=== PATIENT | female | born 1960 | race Caucasian/White ===

== ENCOUNTER 2021-05-20 10:41 | Emergency (ER) | payer MEDICARE, SELFPAY ==
[2021-05-20] VITALS (7 sets, daily range): BP systolic 107–118; BP diastolic 55–73; PULSE 103–112; RESP 26–32; TEMP 37; O2SAT 92–98; BMI 24.9
--- NOTE | 2021-05-20 10:50 | DI.RAD.S_ITS ---
PROCEDURE: XR CHEST 2V INDICATIONS: shortness of breath TECHNIQUE: 2 views of the chest were acquired. COMPARISON: None. FINDINGS: Surgical changes and devices: Cervical spine fixation hardware is seen. Lungs and pleura: Patchy interstitial infiltrates are seen, which are worst peripherally. No pleural effusions or pneumothorax. Mediastinum: Mediastinal contours are normal. Heart size is normal. Bones and chest wall: No suspicious bony abnormalities. Age-appropriate bony degenerative changes are seen. Soft tissues appear unremarkable. IMPRESSION: COVID pneumonia until proven otherwise. Postoperative and degenerative changes are seen. Dictated by: Deepak Casiano M.D. on 05/20/2021 at 11:00 Approved by: Deepak Casiano M.D. on 05/20/2021 at 11:01
--- NOTE | 2021-05-20 11:06 | ED_ITS ---
HPI - General Adult General Chief complaint: Shortness of Breath/Dyspnea Stated complaint: COPD, low oxygen levels Time Seen by Provider: 05/20/21 10:56 Source: patient Mode of arrival: Ambulatory Limitations: no limitations History of Present Illness HPI narrative: Patient is a 61-year-old female. Has a history of COPD and CHF. She is here with her sister. He is relatively new to the area. Initial appointment with a primary doctor last Friday through telemedicine however they missed that appointment and their next scheduled appointment is in for another week. Patient is on home oxygen. 2-3 as needed. She is here in the emergency department because she reports that over the past several weeks/days she has had an increase in sputum production. No fevers. No change in color the sputum. She does get short of breath. She has had coughing fits. Occasionally has chest pain but nothing currently. No swelling in her lower extremities. Related Data Previous Rx's Medication Instructions Recorded azithromycin 250 mg tablet See Rx Instructions .ROUTE 05/20/21 .COMPLEX #6 tab furosemide 20 mg tablet (Lasix) 20 mg PO DAILY #14 tab 05/20/21 prednisone 20 mg tablet 20 mg PO DAILY #14 tab 05/20/21 Allergies Allergy/AdvReac Type Severity Reaction Status Date / Time marijuana Allergy Severe Vomiting Verified 05/20/21 11:53 methadone Allergy Severe Vomiting Verified 05/20/21 11:53 Review of Systems Constitutional Constitutional: Denies fever(s) and Denies headache(s) ENT Ears, Nose, Mouth, and Throat: Denies headache(s) Cardiovascular Cardiovascular: Reports as per HPI and Reports system reviewed and no additional complaints, except as documented Respiratory Respiratory: Reports as per HPI and Reports system reviewed and no additional complaints, except as documented Gastrointestinal Gastrointestinal: Reports system reviewed and no additional complaints, except as documented Genitourinary Genitourinary: Reports system reviewed and no additional complaints, except as documented Musculoskeletal Musculoskeletal: Reports system reviewed and no additional complaints, except as documented and Reports as per HPI Integumentary/Breasts Skin/Breast: Reports system reviewed and no additional complaints, except as documented Neurologic Neurologic: Reports system reviewed and no additional complaints, except as documented and Denies headache(s) Hematologic/Lymphatic On Anticoagulants: No Allergic/Immunologic Allergic/Immunologic: Reports system reviewed and no additional complaints, except as documented Patient History Medical History Chronic obstructive pulmonary disease Congestive heart failure Social History Smoking Status: Current every day smoker Exam Initial Vital Signs Initial Vital Signs: Vital Signs Temperature 98.6 F 05/20/21 11:04 Pulse Rate 112 H 05/20/21 11:04 Respiratory Rate 30 H 05/20/21 11:04 Blood Pressure 118/73 05/20/21 11:04 Pulse Oximetry 96 05/20/21 11:04 Const General: cooperative and healthy appearing Limitations: mental status not altered [facility] Head: normal to inspection and normocephalic Neck Neck: normal visual inspection Resp Effort & Inspection: normal respiratory effort Auscultation: diminished lung sounds Cardio Rate: regular rate Rhythm: regular rhythm GI Inspection: non-distended Palpation: soft and No tender Back/Spine/Pelvis Back: normal to inspection Skin Lesions: no lesions Rashes: no rashes Neuro General: patient alert, patient awake, patient oriented x3 and moves all extremities Extrem General: capillary refill normal Psych Appearance: grossly normal and well kempt Course Orders Ordered: ED Orders 05/20/21 10:50 XR chest 2V Stat COVID19 -Nasal swab/Pre-Proc Stat EKG-12 Lead Stat Measure peak expiratory flow ONCE RT Consult Eval and Treat Now 05/20/21 11:35 Complete Blood Count AUTO DIFF Stat Comprehensive Metabolic Panel Stat Lactate (Lactic Acid) Stat Lipase Stat NT-proBNP (BNP-Adult 18+) Stat Troponin I Stat Discontinued Medications Methylprednisolone (Methylprednisolone 125 Mg/2 Ml Vial) 125 mg IV NOW ONE Stop: 05/20/21 11:34 Last Admin: 05/20/21 12:08 Dose: 125 mg Documented by: KENDRA Vital Signs Vital signs: Vital Signs - 8 hr 05/20/21 11:04 Temperature 98.6 F Pulse Rate 112 H Respiratory Rate 30 H Blood Pressure 118/73 Pulse Oximetry 96 Medical Decision Making Lab Data Lab results reviewed: Yes I reviewed the patient's lab results. Result diagrams: 05/20/21 11:35 05/20/21 11:35 Labs: Lab Results 05/20/21 05/20/21 05/20/21 Range/Units 10:50 11:35 11:35 WBC 26.3 H (4.5-11.0) X10^3/uL RBC 5.58 H (4.0-5.2) X10^6/uL Hgb 12.5 (12.0-16.0) g/dL Hct 40.4 (36-46) % MCV 72.5 L (80-100) fL MCH 22.4 L (26-34) PG MCHC 30.9 (30-36) % RDW 14.8 (11.6-14.8) % Plt Count 379 (150-400) X10^3/uL Neut % (Auto) Not Reportable Lymph % (Auto) Not Reportable [place] % (Auto) Not Reportable Eos % (Auto) Not Reportable Baso % (Auto) Not Reportable Lymph # (Auto) Not Reportable [place] # (Auto) Not Reportable Baso # (Auto) Not Reportable Total Counted 100 Seg Neutrophils % 90.0 H (38-70) % Lymphocytes % (Manual) 5.0 L (25-45) % Monocytes % (Manual) 4.0 (2-11) % Eosinophils % (Manual) 1.0 L (2-4) % Neutrophils # (Manual) 77463 H (4120-2121) /uL RBC Morphology Normal morphology Sodium 138 (137-145) mmol/L Potassium 4.1 (3.4-5.1) mmol/L Chloride 96 L (98-107) mmol/L Carbon Dioxide 39 H (22-32) mmol/L BUN 5 L (7-17) mg/dL Creatinine 0.54 (0.52-1.04) mg/dL Estimated GFR > 60.0 (>60) mL/min BUN/Creatinine Ratio 9.3 (6-22) Glucose 106 (80-110) mg/dL Lactate (0.7-2.1) mmol/L Calcium 9.2 (8.4-10.2) mg/dL Total Bilirubin 0.3 (0.2-1.3) mg/dL AST 16 (14-36) IU/L ALT 8 (<35) IU/L Alkaline Phosphatase 159 H (38-126) U/L Troponin I (0.01-0.034) ng/mL NT-Pro-B Natriuret Pep (<125) pg/mL Total Protein 6.6 (6.3-8.2) g/dL Albumin 3.5 (3.5-5.0) g/dL Globulin 3.1 (1.7-4.1) g/dL Albumin/Globulin Ratio 1.1 (1.0-2.8) Lipase (23-300) U/L SARS-CoV-2 (PCR) Negative (Negative) 05/20/21 05/20/21 Range/Units 11:35 11:35 WBC (4.5-11.0) X10^3/uL RBC (4.0-5.2) X10^6/uL Hgb (12.0-16.0) g/dL Hct (36-46) % MCV (80-100) fL MCH (26-34) PG MCHC (30-36) % RDW (11.6-14.8) % Plt Count (150-400) X10^3/uL Neut % (Auto) Lymph % (Auto) [place] % (Auto) Eos % (Auto) Baso % (Auto) Lymph # (Auto) [place] # (Auto) Baso # (Auto) Total Counted Seg Neutrophils % (38-70) % Lymphocytes % (Manual) (25-45) % Monocytes % (Manual) (2-11) % Eosinophils % (Manual) (2-4) % Neutrophils # (Manual) (0893-9666) /uL RBC Morphology Sodium (137-145) mmol/L Potassium (3.4-5.1) mmol/L Chloride (98-107) mmol/L Carbon Dioxide (22-32) mmol/L BUN (7-17) mg/dL Creatinine (0.52-1.04) mg/dL Estimated GFR (>60) mL/min BUN/Creatinine Ratio (6-22) Glucose (80-110) mg/dL Lactate 0.8 (0.7-2.1) mmol/L Calcium (8.4-10.2) mg/dL Total Bilirubin (0.2-1.3) mg/dL AST (14-36) IU/L ALT (<35) IU/L Alkaline Phosphatase (38-126) U/L Troponin I 0.022 (0.01-0.034) ng/mL NT-Pro-B Natriuret Pep 3500 H (<125) pg/mL Total Protein (6.3-8.2) g/dL Albumin (3.5-5.0) g/dL Globulin (1.7-4.1) g/dL Albumin/Globulin Ratio (1.0-2.8) Lipase 25 (23-300) U/L SARS-CoV-2 (PCR) (Negative) Imaging Data Chest x-ray: Radiologist's Impression: [address] [address] XRay Report Signed Patient: Juliet Rodriguez MR#: [id number] : 1960 Acct:[id number] Age/Sex: 61 / F Date of Service: 05/20/21 Loc: ED Accession Number: [id number] ?? Procedure: XR chest 2V Ordering Provider: Malcolm Richey D.O. PROCEDURE:? XR CHEST 2V ? INDICATIONS:? shortness of breath ? TECHNIQUE:? 2 views of the chest were acquired.? ? COMPARISON:? None. ? FINDINGS:? ? Surgical changes and devices:? Cervical spine fixation hardware is seen. ? Lungs and pleura:? Patchy interstitial infiltrates are seen, which are worst peripherally.? No pleural effusions or pneumothorax.? ? Mediastinum:? Mediastinal contours are normal.? Heart size is normal.? ? Bones and chest wall:? No suspicious bony abnormalities.? Age-appropriate bony degenerative changes are seen.? Soft tissues appear unremarkable.? IMPRESSION:? COVID pneumonia until proven otherwise. ? Postoperative and degenerative changes are seen.? ? ? Dictated by: Deepak Casiano M.D. on 05/20/2021 at 11:00 ? ? Approved by: Deepak Casiano M.D. on 05/20/2021 at 11:01? ECG Data Attestation: I personally reviewed and interpreted this ECG as follows: Prior ECG tracings: not available for review Interpretation: Sinus tachycardia Ventricular rate 113 Normal axis Normal QRS Normal QTC No ST T wave changes MDM Narrative Medical decision making narrative: Patient does have a history of COPD and CHF. Her presentation today is more consistent with a COPD exacerbation however she does have a slightly elevated BNP. We have no prior ones to compare to. Oxygen saturations greater than 95% on 2 L. She does have oxygen for home. Plan will be is to start her on antibiotics given the change in sputum production. Will also increase her steroids for the next couple days and also increase her Lasix. She is scheduled to follow-up with the primary doctor. Both her and her sister her given return precautions. They expressed understanding agreement. Discharge Plan Departure Patient Disposition: Home Clinical Impression: COPD exacerbation, CHF (congestive heart failure) Instructions: DI for Heart Failure, DI for Chronic Obstructive Pulmonary Disease Activity Restrictions/Additional Instructions: Will start you on antibiotics hand for the next couple days we will increase your Lasix and also your prednisone. Please start taking them as directed. Keep all of your scheduled medical appointments. Return to the emergency department for any new or worsening symptoms Prescriptions: New azithromycin 250 mg tablet See Rx Instructions .ROUTE .COMPLEX Qty: 6 0RF Rx Instructions: For 250 mg dose pack: take 500 mg today (day 1), then 250 mg for 4 days (days 2-5) prednisone 20 mg tablet 20 mg PO DAILY Qty: 14 0RF furosemide [Lasix] 20 mg tablet 20 mg PO DAILY Qty: 14 0RF
[2021-05-20 11:17] LABS: COVID19 -Nasal RAPID Negative (Negative)
[2021-05-20 11:47] LABS: Hematocrit 40.4 % (36-46); Hemoglobin 12.5 g/dL (12.0-16.0); Mean Corpuscular HGB Conc 30.9 % (30-36); Mean Corpuscular Hemoglobin 22.4 PG (26-34); Mean Corpuscular Volume 72.5 fL (80-100); Platelet Count 379 X10^3/uL (150-400); Red Blood Cell Count 5.58 X10^6/uL (4.0-5.2); Red Cell Distribution Width 14.8 % (11.6-14.8); White Blood Cell Count 26.3 X10^3/uL (4.5-11.0)
[2021-05-20 11:48] LABS: Add Manual Diff / Slide Review YES
[2021-05-20 11:58] LABS: Lactate (Lactic Acid) 0.8 mmol/L (0.7-2.1)
[2021-05-20 11:59] LABS: Alanine Aminotransferase 8 IU/L (<35); Albumin 3.5 g/dL (3.5-5.0); Albumin Globulin Ratio 1.1 (1.0-2.8); Alkaline Phosphatase 159 U/L (38-126); Aspartate Aminotransferase 16 IU/L (14-36); BUN Creatinine Ratio 9.3 (6-22); Bilirubin Total 0.3 mg/dL (0.2-1.3); Blood Urea Nitrogen 5 mg/dL (7-17); Calcium 9.2 mg/dL (8.4-10.2); Carbon Dioxide 39 mmol/L (22-32); Chloride 96 mmol/L (98-107); Estimated Glomerular Filt Rate > 60.0 mL/min (>60); Globulin 3.1 g/dL (1.7-4.1); Glucose 106 mg/dL (80-110); HEMOLYSIS < 15 (0-50); Lipase 25 U/L (23-300); Potassium 4.1 mmol/L (3.4-5.1); Sodium 138 mmol/L (137-145); Total Protein 6.6 g/dL (6.3-8.2)
[2021-05-20 12:03] LABS: Neutrophils Absolute Manual 23670 /uL (3000-5900); RBC Morphology Normal Morphology; Total Cells Counted 100
[2021-05-20] MEDS: methylPREDNISolone 125 MG/2 ML VIAL IV (12:08)
[2021-05-20 12:11] LABS: NT-proBNP (BNP-Adult 18+) 3500 pg/mL (<125); Troponin I 0.022 ng/mL (0.01-0.034)
== END 2021-05-20 13:11 | disposition home or self-care (01) ==
PROVIDERS: Emergency Provider Emergency Medicine
DX: J44.1 Chronic obstructive pulmonary disease with (acute) exacerbation (principal); I50.9 Heart failure, unspecified; F17.200 Nicotine dependence, unspecified, uncomplicated; R00.0 Tachycardia, unspecified
CPT/HCPCS: 36415; 71046; 80053; 83605; 83690; 83880; 84484; 85007; 85025; 87635; 93005; 99285; C9803; J2930

== ENCOUNTER 2021-05-22 21:29 | Inpatient (IN) | payer MEDICARE, SELFPAY ==
[2021-05-22] VITALS (10 sets, daily range): BP systolic 111–142; BP diastolic 56–69; PULSE 101–111; RESP 26–41; TEMP 36.6–37; O2SAT 93–99
--- NOTE | 2021-05-22 22:23 | DI.RAD.S_ITS ---
PROCEDURE: XR CHEST 1V INDICATIONS: short of breath TECHNIQUE: One view of the chest was acquired. COMPARISON: [facility], CR, XR CHEST 2V, 05/20/2021, 11:37. FINDINGS: Surgical changes and devices: Stable postsurgical changes from ACDF. Lungs and pleura: Persistent patchy ill-defined airspace opacities noted throughout the bilateral hemithoraces most predominantly in the periphery. Associated linear scarring of the bilateral mid lung zones. Mild blunting of the bilateral costophrenic angles likely representing scarring versus small pleural effusions. Mediastinum: Mediastinal contours appear stable. Heart size is normal. Bones and chest wall: No suspicious bony lesions. Overlying soft tissues appear unremarkable. IMPRESSION: Persistent patchy ill-defined airspace opacities noted in the bilateral hemithoraces and predominantly in a peripheral distribution. There is associated background interstitial lung disease and scarring. Findings appear stable to slightly improved compared to prior study and likely represents multifocal airspace disease/pneumonia. Suspected small bilateral pleural effusions. Dictated by: Noble Carcamo M.D. on 05/22/2021 at 22:49 Approved by: Noble Carcamo M.D. on 05/22/2021 at 22:52
[2021-05-22] MEDS: FUROSEMIDE 40 MG/4 ML VIAL IV (22:57)
[2021-05-22] MEDS: methylPREDNISolone 125 MG/2 ML VIAL IV (22:57)
[2021-05-22 23:02] LABS: Alanine Aminotransferase 10 IU/L (<35); Albumin 3.8 g/dL (3.5-5.0); Albumin Globulin Ratio 1.2 (1.0-2.8); Alkaline Phosphatase 127 U/L (38-126); Aspartate Aminotransferase 21 IU/L (14-36); BUN Creatinine Ratio 24.2 (6-22); Bilirubin Total 0.4 mg/dL (0.2-1.3); Blood Urea Nitrogen 15 mg/dL (7-17); Calcium 9.1 mg/dL (8.4-10.2); Chloride 96 mmol/L (98-107); Creatine Kinase < 20 U/L (30-135); Estimated Glomerular Filt Rate > 60.0 mL/min (>60); Globulin 3.3 g/dL (1.7-4.1); Glucose 103 mg/dL (80-110); HEMOLYSIS 24 (0-50); Hematocrit 43.9 % (36-46); Hemoglobin 13.2 g/dL (12.0-16.0); Mean Corpuscular HGB Conc 30.1 % (30-36); Mean Corpuscular Hemoglobin 22.2 PG (26-34); Mean Corpuscular Volume 73.6 fL (80-100); Platelet Count 457 X10^3/uL (150-400); Potassium 3.8 mmol/L (3.4-5.1); Red Blood Cell Count 5.97 X10^6/uL (4.0-5.2); Sodium 141 mmol/L (137-145); Total Protein 7.1 g/dL (6.3-8.2); White Blood Cell Count 15.6 X10^3/uL (4.5-11.0)
[2021-05-22 23:03] LABS: Add Manual Diff / Slide Review YES
[2021-05-22 23:05] LABS: INR 1.1 (0.9-1.3); Prothrombin Time 12.1 SECONDS (10.1-12.7)
[2021-05-22 23:06] LABS: COVID19 -Nasal RAPID Negative (Negative)
[2021-05-22 23:07] LABS: PTT Partial Thromboplastin Tim 35 SECONDS (26.4-36.2)
[2021-05-22 23:08] LABS: Carbon Dioxide 39 mmol/L (22-32); Lactate (Lactic Acid) 0.9 mmol/L (0.7-2.1)
--- NOTE | 2021-05-22 23:13 | DI.CT.S_ITS ---
PROCEDURE: CT HEAD/BRAIN WO CON INDICATIONS: altered mental status TECHNIQUE: Noncontrast 4.5 mm thick angled axial sections acquired from the foramen magnum to the vertex, with coronal and sagittal reformats. For radiation dose reduction, the following was used: automated exposure control, adjustment of mA and/or kV according to patient size. COMPARISON: None. FINDINGS: Image quality: Excellent. CSF spaces: Basal cisterns are patent. No extra-axial fluid collections. The ventricles are symmetric in size and shape. Brain: No intracranial bleeds or masses. There is cerebral volume loss for age, with resultant ventricular and sulcal prominence. There are periventricular and deep white matter chronic small vessel ischemic changes. There is intracranial internal carotid artery atherosclerosis. Skull and face: Calvarium and visualized facial bones appear intact, without suspicious lesions. Sinuses: Visualized sinuses and mastoids are clear. IMPRESSION: CT head without acute intracranial abnormalities. Dictated by: Noble Carcamo M.D. on 05/22/2021 at 23:48 Approved by: Noble Carcamo M.D. on 05/22/2021 at 23:50
--- NOTE | 2021-05-22 23:13 | ED.AMS ---
HPI - Altered Mental Status General Chief Complaint: Upper Respiratory Symptoms Stated Complaint: difficulty breathing Time Seen by Provider: 05/22/21 22:22 Source: patient and family Mode of arrival: Wheelchair Limitations: no limitations History of Present Illness HPI narrative: Patient is a 61-year-old female history of COPD CHF atrial fibrillation maybe on Eliquis but I do not believe she is taking it, presents today with decreasing mental status. She apparently just moved here from [place] to live with her sister to help take care of her. She is chronically on oxygen. She was seen and evaluated here diagnosed both COPD exacerbation and congestive heart failure presenting today with decreasing mental status. Sister states that she has had decreasing mental status and complains of pain this evening and wanted to go the emergency department. She is able to answer some questions but is actually quite somnolent. Related Data Previous Rx's Medication Instructions Recorded azithromycin 250 mg tablet See Rx Instructions .ROUTE 05/20/21 .COMPLEX #6 tab furosemide 20 mg tablet (Lasix) 20 mg PO DAILY #14 tab 05/20/21 prednisone 20 mg tablet 20 mg PO DAILY #14 tab 05/20/21 Allergies Allergy/AdvReac Type Severity Reaction Status Date / Time marijuana Allergy Severe Vomiting Verified 05/20/21 11:53 methadone Allergy Severe Vomiting Verified 05/20/21 11:53 Review of Systems Constitutional Constitutional: Denies fever(s) Cardiovascular Cardiovascular: Denies chest pain and Denies irregular heart rhythm Gastrointestinal Gastrointestinal: Denies abdominal pain and Denies nausea Integumentary/Breasts Skin/Breast: Denies rash Patient History Medical History Chronic obstructive pulmonary disease Congestive heart failure Social History Smoking Status: Current every day smoker Smoking Status: Current every day smoker tobacco type: cigarettes alcohol intake frequency: 0-2 drinks per day Substance Use Type: does not use Exam Initial Vital Signs Initial Vital Signs: Vital Signs Temperature 97.8 F 05/22/21 21:35 Pulse Rate 111 H 05/22/21 21:35 Respiratory Rate 36 H 05/22/21 21:35 Blood Pressure 112/64 05/22/21 21:35 Pulse Oximetry 93 05/22/21 21:35 Course Orders Ordered: ED Orders 05/22/21 22:50 Blood Culture Stat 05/22/21 23:02 ABG [Arterial Blood Gas] Stat 05/22/21 23:13 CT head/brain wo con Stat 05/22/21 23:26 EKG-12 Lead Stat 05/23/21 00:07 Urinalysis and Microscopic Stat Urine Drug Screen, Rapid Stat 05/23/21 00:23 Trop I [Troponin I] Stat 05/23/21 01:27 BiPAP Ventilatory Support RT PROTOCOL 05/23/21 03:32 Arterial Blood Gas Stat Acetaminophen (Acetaminophen 325 Mg Tablet) 650 mg PO Q6HR PRN PRN Reason: Fever Albuterol (Albuterol 2.5 Mg/3 Ml Neb (Adult)) 2.5 mg INH [id number] PRN PRN Reason: Shortness Of Breath Or Wheezing Albuterol/Ipratropium (Albuterol/Ipratropium 3 Ml Ampul) 3 ml INH [id number] DANYELL Aspirin (Aspirin Ec 81 Mg Tablet) 81 mg PO DAILY [facility] Azithromycin (Azithromycin 250 Mg Tablet) 500 mg PO DAILY [facility] Enoxaparin Sodium (Enoxaparin 40 Mg/0.4 Ml Syringe) 40 mg SUBCUT DAILY [facility] Furosemide (Furosemide 20 Mg Tablet) 40 mg PO DAILY [facility] Metoclopramide HCl (Metoclopramide 10 Mg/2 Ml Inj) 10 mg IV Q6HR PRN PRN Reason: Nausea And Vomiting Naloxone HCl (Naloxone 0.4 Mg/Ml Vial) 0.2 mg IV Q2MIN PRN PRN Reason: Opiate Reversal Pantoprazole Sodium (Pantoprazole Dr 40 Mg Tablet) 40 mg PO 0700 [facility] Discontinued Medications Albuterol/Ipratropium (Albuterol/Ipratropium 3 Ml Ampul) 3 ml INH NOW ONE Stop: 05/22/21 22:24 Furosemide (Furosemide 40 Mg/4 Ml Vial) 40 mg IV NOW ONE Stop: 05/22/21 22:24 Last Admin: 05/22/21 22:57 Dose: 40 mg Documented by: HONEY Lorazepam (Lorazepam 2 Mg/Ml Inj) 0.5 mg IV NOW ONE Stop: 05/23/21 06:23 Last Admin: 05/23/21 06:29 Dose: 0.5 mg Documented by: ABEBA Methylprednisolone (Methylprednisolone 125 Mg/2 Ml Vial) 125 mg IV NOW ONE Stop: 05/22/21 22:24 Last Admin: 05/22/21 22:57 Dose: 125 mg Documented by: HONEY Vital Signs Vital signs: Vital Signs - 8 hr 05/22/21 23:45 05/22/21 23:51 05/23/21 00:00 Temperature 98.6 F 98.6 F 98.6 F Pulse Rate 104 H 102 H 100 H Respiratory Rate 35 H 29 H 16 Blood Pressure 118/59 L 111/56 L 112/53 L Pulse Oximetry 99 98 99 05/23/21 00:15 05/23/21 00:30 05/23/21 00:45 Temperature 98.8 F 98.8 F 98.8 F Pulse Rate 101 H 104 H 103 H Respiratory Rate 17 Blood Pressure 130/62 130/60 120/58 L Pulse Oximetry 98 98 99 05/23/21 01:00 05/23/21 01:15 05/23/21 01:30 Temperature 99.0 F 99.1 F 99.3 F Pulse Rate 99 H 101 H 97 H Respiratory Rate 25 H Blood Pressure 113/57 L 106/58 L 113/58 L Pulse Oximetry 99 98 99 05/23/21 01:45 05/23/21 02:00 05/23/21 02:15 Temperature 99.3 F 99.1 F 99.0 F Pulse Rate 98 H 100 H 98 H Respiratory Rate 25 H 24 25 H Blood Pressure 105/55 L 132/63 124/58 L Pulse Oximetry 97 96 97 05/23/21 02:30 05/23/21 02:45 05/23/21 03:00 Temperature 98.8 F 98.8 F 98.8 F Pulse Rate 97 H 97 H 104 H Respiratory Rate 27 H 23 25 H Blood Pressure 110/54 L 117/57 L 137/61 Pulse Oximetry 97 98 98 05/23/21 03:15 05/23/21 03:30 05/23/21 03:40 Temperature 98.8 F 99.0 F Pulse Rate 102 H 100 H Respiratory Rate 27 H 28 H Blood Pressure 137/63 119/57 L 119/57 L Pulse Oximetry 99 99 05/23/21 03:45 05/23/21 04:00 05/23/21 05:25 Temperature 99.0 F 99.1 F Pulse Rate 101 H 95 H Respiratory Rate 22 23 Blood Pressure 119/59 L 102/51 L 106/58 L Pulse Oximetry 98 99 MDM - Altered Mental Status Lab Data Result diagrams: 05/22/21 22:32 05/22/21 22:32 Labs: Lab Results 05/22/21 05/22/21 05/22/21 Range/Units 22:32 22:32 22:32 WBC 15.6 H (4.5-11.0) X10^3/uL RBC 5.97 H (4.0-5.2) X10^6/uL Hgb 13.2 (12.0-16.0) g/dL Hct 43.9 (36-46) % MCV 73.6 L (80-100) fL MCH 22.2 L (26-34) PG MCHC 30.1 (30-36) % RDW 15.0 H (11.6-14.8) % Plt Count 457 H (150-400) X10^3/uL Neut % (Auto) Not Reportable Lymph % (Auto) Not Reportable [place] % (Auto) Not Reportable Eos % (Auto) Not Reportable Baso % (Auto) Not Reportable Lymph # (Auto) Not Reportable [place] # (Auto) Not Reportable Baso # (Auto) Not Reportable Total Counted 100 Seg Neutrophils % 72.0 H (38-70) % Band Neutrophils % 2.0 L (3-7) % Lymphocytes % (Manual) 12.0 L (25-45) % Monocytes % (Manual) 13.0 H (2-11) % Basophils % (Manual) 1.0 (0-1) % Neutrophils # (Manual) 56710 H (8822-1138) /uL RBC Morphology See below Anisocytosis 1+ H PT 12.1 (10.1-12.7) SECONDS INR 1.1 (0.9-1.3) APTT 35 (26.4-36.2) SECONDS ABG pH (7.35-7.45) ABG pCO2 (35-45) mmHg ABG pO2 (80-100) mmHg ABG HCO3 (22-26) mmol/L ABG Total CO2 (21-31) mmol/L ABG O2 Saturation (95-100) % ABG Base Excess (-2-2) mmol/L FiO2 Sodium 141 (137-145) mmol/L Potassium 3.8 (3.4-5.1) mmol/L Chloride 96 L (98-107) mmol/L Carbon Dioxide 39 H (22-32) mmol/L BUN 15 (7-17) mg/dL Creatinine 0.62 (0.52-1.04) mg/dL Estimated GFR > 60.0 (>60) mL/min BUN/Creatinine Ratio 24.2 H (6-22) Glucose 103 (80-110) mg/dL Lactate (0.7-2.1) mmol/L Calcium 9.1 (8.4-10.2) mg/dL Magnesium 2.0 (1.6-2.3) mg/dL Total Bilirubin 0.4 (0.2-1.3) mg/dL AST 21 (14-36) IU/L ALT 10 (<35) IU/L Alkaline Phosphatase 127 H (38-126) U/L Total Creatine Kinase < 20 L (30-135) U/L CK-MB (CK-2) TNP CK-MB (CK-2) Rel Index TNP Troponin I 0.025 (0.01-0.034) ng/mL NT-Pro-B Natriuret Pep 5340 H (<125) pg/mL Total Protein 7.1 (6.3-8.2) g/dL Albumin 3.8 (3.5-5.0) g/dL Globulin 3.3 (1.7-4.1) g/dL Albumin/Globulin Ratio 1.2 (1.0-2.8) Procalcitonin 0.09 (<0.5) ng/mL Urine Color Urine Appearance Urine pH (4.5-8.0) Ur Specific [place] (1.000-1.035) Urine Protein (Negative) Urine Glucose (UA) (Negative) g/dL Urine Ketones (NEGATIVE) Urine Occult Blood (Negative) Urine Nitrate (Negative) Urine Bilirubin (NEGATIVE) Urine Urobilinogen (0.2) E.U./dL Ur Leukocyte Esterase (NEGATIVE) Urine RBC (0-5/HPF) Urine WBC (0-5/HPF) Ur Renal Epithelial Cell (0-1/HPF) Urine Bacteria (None) Ur Culture Indicated? U Opiates 300ng/mL cut (Negative) Ur Oxycodone Screen (Negative) Urine Methadone Screen (Negative) Ur Barbiturates Screen (Negative) U Tricyclic Antidepress (Negative) Ur Phencyclidine Scrn (Negative) Ur Amphetamines Screen (Negative) U Methamphetamines Scrn (Negative) Ur MDMA Scrn (Ecstasy) (Negative) U Benzodiazepines Scrn (Negative) Urine Cocaine Screen (Negative) U Marijuana (THC) Screen (Negative) SARS-CoV-2 (PCR) (Negative) 05/22/21 05/22/21 05/22/21 Range/Units 22:32 22:37 22:37 WBC (4.5-11.0) X10^3/uL RBC (4.0-5.2) X10^6/uL Hgb (12.0-16.0) g/dL Hct (36-46) % MCV (80-100) fL MCH (26-34) PG MCHC (30-36) % RDW (11.6-14.8) % Plt Count (150-400) X10^3/uL Neut % (Auto) Lymph % (Auto) [place] % (Auto) Eos % (Auto) Baso % (Auto) Lymph # (Auto) [place] # (Auto) Baso # (Auto) Total Counted Seg Neutrophils % (38-70) % Band Neutrophils % (3-7) % Lymphocytes % (Manual) (25-45) % Monocytes % (Manual) (2-11) % Basophils % (Manual) (0-1) % Neutrophils # (Manual) (1307-6031) /uL RBC Morphology Anisocytosis PT (10.1-12.7) SECONDS INR (0.9-1.3) APTT (26.4-36.2) SECONDS ABG pH (7.35-7.45) ABG pCO2 (35-45) mmHg ABG pO2 (80-100) mmHg ABG HCO3 (22-26) mmol/L ABG Total CO2 (21-31) mmol/L ABG O2 Saturation (95-100) % ABG Base Excess (-2-2) mmol/L FiO2 Sodium (137-145) mmol/L Potassium (3.4-5.1) mmol/L Chloride (98-107) mmol/L Carbon Dioxide (22-32) mmol/L BUN (7-17) mg/dL Creatinine (0.52-1.04) mg/dL Estimated GFR (>60) mL/min BUN/Creatinine Ratio (6-22) Glucose (80-110) mg/dL Lactate 0.9 (0.7-2.1) mmol/L Calcium (8.4-10.2) mg/dL Magnesium (1.6-2.3) mg/dL Total Bilirubin (0.2-1.3) mg/dL AST (14-36) IU/L ALT (<35) IU/L Alkaline Phosphatase (38-126) U/L Total Creatine Kinase (30-135) U/L CK-MB (CK-2) CK-MB (CK-2) Rel Index Troponin I (0.01-0.034) ng/mL NT-Pro-B Natriuret Pep (<125) pg/mL Total Protein (6.3-8.2) g/dL Albumin (3.5-5.0) g/dL Globulin (1.7-4.1) g/dL Albumin/Globulin Ratio (1.0-2.8) Procalcitonin (<0.5) ng/mL Urine Color Urine Appearance Urine pH (4.5-8.0) Ur Specific [place] (1.000-1.035) Urine Protein (Negative) Urine Glucose (UA) (Negative) g/dL Urine Ketones (NEGATIVE) Urine Occult Blood (Negative) Urine Nitrate (Negative) Urine Bilirubin (NEGATIVE) Urine Urobilinogen (0.2) E.U./dL Ur Leukocyte Esterase (NEGATIVE) Urine RBC (0-5/HPF) Urine WBC (0-5/HPF) Ur Renal Epithelial Cell (0-1/HPF) Urine Bacteria (None) Ur Culture Indicated? U Opiates 300ng/mL cut (Negative) Ur Oxycodone Screen (Negative) Urine Methadone Screen (Negative) Ur Barbiturates Screen (Negative) U Tricyclic Antidepress (Negative) Ur Phencyclidine Scrn (Negative) Ur Amphetamines Screen (Negative) U Methamphetamines Scrn (Negative) Ur MDMA Scrn (Ecstasy) (Negative) U Benzodiazepines Scrn (Negative) Urine Cocaine Screen (Negative) U Marijuana (THC) Screen (Negative) SARS-CoV-2 (PCR) Negative Negative (Negative) 05/22/21 05/23/21 05/23/21 Range/Units 23:02 00:07 00:07 WBC (4.5-11.0) X10^3/uL RBC (4.0-5.2) X10^6/uL Hgb (12.0-16.0) g/dL Hct (36-46) % MCV (80-100) fL MCH (26-34) PG MCHC (30-36) % RDW (11.6-14.8) % Plt Count (150-400) X10^3/uL Neut % (Auto) Lymph % (Auto) [place] % (Auto) Eos % (Auto) Baso % (Auto) Lymph # (Auto) [place] # (Auto) Baso # (Auto) Total Counted Seg Neutrophils % (38-70) % Band Neutrophils % (3-7) % Lymphocytes % (Manual) (25-45) % Monocytes % (Manual) (2-11) % Basophils % (Manual) (0-1) % Neutrophils # (Manual) (3001-6900) /uL RBC Morphology Anisocytosis PT (10.1-12.7) SECONDS INR (0.9-1.3) APTT (26.4-36.2) SECONDS ABG pH 7.26 L* (7.35-7.45) ABG pCO2 97.2 H* (35-45) mmHg ABG pO2 106 H (80-100) mmHg ABG HCO3 44 H (22-26) mmol/L ABG Total CO2 47 H (21-31) mmol/L ABG O2 Saturation 97 (95-100) % ABG Base Excess 17.0 H (-2-2) mmol/L FiO2 28 Sodium (137-145) mmol/L Potassium (3.4-5.1) mmol/L Chloride (98-107) mmol/L Carbon Dioxide (22-32) mmol/L BUN (7-17) mg/dL Creatinine (0.52-1.04) mg/dL Estimated GFR (>60) mL/min BUN/Creatinine Ratio (6-22) Glucose (80-110) mg/dL Lactate (0.7-2.1) mmol/L Calcium (8.4-10.2) mg/dL Magnesium (1.6-2.3) mg/dL Total Bilirubin (0.2-1.3) mg/dL AST (14-36) IU/L ALT (<35) IU/L Alkaline Phosphatase (38-126) U/L Total Creatine Kinase (30-135) U/L CK-MB (CK-2) CK-MB (CK-2) Rel Index Troponin I (0.01-0.034) ng/mL NT-Pro-B Natriuret Pep (<125) pg/mL Total Protein (6.3-8.2) g/dL Albumin (3.5-5.0) g/dL Globulin (1.7-4.1) g/dL Albumin/Globulin Ratio (1.0-2.8) Procalcitonin (<0.5) ng/mL Urine Color Yellow Urine Appearance Clear Urine pH 7.0 (4.5-8.0) Ur Specific [place] 1.010 (1.000-1.035) Urine Protein Negative (Negative) Urine Glucose (UA) Negative (Negative) g/dL Urine Ketones Negative (NEGATIVE) Urine Occult Blood Negative (Negative) Urine Nitrate Negative (Negative) Urine Bilirubin Negative (NEGATIVE) Urine Urobilinogen 0.2 (0.2) E.U./dL Ur Leukocyte Esterase Negative (NEGATIVE) Urine RBC None seen (0-5/HPF) Urine WBC None seen (0-5/HPF) Ur Renal Epithelial Cell 0-1/hpf (0-1/HPF) Urine Bacteria None seen (None) Ur Culture Indicated? Cult not indicated U Opiates 300ng/mL cut Negative (Negative) Ur Oxycodone Screen Negative (Negative) Urine Methadone Screen Negative (Negative) Ur Barbiturates Screen Negative (Negative) U Tricyclic Antidepress Negative (Negative) Ur Phencyclidine Scrn Negative (Negative) Ur Amphetamines Screen Negative (Negative) U Methamphetamines Scrn Negative (Negative) Ur MDMA Scrn (Ecstasy) Negative (Negative) U Benzodiazepines Scrn Positive H (Negative) Urine Cocaine Screen Negative (Negative) U Marijuana (THC) Screen Negative (Negative) SARS-CoV-2 (PCR) (Negative) 05/23/21 05/23/21 Range/Units 00:23 03:32 WBC (4.5-11.0) X10^3/uL RBC (4.0-5.2) X10^6/uL Hgb (12.0-16.0) g/dL Hct (36-46) % MCV (80-100) fL MCH (26-34) PG MCHC (30-36) % RDW (11.6-14.8) % Plt Count (150-400) X10^3/uL Neut % (Auto) Lymph % (Auto) [place] % (Auto) Eos % (Auto) Baso % (Auto) Lymph # (Auto) [place] # (Auto) Baso # (Auto) Total Counted Seg Neutrophils % (38-70) % Band Neutrophils % (3-7) % Lymphocytes % (Manual) (25-45) % Monocytes % (Manual) (2-11) % Basophils % (Manual) (0-1) % Neutrophils # (Manual) (7034-0895) /uL RBC Morphology Anisocytosis PT (10.1-12.7) SECONDS INR (0.9-1.3) APTT (26.4-36.2) SECONDS ABG pH 7.30 L (7.35-7.45) ABG pCO2 95.8 H* (35-45) mmHg ABG pO2 94 (80-100) mmHg ABG HCO3 47 H (22-26) mmol/L ABG Total CO2 50 H (21-31) mmol/L ABG O2 Saturation 96 (95-100) % ABG Base Excess 20.0 H (-2-2) mmol/L FiO2 35 Sodium (137-145) mmol/L Potassium (3.4-5.1) mmol/L Chloride (98-107) mmol/L Carbon Dioxide (22-32) mmol/L BUN (7-17) mg/dL Creatinine (0.52-1.04) mg/dL Estimated GFR (>60) mL/min BUN/Creatinine Ratio (6-22) Glucose (80-110) mg/dL Lactate (0.7-2.1) mmol/L Calcium (8.4-10.2) mg/dL Magnesium (1.6-2.3) mg/dL Total Bilirubin (0.2-1.3) mg/dL AST (14-36) IU/L ALT (<35) IU/L Alkaline Phosphatase (38-126) U/L Total Creatine Kinase (30-135) U/L CK-MB (CK-2) CK-MB (CK-2) Rel Index Troponin I 0.030 (0.01-0.034) ng/mL NT-Pro-B Natriuret Pep (<125) pg/mL Total Protein (6.3-8.2) g/dL Albumin (3.5-5.0) g/dL Globulin (1.7-4.1) g/dL Albumin/Globulin Ratio (1.0-2.8) Procalcitonin (<0.5) ng/mL Urine Color Urine Appearance Urine pH (4.5-8.0) Ur Specific [place] (1.000-1.035) Urine Protein (Negative) Urine Glucose (UA) (Negative) g/dL Urine Ketones (NEGATIVE) Urine Occult Blood (Negative) Urine Nitrate (Negative) Urine Bilirubin (NEGATIVE) Urine Urobilinogen (0.2) E.U./dL Ur Leukocyte Esterase (NEGATIVE) Urine RBC (0-5/HPF) Urine WBC (0-5/HPF) Ur Renal Epithelial Cell (0-1/HPF) Urine Bacteria (None) Ur Culture Indicated? U Opiates 300ng/mL cut (Negative) Ur Oxycodone Screen (Negative) Urine Methadone Screen (Negative) Ur Barbiturates Screen (Negative) U Tricyclic Antidepress (Negative) Ur Phencyclidine Scrn (Negative) Ur Amphetamines Screen (Negative) U Methamphetamines Scrn (Negative) Ur MDMA Scrn (Ecstasy) (Negative) U Benzodiazepines Scrn (Negative) Urine Cocaine Screen (Negative) U Marijuana (THC) Screen (Negative) SARS-CoV-2 (PCR) (Negative) Imaging Data Chest x-ray: Radiologist's Impression: PROCEDURE:? XR CHEST 1V ? INDICATIONS:? short of breath ? TECHNIQUE:? One view of the chest was acquired.? ? COMPARISON:? [facility], , XR CHEST 2V, 05/20/2021, 11:37. ? FINDINGS:? ? Surgical changes and devices:? Stable postsurgical changes from ACDF. ? Lungs and pleura:? Persistent patchy ill-defined airspace opacities noted throughout the bilateral hemithoraces most predominantly in the periphery.? Associated linear scarring of the bilateral mid lung zones.? Mild blunting of the bilateral costophrenic angles likely representing scarring versus small pleural effusions. ? Mediastinum:? Mediastinal contours appear stable.? Heart size is normal.? ? Bones and chest wall:? No suspicious bony lesions.? Overlying soft tissues appear unremarkable.? ? IMPRESSION:? Persistent patchy ill-defined airspace opacities noted in the bilateral hemithoraces and predominantly in a peripheral distribution.? There is associated background interstitial lung disease and scarring.? Findings appear stable to slightly improved compared to prior study and likely represents multifocal airspace disease/pneumonia.? Suspected small bilateral pleural effusions. ? ? CT scan - head: Radiologist's Impression: PROCEDURE:? CT HEAD/BRAIN WO CON ? INDICATIONS:? altered mental status ? TECHNIQUE:? Noncontrast 4.5 mm thick angled axial sections acquired from the foramen magnum to the vertex, with coronal and sagittal reformats.? For radiation dose reduction, the following was used:? automated exposure control, adjustment of mA and/or kV according to patient size.? ? COMPARISON:? None. ? FINDINGS:? Image quality:? Excellent.? ? CSF spaces:? Basal cisterns are patent.? No extra-axial fluid collections.? The ventricles are symmetric in size and shape.? ? Brain:? No intracranial bleeds or masses.? There is cerebral volume loss for age, with resultant ventricular and sulcal prominence.? There are periventricular and deep white matter chronic small vessel ischemic changes.? There is intracranial internal carotid artery atherosclerosis.? ? Skull and face:? Calvarium and visualized facial bones appear intact, without suspicious lesions.? ? Sinuses:? Visualized sinuses and mastoids are clear.? ? IMPRESSION:? ? CT head without acute intracranial abnormalities. ? ? ECG Data Interpretation: EKG 1. Sinus rhythm rate 1 9 WV interval 130 QRS 82 significant T-wave inversions noted V1 through V 3 some more pronounced than they were [address] elevations EKG number persistent ST inversions V1, V2 [address] changes[address] [facility] Narrative Medical decision making narrative: Patient has decreasing mental status found to be hypercapnic respiratory failure with a CO2 of 90. At he is moving no focal deficits head CT is negative. Blood work otherwise shows some mild leukocytosis which is actually improved from previous, previously was 26 today it is 15. She has a negative procalcitonin negative lactate unclear that this is infectious related. BNP is more elevated today previously 3500 today 5300. She does respond to Lasix Avz catheter is placed. She is also given Solu-Medrol and a breathing treatment. For her hypercapnia she was immediately placed on BiPAP which she did seem to tolerate Sister is at bedside states that she is now her primary caregiver. She does not believe that she is taking Eliquis. She states that she brings her food most of her meals she does require a lot of assistance. But it does sound like she is able to do most of her daily living activities on her own. This seems to be a significant decrease in her baseline. Significant bed shortage in stating Patient does have concerning T-wave inversions which are certainly more pronounced previously. She has 2- troponins all the they are rising slightly. Discussion with Cardiology who did not review EKGs but was not concerned and did not think patient needed to be transferred. 2330 Dr. Bojoruqez cardiology, did not review EKGs but was not significantly concerned did not think patient needed to be transferred Bed opens up in the ICU I did discuss case with to be long [employer] who accepts patient. Patient continues to be on BiPAP she really does not keep it on her face, took multiple tries to find a mass that bit her and that she tolerated. She does get agitated and tried to pull off things. She is given a small dose of Ativan to help with this. Critical Care Time Critical Care Time Critical Care Time: Yes Total Critical Care Time: 30 Attestation: The high probability of a clinically significant, sudden or life threatening deterioration of the [cardiovascular] system(s) required my full and direct attention, intervention and personal management. The aggregate critical care time was 30 minutes. This time is in addition to time spent performing reported procedures but includes the following: [x] Data Review and interpretation [x] Patient assessment and monitoring of vital signs [x] Documentation [x] Medication orders and management Discharge Plan Departure Patient Disposition: Admitted As Inpatient Clinical Impression: Acute hypercapnic respiratory failure, CHF (congestive heart failure), COPD (chronic obstructive pulmonary disease) Admit Date/Time: 05/23/21 06:11 Admit Provider: Katharine Stubbs
[2021-05-22 23:14] LABS: NT-proBNP (BNP-Adult 18+) 5340 pg/mL (<125); Troponin I 0.025 ng/mL (0.01-0.034)
[2021-05-22 23:19] LABS: Procalcitonin 0.09 ng/mL (<0.5)
[2021-05-22 23:55] LABS: COVID19 - ADMIT (NP swab/PCR) Negative (Negative)
[2021-05-23] VITALS (82 sets, daily range): BP systolic 95–137; BP diastolic 50–74; PULSE 22–109; RESP 4–39; TEMP 30.9–37.4; O2SAT 93–100; BMI 23.0
--- NOTE | 2021-05-23 | DI.ECHO.S_ITS ---
[facility]---------+ [facility] +---------+ : : [address] : [place] : : : : [id number] : : : : Phone: [phone]---------+ Echocardiogram Report + + :Name: PRASANTH SUH Study Date: 05/23/2021 Height: 64 in : :[facility] ReadingLocation: Weight: 130 lb : : Gender: Female BSA: 1.6 m2 : :: 1960 Age: 61 yrs BP: 103/57 mmHg: :Reason For Study: CONGESTIVE HEART FAILURE : :Ordering Physician: YASMANI CHIU Performed By: Kesha Cochran : :Referring: YASMANI CHIU : + + Interpretation Summary The patient was in sinus tachycardia with heart rates between 97-103 bpm during the exam. The left ventricular cavity is small. Proximal septal thickening is noted. The left ventricle is hyperdynamic. The ejection fraction is estimated to be 75-80%. An intracavitary gradient is suspected. The right ventricle is mildly dilated. Right ventricular systolic function is mildly reduced. No significant valvular pathology seen. The IVC is of normal diameter and collapses greater than 50% with a sniff. This suggests a low right atrial pressure of 3 mm Hg. In view of RV dysfunction, mild sinus tachycardia, consider work-up to rule out pulmonary embolism. Procedure: A two-dimensional transthoracic echocardiogram with color flow and Doppler was performed. The study quality was technically difficult. There is no prior echocardiogram noted for this patient. The patient was in sinus tachycardia with heart rates between 97-103 bpm during the exam. Left Ventricle: An intracavitary gradient is suspected. The left ventricular cavity is small. Proximal septal thickening is noted. There is no thrombus. The ejection fraction is estimated to be 75-80%. The left ventricle is hyperdynamic. There are no focal wall motion abnormalities. Diastolic parameters suggest a relaxation abnormality of the left ventricle, consistent with probable normal filling pressures. Right Ventricle: The right ventricle is mildly dilated. Right ventricular systolic function is mildly reduced. Atria: Both atria are normal in size. There is no Doppler evidence for an interatrial shunt. Mitral Valve: The mitral valve is normal in structure and function. There is no mitral regurgitation noted. Aortic Valve: The aortic valve opens well. The aortic valve is trileaflet. There is no aortic valve stenosis. No aortic regurgitation is present. Tricuspid Valve: The tricuspid valve is normal. There is mild tricuspid regurgitation. Pulmonary artery pressures cannot be estimated because of the lack of a measurable TR jet velocity. Pulmonic Valve: The pulmonic valve is not well visualized. There is no pulmonic valvular regurgitation. Great Vessels: The aortic root is normal size. The ascending aorta could not be visualized. The IVC is of normal diameter and collapses greater than 50% with a sniff. This suggests a low right atrial pressure of 3 mm Hg. Pericardium/ Pleura There is no pericardial effusion. There is no pleural effusion. MMode/2D Measurements & Calculations LVIDd: 3.3 cm LVOT diam: 2.0 cm LVIDs: 2.0 cm Ao root diam: 3.3 cm FS: 39.5 % IVSd: 1.4 cm LVPWd: 0.91 cm LV roque. diameter/BSA (cm/m^2): 2.0 LV sys. diameter/BSA (cm/m^2): 1.2 LA A2 area: 13.2 cm2 RA long axis: 4.1 cm LA A4 area: 13.1 cm2 RA area: 12.4 cm2 LA length (vol): 4.4 cm RA vol: 32.2 ml LA vol: 33.4 ml RA : 19.8 ml/m2 LA vol index: 20.5 ml/m2 IVC diam: 1.3 cm RVD1 (basal): 3.9 cm TAPSE: 1.5 cm Doppler Measurements & Calculations Ao V2 max: 168.8 cm/sec LVOT Max Andrew: 156.0 cm/sec Ao V2 mean: 116.6 cm/sec LV V1 max P.7 mmHg Ao max P.4 mmHg LV V1 VTI: 23.1 cm Ao mean P.1 mmHg TONA(I,D): 2.6 cm2 Ao V2 VTI: 26.3 cm TONA(V,D): 2.8 cm2 sev ratio: 0.88 TONA indexed to BSA (cm^2/m^2): 1.6 MV E max andrew: 61.2 cm/sec PA V2 max: 105.7 cm/sec MV A max andrew: 103.0 cm/sec PA V2 mean: 70.6 cm/sec MV E/A: 0.59 PA mean P.3 mmHg Med Peak E' Andrew: 6.2 cm/sec PA pr(Accel): 55.0 mmHg E/E' med: 9.8 Lat Peak E' Andrew: 8.4 cm/sec E/E' lat: 7.3 E/e' average: 8.5 MV dec time: 0.26 sec SV(LVOT): 69.6 ml Reading Physician:11:36 AM
[2021-05-23 00:37] LABS: Ur Creatinine 20 (Normal); Ur Specific Gravity 1.025 (Normal)
[2021-05-23 00:38] LABS: UR Morphine/Opiate cutoff 300 Negative (Negative); Urine Amphetamines Negative (Negative); Urine Barbiturates Negative (Negative); Urine Benzodiazepines Positive (Negative); Urine Cocaine Negative (Negative); Urine MDMA Negative (Negative); Urine Methadone Negative (Negative); Urine Methamphetamines Negative (Negative); Urine Oxycodone Negative (Negative); Urine Phencyclidine Negative (Negative); Urine Tetrahydrocannabinol Negative (Negative); Urine Tricyclic Antidepressant Negative (Negative); Urine pH 5 (Normal)
[2021-05-23 00:50] LABS: Appearance Urine UA CLEAR; Bilirubin Urine UA NEGATIVE (NEGATIVE); Color Urine UA YELLOW; Glucose Urine UA NEGATIVE (Negative); Ketones Urine UA NEGATIVE (NEGATIVE); Leukocyte Esterase Urine UA NEGATIVE (NEGATIVE); Nitrite Urine UA NEGATIVE (Negative); Occult Blood Urine UA NEGATIVE (Negative); Protein Urine UA NEGATIVE (Negative); Urobilinogen Urine UA 0.2 E.U./dL (0.2)
[2021-05-23 01:05] LABS: Bacteria Urine None Seen; Culture Indicated Urine Cult Not Indicated; RBC Urine None Seen (0-5/HPF); Renal Epithelial Cells Urine 0-1/HPF (0-1/HPF); WBC Urine None Seen (0-5/HPF)
[2021-05-23 01:33] LABS: HCO3 ABG 44 mmol/L (22-26); PCO2 ABG 97.2 mmHg (35-45); PO2 ABG 106 mmHg (80-100); pH ABG 7.26 (7.35-7.45)
[2021-05-23 01:34] LABS: Fractionated Inspired Oxygen 28; Oxygen Saturation ABG 97 % (95-100); TCO2 ABG 47 mmol/L (21-31)
[2021-05-23 01:37] LABS: Anisocytosis 1+; Neutrophils Absolute Manual 11544 /uL (3000-5900); Total Cells Counted 100
[2021-05-23 03:46] LABS: Fractionated Inspired Oxygen 35; HCO3 ABG 47 mmol/L (22-26); Oxygen Saturation ABG 96 % (95-100); PCO2 ABG 95.8 mmHg (35-45); PO2 ABG 94 mmHg (80-100); TCO2 ABG 50 mmol/L (21-31)
--- NOTE | 2021-05-23 06:26 | PC.NURSE ---
Pt has become restless, removing bi-pap and tugging lines. Dr Chapa ordered Ativan.
[2021-05-23] MEDS: LORazepam 2 MG/ML INJ 0.5 MG IV (06:29)
--- NOTE | 2021-05-23 07:38 | PM.HP.1 ---
History of Present Illness History of Present Illness Date Patient Seen: 05/23/21 Chief complaint: difficulty breathing Narrative: THIS IS A 61-YEAR-OLD FEMALE WHO IS UNABLE TO PROVIDE A RELIABLEHISTORY AT THIS TIME. SHE IS ON EXTERNAL RESPIRATORY SUPPORT ON BIPAP DUE TO ACUTE ON CHRONIC RESPIRATORY FAILURE. MOST OF THE HISTORY WAS TAKEN FROM NURSING REPORT WELL ER NOTES. PRESENTS TO THE HOSPITAL WITH CHANGES IN MENTATION WELL REPORTED SHORTNESS OF BREATH /DIFFICULTY BREATHING. FROM THE ER RECORDS, INITIAL WORKUP SHOWED SIGNIFICANT ACIDOSIS ON ABG. HYPERCAPNIA ALSO APPRECIATED. SIGNIFICANT LEUKOCYTOSIS NOTED ON THE CBC. KIDNEY AND LIVER FUNCTION ARE FAIRLY STABLE. THE CHEST X-RAY DOES SHOW WHAT APPEARED TO BE BILATERAL PNEUMONIA. A CT SCAN OF THE HEAD WAS NEGATIVE FOR ANY ACUTE FINDINGS. SHE IS BORDERLINE HYPOTENSIVE. SHE WILL BE ADMITTED TO THE ICU. Patient History Medical History Chronic obstructive pulmonary disease Congestive heart failure Family & Social History Safety & Behavioral: Feels Safe in Current Yes Environment Tobacco & Substance use: Smoking Status Current every day smoker alcohol intake frequency 0-2 drinks per day Substance Use Type does not use Meds Home Medications and Allergies Home Medications Medication Instructions Recorded Confirmed Type azithromycin 250 mg tablet See Rx Instructions .ROUTE 05/20/21 Rx .COMPLEX #6 tab furosemide 20 mg tablet (Lasix) 20 mg PO DAILY #14 tab 05/20/21 Rx prednisone 20 mg tablet 20 mg PO DAILY #14 tab 05/20/21 Rx Allergies Allergy/AdvReac Type Severity Reaction Status Date / Time marijuana Allergy Severe Vomiting Verified 05/20/21 11:53 methadone Allergy Severe Vomiting Verified 05/20/21 11:53 Review of Systems Review of Systems ROS: Yes unobtainable due to mental condition and unobtainable due to mental status Exam Vital Signs (past 8 hours): - 05/22/21 23:45 05/22/21 23:51 05/23/21 00:00 Temperature 98.6 F 98.6 F 98.6 F Pulse Rate 104 H 102 H 100 H Respiratory Rate 35 H 29 H 16 Blood Pressure 118/59 L 111/56 L 112/53 L Pulse Oximetry 99 98 99 05/23/21 00:15 05/23/21 00:30 05/23/21 00:45 Temperature 98.8 F 98.8 F 98.8 F Pulse Rate 101 H 104 H 103 H Respiratory Rate 17 Blood Pressure 130/62 130/60 120/58 L Pulse Oximetry 98 98 99 05/23/21 01:00 05/23/21 01:15 05/23/21 01:30 Temperature 99.0 F 99.1 F 99.3 F Pulse Rate 99 H 101 H 97 H Respiratory Rate 25 H Blood Pressure 113/57 L 106/58 L 113/58 L Pulse Oximetry 99 98 99 05/23/21 01:45 05/23/21 02:00 05/23/21 02:15 Temperature 99.3 F 99.1 F 99.0 F Pulse Rate 98 H 100 H 98 H Respiratory Rate 25 H 24 25 H Blood Pressure 105/55 L 132/63 124/58 L Pulse Oximetry 97 96 97 05/23/21 02:30 05/23/21 02:45 05/23/21 03:00 Temperature 98.8 F 98.8 F 98.8 F Pulse Rate 97 H 97 H 104 H Respiratory Rate 27 H 23 25 H Blood Pressure 110/54 L 117/57 L 137/61 Pulse Oximetry 97 98 98 05/23/21 03:15 05/23/21 03:30 05/23/21 03:40 Temperature 98.8 F 99.0 F Pulse Rate 102 H 100 H Respiratory Rate 27 H 28 H Blood Pressure 137/63 119/57 L 119/57 L Pulse Oximetry 99 99 05/23/21 03:45 05/23/21 04:00 05/23/21 05:25 Temperature 99.0 F 99.1 F Pulse Rate 101 H 95 H Respiratory Rate 22 23 Blood Pressure 119/59 L 102/51 L 106/58 L Pulse Oximetry 98 99 Fraction of Inspired Oxygen 35 Oxygen Delivery Method BiPAP Oxygen Flow Rate 2 Narrative Exam Narrative: PATIENT IS ON BIPAP. DOES MOVE AROUND BUT DOES NOT ANSWER QUESTION OR FOLLOW COMMANDS. ENCEPHALOPATHY HEAD ATRAUMATIC NORMOCEPHALIC NECK : NO ADENOPATHY NO CAROTID BRUITS MOUTH: DRY MUCOUS MEMBRANES EYE: EOMI, PERRLA, NORMAL CONJUNCTIVA; NO JAUNDICE CHEST: REGULAR RATE. NO RUBS. PMI IS NON DISPLACED. NO MURMURS; NORMAL S1-S2 PULMONARY: DECREASED BS OVER THE BASES. WHEEZING APPRECIATED BILATERALLY. ON BIPAP. OXYGEN SATURATION IS ADEQUATE. NO CYANOSIS OR OTHER SIGN OF HYPOXEMIA APPRECIATED ABDOMEN: SOFT. NONDISTENDED. HYPOACTIVE BOWEL SOUNDS ARE PRESENT IN ALL 4 QUADRANTS. NO MASS. EXTREMITIES: NO EDEMA.. NO CYANOSIS CLUBBING NOTED. NEURO: CRANIAL NERVES 2-12 GROSSLY INTACT. ENCEPHALOPATHY APPRECIATED. AGITATED. UNCOOPERATIVE/ DOES NOT FOLLOW COMMANDS. RESPONDS TO STIMULI MSK: PASSIVE ANDNORMAL RANGE OF MOTION FOR AGE. NO JOINT EFFUSION. NO SIGN OF TRAUMA SKIN: FULL SKIN TURGOR; NO ECCHYMOSIS. NO OPENLESION. GOOD TURGOR.; NO RASHES : NORMAL EXTERNAL GENITALIA. FOR CATHETER IN PLACE WITH YELLOWISH URINE PSYCH : AGITATED. ALERT AWAKE NOT ORIENTED TO TIME PLACE AND PERSON Objective Labs Result Diagrams: 05/22/21 22:32 05/22/21 22:32 Labs: Laboratory Results - last 24 hr 05/22/21 05/22/21 05/22/21 22:32 22:32 22:32 WBC 15.6 H RBC 5.97 H Hgb 13.2 Hct 43.9 MCV 73.6 L MCH 22.2 L MCHC 30.1 RDW 15.0 H Plt Count 457 H Neut % (Auto) Not Reportable Lymph % (Auto) Not Reportable [place] % (Auto) Not Reportable Eos % (Auto) Not Reportable Baso % (Auto) Not Reportable Lymph # (Auto) Not Reportable [place] # (Auto) Not Reportable Baso # (Auto) Not Reportable Total Counted 100 Seg Neutrophils % 72.0 H Band Neutrophils % 2.0 L Lymphocytes % (Manual) 12.0 L Monocytes % (Manual) 13.0 H Basophils % (Manual) 1.0 Neutrophils # (Manual) 26651 H RBC Morphology See below Anisocytosis 1+ H PT 12.1 INR 1.1 APTT 35 ABG pH ABG pCO2 ABG pO2 ABG HCO3 ABG Total CO2 ABG O2 Saturation ABG Base Excess FiO2 Sodium 141 Potassium 3.8 Chloride 96 L Carbon Dioxide 39 H BUN 15 Creatinine 0.62 Estimated GFR > 60.0 BUN/Creatinine Ratio 24.2 H Glucose 103 Lactate Calcium 9.1 Magnesium 2.0 Total Bilirubin 0.4 AST 21 ALT 10 Alkaline Phosphatase 127 H Total Creatine Kinase < 20 L CK-MB (CK-2) TNP CK-MB (CK-2) Rel Index TNP Troponin I 0.025 NT-Pro-B Natriuret Pep 5340 H Total Protein 7.1 Albumin 3.8 Globulin 3.3 Albumin/Globulin Ratio 1.2 Procalcitonin 0.09 Urine Color Urine Appearance Urine pH Ur Specific [place] Urine Protein Urine Glucose (UA) Urine Ketones Urine Occult Blood Urine Nitrate Urine Bilirubin Urine Urobilinogen Ur Leukocyte Esterase Urine RBC Urine WBC Ur Renal Epithelial Cell Urine Bacteria Ur Culture Indicated? U Opiates 300ng/mL cut Ur Oxycodone Screen Urine Methadone Screen Ur Barbiturates Screen U Tricyclic Antidepress Ur Phencyclidine Scrn Ur Amphetamines Screen U Methamphetamines Scrn Ur MDMA Scrn (Ecstasy) U Benzodiazepines Scrn Urine Cocaine Screen U Marijuana (THC) Screen SARS-CoV-2 (PCR) 05/22/21 05/22/21 05/22/21 22:32 22:37 22:37 WBC RBC Hgb Hct MCV MCH MCHC RDW Plt Count Neut % (Auto) Lymph % (Auto) [place] % (Auto) Eos % (Auto) Baso % (Auto) Lymph # (Auto) [place] # (Auto) Baso # (Auto) Total Counted Seg Neutrophils % Band Neutrophils % Lymphocytes % (Manual) Monocytes % (Manual) Basophils % (Manual) Neutrophils # (Manual) RBC Morphology Anisocytosis PT INR APTT ABG pH ABG pCO2 ABG pO2 ABG HCO3 ABG Total CO2 ABG O2 Saturation ABG Base Excess FiO2 Sodium Potassium Chloride Carbon Dioxide BUN Creatinine Estimated GFR BUN/Creatinine Ratio Glucose Lactate 0.9 Calcium Magnesium Total Bilirubin AST ALT Alkaline Phosphatase Total Creatine Kinase CK-MB (CK-2) CK-MB (CK-2) Rel Index Troponin I NT-Pro-B Natriuret Pep Total Protein Albumin Globulin Albumin/Globulin Ratio Procalcitonin Urine Color Urine Appearance Urine pH Ur Specific [place] Urine Protein Urine Glucose (UA) Urine Ketones Urine Occult Blood Urine Nitrate Urine Bilirubin Urine Urobilinogen Ur Leukocyte Esterase Urine RBC Urine WBC Ur Renal Epithelial Cell Urine Bacteria Ur Culture Indicated? U Opiates 300ng/mL cut Ur Oxycodone Screen Urine Methadone Screen Ur Barbiturates Screen U Tricyclic Antidepress Ur Phencyclidine Scrn Ur Amphetamines Screen U Methamphetamines Scrn Ur MDMA Scrn (Ecstasy) U Benzodiazepines Scrn Urine Cocaine Screen U Marijuana (THC) Screen SARS-CoV-2 (PCR) Negative Negative 05/22/21 05/23/21 05/23/21 23:02 00:07 00:07 WBC RBC Hgb Hct MCV MCH MCHC RDW Plt Count Neut % (Auto) Lymph % (Auto) [place] % (Auto) Eos % (Auto) Baso % (Auto) Lymph # (Auto) [place] # (Auto) Baso # (Auto) Total Counted Seg Neutrophils % Band Neutrophils % Lymphocytes % (Manual) Monocytes % (Manual) Basophils % (Manual) Neutrophils # (Manual) RBC Morphology Anisocytosis PT INR APTT ABG pH 7.26 L* ABG pCO2 97.2 H* ABG pO2 106 H ABG HCO3 44 H ABG Total CO2 47 H ABG O2 Saturation 97 ABG Base Excess 17.0 H FiO2 28 Sodium Potassium Chloride Carbon Dioxide BUN Creatinine Estimated GFR BUN/Creatinine Ratio Glucose Lactate Calcium Magnesium Total Bilirubin AST ALT Alkaline Phosphatase Total Creatine Kinase CK-MB (CK-2) CK-MB (CK-2) Rel Index Troponin I NT-Pro-B Natriuret Pep Total Protein Albumin Globulin Albumin/Globulin Ratio Procalcitonin Urine Color Yellow Urine Appearance Clear Urine pH 7.0 Ur Specific [place] 1.010 Urine Protein Negative Urine Glucose (UA) Negative Urine Ketones Negative Urine Occult Blood Negative Urine Nitrate Negative Urine Bilirubin Negative Urine Urobilinogen 0.2 Ur Leukocyte Esterase Negative Urine RBC None seen Urine WBC None seen Ur Renal Epithelial Cell 0-1/hpf Urine Bacteria None seen Ur Culture Indicated? Cult not indicated U Opiates 300ng/mL cut Negative Ur Oxycodone Screen Negative Urine Methadone Screen Negative Ur Barbiturates Screen Negative U Tricyclic Antidepress Negative Ur Phencyclidine Scrn Negative Ur Amphetamines Screen Negative U Methamphetamines Scrn Negative Ur MDMA Scrn (Ecstasy) Negative U Benzodiazepines Scrn Positive H Urine Cocaine Screen Negative U Marijuana (THC) Screen Negative SARS-CoV-2 (PCR) 05/23/21 05/23/21 00:23 03:32 WBC RBC Hgb Hct MCV MCH MCHC RDW Plt Count Neut % (Auto) Lymph % (Auto) [place] % (Auto) Eos % (Auto) Baso % (Auto) Lymph # (Auto) [place] # (Auto) Baso # (Auto) Total Counted Seg Neutrophils % Band Neutrophils % Lymphocytes % (Manual) Monocytes % (Manual) Basophils % (Manual) Neutrophils # (Manual) RBC Morphology Anisocytosis PT INR APTT ABG pH 7.30 L ABG pCO2 95.8 H* ABG pO2 94 ABG HCO3 47 H ABG Total CO2 50 H ABG O2 Saturation 96 ABG Base Excess 20.0 H FiO2 35 Sodium Potassium Chloride Carbon Dioxide BUN Creatinine Estimated GFR BUN/Creatinine Ratio Glucose Lactate Calcium Magnesium Total Bilirubin AST ALT Alkaline Phosphatase Total Creatine Kinase CK-MB (CK-2) CK-MB (CK-2) Rel Index Troponin I 0.030 NT-Pro-B Natriuret Pep Total Protein Albumin Globulin Albumin/Globulin Ratio Procalcitonin Urine Color Urine Appearance Urine pH Ur Specific [place] Urine Protein Urine Glucose (UA) Urine Ketones Urine Occult Blood Urine Nitrate Urine Bilirubin Urine Urobilinogen Ur Leukocyte Esterase Urine RBC Urine WBC Ur Renal Epithelial Cell Urine Bacteria Ur Culture Indicated? U Opiates 300ng/mL cut Ur Oxycodone Screen Urine Methadone Screen Ur Barbiturates Screen U Tricyclic Antidepress Ur Phencyclidine Scrn Ur Amphetamines Screen U Methamphetamines Scrn Ur MDMA Scrn (Ecstasy) U Benzodiazepines Scrn Urine Cocaine Screen U Marijuana (THC) Screen SARS-CoV-2 (PCR) Assessment & Plan Assessment & Plan narrative: PROBLEM LIST ACUTE HYPERCAPNIC ON CHRONIC RESPIRATORY FAILURE BILATERAL PNEUMONIA. LIKELY GOING TO REQUIRE COPD WITH ACUTE EXACERBATION POSSIBLE SEPSIS PRESENT ON ARRIVAL LEUKOCYTOSIS POSSIBLE INTRAVASCULAR FLUID DEPLETION. ON IV FLUID MICROCYTOSIS WITH NORMAL HEMOGLOBIN. CHECK IRON METABOLIC /TOXIC ENCEPHALOPATHY. MULTIFACTORIAL THROMBOCYTOSIS. LIKELY REACTIVE PLAN KEEP PATIENT ON BIPAP FOR NOW ADMIT INTO THE ICU CONSULT CRITICAL CARE /DANDY TENDER REPEAT ABG SHE REALLY TO FOLLOW REPEAT CHEST X-RAY IN THE MORNING OXYGEN SUPPLEMENT TO MAINTAIN PROPER OXYGENATION ABOVE 88% AT ALL TIMES AGGRESSIVE PULMONARY TOILETING CONTINUOUS PULSE OX CHECK SPUTUM CULTURE RESTARTED ON ANTIBIOTICS WITH CEFEPIME FLAGYL WELL DOXYCYCLINE INTRAVENOUSLY FOR NOW KEEP PATIENT NPO TO DECREASE THE RISK OF ASPIRATION STARTED ON STEROIDS WELL DUONEB TREATMENTS MONITOR BLOOD SUGAR LEVEL CLOSELY WHILE ON STEROID THERAPY RULE OUT CARDIAC COMPONENT. TROPONINS BEEN NEGATIVE. ECHOCARDIOGRAM ORDERED ASPIRATION PRECAUTION TO BE MAINTAINED AT ALL TIMES ADDITIONAL MANAGEMENT PER CLINICAL COURSE PROGNOSIS IS GUARDED DURATION OF STAY 3-7 DAYS Time Spent With Patient Critical Care time: I spent a total of [] minutes of critical care time on this patient's care today; this time is exclusive of procedural time.
[2021-05-23 08:05] LABS: HEMOLYSIS 43 (0-50); Iron 26 ug/dL (37-170)
[2021-05-23 08:15] LABS: Troponin I 0.023 ng/mL (0.01-0.034)
[2021-05-23 08:15] LABS: Percent Iron Saturation 6 % (15-50); Total Iron Binding Capacity 428 ug/dL (265-497); Transferrin 323 mg/dL (206-381)
[2021-05-23] MEDS: methylPREDNISolone 125 MG/2 ML VIAL 80 MG IV ×2 (08:17→16:54)
[2021-05-23] MEDS: SODIUM CHLORIDE 0.9% 1,000 ML 70 ML IV (08:20)
[2021-05-23 08:22] LABS: Hemoglobin A1C% w Est Avg Glu 6.6 % (4.0-6.0)
[2021-05-23] MEDS: metroNIDAZOLE 500 MG/100 ML PIGGYBACK 100 MG IV ×2 (08:25→16:54)
[2021-05-23 08:28] LABS: Cholesterol 164 mg/dL (140-199); HDL Cholesterol 31 mg/dL (40-60); LDL Cholesterol Calculated 109 mg/dL (<100); Triglycerides 119 mg/dL (35-150)
[2021-05-23 08:39] LABS: Thyroid Stimulating Hormone 0.338 uIU/mL (0.47-4.68)
[2021-05-23] MEDS: ASPIRIN EC 81 MG TABLET PO (10:24)
[2021-05-23] MEDS: FAMOTIDINE 20 MG/2 ML VIAL 40 MG IV (10:24)
[2021-05-23] MEDS: ENOXAPARIN 40 MG/0.4 ML SYRINGE SUBCUT (10:24)
[2021-05-23] MEDS: CEFEPIME 1 GM in SODIUM CHLORIDE 0.9% 100 ML 200 ML IV ×2 (10:25→22:25)
[2021-05-23] MEDS: DOXYCYCLINE 100 MG in SODIUM CHLORIDE 0.9% 100 ML IV ×2 (10:26→22:58)
[2021-05-23 10:28] LABS: pH ABG 7.32 (7.35-7.45)
[2021-05-23 10:30] LABS: HCO3 ABG 46 mmol/L (22-26); Oxygen Saturation ABG 97 % (95-100); PCO2 ABG 89.6 mmHg (35-45); PO2 ABG 108 mmHg (80-100); TCO2 ABG 48 mmol/L (21-31)
[2021-05-23 10:31] LABS: Fractionated Inspired Oxygen 35
--- NOTE | 2021-05-23 11:35 | P.TELICUCN_ITS ---
History of Present Illness Consult details Chief complaint: difficulty breathing :: This patient was seen via real time interactive two-way audiovisual telecommunication. ?HPI: 61-year-old female history of COPD on home supplemental O2, and Diastolic CHF was seen in ER 05/20/21 for SOB and Cough. Pt discharged home with Azithromycin, Prenidsone, and Lasix. Patient returns to ER 05/22/21 with lethargy and found to be in acute on chronic hypercapnic respiratory failure and placed on BIPAP. COVID test neg 05/20/21 and 05/22/21. Initial ABG was 7.26/97/106. Repeat ABG on BIPAP 15/ 35% slightly improved to 7.31/89/108. WBC is 15 and Temp is 99.3. Pt. given started on steroids and empiric abtibiotics (Cefepime, Flagyl, and Doxycline), [facility] Medical History Chronic obstructive pulmonary disease Congestive heart failure Social History household members: family Smoking Status: Current every day smoker alcohol intake: current Current Medications Current Medications Medications: Home Medications azithromycin 250 mg tablet See Rx Instructions .ROUTE .COMPLEX #6 tab 05/20/21 [Rx] prednisone 20 mg tablet 20 mg PO DAILY #14 tab 05/20/21 [Rx] acetazolamide 250 mg tablet 250 mg PO BID 05/23/21 [History Confirmed 05/23/21] furosemide 20 mg tablet (Lasix) 20 mg PO BID 05/23/21 [History Confirmed 05/23/21] gabapentin 400 mg capsule 400 mg PO BID 05/23/21 [History Confirmed 05/23/21] ipratropium 20 mcg-albuterol 100 mcg/actuation mist for inhalation (Combivent Respimat) See Rx Instructions .ROUTE .COMPLEX 05/23/21 [History Confirmed 05/23/21] lorazepam 2 mg/mL injection solution 2 mg SUBLINGUAL TID PRN 05/23/21 [History Confirmed 05/23/21] morphine concentrate 100 mg/5 mL (20 mg/mL) oral solution 20 mg PO Q6H PRN 05/23/21 [History Confirmed 05/23/21] omeprazole 20 mg capsule,delayed release 20 mg PO DAILY 05/23/21 [History Confirmed 05/23/21] spironolactone 25 mg tablet 25 mg PO DAILY 05/23/21 [History Confirmed 05/23/21] tiotropium bromide 18 mcg capsule with inhalation device (Spiriva with HandiHaler) 1 cap INHALATION DAILY 05/23/21 [History Confirmed 05/23/21] Visit Medications (administered) Generic Name Dose Route Start Last Admin Trade Name Freq PRN Reason Stop Dose Admin Aspirin 81 mg 05/23/21 09:00 05/23/21 10:24 Aspirin Ec 81 Mg Tablet PO 81 mg DAILY DANYELL Administration Enoxaparin Sodium 40 mg 05/23/21 09:00 05/23/21 10:24 Enoxaparin 40 Mg/0.4 Ml Syringe SUBCUT 40 mg DAILY DANYELL Administration Cefepime HCl 1 gm/ Sodium 100 mls @ 200 mls/hr 05/23/21 09:00 05/23/21 10:25 Chloride IV 200 mls/hr Q12H DANYELL Administration Doxycycline Hyclate 100 mg/ 100 mls @ 100 mls/hr 05/23/21 10:00 05/23/21 10:26 Sodium Chloride IV 100 mls/hr Q12H DANYELL Administration Metronidazole 500 mg in 100 mls @ 100 mls/hr 05/23/21 08:00 05/23/21 09:30 Flagyl IV Infused Q8H DANYELL Infusion Sodium Chloride 1,000 mls @ 70 mls/hr 05/23/21 08:00 05/23/21 10:07 Normal Saline 0.9% IV 0 mls/hr CONT DANYELL Infusion Methylprednisolone 80 mg 05/23/21 08:00 05/23/21 08:17 Methylprednisolone 125 Mg/2 Ml Vial IV 80 mg Q8H DANYELL Administration Exam Vital Signs (past 8 hours): - 05/23/21 03:40 05/23/21 03:45 05/23/21 04:00 Temperature 99.0 F 99.1 F Pulse Rate 101 H 95 H Respiratory Rate 22 23 Blood Pressure 119/57 L 119/59 L 102/51 L Pulse Oximetry 98 99 05/23/21 04:15 05/23/21 04:30 05/23/21 04:45 Temperature 99.3 F 99.3 F 99.3 F Pulse Rate 91 H 95 H 97 H Respiratory Rate 23 24 24 Blood Pressure 111/51 L 107/54 L 99/53 L Pulse Oximetry 99 98 98 05/23/21 05:00 05/23/21 05:15 05/23/21 05:25 Temperature 99.3 F 99.0 F Pulse Rate 97 H 96 H Respiratory Rate 25 H 21 Blood Pressure 105/53 L 106/58 L 106/58 L Pulse Oximetry 98 98 05/23/21 05:30 05/23/21 05:45 05/23/21 06:00 Temperature 98.8 F 98.8 F 98.6 F Pulse Rate 95 H 92 H 100 H Respiratory Rate 25 H 22 23 Blood Pressure 113/62 106/53 L 134/63 Pulse Oximetry 98 98 98 05/23/21 06:15 05/23/21 06:30 05/23/21 06:45 Temperature 98.8 F 98.8 F 98.8 F Pulse Rate 104 H 101 H 101 H Respiratory Rate 25 H 17 Blood Pressure 131/63 128/65 126/62 Pulse Oximetry 99 97 97 05/23/21 07:00 05/23/21 07:15 05/23/21 07:30 Temperature 99.0 F 98.8 F 98.8 F Pulse Rate 100 H 100 H 98 H Respiratory Rate 20 25 H 26 H Blood Pressure 102/54 L 102/54 L 103/57 L Pulse Oximetry 97 97 97 05/23/21 07:45 05/23/21 08:00 05/23/21 08:15 Temperature 98.8 F 98.8 F 98.8 F Pulse Rate 99 H 98 H 94 H Respiratory Rate 21 17 22 Blood Pressure 112/55 L 118/58 L 104/56 L Pulse Oximetry 97 98 97 05/23/21 08:30 05/23/21 08:45 05/23/21 09:00 Temperature 98.8 F 98.8 F 98.8 F Pulse Rate 91 H 97 H 97 H Respiratory Rate 25 H 26 H 23 Blood Pressure 113/57 L 119/57 L 115/59 L Pulse Oximetry 99 99 98 05/23/21 09:30 05/23/21 10:00 05/23/21 10:15 Temperature 98.6 F 97.2 F L Pulse Rate 101 H 95 H Respiratory Rate 16 27 H Blood Pressure 132/74 132/74 Pulse Oximetry 99 100 05/23/21 11:00 Temperature Pulse Rate 91 H Respiratory Rate 22 Blood Pressure 113/66 Pulse Oximetry 98 Fraction of Inspired Oxygen 0.35 Oxygen Delivery Method BiPAP Oxygen Flow Rate 2 Objective Labs Result Diagrams: 05/22/21 22:32 05/22/21 22:32 Labs: Laboratory Results - last 24 hr 05/22/21 05/22/21 05/22/21 22:32 22:32 22:32 WBC 15.6 H RBC 5.97 H Hgb 13.2 Hct 43.9 MCV 73.6 L MCH 22.2 L MCHC 30.1 RDW 15.0 H Plt Count 457 H Neut % (Auto) Not Reportable Lymph % (Auto) Not Reportable Crowley % (Auto) Not Reportable Eos % (Auto) Not Reportable Baso % (Auto) Not Reportable Lymph # (Auto) Not Reportable Crowley # (Auto) Not Reportable Baso # (Auto) Not Reportable Total Counted 100 Seg Neutrophils % 72.0 H Band Neutrophils % 2.0 L Lymphocytes % (Manual) 12.0 L Monocytes % (Manual) 13.0 H Basophils % (Manual) 1.0 Neutrophils # (Manual) 37969 H RBC Morphology See below Anisocytosis 1+ H PT 12.1 INR 1.1 APTT 35 ABG pH ABG pCO2 ABG pO2 ABG HCO3 ABG Total CO2 ABG O2 Saturation ABG Base Excess FiO2 Sodium 141 Potassium 3.8 Chloride 96 L Carbon Dioxide 39 H BUN 15 Creatinine 0.62 Estimated GFR > 60.0 BUN/Creatinine Ratio 24.2 H Glucose 103 Hemoglobin A1c Lactate Calcium 9.1 Magnesium 2.0 Iron TIBC % Saturation Transferrin Total Bilirubin 0.4 AST 21 ALT 10 Alkaline Phosphatase 127 H Total Creatine Kinase < 20 L CK-MB (CK-2) TNP CK-MB (CK-2) Rel Index TNP Troponin I 0.025 NT-Pro-B Natriuret Pep 5340 H Total Protein 7.1 Albumin 3.8 Globulin 3.3 Albumin/Globulin Ratio 1.2 Triglycerides Cholesterol LDL Cholesterol, Calc HDL Cholesterol Procalcitonin 0.09 TSH Urine Color Urine Appearance Urine pH Ur Specific Penelope Urine Protein Urine Glucose (UA) Urine Ketones Urine Occult Blood Urine Nitrate Urine Bilirubin Urine Urobilinogen Ur Leukocyte Esterase Urine RBC Urine WBC Ur Renal Epithelial Cell Urine Bacteria Ur Culture Indicated? U Opiates 300ng/mL cut Ur Oxycodone Screen Urine Methadone Screen Ur Barbiturates Screen U Tricyclic Antidepress Ur Phencyclidine Scrn Ur Amphetamines Screen U Methamphetamines Scrn Ur MDMA Scrn (Ecstasy) U Benzodiazepines Scrn Urine Cocaine Screen U Marijuana (THC) Screen SARS-CoV-2 (PCR) 05/22/21 05/22/21 05/22/21 22:32 22:37 22:37 WBC RBC Hgb Hct MCV MCH MCHC RDW Plt Count Neut % (Auto) Lymph % (Auto) Crowley % (Auto) Eos % (Auto) Baso % (Auto) Lymph # (Auto) Crowley # (Auto) Baso # (Auto) Total Counted Seg Neutrophils % Band Neutrophils % Lymphocytes % (Manual) Monocytes % (Manual) Basophils % (Manual) Neutrophils # (Manual) RBC Morphology Anisocytosis PT INR APTT ABG pH ABG pCO2 ABG pO2 ABG HCO3 ABG Total CO2 ABG O2 Saturation ABG Base Excess FiO2 Sodium Potassium Chloride Carbon Dioxide BUN Creatinine Estimated GFR BUN/Creatinine Ratio Glucose Hemoglobin A1c Lactate 0.9 Calcium Magnesium Iron TIBC % Saturation Transferrin Total Bilirubin AST ALT Alkaline Phosphatase Total Creatine Kinase CK-MB (CK-2) CK-MB (CK-2) Rel Index Troponin I NT-Pro-B Natriuret Pep Total Protein Albumin Globulin Albumin/Globulin Ratio Triglycerides Cholesterol LDL Cholesterol, Calc HDL Cholesterol Procalcitonin TSH Urine Color Urine Appearance Urine pH Ur Specific Penelope Urine Protein Urine Glucose (UA) Urine Ketones Urine Occult Blood Urine Nitrate Urine Bilirubin Urine Urobilinogen Ur Leukocyte Esterase Urine RBC Urine WBC Ur Renal Epithelial Cell Urine Bacteria Ur Culture Indicated? U Opiates 300ng/mL cut Ur Oxycodone Screen Urine Methadone Screen Ur Barbiturates Screen U Tricyclic Antidepress Ur Phencyclidine Scrn Ur Amphetamines Screen U Methamphetamines Scrn Ur MDMA Scrn (Ecstasy) U Benzodiazepines Scrn Urine Cocaine Screen U Marijuana (THC) Screen SARS-CoV-2 (PCR) Negative Negative 05/22/21 05/22/21 05/22/21 23:02 23:32 23:32 WBC RBC Hgb Hct MCV MCH MCHC RDW Plt Count Neut % (Auto) Lymph % (Auto) Crowley % (Auto) Eos % (Auto) Baso % (Auto) Lymph # (Auto) Crowley # (Auto) Baso # (Auto) Total Counted Seg Neutrophils % Band Neutrophils % Lymphocytes % (Manual) Monocytes % (Manual) Basophils % (Manual) Neutrophils # (Manual) RBC Morphology Anisocytosis PT INR APTT ABG pH 7.26 L* ABG pCO2 97.2 H* ABG pO2 106 H ABG HCO3 44 H ABG Total CO2 47 H ABG O2 Saturation 97 ABG Base Excess 17.0 H FiO2 28 Sodium Potassium Chloride Carbon Dioxide BUN Creatinine Estimated GFR BUN/Creatinine Ratio Glucose Hemoglobin A1c 6.6 H Lactate Calcium Magnesium Iron 26 L TIBC 428 % Saturation 6 L Transferrin 323 Total Bilirubin AST ALT Alkaline Phosphatase Total Creatine Kinase CK-MB (CK-2) CK-MB (CK-2) Rel Index Troponin I NT-Pro-B Natriuret Pep Total Protein Albumin Globulin Albumin/Globulin Ratio Triglycerides Cholesterol LDL Cholesterol, Calc HDL Cholesterol Procalcitonin TSH Urine Color Urine Appearance Urine pH Ur Specific Penelope Urine Protein Urine Glucose (UA) Urine Ketones Urine Occult Blood Urine Nitrate Urine Bilirubin Urine Urobilinogen Ur Leukocyte Esterase Urine RBC Urine WBC Ur Renal Epithelial Cell Urine Bacteria Ur Culture Indicated? U Opiates 300ng/mL cut Ur Oxycodone Screen Urine Methadone Screen Ur Barbiturates Screen U Tricyclic Antidepress Ur Phencyclidine Scrn Ur Amphetamines Screen U Methamphetamines Scrn Ur MDMA Scrn (Ecstasy) U Benzodiazepines Scrn Urine Cocaine Screen U Marijuana (THC) Screen SARS-CoV-2 (PCR) 05/23/21 05/23/21 05/23/21 00:07 00:07 00:23 WBC RBC Hgb Hct MCV MCH MCHC RDW Plt Count Neut % (Auto) Lymph % (Auto) Crowley % (Auto) Eos % (Auto) Baso % (Auto) Lymph # (Auto) Crowley # (Auto) Baso # (Auto) Total Counted Seg Neutrophils % Band Neutrophils % Lymphocytes % (Manual) Monocytes % (Manual) Basophils % (Manual) Neutrophils # (Manual) RBC Morphology Anisocytosis PT INR APTT ABG pH ABG pCO2 ABG pO2 ABG HCO3 ABG Total CO2 ABG O2 Saturation ABG Base Excess FiO2 Sodium Potassium Chloride Carbon Dioxide BUN Creatinine Estimated GFR BUN/Creatinine Ratio Glucose Hemoglobin A1c Lactate Calcium Magnesium Iron TIBC % Saturation Transferrin Total Bilirubin AST ALT Alkaline Phosphatase Total Creatine Kinase CK-MB (CK-2) CK-MB (CK-2) Rel Index Troponin I 0.030 NT-Pro-B Natriuret Pep Total Protein Albumin Globulin Albumin/Globulin Ratio Triglycerides Cholesterol LDL Cholesterol, Calc HDL Cholesterol Procalcitonin TSH Urine Color Yellow Urine Appearance Clear Urine pH 7.0 Ur Specific Penelope 1.010 Urine Protein Negative Urine Glucose (UA) Negative Urine Ketones Negative Urine Occult Blood Negative Urine Nitrate Negative Urine Bilirubin Negative Urine Urobilinogen 0.2 Ur Leukocyte Esterase Negative Urine RBC None seen Urine WBC None seen Ur Renal Epithelial Cell 0-1/hpf Urine Bacteria None seen Ur Culture Indicated? Cult not indicated U Opiates 300ng/mL cut Negative Ur Oxycodone Screen Negative Urine Methadone Screen Negative Ur Barbiturates Screen Negative U Tricyclic Antidepress Negative Ur Phencyclidine Scrn Negative Ur Amphetamines Screen Negative U Methamphetamines Scrn Negative Ur MDMA Scrn (Ecstasy) Negative U Benzodiazepines Scrn Positive H Urine Cocaine Screen Negative U Marijuana (THC) Screen Negative SARS-CoV-2 (PCR) 05/23/21 05/23/21 05/23/21 03:32 07:35 07:35 WBC RBC Hgb Hct MCV MCH MCHC RDW Plt Count Neut % (Auto) Lymph % (Auto) Crowley % (Auto) Eos % (Auto) Baso % (Auto) Lymph # (Auto) Crowley # (Auto) Baso # (Auto) Total Counted Seg Neutrophils % Band Neutrophils % Lymphocytes % (Manual) Monocytes % (Manual) Basophils % (Manual) Neutrophils # (Manual) RBC Morphology Anisocytosis PT INR APTT ABG pH 7.30 L ABG pCO2 95.8 H* ABG pO2 94 ABG HCO3 47 H ABG Total CO2 50 H ABG O2 Saturation 96 ABG Base Excess 20.0 H FiO2 35 Sodium Potassium Chloride Carbon Dioxide BUN Creatinine Estimated GFR BUN/Creatinine Ratio Glucose Hemoglobin A1c Lactate Calcium Magnesium Iron TIBC % Saturation Transferrin Total Bilirubin AST ALT Alkaline Phosphatase Total Creatine Kinase CK-MB (CK-2) CK-MB (CK-2) Rel Index Troponin I 0.023 NT-Pro-B Natriuret Pep Total Protein Albumin Globulin Albumin/Globulin Ratio Triglycerides Cholesterol LDL Cholesterol, Calc HDL Cholesterol Procalcitonin TSH 0.338 L Urine Color Urine Appearance Urine pH Ur Specific Penelope Urine Protein Urine Glucose (UA) Urine Ketones Urine Occult Blood Urine Nitrate Urine Bilirubin Urine Urobilinogen Ur Leukocyte Esterase Urine RBC Urine WBC Ur Renal Epithelial Cell Urine Bacteria Ur Culture Indicated? U Opiates 300ng/mL cut Ur Oxycodone Screen Urine Methadone Screen Ur Barbiturates Screen U Tricyclic Antidepress Ur Phencyclidine Scrn Ur Amphetamines Screen U Methamphetamines Scrn Ur MDMA Scrn (Ecstasy) U Benzodiazepines Scrn Urine Cocaine Screen U Marijuana (THC) Screen SARS-CoV-2 (PCR) 05/23/21 05/23/21 07:35 09:25 WBC RBC Hgb Hct MCV MCH MCHC RDW Plt Count Neut % (Auto) Lymph % (Auto) Crowley % (Auto) Eos % (Auto) Baso % (Auto) Lymph # (Auto) Crowley # (Auto) Baso # (Auto) Total Counted Seg Neutrophils % Band Neutrophils % Lymphocytes % (Manual) Monocytes % (Manual) Basophils % (Manual) Neutrophils # (Manual) RBC Morphology Anisocytosis PT INR APTT ABG pH 7.32 L ABG pCO2 89.6 H* ABG pO2 108 H ABG HCO3 46 H ABG Total CO2 48 H ABG O2 Saturation 97 ABG Base Excess 20.0 H FiO2 35 Sodium Potassium Chloride Carbon Dioxide BUN Creatinine Estimated GFR BUN/Creatinine Ratio Glucose Hemoglobin A1c Lactate Calcium Magnesium Iron TIBC % Saturation Transferrin Total Bilirubin AST ALT Alkaline Phosphatase Total Creatine Kinase CK-MB (CK-2) CK-MB (CK-2) Rel Index Troponin I NT-Pro-B Natriuret Pep Total Protein Albumin Globulin Albumin/Globulin Ratio Triglycerides 119 Cholesterol 164 LDL Cholesterol, Calc 109 H HDL Cholesterol 31 L Procalcitonin TSH Urine Color Urine Appearance Urine pH Ur Specific Penelope Urine Protein Urine Glucose (UA) Urine Ketones Urine Occult Blood Urine Nitrate Urine Bilirubin Urine Urobilinogen Ur Leukocyte Esterase Urine RBC Urine WBC Ur Renal Epithelial Cell Urine Bacteria Ur Culture Indicated? 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: AMs secondary to C02 retention -hold sedating medications such as gabapentin CV: BP currently WNL -ECHO 05/23/21 shows LVH with hyperdynamic LV function (EF Is 75-8)0%, + diastolic dysfunction, no sig valvular problems, IVC Is normal caliber with >50% collapse with sniff PUlm: -BIPAP -monitor ABG and adjust BIPAP as needed -if patient worsens despite BIPAP consider intubation -steroids (solumedrom 80 mg IV TID) -bronchodilators GI: NPO given high risk for intubation ID: COVID test neg -darnell culture -continue Docycycline, Flagyl, and Cefepime for now to cover for HCAP, CAP, and aspiraiton PNA FEN/Renal -ECHO suggests patient is not fluid overloaded so would hold off any aggressive diuresis for now -monitor and correct any electrolyte abnormalities Heme -daily CBC Endo- -MOnitor BG and treat as needed to maintain euglycemia Prophylasix: Lovenox, protonix Code Status: FULL CODE CCT spent 55 min Time Spent With Patient Critical Care time: I spent a total of [] minutes of critical care time on this patient's care today; this time is exclusive of procedural time.
[2021-05-23] MEDS: ALBUTEROL/IPRATROPIUM 3 ML AMPUL INH ×4 (13:07→22:46)
--- NOTE | 2021-05-23 13:21 | PC.NURSE ---
Addendum entered by Danielle Cordero R.N. 05/23/21 16:07: pt becoming increasingly verbal and agitated- calmed down after speaking with this rn and reviewing plan of care- encouraged RT to perform abg which was ordered at 1500 and tele-time study analyst is waiting for Original Note: received pt to room 227 @ 10am- she is mostly non-verbal but will nod or shake her head in communication- able to sip h20 with asa, no choking or coughing noted. No noted edema, serrato patent with core temp connected, able to wean down o2 on bipap to 30% fio2 - most medical info/hx given by sister, Shayy, with whom pt just recently moved in with due to no family and very little support for her in [place], as her health has been waning and is a , living in a trailer- noted to have hx of chf/copd
[2021-05-23 16:55] LABS: HCO3 ABG 42 mmol/L (22-26); PCO2 ABG 58.3 mmHg (35-45); PO2 ABG 84 mmHg (80-100); pH ABG 7.47 (7.35-7.45)
[2021-05-23 16:56] LABS: Oxygen Saturation ABG 97 % (95-100); TCO2 ABG 44 mmol/L (21-31)
[2021-05-23 16:57] LABS: Fractionated Inspired Oxygen 30
[2021-05-23] MEDS: LORazepam 2 MG/ML INJ 1 MG IV (16:59)
[2021-05-23] MEDS: BUDESONIDE 0.5 MG/2 ML NEB INH (19:48)
[2021-05-23] MEDS: FAMOTIDINE 20 MG/2 ML VIAL IV (22:25)
[2021-05-24] VITALS (17 sets, daily range): BP systolic 100–124; BP diastolic 33–66; PULSE 76–93; RESP 10–33; TEMP 30.9–37; O2SAT 92–100
[2021-05-24] MEDS: methylPREDNISolone 125 MG/2 ML VIAL 80 MG IV ×3 (01:45→16:32)
[2021-05-24] MEDS: metroNIDAZOLE 500 MG/100 ML PIGGYBACK 100 MG IV (01:45)
[2021-05-24] MEDS: LORazepam 2 MG/ML INJ 1 MG IV (02:10)
--- NOTE | 2021-05-24 03:24 | PM.ICURNDS ---
- :: This patient was seen via real time interactive two-way audiovisual telecommunication. Note: Admitted with COPD exacerbation. She has improved with steroids, nebs, and BIPAP. She was off BiPAP for some time but will use as needed during the night. Discussed with RN.
[2021-05-24 04:56] LABS: Add Manual Diff / Slide Review NO; Basophils Absolute Auto 0 /uL (0-100); Basophils Percent Auto 0.2 % (0-2); Eosinophils Absolute Auto 0 /uL (0-450); Hematocrit 40.6 % (36-46); Hemoglobin 12.7 g/dL (12.0-16.0); Lymphocytes Absolute Auto 400 /uL (1100-4500); Lymphocytes Percent Auto 8.1 % (25-40); Mean Corpuscular HGB Conc 31.3 % (30-36); Mean Corpuscular Hemoglobin 22.5 PG (26-34); Monocytes Absolute Auto 200 /uL (0-900); Monocytes Percent Auto 4.1 % (3-14); Neutrophils Absolute Auto 4400 /uL (1500-7000); Neutrophils Percent Auto 87.6 % (50-75); Platelet Count 351 X10^3/uL (150-400); Red Blood Cell Count 5.64 X10^6/uL (4.0-5.2); Red Cell Distribution Width 14.8 % (11.6-14.8)
--- NOTE | 2021-05-24 05:00 | DI.RAD.S_ITS ---
PROCEDURE: XR CHEST 1V INDICATIONS: ACUTE RESPIRATORY FAILURE TECHNIQUE: One view of the chest was acquired. COMPARISON: [facility], CR, XR CHEST 2V, 05/20/2021, 11:37. [facility], CR, XR CHEST 1V, 05/22/2021, 22:26. FINDINGS: Surgical changes and devices: Cervical spine fixation hardware is partially seen. Lungs and pleura: The lungs are slightly better aerated on the current study than on prior. Continued bilateral interstitial infiltrates are seen, which are not significantly changed compared to the prior examination, when allowing for differences in lung volumes. Mediastinum: The aorta is prominent and tortuous. Heart size is normal. Bones and chest wall: No suspicious bony lesions. Age-appropriate bony degenerative changes are seen. Mild levoconvex scoliotic curvature is noted. Overlying soft tissues appear unremarkable. IMPRESSION: A greater degree of aeration can be seen since the prior examination. Continued bilateral interstitial infiltrates are seen, which are highly suspicious for COVID pneumonia. Dictated by: Deepak Casiano M.D. on 05/24/2021 at 7:05 Approved by: Deepak Casiano M.D. on 05/24/2021 at 7:07
[2021-05-24 05:19] LABS: Alanine Aminotransferase 12 IU/L (<35); Albumin 3.5 g/dL (3.5-5.0); Albumin Globulin Ratio 1.2 (1.0-2.8); Alkaline Phosphatase 105 U/L (38-126); Aspartate Aminotransferase 17 IU/L (14-36); BUN Creatinine Ratio 39.1 (6-22); Bilirubin Total 0.6 mg/dL (0.2-1.3); Bilirubin Unconjugated 0.3 mg/dL (0.0-1.1); Blood Urea Nitrogen 25 mg/dL (7-17); Calcium 9.5 mg/dL (8.4-10.2); Chloride 96 mmol/L (98-107); Estimated Glomerular Filt Rate > 60.0 mL/min (>60); Globulin 2.9 g/dL (1.7-4.1); Glucose 178 mg/dL (80-110); HEMOLYSIS < 15 (0-50); Magnesium 1.9 mg/dL (1.6-2.3); Potassium 3.7 mmol/L (3.4-5.1); Sodium 142 mmol/L (137-145); Total Protein 6.4 g/dL (6.3-8.2)
[2021-05-24 05:25] LABS: Carbon Dioxide 39 mmol/L (22-32)
[2021-05-24] MEDS: BUDESONIDE 0.5 MG/2 ML NEB INH ×2 (05:47→19:22)
[2021-05-24] MEDS: ALBUTEROL/IPRATROPIUM 3 ML AMPUL INH ×5 (05:47→23:34)
--- NOTE | 2021-05-24 09:25 | P.PN_ITS ---
Subjective Subjective Date Patient Seen: 05/24/21 Interval history: PATIENT ADMITTED WITH SIGNS OF RESPIRATORY FAILURE. SEVERE HYPERCAPNIA NOTED ON ADMISSION. OFF BIPAP ON 05/24 TODAY FEELING MUCH BETTER SHE REPORTED GENERALIZED WEAKNESS MILD COUGH ALSO REPORTED DENIES CHEST PAIN. NO CHEST PALPITATIONS NO PRIOR HISTORY OF CAD SHE DID REPORT TOBACCO USE NO CHANGE IN MENTATION OR CHANGE IN VISION NO OTHER COMPLAINTS Exam Vital Signs (past 8 hours): - 05/24/21 01:56 05/24/21 03:35 05/24/21 04:58 Temperature 97.5 F L Pulse Rate 82 Respiratory Rate 29 H Blood Pressure 100/57 L 101/62 123/66 Pulse Oximetry 97 05/24/21 05:47 05/24/21 08:00 Temperature 98.1 F Pulse Rate 88 Respiratory Rate 30 H Blood Pressure 103/56 L 124/66 Pulse Oximetry 98 Fraction of Inspired Oxygen 25 Oxygen Delivery Method Nasal Cannula Oxygen Flow Rate 0 Narrative Exam Narrative: NO ACUTE DISTRESS. PATIENT IS ALERT ORIENTED X3. APPEARS OLDER THAN STATED AGE HEAD ATRAUMATIC NORMOCEPHALIC MOUTH. FAIR DENTITION FOR AGE. DRY MUCOUS MEMBRANES NECK : SUPPLE WITHOUT ADENOPATHY NO CAROTID BRUITS EYE: EOMI, PERRLA, NORMAL CONJUNCTIVA; NO JAUNDICE CHEST: REGULAR RATE. NO RUBS. PMI IS NON DISPLACED. NO MURMURS; NORMAL S1- S2 PULMONARY: WHEEZING APPRECIATED BILATERALLY. NO RHONCHI. NO RALES. DECREASED BS OVER THE BASES. MILD BIBASILAR CRACKLES NOTED; NO INCREASED DULLNESS TO PERCUSSION ABDOMEN: OBESE BUT SOFT. NONTENDER. NONDISTENDED. BOWEL SOUNDS ARE PRESENT IN ALL 4 QUADRANTS. NO ORGANOMEGALY EXTREMITIES: 1+ NONPITTING EDEMA TO BILATERAL EXTREMITIES IS. NO CYANOSIS CLUBBING NOTED. DISTAL PULSES PRESENT NEURO: CRANIAL NERVES 2-12 GROSSLY INTACT. NO FOCAL NEUROLOGICAL DEFICIT NOTED. MSK: NORMAL RANGE OF MOTION FOR AGE. NO JOINT EFFUSION. SKIN: NO ECCHYMOSIS. NO LESION. GOOD TURGOR.; NO RASHES : NORMAL EXTERNAL GENITALIA. PSYCH : APPROPRIATE MOOD AND AFFECT. ALERT AWAKE ORIENTED X3 Objective Labs Result Diagrams: 05/24/21 04:25 05/24/21 04:25 Labs: Laboratory Results - last 24 hr 05/23/21 05/23/21 05/23/21 09:25 12:09 16:45 WBC RBC Hgb Hct MCV MCH MCHC RDW Plt Count Neut % (Auto) Lymph % (Auto) [place] % (Auto) Eos % (Auto) Baso % (Auto) Neut # (Auto) Lymph # (Auto) [place] # (Auto) Eos # (Auto) Baso # (Auto) ABG pH 7.32 L 7.47 H ABG pCO2 89.6 H* 58.3 H ABG pO2 108 H 84 ABG HCO3 46 H 42 H ABG Total CO2 48 H 44 H ABG O2 Saturation 97 97 ABG Base Excess 20.0 H 18.0 H FiO2 35 30 Sodium Potassium Chloride Carbon Dioxide BUN Creatinine Estimated GFR BUN/Creatinine Ratio Glucose Calcium Magnesium Total Bilirubin Conjugated Bilirubin Unconjugated Bilirubin AST ALT Alkaline Phosphatase Total Protein Albumin Globulin Albumin/Globulin Ratio Nasal Screen MRSA (PCR) Negative for mrsa 05/24/21 05/24/21 04:25 04:25 WBC 5.0 D RBC 5.64 H Hgb 12.7 Hct 40.6 MCV 72.0 L MCH 22.5 L MCHC 31.3 RDW 14.8 Plt Count 351 Neut % (Auto) 87.6 H Lymph % (Auto) 8.1 L [place] % (Auto) 4.1 Eos % (Auto) 0.0 L Baso % (Auto) 0.2 Neut # (Auto) 4400 Lymph # (Auto) 400 L [place] # (Auto) 200 Eos # (Auto) 0 Baso # (Auto) 0 ABG pH ABG pCO2 ABG pO2 ABG HCO3 ABG Total CO2 ABG O2 Saturation ABG Base Excess FiO2 Sodium 142 Potassium 3.7 Chloride 96 L Carbon Dioxide 39 H BUN 25 H Creatinine 0.64 Estimated GFR > 60.0 BUN/Creatinine Ratio 39.1 H Glucose 178 H Calcium 9.5 Magnesium 1.9 Total Bilirubin 0.6 Conjugated Bilirubin 0.0 Unconjugated Bilirubin 0.3 AST 17 ALT 12 Alkaline Phosphatase 105 Total Protein 6.4 Albumin 3.5 Globulin 2.9 Albumin/Globulin Ratio 1.2 Nasal Screen MRSA (PCR) [facility] Medical History Chronic obstructive pulmonary disease Congestive heart failure Social History household members: family Smoking Status: Current every day smoker alcohol intake: current Assessment & Plan Assessment & Plan narrative: PROBLEM LIST ?ACUTE HYPERCAPNIC ON CHRONIC RESPIRATORY FAILURE. OFF BIPAP ?BILATERAL PNEUMONIA.? LIKELY COMMUNITY-ACQUIRED. ON ANTIBIOTICS ? COPD WITH ACUTE EXACERBATION. ON ANTIBIOTICS AND STEROIDS ?POSSIBLE SEPSIS PRESENT ON ARRIVAL ?LEUKOCYTOSIS. RESOLVED ?POSSIBLE INTRAVASCULAR FLUID DEPLETION.? ON IV FLUID ?MICROCYTOSIS WITH NORMAL HEMOGLOBIN.? CHECK IRON ?METABOLIC /TOXIC ENCEPHALOPATHY.? MULTIFACTORIAL ?THROMBOCYTOSIS.? LIKELY REACTIVE ?PLAN 05/24 PATIENT CONDITION HAS IMPROVED SIGNIFICANTLY OVERNIGHT IT HAS BEEN POSSIBLE TO TAKE HER OFF BIPAP CONTINUE WITH OXYGEN SUPPLEMENT WITH APPROPRIATE DEVICE TO MAINTAIN OXYGEN SATURATION ABOVE 88% STAFF OCCUPATIONAL THERAPIST ASSISTANCE GREATLY APPRECIATED AGGRESSIVE PULMONARY TOILETING INCENTIVE SPIROMETER TO BE USED WHILE AWAKE WITH SWITCH TO ORAL TABLETS SERIAL CHEST X-RAY AND ABG TO FOLLOW INDICATED CONSULT PT AND OT EXTENSIVE COUNSELING GIVEN REGARDING TOBACCO ABUSE WILL NEED TO BE EVALUATED FOR POSSIBLE HOME OXYGEN PRIOR TO DISCHARGE ADDITIONAL MANAGEMENT PER CLINICAL COURSE PROGNOSIS REMAINS GUARDED 05/23 ?KEEP PATIENT ON BIPAP FOR NOW ?ADMIT INTO THE ICU ?CONSULT CRITICAL CARE /STAFF OCCUPATIONAL THERAPIST ?REPEAT ABG SHE REALLY TO FOLLOW ?REPEAT CHEST X-RAY IN THE MORNING ?OXYGEN SUPPLEMENT TO MAINTAIN PROPER OXYGENATION ABOVE 88% AT ALL TIMES ?AGGRESSIVE PULMONARY TOILETING ?CONTINUOUS PULSE OX ?CHECK SPUTUM CULTURE ?RESTARTED ON ANTIBIOTICS WITH CEFEPIME FLAGYL WELL DOXYCYCLINE INTRAVENOUSLY FOR NOW ?KEEP PATIENT NPO TO DECREASE THE RISK OF ASPIRATION ?STARTED ON STEROIDS WELL DUONEB TREATMENTS ?MONITOR BLOOD SUGAR LEVEL CLOSELY WHILE ON STEROID THERAPY ?RULE OUT CARDIAC COMPONENT.? TROPONINS BEEN NEGATIVE. ? ECHOCARDIOGRAM ORDERED ?ASPIRATION PRECAUTION TO BE MAINTAINED AT ALL TIMES ?ADDITIONAL MANAGEMENT PER CLINICAL COURSE ?PROGNOSIS IS GUARDED Time Spent With Patient Critical Care time: I spent a total of [] minutes of critical care time on this patient's care today; this time is exclusive of procedural time. Quality VTE Deep Vein Thrombosis/Pulmonary Embolism Present on Admission: No
--- NOTE | 2021-05-24 10:02 | PM.PN.EICU ---
Subjective Subjective :: This patient was seen via real time interactive two-way audiovisual telecommunication. 61-year-old female history of COPD on home supplemental O2, and Diastolic CHF admitted 05/22/21 for acute on chronic hypercapnic respiratory failure from acute Copd Exacerbation and PNA. COVID test neg 05/20/21 and 05/22/21. Pt. placed on steroids, antibiotics, and BIPAP. 05/23: Patient improved and came off BIPAP for 3 hours in the evening so was placed back on BIPAP 05/24: Patient on BIPAP all night and taken off BIPAP this morning and so far is tolerating it. Current Medications Current Medications Medications: Home Medications azithromycin 250 mg tablet See Rx Instructions .ROUTE .COMPLEX #6 tab 05/20/21 [Rx Confirmed 05/23/21] prednisone 20 mg tablet 20 mg PO DAILY #14 tab 05/20/21 [Rx Confirmed 05/23/21] acetazolamide 250 mg tablet 250 mg PO BID 05/23/21 [History Confirmed 05/23/21] furosemide 20 mg tablet (Lasix) 20 mg PO BID 05/23/21 [History Confirmed 05/23/21] gabapentin 400 mg capsule 400 mg PO BID 05/23/21 [History Confirmed 05/23/21] ipratropium 20 mcg-albuterol 100 mcg/actuation mist for inhalation (Combivent Respimat) See Rx Instructions .ROUTE .COMPLEX 05/23/21 [History Confirmed 05/23/21] lorazepam 2 mg/mL injection solution 2 mg SUBLINGUAL TID PRN 05/23/21 [History Confirmed 05/23/21] morphine concentrate 100 mg/5 mL (20 mg/mL) oral solution 20 mg PO Q6H PRN 05/23/21 [History Confirmed 05/23/21] omeprazole 20 mg capsule,delayed release 20 mg PO DAILY 05/23/21 [History Confirmed 05/23/21] spironolactone 25 mg tablet 25 mg PO DAILY 05/23/21 [History Confirmed 05/23/21] tiotropium bromide 18 mcg capsule with inhalation device (Spiriva with HandiHaler) 1 cap INHALATION DAILY 05/23/21 [History Confirmed 05/23/21] Visit Medications (administered) Generic Name Dose Route Start Last Admin Trade Name Freq PRN Reason Stop Dose Admin Albuterol/Ipratropium 3 ml 05/23/21 11:00 05/24/21 05:47 Albuterol/Ipratropium 3 Ml Ampul INH 3 ml [id number] DANYELL Administration Aspirin 81 mg 05/23/21 09:00 05/23/21 10:24 Aspirin Ec 81 Mg Tablet PO 81 mg DAILY DANYELL Administration Budesonide 0.5 mg 05/23/21 08:00 05/24/21 05:47 Budesonide 0.5 Mg/2 Ml Neb INH 0.5 mg RTBID DANYELL Administration Enoxaparin Sodium 40 mg 05/23/21 09:00 05/23/21 10:24 Enoxaparin 40 Mg/0.4 Ml Syringe SUBCUT 40 mg DAILY DANYELL Administration Cefepime HCl 1 gm/ Sodium 100 mls @ 200 mls/hr 05/23/21 09:00 05/23/21 22:55 Chloride IV Infused Q12H DANYELL Infusion Doxycycline Hyclate 100 mg/ 100 mls @ 100 mls/hr 05/23/21 10:00 05/24/21 00:00 Sodium Chloride IV Infused Q12H DANYELL Infusion Lorazepam 1 mg 05/23/21 07:55 05/24/21 02:10 Lorazepam 2 Mg/Ml Inj IV 1 mg Q6HR PRN Administration Anxiety Methylprednisolone 80 mg 05/23/21 08:00 05/24/21 01:45 Methylprednisolone 125 Mg/2 Ml Vial IV 80 mg Q8H DANYELL Administration Objective Labs Result Diagrams: 05/24/21 04:25 05/24/21 04:25 Labs: Laboratory Results - last 24 hr 05/23/21 05/23/21 05/23/21 09:25 12:09 16:45 WBC RBC Hgb Hct MCV MCH MCHC RDW Plt Count Neut % (Auto) Lymph % (Auto) [place] % (Auto) Eos % (Auto) Baso % (Auto) Neut # (Auto) Lymph # (Auto) [place] # (Auto) Eos # (Auto) Baso # (Auto) ABG pH 7.32 L 7.47 H ABG pCO2 89.6 H* 58.3 H ABG pO2 108 H 84 ABG HCO3 46 H 42 H ABG Total CO2 48 H 44 H ABG O2 Saturation 97 97 ABG Base Excess 20.0 H 18.0 H FiO2 35 30 Sodium Potassium Chloride Carbon Dioxide BUN Creatinine Estimated GFR BUN/Creatinine Ratio Glucose Calcium Magnesium Total Bilirubin Conjugated Bilirubin Unconjugated Bilirubin AST ALT Alkaline Phosphatase Total Protein Albumin Globulin Albumin/Globulin Ratio Nasal Screen MRSA (PCR) Negative for mrsa 05/24/21 05/24/21 04:25 04:25 WBC 5.0 D RBC 5.64 H Hgb 12.7 Hct 40.6 MCV 72.0 L MCH 22.5 L MCHC 31.3 RDW 14.8 Plt Count 351 Neut % (Auto) 87.6 H Lymph % (Auto) 8.1 L [place] % (Auto) 4.1 Eos % (Auto) 0.0 L Baso % (Auto) 0.2 Neut # (Auto) 4400 Lymph # (Auto) 400 L [place] # (Auto) 200 Eos # (Auto) 0 Baso # (Auto) 0 ABG pH ABG pCO2 ABG pO2 ABG HCO3 ABG Total CO2 ABG O2 Saturation ABG Base Excess FiO2 Sodium 142 Potassium 3.7 Chloride 96 L Carbon Dioxide 39 H BUN 25 H Creatinine 0.64 Estimated GFR > 60.0 BUN/Creatinine Ratio 39.1 H Glucose 178 H Calcium 9.5 Magnesium 1.9 Total Bilirubin 0.6 Conjugated Bilirubin 0.0 Unconjugated Bilirubin 0.3 AST 17 ALT 12 Alkaline Phosphatase 105 Total Protein 6.4 Albumin 3.5 Globulin 2.9 Albumin/Globulin Ratio 1.2 Nasal Screen MRSA (PCR) Exam Vital Signs (past 8 hours): - 05/24/21 03:35 05/24/21 04:58 05/24/21 05:47 Temperature 97.5 F L Pulse Rate 82 Respiratory Rate 29 H Blood Pressure 101/62 123/66 103/56 L Pulse Oximetry 97 05/24/21 07:33 05/24/21 07:38 05/24/21 08:00 Temperature 98.1 F Pulse Rate 84 88 Respiratory Rate 32 H 30 H Blood Pressure 124/66 124/66 Pulse Oximetry 95 98 05/24/21 08:55 Temperature Pulse Rate Respiratory Rate Blood Pressure Pulse Oximetry 93 Fraction of Inspired Oxygen 25 Oxygen Delivery Method Room Air Oxygen Flow Rate 0 Quality TeleICU VTE Deep Vein Thrombosis/Pulmonary Embolism Present on Admission: No Assessment & Plan Assessment & Plan narrative: Assessment 61 yo Acute on chronic Hypercapnic respiratory failure COPD exacerbation on home supplemental O2 for COPD CHF (with preserved EF) 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: AMs secondary to C02 retention -patient awake this morning so her gabapentin was restarted CV: BP currently WNL -ECHO 05/23/21 shows LVH with hyperdynamic LV function (EF Is 75-8)0%, + diastolic dysfunction, no sig valvular problems, IVC Is normal caliber with >50% collapse with sniff PUlm: -off BIPAP now -steroids (solumedrom 80 mg IV TID) -bronchodilators GI: start diet ID: COVID test neg -darnell culture -continue Docycycline, Flagyl, and Cefepime for now to cover for HCAP, CAP, and aspiraiton PNA FEN/Renal -ECHO suggests patient is not fluid overloaded so would hold off any aggressive diuresis for now -monitor and correct any electrolyte abnormalities Heme -daily CBC Endo- -MOnitor BG and treat as needed to maintain euglycemia Prophylasix: Lovenox, protonix Code Status: FULL CODE Time Spent With Patient Critical Care time: I spent a total of [] minutes of critical care time on this patient's care today; this time is exclusive of procedural time.
[2021-05-24] MEDS: CEFEPIME 1 GM in SODIUM CHLORIDE 0.9% 100 ML 200 ML IV ×2 (10:45→20:51)
[2021-05-24] MEDS: DOXYCYCLINE 100 MG in SODIUM CHLORIDE 0.9% 100 ML IV ×2 (10:49→22:00)
[2021-05-24] MEDS: ENOXAPARIN 40 MG/0.4 ML SYRINGE SUBCUT (10:49)
[2021-05-24] MEDS: ASPIRIN EC 81 MG TABLET PO (10:49)
[2021-05-24] MEDS: GABAPENTIN 400 MG CAPSULE PO ×2 (10:52→20:53)
[2021-05-24] MEDS: acetaZOLAMIDE 250 MG TABLET PO ×2 (10:52→20:52)
[2021-05-24] MEDS: FUROSEMIDE 20 MG TABLET PO ×2 (11:03→20:52)
--- NOTE | 2021-05-24 15:48 | PT.IIE ---
Current Diagnoses Acute respiratory failure with hypercapnia (05/23/21) Acute and chronic respiratory failure with hypercapnia (05/23/21) Medical History (Last Reviewed 05/20/21 @ 12:21 by Malcolm Richey DO) Chronic obstructive pulmonary disease Congestive heart failure Physical Therapy Inpatient Evaluation/Re-Eval M1 PT/OT-IP Prior Functional Status Start: 05/24/21 14:59 Freq: Status: Active Protocol: Document 05/24/21 15:10 MB (Rec: 05/24/21 15:48 MB [id number]) Medical Review Prior Functional Status Medical History Reviewed Yes Communication Pt has poor dentition so likely soft foods baseline Mobility and Gait She is unclear about mobility. Yes and no, when PT asks pt if she uses a cane or walker at her sister's house. She states she has a rollator, two straight canes and two hockey sticks. Her room is on the second floor and she occ goes up there and occ does not. She sleeps in a recliner downstairs when she doesn't feel like going upstairs. She doesn't know if there is rail on the flight of steps or not. There is a ramp to enter the house. She keeps her portable O2 with her wherever she is. Activities of Daily Living and IADL's Unclear, appears to be mod I Prior Functional Level (Other details) As above Social History Household Members family Living Arrangements House Number of Floors (Floors) Two Floors Number of Stairs To Enter/Railing? Flight of steps to her room that she occ does and occ stays downstairs in recliner. She does not think there is a rail but doesn't know. Ramp to enter home. She is not clear about other home environment questions. 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 M2 PT-IP Current Condition Start: 05/24/21 14:59 Freq: Status: Active Protocol: Document 05/24/21 15:10 MB (Rec: 05/24/21 15:48 MB [id number]) Physical Therapy Current Condition Current Condition Evaluation Date 05/24/21 Treatment Diagnosis Weakness and AMS d/t respiratory illness, not COVID Onset Date Acute on chronic (history CHF, COPD) M3 PT-IP Subjective Start: 05/24/21 14:59 Freq: Status: Active Protocol: Document 05/24/21 15:10 MB (Rec: 05/24/21 15:48 MB [id number]) Subjective Physical Therapy Visit Type Type Initial Evaluation Visit Start Time 15:10 Visit Stop Time 15:26 Total Visit Minutes 16 Number of AUTOMAT WATCHER Visits 0 Physical Therapy Visit Comments Patient Comments Four paws? when PT enters. Pt is asking if therapist has a dog or cat Patient Goals She is unclear about goal Therapy Pain Assessment Pain When Pain Assessed At Rest Pain Present Pain Present Denied Pain M4 PT-IP Mobility and Gait Start: 05/24/21 14:59 Freq: Status: Active Protocol: Document 05/24/21 15:10 MB (Rec: 05/24/21 15:48 MB [id number]) PT-Bed Mobility Assessment Rolling Type of Rolling Roll to Right Level of Assist Independent Supine to Sit Supine to Sit Independent,Head of Bed Elevated,Bedrails Scooting Scooting to Edge of Bed Independent PT-Transfer Assessment Sit to and From Stand Sit to and from Stand Standby Assistance Equipment Transfer Assistive Device None Orthotic/Prosthetic Devices or Brace: No Transfers Transfer Destination Chair Transfer Technique Stand Step Pivot Transfer Ability Level of Assist Standby Assistance Comments Mobility Comments PT hands pt hospital socks to check range and cognition. Pt moves to EOB and then stands up, not donning socks. PT must cue pt to sit back down and don the socks, which she does I and without ROOT or trouble. Bed mobility and transfer and a few steps to the chair are not problematic today. Will advance gait and mobility next date. Gait Assessment Gait Gait Assistance Required: Contact Guard Assist Distance (Feet) 3 Assistive Devices Assistive Device None Orthotic/Prosthetic Devices or Brace: No Gait Deviations General Gait Pattern Decreased Feet Clearance, Flexed Trunk Factors Limiting Gait Function Factors Limiting Gait Function Decreased Activity Tolerance, Poor Safety Awareness Comments Gait Comments No ROOT with short stepping on RA to the chair today. Her O2 sats on RA in the bed in hook lying are 88% and they increase to 93% one up in the chair. HR remains the same around 94 BPM. Pt moves easily and without fear of falling but PT is not ready for her to move and so she is somewhat impulsive. She also states she needs to urinate despite already having PT address that she has a catheter. PT encourages her to leg it it. 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 Gross Range of Motion Upper Extremity ROM Assessment Within Functional Limits Lower Extremity ROM Assessment Within Functional Limits Strength Comments Strength Comments B knee extension, ankle DF and great toe extension 4/5 Sensation Assessment Comments Sensation Comments Pt is confused and so sensory testing deferred Muscle Tone Comments Muscle Tone Comments No muscle tone issues M6 PT-IP Treatment Start: 05/24/21 14:59 Freq: Status: Active Protocol: Document 05/24/21 15:10 MB (Rec: 05/24/21 15:48 MB [id number]) Physical Therapy Treatment Education Education Provided Safety Other Treatments Other Treatment Performed Ed pt to not get up without assist M7 PT-IP Assessment and Plan Start: 05/24/21 14:59 Freq: Status: Active Protocol: Document 05/24/21 15:10 MB (Rec: 05/24/21 15:48 MB [id number]) PT Summary Assessment and Plan Potential Rehabilitation Potential Fair Status of Condition at Evaluation Evolving Summary Impairments Balance,Cognition,Bed Mobility ,Transfers,Gait,Activity Tolerance Assessment Summary Pt is a 61 y/o female presenting with confusion and decreased safety awareness d/t AMS and UPS. She has recently moved from [facility] to her sister's in the area. She is not clear about her mobility level and use of ADs. Overall safety is impaired today and she has trouble following commands. At baseline, she con 't to smoke while reporting she tries to use her 5L O2 as much as possible at home d/t COPD. She does walk away from her O2 when smoking. Her [employer] in the house also smokes outside. There is a flight of steps to her room and she occ does them and occ sleeps in a recliner. She cannot report if there is a rail or not and she does not seem to be consistent with AD. She will benefit from acute PT to improve mobility and gait. Barriers include confusion. Goals Bed Mobility Goal Independent Transfer Goal Independent Gait Goal Independent Gait Distance 100 Other Goals Pt will ascend and descend 8 steps with and without rail ( pt cannot state if stairs at home have rail or not) without LOB with close superv. Days to Meet Goals 5 Frequency of Treatment Frequency Of Treatment Once a Day Treatment Plan Physical Therapy Treatment Plan Bed Mobility Training,Transfer Training,Gait Training, Therapeutic Exercise,Balance Retraining,Discharge Planning, Hot or Cold Pack,Neuromuscular Re-ed,Coordination Retraining ,Manual Therapy Other Recommendations and Next Treatment Gait in hallway, steps and Focus balance training Precautions Other Precautions Fall risk, not to get up without nsg assist Recommendations To Nursing Amount of Assist Needed Standby Assistance Discharge Recommendations PT Discharge Recommendations Home with 24/ Assist Available,Home Health Transportation Needs at Discharge Private Vehicle
[2021-05-24] MEDS: metroNIDAZOLE 500 MG TABLET PO ×2 (16:32→20:54)
[2021-05-24] MEDS: SUCRALFATE 1 GM TABLET PO ×2 (16:32→20:53)
--- NOTE | 2021-05-24 19:33 | PC.NURSE ---
PT IMPROVED ENOUGH TO COME OFF BIPAP AND INITIALLY PLACED ON 1-2 L/O2 THEN ABLE TO WEAN TO ROOM AIR - WORKED WITH PT AND GOT UP TO CHAIR -ANTHONY PATENT LUNGS DIMINISHED - TOLERATED CLEAR LIQUIDS WELL
[2021-05-24] MEDS: FAMOTIDINE 20 MG TABLET 40 MG PO (20:50)
[2021-05-24] MEDS: ACETAMINOPHEN 325 MG TABLET 650 MG PO (23:19)
[2021-05-25] MEDS: methylPREDNISolone 125 MG/2 ML VIAL 80 MG IV ×2 (00:12→07:27)
[2021-05-25 05:02] LABS: Add Manual Diff / Slide Review NO; Basophils Absolute Auto 0 /uL (0-100); Basophils Percent Auto 0.2 % (0-2); Eosinophils Absolute Auto 0 /uL (0-450); Hematocrit 40.4 % (36-46); Hemoglobin 12.5 g/dL (12.0-16.0); Lymphocytes Absolute Auto 200 /uL (1100-4500); Lymphocytes Percent Auto 3.5 % (25-40); Mean Corpuscular Hemoglobin 22.2 PG (26-34); Mean Corpuscular Volume 71.8 fL (80-100); Monocytes Absolute Auto 100 /uL (0-900); Neutrophils Absolute Auto 6700 /uL (1500-7000); Neutrophils Percent Auto 94.3 % (50-75); Platelet Count 334 X10^3/uL (150-400); Red Blood Cell Count 5.64 X10^6/uL (4.0-5.2); Red Cell Distribution Width 14.8 % (11.6-14.8); White Blood Cell Count 7.1 X10^3/uL (4.5-11.0)
[2021-05-25 05:09] LABS: Alanine Aminotransferase 12 IU/L (<35); Albumin 3.5 g/dL (3.5-5.0); Albumin Globulin Ratio 1.3 (1.0-2.8); Alkaline Phosphatase 103 U/L (38-126); Aspartate Aminotransferase 16 IU/L (14-36); BUN Creatinine Ratio 26.7 (6-22); Bilirubin Total 0.5 mg/dL (0.2-1.3); Bilirubin Unconjugated 0.3 mg/dL (0.0-1.1); Blood Urea Nitrogen 20 mg/dL (7-17); Carbon Dioxide 39 mmol/L (22-32); Chloride 96 mmol/L (98-107); Estimated Glomerular Filt Rate > 60.0 mL/min (>60); Globulin 2.7 g/dL (1.7-4.1); Glucose 176 mg/dL (80-110); HEMOLYSIS < 15 (0-50); Potassium 3.2 mmol/L (3.4-5.1); Sodium 139 mmol/L (137-145); Total Protein 6.2 g/dL (6.3-8.2)
[2021-05-25 06:00] VITALS: BP 127/67; PULSE 85; RESP 22; TEMP 36.1; O2SAT 99
--- NOTE | 2021-05-25 06:51 | PC.NURSE ---
Pt has been off BiPAP since 05/24 am. Upon shift change pt was resting in chair on RA at 98% and talking with sister. Pt tolerating liquid diet. Pt offered nicotine patch but refuses and is agreeable to not leaving to smoke. Pt remains in arm chair until 0200 and then transitioned to bed. Pt was up all shift calmly watching tv. 0500 pt placed on 2L for SpO2 87% RA.
[2021-05-25] MEDS: SUCRALFATE 1 GM TABLET PO ×2 (07:27→13:55)
[2021-05-25] MEDS: ALBUTEROL/IPRATROPIUM 3 ML AMPUL INH ×2 (07:32→12:04)
[2021-05-25 08:00] VITALS: BP 116/55; PULSE 86; RESP 17; TEMP 36.6; O2SAT 99
[2021-05-25] MEDS: GABAPENTIN 400 MG CAPSULE PO (09:20)
[2021-05-25] MEDS: ASPIRIN EC 81 MG TABLET PO (09:20)
[2021-05-25] MEDS: acetaZOLAMIDE 250 MG TABLET PO (09:20)
[2021-05-25] MEDS: metroNIDAZOLE 500 MG TABLET PO (09:21)
[2021-05-25] MEDS: FUROSEMIDE 20 MG TABLET PO (09:21)
[2021-05-25] MEDS: FAMOTIDINE 20 MG TABLET PO (09:21)
[2021-05-25] MEDS: SPIRONOLACTONE 25 MG TABLET PO (09:22)
[2021-05-25] MEDS: BUDESONIDE 0.5 MG/2 ML NEB INH (09:33)
[2021-05-25 09:52] VITALS: PULSE 97; RESP 22; O2SAT 96
[2021-05-25] MEDS: ENOXAPARIN 40 MG/0.4 ML SYRINGE SUBCUT (10:22)
[2021-05-25] MEDS: POTASSIUM CHLORIDE 20 MEQ TAB 40 MEQ PO (10:22)
[2021-05-25] MEDS: CEFEPIME 1 GM in SODIUM CHLORIDE 0.9% 100 ML 200 ML IV (10:23)
--- NOTE | 2021-05-25 11:15 | PT.IPTN ---
Current Diagnoses Acute respiratory failure with hypercapnia (05/23/21) Acute and chronic respiratory failure with hypercapnia (05/23/21) Physical Therapy Treatment Note M2 PT-IP Current Condition Start: 05/24/21 14:59 Freq: Status: Active Protocol: Document 05/25/21 10:50 SP (Rec: 05/25/21 14:30 SP [id number]) Physical Therapy Current Condition Current Condition Evaluation Date 05/24/21 Treatment Diagnosis Weakness and AMS d/t respiratory illness, not COVID Onset Date Acute on chronic (history CHF, COPD) M3 PT-IP Subjective Start: 05/24/21 14:59 Freq: Status: Active Protocol: Document 05/25/21 10:50 SP (Rec: 05/25/21 14:30 SP [id number]) Subjective Physical Therapy Visit Type Type Treatment Note Visit Start Time 10:50 Visit Stop Time 11:15 Total Visit Minutes 25 Notes Sister in room attended but not wanting to provide assist during tx, states will be able to help pt at home if needed. Vitals taken during tx: BP 119 / 60 HR SaO2 94% on RA. Post mobilty SaO2 on RA decreased 80%. Provided 2L O2 improved 96% at rest. Post gait w/ 4WW on 2L SaO2 94 %. Number of ENGINEERING AGENT Visits 1 Physical Therapy Visit Comments Patient Comments Pt willing to work with therapy. Patient Goals Go home with sister to assist her as needed. Therapy Pain Assessment Pain Present Pain Present Denied Pain M4 PT-IP Mobility and Gait Start: 05/24/21 14:59 Freq: Status: Active Protocol: Document 05/25/21 10:50 SP (Rec: 05/25/21 14:30 SP [id number]) PT-Bed Mobility Assessment Supine to Sit Supine to Sit Independent,Head of Bed Elevated,Bedrails Sit to Supine Sit to Supine Independent,Bedrails Scooting Scooting to Edge of Bed Independent PT-Transfer Assessment Sit to and From Stand Sit to and from Stand Standby Assistance,Contact Guard Assistance,Use of Upper Extremities Equipment Transfer Assistive Device Gait Belt,Straight Cane,4 Wheeled Walker Orthotic/Prosthetic Devices or Brace: No Transfers Transfer Destination Bed,Toilet Transfer Technique Stand Step Pivot Transfer Ability Level of Assist Standby Assistance,Contact Guard Assistance,1 Person Assistance,Use of Upper Extremities Comments Mobility Comments Pt was inclined in bed when arrived, no O2 donned SaO2 94% on RA, NC turned on 2L found under pillow. Pt reports feels fine, doesn't need O2 to go to bathroom also doesn't usually wear socks and wears paper pants. Elevated supine> sit and scoot EOB I, ENGINEERING AGENT assisted pt with donning socks over ALEX hose, ed safety recommended use for decrease risk for falls ALEX hose slippery on floors. Sit>stand after nonskid socks donned by ENGINEERING AGENT w/ SPC CGA- Min A gait to bathroom 10 ft with antalgic increased respiratory rate, cues for back up fully and proper use of GB in bathroom. stand>sit w /grab bar CGA. ENGINEERING AGENT managed IV pole. Pt stable sitting, completed pericare self. sit>stand from toilet using grab bar SBA with provided 4WW for increased safety and self support balance. Ambulated to sink using SBA w/ 4WW, ed for lock brakes and positioning mgt at side safety support, wash hands unsupported SBA, stable. Pt returned to seated at bed sBA w/ 4WW reported little dizzy. Assessed vitals: SaO2 80% on RA. Education on continued use of supplimental O2 for safety with verbalized understanding. ENGINEERING AGENT provided NC supplimental O2 2L, recovered quickly 10 sec mid 90s felt better reports. Progressed further distance gait in room 30 ft across room and back SBA w/ 4WW good pacing and mgt w/ brakes for safety use at home , ENGINEERING AGENT managed IV pole and O2 tubing. Pt returned to bed I. ENGINEERING AGENT recommended HHPT for progressing strengthening, ed on energy conservation/ breath and continued use of supplimental O2 at home. Pt is ok to return home with sister when medically cleared, sleeps in recliner and doesn't need use stairs to go up to bed so didn't assess. Gait Assessment Gait Gait Assistance Required: Standby Assistance,Contact Guard Assist Distance (Feet) 30 Assistive Devices Assistive Device Gait Belt,Straight Cane,4 Wheeled Walker Orthotic/Prosthetic Devices or Brace: No Gait Deviations General Gait Pattern Antalgic,Decreased Feet Clearance,Flexed Trunk Factors Limiting Gait Function Factors Limiting Gait Function Decreased Activity Tolerance, Decreased Strength,Poor Balance,Poor Safety Awareness, Respiratory Distress Comments Gait Comments See mobility comments. Stair Climbing Assessment Comments Stair Climbing Comments not assessed due to sleeping in recliner on main level and not needing to use stairs to go up to bed. PT-Balance Assessment Sitting Balance and Reactions Static Sitting Balance Ability Normal Dynamic Sitting Balance Ability Normal Standing Balance and Reactions Static Standing Balance Ability Good Dynamic Standing Balance Ability Good Device Used FWW, poor SPC CGA- 5%A for balance M5 PT-IP Objective Assessments Start: 05/24/21 14:59 Freq: Status: Active Protocol: Document 05/24/21 15:10 MB (Rec: 05/24/21 15:48 MB [id number]) Orientation Orientation/Cognition Level of Alertness Confusional State Orientation Name,Age,Birthday,Month,Date, Year Safety Awareness Decreased Safety Awareness Memory Description Short Term Impaired,Fpc Impaired Gross Range of Motion Upper Extremity ROM Assessment Within Functional Limits Lower Extremity ROM Assessment Within Functional Limits Strength Comments Strength Comments B knee extension, ankle DF and great toe extension 4/5 Sensation Assessment Comments Sensation Comments Pt is confused and so sensory testing deferred Muscle Tone Comments Muscle Tone Comments No muscle tone issues M6 PT-IP Treatment Start: 05/24/21 14:59 Freq: Status: Active Protocol: Document 05/25/21 10:50 SP (Rec: 05/25/21 14:30 SP [id number]) Physical Therapy Treatment Education Education Provided Safety Other Treatments Other Treatment Performed ed for breath and use of supplimental O2 for safety during mobility. M7 PT-IP Assessment and Plan Start: 05/24/21 14:59 Freq: Status: Active Protocol: Document 05/25/21 10:50 SP (Rec: 05/25/21 14:30 SP [id number]) PT Summary Assessment and Plan Potential Rehabilitation Potential Fair Status of Condition at Evaluation Evolving Summary Impairments Balance,Cognition,Bed Mobility ,Transfers,Gait,Activity Tolerance Progress Towards Goals Progressing Toward Goals,Slow Progress due to Activity Tolerance,Slow Progress - Other Assessment Summary Pt I in bed mob, CGA-5%A transfers/ gait with SPC, destats to 80% on RA. SBA using 4WW and 2L Supplimenatal low- mid 90s during mobility SBA. Pt is ok to return home with sister to assist her when medically cleared. Notified care mgt and nursing desaturates without supplimental O2, respiratory orders prior to DC ordered in rounds. Goals Bed Mobility Goal Independent Transfer Goal Independent Gait Goal Independent Gait Distance 100 Other Goals Pt will ascend and descend 8 steps with and without rail ( pt cannot state if stairs at home have rail or not) without LOB with close superv. Days to Meet Goals 5 Frequency of Treatment Frequency Of Treatment Once a Day Treatment Plan Physical Therapy Treatment Plan Bed Mobility Training,Transfer Training,Gait Training, Therapeutic Exercise,Balance Retraining,Discharge Planning, Hot or Cold Pack,Neuromuscular Re-ed,Coordination Retraining ,Manual Therapy Other Recommendations and Next Treatment further distance gait w/ 4WW, Focus stairs and balance if able Precautions Other Precautions Fall risk. Recommendations To Nursing Amount of Assist Needed Standby Assistance Discharge Recommendations PT Discharge Recommendations Home with Assistance,Home Health Equipment Needed for Home Before supplimental O2 Discharge Transportation Needs at Discharge Private Vehicle
[2021-05-25 12:00] VITALS: BP 121/57; PULSE 93; RESP 17; TEMP 36.6; O2SAT 95
[2021-05-25 12:05] VITALS: PULSE 91; RESP 20; O2SAT 93
--- NOTE | 2021-05-25 12:30 | OT.IP.EVAL ---
Current Diagnoses Acute respiratory failure with hypercapnia (05/23/21) Acute and chronic respiratory failure with hypercapnia (05/23/21) Past Medical History (Last Reviewed 05/20/21 @ 12:21 by Malcolm Richey DO) Chronic obstructive pulmonary disease Congestive heart failure Occupational Therapy Inpatient Evaluation/Re-Eval M1 PT/OT-IP Prior Functional Status Start: 05/24/21 14:59 Freq: Status: Active Protocol: Document 05/25/21 12:20 [facility] (Rec: 05/25/21 13:00 [facility] [id number]) Medical Review Prior Functional Status Medical History Reviewed Yes Communication Pt has poor dentition so likely soft foods baseline Mobility and Gait She is unclear about mobility. Yes and no, when PT asks pt if she uses a cane or walker at her sister's house. She states she has a rollator, two straight canes and two hockey sticks. Her room is on the second floor and she occ goes up there and occ does not. She sleeps in a recliner downstairs when she doesn't feel like going upstairs. She doesn't know if there is rail on the flight of steps or not. There is a ramp to enter the house. She keeps her portable O2 with her wherever she is. Activities of Daily Living and IADL's Unclear, appears to be mod I Prior Functional Level (Other details) As above Social History Household Members family Living Arrangements House Number of Floors (Floors) Two Floors Number of Stairs To Enter/Railing? Flight of steps to her room that she occ does and occ stays downstairs in recliner. She does not think there is a rail but doesn't know. Ramp to enter home. She is not clear about other home environment questions. 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 M2 OT-IP Current Condition Start: 05/25/21 12:46 Freq: Status: Active Protocol: Document 05/25/21 12:20 [facility] (Rec: 05/25/21 13:00 [facility] [id number]) Occupational Therapy Current Condition Current Condition Evaluation Date 05/25/21 Treatment Diagnosis Acute chronic respiratory failure Diagnosis Onset Date 05/23/21 M3 OT- IP Subjective and Pain Start: 05/25/21 12:46 Freq: Status: Active Protocol: Document 05/25/21 12:20 [facility] (Rec: 05/25/21 13:00 [facility] [id number]) OT- Subjective Occupational Therapy Visit Type Type Initial Evaluation Visit Start Time 12:20 Visit Stop Time 12:30 Total Visit Minutes 10 Occupational Therapy Visit Comments Patient Comments Pt agreed to talk and work with OT for OT eval. Pt' sister present in the room. Patient/Caregiver Goals To go home. OT Pain Assessment Pain When Pain Assessed At Rest Pain Present Pain Present Denied Pain M4 OT- IP ADL's Start: 05/25/21 12:46 Freq: Status: Active Protocol: Document 05/25/21 12:20 [facility] (Rec: 05/25/21 13:00 [facility] [id number]) OT NOC-Glds-Mjadvei Comments OT Self-Feeding Comments Not at meal time, no issues noted. OT ADL-Grooming General Evaluation Grooming Ability Independent OT ADL-Oral Care Comments Oral Care Comments NOt performed. OT ADL-Toileting General Evaluation Toileting Ability Independent OT ADL-Bathing Comments OT Bathing Comments Not performed. M5 OT- IP IADL's Start: 05/25/21 12:46 Freq: Status: Active Protocol: Document 05/25/21 12:20 [facility] (Rec: 05/25/21 13:00 [facility] [id number]) OT-Instrumental Activities of Daily Living Home Safety Awareness Home Safety Comments Pt has a supportive family to be able to assist pt for all needs as needed. M6 OT- IP Functional Cognition Start: 05/25/21 12:46 Freq: Status: Active Protocol: Document 05/25/21 12:20 [facility] (Rec: 05/25/21 13:00 [facility] [id number]) Cognitive Factors Limiting Selfcare Function Cognitive Ability Level of Alertness Alert Patient Orientation Name,Place,Situation Attention Span Ability Capable of Focused Attention, Capable of Sustained Attention Cognitive Comments Cognitive Assessment Comments Pt mainly needing safety reminders to keep her o2 tubing on. Pt states prior just had a portable tank but now looking into getting a O2 concentrator. Able to go over energy conservation strategies for pt to help conserve her energy during her needs. OT- Vision and Hearing OT- Hearing Assessment OT- Hearing Assessment WFL OT- Vision Assessment Visual Acuity Glasses For Reading M7 OT- IP Mobility and Balance Start: 05/25/21 12:46 Freq: Status: Active Protocol: Document 05/25/21 12:20 [facility] (Rec: 05/25/21 13:00 [facility] [id number]) OT- Bed Mobility Assessment Supine to Sit Supine to Sit Assist Independent Sit to Supine Sit to Supine Assist Independent OT-Transfer Assessment Sit to and From Stand Sit to and from Stand Independent Transfers Transfer Ability Independent Technique Transfer Destination Bed,Toilet Comments Mobility Comments Pt able to walk into and out of the bathroom on her own. OT- Balance Assessment Sitting Balance and Reactions Static Sitting Balance Ability Normal Dynamic Sitting Balance Ability Good Standing Balance and Reactions Static Standing Balance Ability Good M8 OT- IP Objective Assessments Start: 05/25/21 12:46 Freq: Status: Active Protocol: Document 05/25/21 12:20 [facility] (Rec: 05/25/21 13:00 [facility] [id number]) OT Gross Range of Motion Upper Extremity Range of Motion Assessment Within Functional Limits M9 OT- IP Assessment and Plan Start: 05/25/21 12:46 Freq: Status: Active Protocol: Document 05/25/21 12:20 [facility] (Rec: 05/25/21 13:00 [facility] [id number]) OT Summary Assessment and Plan Potential Rehabilitation Potential Good Analytic Complexity at Evaluation Low Summary OT Impairments Activity Tolerance Progress Towards Goals Progressing Toward Goals Assessment Summary Pt here due to acute chronic respiratory failure and looking to go home with family . Able to give pt information sheet for energy conservation needs. Pt has a supportive family to be able to assist her at home when medically stable. Goals Dressing Goal Independent Bathing Goal Independent Patient/Caregiver Education Goal Demonstrate Energy Conservation and Pacing Days to Meet Goals 1 Frequency of Treatment Frequency Of Treatment Once a Day Treatment Plan OT Treatment Plan ADL Training,Functional Mobility,Patient/Family Education,Discharge Planning Other Treatment Recommendations and Next Shower if still here Treatment Focus Discharge Recommendations OT Discharge Recommendations Home with Assistance Transportation Needs at Discharge Private Vehicle
--- NOTE | 2021-05-25 13:10 | PM.DS.1 ---
History of Present Illness History of Present Illness Chief complaint: difficulty breathing Narrative: THIS IS A 61-YEAR-OLD FEMALE WHO IS UNABLE TO PROVIDE A RELIABLEHISTORY AT THIS TIME. SHE IS ON EXTERNAL RESPIRATORY SUPPORT ON BIPAP DUE TO ACUTE ON CHRONIC RESPIRATORY FAILURE. MOST OF THE HISTORY WAS TAKEN FROM NURSING REPORT WELL ER NOTES. PRESENTS TO THE HOSPITAL WITH CHANGES IN MENTATION WELL REPORTED SHORTNESS OF BREATH /DIFFICULTY BREATHING. FROM THE ER RECORDS, INITIAL WORKUP SHOWED SIGNIFICANT ACIDOSIS ON ABG. HYPERCAPNIA ALSO APPRECIATED. SIGNIFICANT LEUKOCYTOSIS NOTED ON THE CBC. KIDNEY AND LIVER FUNCTION ARE FAIRLY STABLE. THE CHEST X-RAY DOES SHOW WHAT APPEARED TO BE BILATERAL PNEUMONIA. A CT SCAN OF THE HEAD WAS NEGATIVE FOR ANY ACUTE FINDINGS. SHE IS BORDERLINE HYPOTENSIVE. SHE WILL BE ADMITTED TO THE ICU. Discharge Providers Provider Date of admission: 05/23/21 06:11 Discharge Date: 05/25/21 Consults: 05/22/21 22:23 Consult to Respiratory Therapy Evaluate & Treat Comment: Physician Instructions: Evaluate and treat 05/23/21 06:32 Consult to Tele-photograph editor Routine Comment: Consulting Provider: [employer] Reason for consultation: [employer] services Has provider been notified: No 05/24/21 09:43 Consult to Occupational Therapy Evaluate & Treat Comment: Physician Instructions: Evaluate and treat Consult to Physical Therapy Evaluate & Treat Comment: Physician Instructions: Evaluate and Treat Discharge provider: Jamin Lind, DO Summary Hospital Course Discharge Diagnosis: ?ACUTE HYPERCAPNIC ON CHRONIC RESPIRATORY FAILURE.? RESOLVED ?BILATERAL PNEUMONIA.? LIKELY? COMMUNITY-ACQUIRED.? GRAM-POSITIVE COCCI SUSPECTED. ? COPD WITH ACUTE EXACERBATION.? ON ANTIBIOTICS AND STEROIDS ?POSSIBLE SEPSIS PRESENT ON ARRIVAL ?LEUKOCYTOSIS.? RESOLVED ?POSSIBLE INTRAVASCULAR FLUID DEPLETION.? ON IV FLUID ?MICROCYTOSIS WITH NORMAL HEMOGLOBIN.? CHECK IRON ?METABOLIC /TOXIC ENCEPHALOPATHY.? MULTIFACTORIAL ?THROMBOCYTOSIS.? LIKELY REACTIVE Hospital Course: PATIENT ADMITTED TO THE HOSPITAL WITH SIGN OF ACUTE RESPIRATORY FAILURE. SHE WAS SIGNIFICANTLY HYPERCAPNIA ON ADMISSION. TREATED WITH BIPAP WELL ANTIBIOTIC THERAPY AND DUONEBS. SHE RESPONDED VERY WELL TO THE MANAGEMENT. SHE DOES HAVE A HISTORY OF CHRONIC RESPIRATORY FAILURE BUT IS NOT ON HOME OXYGEN DUE TO HER RAPID RECOVERY, SHE WILL BE DISCHARGED TO HOME ON OXYGEN THERAPY AT 1-4 L DURING EXERTION SUSPECT UNDERLYING A SLEEP APNEA WELL. SHE WILL NEED TO BE EVALUATED OUTPATIENT FOR POSSIBLE NEED OF A TRILOGY OR CPAP SHE WAS DISCHARGED ON ANTIBIOTICS, DUONEB, AND A LONG TAPER STEROIDS ADDITIONAL MANAGEMENT DEFERRED TO OUTPATIENT PROVIDERS Status at Discharge Cognitive/behavioral status at discharge: oriented Functional status at discharge: independent ambulation Overall status at discharge: patient is progressing back to baseline Time Spent with Patient Time spent: Greater than 30 minutes Exam Vital Signs (past 8 hours): - 05/25/21 06:00 05/25/21 08:00 05/25/21 09:52 Temperature 96.9 F L 98 F Pulse Rate 85 86 97 H Respiratory Rate 22 17 22 Blood Pressure 127/67 116/55 L Pulse Oximetry 99 99 96 05/25/21 12:00 05/25/21 12:05 Temperature 98 F Pulse Rate 93 H 91 H Respiratory Rate 17 20 Blood Pressure 121/57 L Pulse Oximetry 95 93 Fraction of Inspired Oxygen 25 Oxygen Delivery Method Room Air Oxygen Flow Rate 0 Narrative Exam Narrative: NO ACUTE DISTRESS.? PATIENT IS ALERT ORIENTED X3.? APPEARS OLDER THAN STATED AGE HEAD ATRAUMATIC NORMOCEPHALIC ?MOUTH.? FAIR DENTITION FOR AGE.? DRY MUCOUS MEMBRANES NECK : SUPPLE WITHOUT ADENOPATHY NO CAROTID BRUITS EYE:? EOMI, PERRLA, NORMAL CONJUNCTIVA; NO JAUNDICE CHEST:? REGULAR RATE.? ? NO RUBS.? PMI IS NON DISPLACED.? NO MURMURS; NORMAL S1-S2 PULMONARY:? WHEEZING APPRECIATED BILATERALLY. ? NO RHONCHI.? NO RALES. ?DECREASED BS OVER THE BASES.? MILD BIBASILAR CRACKLES NOTED; NO INCREASED DULLNESS TO PERCUSSION ABDOMEN:? ? OBESE BUT SOFT.? NONTENDER.? NONDISTENDED.? BOWEL SOUNDS ARE PRESENT IN ALL 4 QUADRANTS. ? NO ORGANOMEGALY EXTREMITIES:? 1+ NONPITTING EDEMA TO BILATERAL EXTREMITIES IS.? NO CYANOSIS CLUBBING NOTED. DISTAL PULSES PRESENT NEURO:? CRANIAL NERVES 2-12 GROSSLY INTACT. NO FOCAL NEUROLOGICAL DEFICIT NOTED. MSK:? NORMAL RANGE OF MOTION FOR AGE.? NO JOINT EFFUSION. SKIN: ? NO ECCHYMOSIS.? NO LESION. ? GOOD? TURGOR.; NO RASHES :? NORMAL EXTERNAL GENITALIA. PSYCH :? APPROPRIATE MOOD AND AFFECT.? ALERT AWAKE ORIENTED X3 Objective Labs Result Diagrams: 05/25/21 04:35 05/25/21 04:35 Labs: Laboratory Results - last 24 hr 05/25/21 05/25/21 04:35 04:35 WBC 7.1 RBC 5.64 H Hgb 12.5 Hct 40.4 MCV 71.8 L MCH 22.2 L MCHC 31.0 RDW 14.8 Plt Count 334 Neut % (Auto) 94.3 H Lymph % (Auto) 3.5 L [place] % (Auto) 2.0 L Eos % (Auto) 0.0 L Baso % (Auto) 0.2 Neut # (Auto) 6700 Lymph # (Auto) 200 L [place] # (Auto) 100 Eos # (Auto) 0 Baso # (Auto) 0 Sodium 139 Potassium 3.2 L Chloride 96 L Carbon Dioxide 39 H BUN 20 H Creatinine 0.75 Estimated GFR > 60.0 BUN/Creatinine Ratio 26.7 H Glucose 176 H Calcium 9.0 Magnesium 2.0 Total Bilirubin 0.5 Conjugated Bilirubin 0.0 Unconjugated Bilirubin 0.3 AST 16 ALT 12 Alkaline Phosphatase 103 Total Protein 6.2 L Albumin 3.5 Globulin 2.7 Albumin/Globulin Ratio 1.3 PFSH Medical History Chronic obstructive pulmonary disease Congestive heart failure Social History household members: family Smoking Status: Current every day smoker alcohol intake: current Discharge Plan Discharge Plan Patient Disposition: Home Discharge orders & Medications Prescriptions: New aspirin 81 mg Tablet,Delayed Release (Dr/Ec) 81 mg PO DAILY Qty: 60 0RF doxycycline hyclate 100 mg Tablet 100 mg PO BID@0600,1800 Qty: 20 0RF famotidine 40 mg tablet 40 mg PO BID Qty: 60 2RF sucralfate 1 gram Tablet 1 gm PO ACHS Qty: 120 2RF metronidazole 500 mg Tablet 500 mg PO TID Qty: 30 0RF cefdinir 300 mg capsule 300 mg PO BID Qty: 20 0RF prednisone 10 mg tablet 10 mg PO DIRECTED Qty: 30 2RF Rx Instructions: 40MG PO DAILY X 3 DAYS 30MG PO DAILY X 3 DAYS 20MG PO DAILY X 4 DAYS 10MG PO DAILY X 4 DAYS albuterol sulfate 90 mcg/actuation aerosol powdr breath activated 2 inh inhalation Q4-6H PRN (Reason: shortness of breath or wheezing) Qty: 1 2RF Spiriva with HandiHaler 18 mcg capsule, w/inhalation device 1 cap inhalation DAILY Qty: 90 0RF Rx Instructions: puncture 1 cap using device; one dose = 2 inhalations multivit with min-folic acid 0.4 mg tablet 1 tab PO DAILY Qty: 30 0RF ipratropium-albuterol 0.5 mg-3 mg(2.5 mg base)/3 mL solution for nebulization 3 ml inhalation Q4-6H PRN (Reason: shortness of breath or wheezing) Qty: 90 0RF Continued gabapentin 400 mg Capsule 400 mg PO BID 0RF acetazolamide 250 mg Tablet 250 mg PO BID 0RF spironolactone 25 mg Tablet 25 mg PO DAILY 0RF furosemide [Lasix] 20 mg tablet 20 mg PO BID 0RF Spiriva with HandiHaler 18 mcg Capsule, W/Inhalation Device 1 cap INHALATION DAILY 0RF Rx Instructions: puncture 1 cap using device; one dose = 2 inhalations Discontinued azithromycin 250 mg tablet See Rx Instructions .ROUTE .COMPLEX Qty: 6 0RF Rx Instructions: For 250 mg dose pack: take 500 mg today (day 1), then 250 mg for 4 days (days 2-5) prednisone 20 mg tablet 20 mg PO DAILY Qty: 14 0RF morphine concentrate 100 mg/5 mL (20 mg/mL) Solution 20 mg PO Q6H PRN (Reason: Pain, Moderate) 0RF lorazepam 2 mg/mL Solution 2 mg SUBLINGUAL TID PRN (Reason: Shortness Of Breath) 0RF omeprazole 20 mg Capsule,Delayed Release(Dr/Ec) 20 mg PO DAILY 0RF Combivent Respimat 20-100 mcg/actuation Mist See Rx Instructions .ROUTE .COMPLEX 0RF Rx Instructions: unknown Diet/Activity/Treatments Diet: Carb-consistent/Diabetic, Low-fat and Low-cholesterol Diet comment: GI /MECHANICAL SOFT Skin/Wound/Dressing Care Report to your healthcare provider any signs of infection, such as:: chills, fever, night sweats and increased pain Quality VTE Deep Vein Thrombosis/Pulmonary Embolism Present on Admission: No
--- NOTE | 2021-05-25 14:33 | PC.NURSE ---
Patient has been off bipap for 24 hours. Using NC with 2L at present with good Spo2 sats, RT has been in to eval Pt regularly and home 02 and home health has been set up. Sister is at bedside with update and POC to dc home with her assistance. DC paperwork reviewed, IVC removed.
--- NOTE | 2021-05-26 09:19 | CM.DPNOTE ---
Late Entry DC Note Patient discharged yesterday; cleared by therapies for return home w/her sister and HH. [place] and currently living w.her sister Shayy who is also primary cg. 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 Patient appeared groggy and was not able to track this conversation very well. According to Dr Lind , [facility] [place] and had been receiving care exclusively through the [facility] (?) Patient does not have a PCP established in [facility]. Patient on disability benefits and sister explained she was still trying to find patient's MCR card. Current insurance is listed as [employer] P# [phone] F# [phone], a [place] managed MCR plan Placed call to [facility] ([facility] program- no need for PCP) asked if they could use patient's current MCR plan Provided patient/sister a [facility] brochure upon patient's departure yesterday; explained that this [employer] had not heard back re: acceptance of patient's insurance so encouraged family to place call to [facility] to get this determination and sister Shayy agreeable to this Later learned that [facility] unfortunately could not bill patient's insurance. There are no other HH agencies available to patient at this time. Plan: DC yesterday, home w/family via private auto. HH service not available to patient at this time. SHANNA Flores
== END 2021-05-25 14:37 | disposition home or self-care (01) | DRG 189 ==
LOC: ED 05-23 06:08 → AC 05-23 06:12 → ICU 05-23 09:02
PROVIDERS: Hospitalist; Internal Medicine; Admitting Provider Nurse Practitioner Family; Emergency Provider Emergency Medicine; Referring Provider Emergency Medicine; Visit Provider Nurse Practitioner Family
DX: J96.22 Acute and chronic respiratory failure with hypercapnia (principal); G93.41 Metabolic encephalopathy; J15.9 Unspecified bacterial pneumonia; J44.1 Chronic obstructive pulmonary disease with (acute) exacerbation; I50.32 Chronic diastolic (congestive) heart failure; D75.838 Other thrombocytosis; I48.91 Unspecified atrial fibrillation; F17.200 Nicotine dependence, unspecified, uncomplicated; D72.829 Elevated white blood cell count, unspecified; Z99.81 Dependence on supplemental oxygen; Z20.822 Contact with and (suspected) exposure to COVID-19; R00.0 Tachycardia, unspecified
CPT/HCPCS: 36415; 36600; 70450; 71045; 71046; 80048; 80053; 80061; 80076; 80305; 81001; 82550; 82553; 82805; 82962; 83036; 83540; 83550; 83605; 83690; 83735; 83880; 84145; 84443; 84484; 85007; 85025; 85610; 85730; 87040; 87635; 87797; 93005; 93306; 94618; 94640; 94660; 94762; 96361; 96374; 96375; 97116; 97161; 97165; 97530; 99285; 99291; 99406; C9803; A9270; J0692; J1650; J1940; J2060; J2930

== ENCOUNTER 2021-06-01 16:55 | Emergency (ER) | payer MEDICARE, SELFPAY ==
[2021-05-23 10:15] VITALS: BMI 23.0
[2021-05-24 07:33] VITALS: PULSE 86; RESP 28; O2SAT 95
[2021-06-01] VITALS (17 sets, daily range): BP systolic 93–133; BP diastolic 53–63; PULSE 80–98; RESP 14–27; TEMP 36.3; O2SAT 90–99; BMI 23.6
--- NOTE | 2021-06-01 17:59 | DI.RAD.S_ITS ---
PROCEDURE: XR CHEST 1V INDICATIONS: chest pain TECHNIQUE: One view of the chest was acquired. COMPARISON: [facility], CR, XR CHEST 2V, 05/20/2021, 11:37. [facility], CR, XR CHEST 1V, 05/22/2021, 22:26. [facility], CT, CT HEAD/BRAIN WO CON, 05/22/2021, 23:30. [facility], CR, XR CHEST 1V, 05/24/2021, 5:18. FINDINGS: Surgical changes and devices: Cervical spine fixation hardware is seen. The left inferior most screw appears proud. Lungs and pleura: Low lung volumes are seen. Bilateral interstitial type infiltrates are seen, which are primarily seen peripherally. These are similar to the prior examination. No large pneumothorax or large pleural effusions are seen. Mediastinum: The cardiac contours are within normal limits. The aorta demonstrates calcification and tortuosity. Bones and chest wall: No suspicious bony lesions. Overlying soft tissues appear unremarkable. IMPRESSION: Stable bilateral interstitial type infiltrates are seen. Dictated by: Deepak Casiano M.D. on 06/01/2021 at 17:15 Approved by: Deepak Casiano M.D. on 06/01/2021 at 17:18
--- NOTE | 2021-06-01 18:51 | DI.CT.S_ITS ---
PROCEDURE: CT ORBIT BI W CON INDICATIONS: eye pain, swelling, blurring, bulging, sent by ophtho TECHNIQUE: After the administration of intravenous contrast, 2.5 mm axial images acquired through the orbits, with coronal and sagittal reformats. For radiation dose reduction, the following was used: automated exposure control, adjustment of mA and/or kV according to patient size. COMPARISON: None. FINDINGS: Image quality: Excellent. Orbits: Globes are symmetrical. The optic nerves are normal in size and enhancement. There is a small enhancing intraconal mass immediately posterior to the left lobe, subjacent to the posterior border of the left globe, and immediately lateral to the left optic nerve. It measures approximately 0.6 x 1.0 cm. It most likely either represents a pseudotumor or orbital lymphoma. Other possibilities include meningioma or schwannoma. The extra-ocular muscles are normal and symmetrical in appearance. Lacrimal glands are normal. Optic chiasm is normal. Periorbital soft tissues are normal. Intracranial: The pituitary gland is normal, without sellar or suprasellar masses. Visualized cerebral hemispheres, brainstem, and spinal cord appear normal. Bones and sinuses: Visualized calvarium and facial bones appear intact. Visualized sinuses and mastoids are clear. IMPRESSION: 1. Small enhancing intraconal mass immediately posterior to the left globe, subjacent to the globe, and just lateral to the left optic nerve, subjacent to the nerve. Most likely on the differential is orbital pseudotumor versus orbital lymphoma. Other potential etiologies include meningioma or schwannoma. Comment: Recommend orbital MRI with without contrast on a nonemergent basis. Additionally, suggest physical examination for evidence of any enlarged lymph nodes which would support a diagnosis of lymphoma. Dictated by: Tee Lopez M.D. on 06/01/2021 at 20:06 Approved by: Tee Lopez M.D. on 06/01/2021 at 20:09
[2021-06-01 18:52] LABS: Add Manual Diff / Slide Review NO; Basophils Absolute Auto 100 /uL (0-100); Basophils Percent Auto 0.2 % (0-2); Eosinophils Absolute Auto 0 /uL (0-450); Eosinophils Percent Auto 0.1 % (2-4); Hematocrit 43.2 % (36-46); Hemoglobin 13.7 g/dL (12.0-16.0); Lymphocytes Absolute Auto 300 /uL (1100-4500); Lymphocytes Percent Auto 1.6 % (25-40); Mean Corpuscular HGB Conc 31.7 % (30-36); Mean Corpuscular Hemoglobin 22.8 PG (26-34); Monocytes Absolute Auto 300 /uL (0-900); Monocytes Percent Auto 1.1 % (3-14); Neutrophils Absolute Auto 21700 /uL (1500-7000); Platelet Count 297 X10^3/uL (150-400); Red Blood Cell Count 6.01 X10^6/uL (4.0-5.2); Red Cell Distribution Width 15.1 % (11.6-14.8); White Blood Cell Count 22.4 X10^3/uL (4.5-11.0)
--- NOTE | 2021-06-01 18:53 | ED.EYEPROB ---
HPI - Eye Problem General Chief complaint: Eye Problems Stated complaint: HEADACHE NAUSEA VISION CHANGE LT EYE SWELLING RED Time Seen by Provider: 06/01/21 18:30 Source: patient and family Mode of arrival: Family Vehicle Limitations: no limitations History of Present Illness HPI Narrative: 61-year-old female smoker with history of COPD and CHF presents from the ophthalmology office for evaluation of trouble with her left eye. Over the past 2-3 days she has had increasing pain in her left eye associated with blurring of her vision and double vision. She states that it feels as if her eye is bulging. She has a headache, largely on the left side of her head. She denies any trauma or other type of injury. She has had no fever or chills. She denies other neurologic symptoms such as numbness, tingling or weakness. She has no trouble with balance or speech. She presented to the walk-in clinic today was promptly directed to the ophthalmology office. At the ophtho office she had her eyes dilated in the thorough exam, ophthalmology does not believe this is an ocular problem. She was recently admitted for hypoxemic respiratory failure and exacerbation of COPD and CHF, having been discharged from the ICU about 1 week ago. Related Data Home Medications Medication Instructions Recorded Confirmed acetazolamide 250 mg tablet 250 mg PO BID 05/23/21 05/23/21 furosemide 20 mg tablet (Lasix) 20 mg PO BID 05/23/21 05/23/21 gabapentin 400 mg capsule 400 mg PO BID 05/23/21 05/23/21 spironolactone 25 mg tablet 25 mg PO DAILY 05/23/21 05/23/21 tiotropium bromide 18 mcg capsule 1 cap INHALATION DAILY 05/23/21 05/23/21 with inhalation device (Spiriva with HandiHaler) Previous Rx's Medication Instructions Recorded albuterol sulfate 90 mcg/actuation 2 inh INHALATION Q4-6H PRN #1 ea 05/25/21 breath activated powder inhaler aspirin 81 mg tablet,delayed 81 mg PO DAILY #60 tab 05/25/21 release cefdinir 300 mg capsule 300 mg PO BID #20 cap 05/25/21 doxycycline hyclate 100 mg tablet 100 mg PO BID@0600,1800 #20 tab 05/25/21 famotidine 40 mg tablet 40 mg PO BID #60 tab 05/25/21 ipratropium 0.5 mg-albuterol 3 mg 3 ml INHALATION Q4-6H PRN #90 ml 05/25/21 (2.5 mg base)/3 mL nebulization soln metronidazole 500 mg tablet 500 mg PO TID #30 tab 05/25/21 multivitamin with minerals-folic 1 tab PO DAILY #30 tab 05/25/21 acid 0.4 mg tablet prednisone 10 mg tablet 10 mg PO DIRECTED #30 tab 05/25/21 sucralfate 1 gram tablet 1 gm PO ACHS #120 tab 05/25/21 tiotropium bromide 18 mcg capsule 1 cap INHALATION DAILY #90 inh 05/25/21 with inhalation device (Spiriva with HandiHaler) Allergies Allergy/AdvReac Type Severity Reaction Status Date / Time marijuana Allergy Severe Vomiting Verified 06/01/21 17:25 methadone Allergy Severe Vomiting Verified 06/01/21 17:25 Review of Systems Review of Systems Narrative: GENERAL: Denies chills, fatigue, malaise, fever, sweats. HEENT: See HPI RESPIRATORY: Denies dyspnea, cough, wheezing, hemoptysis, sputum. CARDIOVASCULAR: Denies chest pain, palpitations, orthopnea, edema, GASTROINTESTINAL: Denies nausea, vomiting, abdominal pain, diarrhea, constipation, melena. : Denies dysuria, frequency, incontinence, hematuria, urinary retention. MUSCULOSKELETAL: denies weakness, joint pain, or bony pain SKIN: Denies rash, skin lesions, or other NEUROLOGIC: Denies weakness, headache, numbness, change in speech, confusion, seizures, incoordination. PSYCHIATRIC: No concerning psychosocial issues. 12 point review of systems is negative except for those stated above Patient History Medical History Chronic obstructive pulmonary disease Congestive heart failure Social History household members: family Smoking Status: Current every day smoker alcohol intake: current Smoking Status: Current every day smoker tobacco type: cigarettes alcohol intake frequency: 0-2 drinks per day Substance Use Type: does not use Exam Narrative Exam Narrative: GENERAL: [61] year old patient appears stated age. Well-developed patient, in mild distress. HEAD: Atraumatic. Normocephalic. EYES: Left eye proptosis noted. Pupils dilated by optho. Chemosis in L eye. She reports binocular diplopia with images side by side and worse at distance. Extraocular motions intact. No scleral icterus. No injection or drainage. OS pressure 20mmgHg. Acuity noted in nursing chart ENT: Nose without bleeding, purulent drainage. Throat without erythema, tonsillar hypertrophy or exudate. Airway patent. NECK: Trachea midline. Non tender CARDIOVASCULAR: Regular rate and rhythm without murmurs, gallops, or rubs. RESPIRATORY: Decreased breath sounds B/L with prolonged expiratory phase. GASTROINTESTINAL: Abdomen soft, non-tender, nondistended. EXTREMITIES: No edema or joint tenderness. BACK: Nontender without deformity or crepitance. No flank tenderness. NEURO: AOx3. SKIN: No rash or erythema of visible areas Initial Vital Signs Initial Vital Signs: Vital Signs Temperature 97.3 F L 06/01/21 17:25 Pulse Rate 90 06/01/21 17:25 Respiratory Rate 22 06/01/21 17:25 Blood Pressure 108/54 L 06/01/21 17:25 Pulse Oximetry 97 06/01/21 17:25 Course Orders Ordered: ED Orders 06/01/21 17:59 XR chest 1V Stat EKG-12 Lead Stat 06/01/21 18:47 Complete Blood Count AUTO DIFF Stat Comprehensive Metabolic Panel Stat Lipase Stat Magnesium Stat Partial Thromboplastin Time Stat Prothrombin Time INR Stat Troponin & CK Cardiac Panel Stat 06/01/21 18:51 CT orbit BI w con Stat 06/01/21 19:40 Urinalysis and Microscopic Stat Urine Culture Stat 06/01/21 20:50 COVID19 -Nasal swab/Pre-Proc Stat Vancomycin HCl (Vancomycin) 1,250 mg in 250 mls @ 250 mls/hr IV NOW ONE Stop: 06/02/21 00:11 Discontinued Medications Piperacillin Sod/Tazobactam (Sod 4.5 gm/ Sodium Chloride) 100 mls @ 200 mls/hr IV NOW ONE Stop: 06/01/21 23:13 Last Admin: 06/01/21 23:24 Dose: 200 mls/hr Documented by: ABEBA Proparacaine HCl (Proparacaine 0.5% Ophth Noris) 1 drops EYE-LEFT NOW ONE Stop: 06/01/21 20:27 Last Admin: 06/01/21 20:31 Dose: 1 drop Documented by: PAUL Consultations Consultation #1: Receipt of CT findings images were pushed, Fe she transmitted and transfer initiated with [facility] Dr. Hernandez has called and after discussion of the case she recommends ABX (Vanco/Zosyn) and will discuss with optho plastics Consultation #2: After discussion with Dr. Doshi of plastics they are quick to agree that transfer is indicated. Patient is aware of and in agreement of the plan Vital Signs Vital signs: Vital Signs - 8 hr 06/01/21 17:25 06/01/21 18:25 06/01/21 18:26 Temperature 97.3 F L Pulse Rate 90 95 H 98 H Respiratory Rate 22 Blood Pressure 108/54 L 113/56 L Pulse Oximetry 97 98 98 06/01/21 18:30 06/01/21 19:00 06/01/21 19:41 Temperature Pulse Rate 89 Respiratory Rate Blood Pressure 110/54 L Pulse Oximetry 99 98 90 L 06/01/21 20:00 06/01/21 20:01 06/01/21 20:30 Temperature Pulse Rate 96 H 88 93 H Respiratory Rate 14 27 H Blood Pressure 104/59 L 95/63 Pulse Oximetry 96 95 95 06/01/21 21:00 06/01/21 21:30 06/01/21 21:48 Temperature Pulse Rate 84 83 84 Respiratory Rate 22 22 22 Blood Pressure 107/54 L 93/55 L 105/58 L Pulse Oximetry 95 94 95 06/01/21 22:00 06/01/21 22:14 06/01/21 22:30 Temperature Pulse Rate 82 80 80 Respiratory Rate 26 H 20 22 Blood Pressure 100/59 L 133/62 Pulse Oximetry 95 96 96 06/01/21 23:00 06/01/21 23:30 Temperature Pulse Rate 80 82 Respiratory Rate 22 24 Blood Pressure 95/53 L 102/59 L Pulse Oximetry 97 96 MDM - Eye Problem Lab Data Result diagrams: 06/01/21 18:47 06/01/21 18:47 Labs: Lab Results 06/01/21 06/01/21 06/01/21 Range/Units 18:47 18:47 18:47 WBC 22.4 H (4.5-11.0) X10^3/uL RBC 6.01 H (4.0-5.2) X10^6/uL Hgb 13.7 (12.0-16.0) g/dL Hct 43.2 (36-46) % MCV 72.0 L (80-100) fL MCH 22.8 L (26-34) PG MCHC 31.7 (30-36) % RDW 15.1 H (11.6-14.8) % Plt Count 297 (150-400) X10^3/uL Neut % (Auto) 97.0 H (50-75) % Lymph % (Auto) 1.6 L (25-40) % [place] % (Auto) 1.1 L (3-14) % Eos % (Auto) 0.1 L (2-4) % Baso % (Auto) 0.2 (0-2) % Neut # (Auto) 58965 H (2489-3700) /uL Lymph # (Auto) 300 L (7282-8004) /uL [place] # (Auto) 300 (0-900) /uL Eos # (Auto) 0 (0-450) /uL Baso # (Auto) 100 (0-100) /uL PT 12.9 H (10.1-12.7) SECONDS INR 1.1 (0.9-1.3) APTT 37 H (26.4-36.2) SECONDS Sodium 137 (137-145) mmol/L Potassium 3.7 (3.4-5.1) mmol/L Chloride 89 L (98-107) mmol/L Carbon Dioxide 42 H* (22-32) mmol/L BUN 11 (7-17) mg/dL Creatinine 0.65 (0.52-1.04) mg/dL Estimated GFR > 60.0 (>60) mL/min BUN/Creatinine Ratio 16.9 (6-22) Glucose 275 H (80-110) mg/dL Calcium 9.2 (8.4-10.2) mg/dL Magnesium 1.9 (1.6-2.3) mg/dL Total Bilirubin 0.6 (0.2-1.3) mg/dL AST 17 (14-36) IU/L ALT 11 (<35) IU/L Alkaline Phosphatase 101 (38-126) U/L Total Creatine Kinase < 20 L (30-135) U/L CK-MB (CK-2) TNP CK-MB (CK-2) Rel Index TNP Troponin I < 0.012 (0.01-0.034) ng/mL Total Protein 6.5 (6.3-8.2) g/dL Albumin 3.8 (3.5-5.0) g/dL Globulin 2.7 (1.7-4.1) g/dL Albumin/Globulin Ratio 1.4 (1.0-2.8) Lipase 45 (23-300) U/L Urine Color Urine Appearance Urine pH (4.5-8.0) Ur Specific [place] (1.000-1.035) Urine Protein (Negative) Urine Glucose (UA) (Negative) g/dL Urine Ketones (NEGATIVE) Urine Occult Blood (Negative) Urine Nitrate (Negative) Urine Bilirubin (NEGATIVE) Urine Urobilinogen (0.2) E.U./dL Ur Leukocyte Esterase (NEGATIVE) Urine RBC (0-5/HPF) Urine WBC (0-5/HPF) Amorphous Sediment Urine Bacteria (None) Ur Culture Indicated? SARS-CoV-2 (PCR) (Negative) 06/01/21 06/01/21 Range/Units 19:40 20:50 WBC (4.5-11.0) X10^3/uL RBC (4.0-5.2) X10^6/uL Hgb (12.0-16.0) g/dL Hct (36-46) % MCV (80-100) fL MCH (26-34) PG MCHC (30-36) % RDW (11.6-14.8) % Plt Count (150-400) X10^3/uL Neut % (Auto) (50-75) % Lymph % (Auto) (25-40) % [place] % (Auto) (3-14) % Eos % (Auto) (2-4) % Baso % (Auto) (0-2) % Neut # (Auto) (7580-6282) /uL Lymph # (Auto) (5672-0986) /uL [place] # (Auto) (0-900) /uL Eos # (Auto) (0-450) /uL Baso # (Auto) (0-100) /uL PT (10.1-12.7) SECONDS INR (0.9-1.3) APTT (26.4-36.2) SECONDS Sodium (137-145) mmol/L Potassium (3.4-5.1) mmol/L Chloride (98-107) mmol/L Carbon Dioxide (22-32) mmol/L BUN (7-17) mg/dL Creatinine (0.52-1.04) mg/dL Estimated GFR (>60) mL/min BUN/Creatinine Ratio (6-22) Glucose (80-110) mg/dL Calcium (8.4-10.2) mg/dL Magnesium (1.6-2.3) mg/dL Total Bilirubin (0.2-1.3) mg/dL AST (14-36) IU/L ALT (<35) IU/L Alkaline Phosphatase (38-126) U/L Total Creatine Kinase (30-135) U/L CK-MB (CK-2) CK-MB (CK-2) Rel Index Troponin I (0.01-0.034) ng/mL Total Protein (6.3-8.2) g/dL Albumin (3.5-5.0) g/dL Globulin (1.7-4.1) g/dL Albumin/Globulin Ratio (1.0-2.8) Lipase (23-300) U/L Urine Color Yellow Urine Appearance Cloudy Urine pH 8.0 (4.5-8.0) Ur Specific [place] 1.010 (1.000-1.035) Urine Protein Trace H (Negative) Urine Glucose (UA) Negative (Negative) g/dL Urine Ketones Negative (NEGATIVE) Urine Occult Blood Negative (Negative) Urine Nitrate Negative (Negative) Urine Bilirubin Negative (NEGATIVE) Urine Urobilinogen 0.2 (0.2) E.U./dL Ur Leukocyte Esterase Trace H (NEGATIVE) Urine RBC None seen (0-5/HPF) Urine WBC 5-10/hpf H (0-5/HPF) Amorphous Sediment 2+ Urine Bacteria None seen (None) Ur Culture Indicated? Specimen cultured SARS-CoV-2 (PCR) Negative (Negative) Imaging Data Orbital CT w/contrast: Radiologist's Impression: [address] [address] [address] Scan Report Signed Patient: Juliet Rodriguez MR#: [id number] : 1960 Acct:[id number] Age/Sex: 61 / F Date of Service: 06/01/21 Loc: ED Accession Number: [id number] ?? Procedure: CT orbit BI w con Ordering Provider: Jatinder Mcgrath D.O. PROCEDURE:? CT ORBIT BI W CON ? INDICATIONS:? eye pain, swelling, blurring, bulging, sent by ophtho ? TECHNIQUE:? After the administration of intravenous contrast, 2.5 mm axial images acquired through the orbits, with coronal and sagittal reformats.? For radiation dose reduction, the following was used:? automated exposure control, adjustment of mA and/or kV according to patient size.? ? COMPARISON:? None. ? FINDINGS:? Image quality:? Excellent.? ? Orbits:? Globes are symmetrical.? The optic nerves are normal in size and enhancement.? There is a small enhancing intraconal mass immediately posterior to the left lobe, subjacent to the posterior border of the left globe, and immediately lateral to the left optic nerve.? It measures approximately 0.6 x 1.0 cm.? It most likely either represents a pseudotumor or orbital lymphoma.? Other possibilities include meningioma or schwannoma.? The extra-ocular muscles are normal and symmetrical in appearance.? Lacrimal glands are normal.? Optic chiasm is normal.? Periorbital soft tissues are normal.? ? Intracranial:? The pituitary gland is normal, without sellar or suprasellar masses.? Visualized cerebral hemispheres, brainstem, and spinal cord appear normal.? ? Bones and sinuses:? Visualized calvarium and facial bones appear intact.? Visualized sinuses and mastoids are clear.? ? IMPRESSION:? ? 1. Small enhancing intraconal mass immediately posterior to the left globe, subjacent to the globe, and just lateral to the left optic nerve, subjacent to the nerve.? Most likely on the differential is orbital pseudotumor versus orbital lymphoma.? Other potential etiologies include meningioma or schwannoma. ? Comment:? Recommend orbital MRI with without contrast on a nonemergent basis.? Additionally, suggest physical examination for evidence of any enlarged lymph nodes which would support a diagnosis of lymphoma.? ? ? Dictated by: Tee Lopez M.D. on 06/01/2021 at 20:06 ? ? Approved by: Tee Lopez M.D. on 06/01/2021 at 20:09 ? MDM Narrative Medical decision making narrative: Patient presents with 2-3 days of rapid onset left eye symptoms including pain, swelling, blurred vision and double vision. This is largely in the absence of other symptoms such as fever chills nor nausea or vomiting. She has no other neurologic symptoms. Imaging would suggest a space-occupying lesion adjacent to the left eye consistent with ocular lymphoma versus pseudotumor versus other. After consultation with [facility] ophthalmology they are quick to agree that patient is in need of transfer tonight for a rapid and complete evaluation. Patient is aware of and in complete agreement with the plan. We are all appreciative of the assistance and care provided by [facility] with this patient Critical Care Time Critical Care Time Critical Care Time: Yes Total Critical Care Time: 35 Attestation: The high probability of a clinically significant, sudden or life threatening deterioration of the [LEARNING DEVELOPER] system(s) required my full and direct attention, intervention and personal management. The aggregate critical care time was [35] minutes. This time is in addition to time spent performing reported procedures but includes the following: [x] Data Review and interpretation [x] Patient assessment and monitoring of vital signs [x] Documentation [x] Medication orders and management Discharge Plan Departure Patient Disposition: [facility] Clinical Impression: Ocular lymphoma Prescriptions: No Action gabapentin 400 mg Capsule 400 mg PO BID 0RF acetazolamide 250 mg Tablet 250 mg PO BID 0RF spironolactone 25 mg Tablet 25 mg PO DAILY 0RF furosemide [Lasix] 20 mg tablet 20 mg PO BID 0RF Spiriva with HandiHaler 18 mcg Capsule, W/Inhalation Device 1 cap INHALATION DAILY 0RF Rx Instructions: puncture 1 cap using device; one dose = 2 inhalations aspirin 81 mg Tablet,Delayed Release (Dr/Ec) 81 mg PO DAILY Qty: 60 0RF doxycycline hyclate 100 mg Tablet 100 mg PO BID@0600,1800 Qty: 20 0RF famotidine 40 mg tablet 40 mg PO BID Qty: 60 2RF sucralfate 1 gram Tablet 1 gm PO ACHS Qty: 120 2RF metronidazole 500 mg Tablet 500 mg PO TID Qty: 30 0RF cefdinir 300 mg capsule 300 mg PO BID Qty: 20 0RF prednisone 10 mg tablet 10 mg PO DIRECTED Qty: 30 2RF Rx Instructions: 40MG PO DAILY X 3 DAYS 30MG PO DAILY X 3 DAYS 20MG PO DAILY X 4 DAYS 10MG PO DAILY X 4 DAYS albuterol sulfate 90 mcg/actuation aerosol powdr breath activated 2 inh inhalation Q4-6H PRN (Reason: shortness of breath or wheezing) Qty: 1 2RF Spiriva with HandiHaler 18 mcg capsule, w/inhalation device 1 cap inhalation DAILY Qty: 90 0RF Rx Instructions: puncture 1 cap using device; one dose = 2 inhalations multivit with min-folic acid 0.4 mg tablet 1 tab PO DAILY Qty: 30 0RF ipratropium-albuterol 0.5 mg-3 mg(2.5 mg base)/3 mL solution for nebulization 3 ml inhalation Q4-6H PRN (Reason: shortness of breath or wheezing) Qty: 90 0RF Referrals: Miscellaneous,Doctor, MD [Primary Care Provider] -
[2021-06-01 18:59] LABS: INR 1.1 (0.9-1.3); Prothrombin Time 12.9 SECONDS (10.1-12.7)
[2021-06-01 19:02] LABS: PTT Partial Thromboplastin Tim 37 SECONDS (26.4-36.2)
[2021-06-01 19:09] LABS: Alanine Aminotransferase 11 IU/L (<35); Albumin 3.8 g/dL (3.5-5.0); Albumin Globulin Ratio 1.4 (1.0-2.8); Alkaline Phosphatase 101 U/L (38-126); Aspartate Aminotransferase 17 IU/L (14-36); BUN Creatinine Ratio 16.9 (6-22); Bilirubin Total 0.6 mg/dL (0.2-1.3); Blood Urea Nitrogen 11 mg/dL (7-17); Calcium 9.2 mg/dL (8.4-10.2); Chloride 89 mmol/L (98-107); Creatine Kinase < 20 U/L (30-135); Estimated Glomerular Filt Rate > 60.0 mL/min (>60); Globulin 2.7 g/dL (1.7-4.1); Glucose 275 mg/dL (80-110); Lipase 45 U/L (23-300); Magnesium 1.9 mg/dL (1.6-2.3); Potassium 3.7 mmol/L (3.4-5.1); Sodium 137 mmol/L (137-145); Total Protein 6.5 g/dL (6.3-8.2)
[2021-06-01 19:20] LABS: Troponin I < 0.012 ng/mL (0.01-0.034)
[2021-06-01 19:22] LABS: HEMOLYSIS < 15 (0-50)
[2021-06-01 19:33] LABS: Carbon Dioxide 42 mmol/L (22-32)
[2021-06-01 19:59] LABS: Appearance Urine UA CLOUDY; Bilirubin Urine UA NEGATIVE (NEGATIVE); Color Urine UA YELLOW; Glucose Urine UA NEGATIVE (Negative); Ketones Urine UA NEGATIVE (NEGATIVE); Leukocyte Esterase Urine UA TRACE (NEGATIVE); Nitrite Urine UA NEGATIVE (Negative); Occult Blood Urine UA NEGATIVE (Negative); Protein Urine UA TRACE (Negative); Urobilinogen Urine UA 0.2 E.U./dL (0.2)
[2021-06-01 20:18] LABS: Amorphous Sediment Urine 2+; RBC Urine None Seen (0-5/HPF); WBC Urine 5-10/HPF (0-5/HPF)
[2021-06-01 20:19] LABS: Bacteria Urine None Seen; Culture Indicated Urine Specimen Cultured
[2021-06-01] MEDS: PROPARACAINE 0.5% OPHTH SOL 1 DROPS EYE-LEFT (20:31)
[2021-06-01 21:10] LABS: COVID19 -Nasal RAPID Negative (Negative)
[2021-06-01] MEDS: PIPERACILLIN/TAZO 4.5 GM in SODIUM CHLORIDE 0.9% 100 ML 200 ML IV (23:24)
[2021-06-01] MEDS: VANCOMYCIN 1,250 MG/250 ML PIGGYBACK 250 MG IV (23:55)
[2021-06-02] VITALS: BP 102/59; PULSE 77; RESP 25; O2SAT 97
== END 2021-06-02 00:38 | disposition short-term general hospital (02) ==
PROVIDERS: Emergency Medicine; Emergency Provider Emergency Medicine
DX: C85.99 Non-Hodgkin lymphoma, unspecified, extranodal and solid organ sites (principal); R03.1 Nonspecific low blood-pressure reading; Z20.822 Contact with and (suspected) exposure to COVID-19
CPT/HCPCS: 36415; 70481; 71045; 80053; 81001; 82550; 83690; 83735; 84484; 85025; 85610; 85730; 87086; 87635; 93005; 93010; 96365; 99285; 99291; C9803; J2543

== ENCOUNTER 2021-06-27 13:07 | Inpatient (IN) | payer MEDICARE, SELFPAY ==
[2021-05-23 10:15] VITALS: BMI 23.0
[2021-05-24 07:33] VITALS: PULSE 86; RESP 28; O2SAT 95
[2021-06-27] VITALS (20 sets, daily range): BP systolic 108–139; BP diastolic 53–70; PULSE 92–107; RESP 14–49; TEMP 36.4–37.2; O2SAT 88–98; BMI 22.3
--- NOTE | 2021-06-27 13:22 | DI.RAD.S_ITS ---
PROCEDURE: XR CHEST 1V INDICATIONS: shortness of breath TECHNIQUE: One view of the chest was acquired. COMPARISON: [facility], CR, XR CHEST 1V, 05/24/2021, 5:18. [facility], CR, XR CHEST 1V, 06/01/2021, 17:54. FINDINGS: Surgical changes and devices: Redemonstration of cervical fusion hardware. Lungs and pleura: Persistent interstitial prominence with apparent mild volume loss bilaterally. Reticular densities bilaterally as before. Patchy predominantly peripheral airspace opacities noted in the bilateral hemithoraces. These appear more conspicuous compared to the prior study. Blunting of the costophrenic angles suggestive of small bilateral pleural effusions. No pneumothorax. Mild perihilar airway thickening not significantly changed. Mediastinum: Mediastinal contours appear stable with tortuous thoracic aorta. Heart size is normal. Bones and chest wall: No suspicious bony lesions. Overlying soft tissues appear unremarkable. IMPRESSION: Persistent interstitial prominence and reticular opacities of the bilateral hemithoraces. There are multiple scattered predominantly peripheral airspace opacities with mild bilateral lung volume loss. Suspected small bilateral pleural effusions. Findings may represent persistent, progressing multifocal airspace disease although concurrent pulmonary edema not excluded if clinically appropriate. Other considerations include developing cryptogenic organizing pneumonia or suspected background interstitial lung disease. Dictated by: Noble Carcamo M.D. on 06/27/2021 at 14:01 Approved by: Noble Cacramo M.D. on 06/27/2021 at 14:16
[2021-06-27 14:20] LABS: COVID19 -Nasal RAPID Negative (Negative)
[2021-06-27 14:37] LABS: Add Manual Diff / Slide Review NO; Basophils Absolute Auto 100 /uL (0-100); Basophils Percent Auto 0.6 % (0-2); Eosinophils Absolute Auto 300 /uL (0-450); Eosinophils Percent Auto 2.2 % (2-4); Hematocrit 35.8 % (36-46); Hemoglobin 11.2 g/dL (12.0-16.0); Lymphocytes Absolute Auto 800 /uL (1100-4500); Lymphocytes Percent Auto 5.3 % (25-40); Mean Corpuscular HGB Conc 31.3 % (30-36); Mean Corpuscular Hemoglobin 22.7 PG (26-34); Mean Corpuscular Volume 72.5 fL (80-100); Monocytes Absolute Auto 1000 /uL (0-900); Monocytes Percent Auto 6.7 % (3-14); Neutrophils Absolute Auto 12600 /uL (1500-7000); Neutrophils Percent Auto 85.2 % (50-75); Platelet Count 339 X10^3/uL (150-400); Red Blood Cell Count 4.93 X10^6/uL (4.0-5.2); Red Cell Distribution Width 17.1 % (11.6-14.8); White Blood Cell Count 14.7 X10^3/uL (4.5-11.0)
[2021-06-27 14:43] LABS: INR 1.2 (0.9-1.3); Prothrombin Time 13.1 SECONDS (10.1-12.7)
[2021-06-27 14:46] LABS: Lactate (Lactic Acid) 0.7 mmol/L (0.7-2.1)
[2021-06-27 14:48] LABS: Alanine Aminotransferase 10 IU/L (<35); Albumin 3.7 g/dL (3.5-5.0); Albumin Globulin Ratio 1.2 (1.0-2.8); Alkaline Phosphatase 130 U/L (38-126); Aspartate Aminotransferase 25 IU/L (14-36); BUN Creatinine Ratio 33.3 (6-22); Bilirubin Total 0.4 mg/dL (0.2-1.3); Blood Urea Nitrogen 16 mg/dL (7-17); Calcium 9.2 mg/dL (8.4-10.2); Chloride 93 mmol/L (98-107); Estimated Glomerular Filt Rate > 60.0 mL/min (>60); Globulin 3.2 g/dL (1.7-4.1); Glucose 123 mg/dL (80-110); HEMOLYSIS < 15 (0-50); Sodium 138 mmol/L (137-145); Total Protein 6.9 g/dL (6.3-8.2)
[2021-06-27 14:56] LABS: NT-proBNP (BNP-Adult 18+) 550 pg/mL (<125)
[2021-06-27 14:58] LABS: Carbon Dioxide 43 mmol/L (22-32)
--- NOTE | 2021-06-27 15:02 | ED.GENADULT ---
HPI - General Adult General Chief complaint: Shortness of Breath/Dyspnea Stated complaint: Trouble breathing Time Seen by Provider: 06/27/21 15:02 Source: patient Mode of arrival: Wheelchair History of Present Illness HPI narrative: 61-year-old woman with oxygen-dependent and steroid-dependent COPD, congestive heart failure, paroxysmal atrial fibrillation and recently diagnosed left eye lymphoma presents with increasing dyspnea. She is vaccinated against COVID. COVID test is negative today. She notes that over the past 3-4 days her breathing has been getting worse. She does have an inhaler but does not use it frequently. She has had increasingly productive cough with thick yellowish sputum. She is tachypneic and unable to speak in complete sentences on initial exam. She denies palpitations or overt chest pain. Has not been gaining or losing weight, no vomiting, abdominal pain or diarrhea. She is not noticing orthopnea and no lower extremity edema. Related Data Home Medications Medication Instructions Recorded Confirmed spironolactone 25 mg tablet 12.5 mg PO DAILY 05/23/21 05/23/21 tiotropium bromide 18 mcg capsule 1 cap INHALATION DAILY 05/23/21 06/27/21 with inhalation device (Spiriva with HandiHaler) Thera-M Or 1 tab PO DAILY 06/27/21 06/27/21 albuterol sulfate 90 mcg/actuation 2 inh INHALATION Q4-6H PRN 06/27/21 06/27/21 breath activated powder inhaler (ProAir RespiClick) gabapentin 100 mg capsule 100 mg PO BID 06/27/21 06/27/21 lorazepam 2 mg/mL injection 2.5 mg SUBLINGUAL DAILY PRN 06/27/21 06/27/21 solution (Ativan) metformin 500 mg tablet 500 mg PO BID 06/27/21 06/27/21 prednisone 20 mg tablet 20 mg PO DAILY 06/27/21 06/27/21 torsemide 5 mg tablet 5 mg PO DAILY 06/27/21 06/27/21 Previous Rx's Medication Instructions Recorded aspirin 81 mg tablet,delayed 81 mg PO DAILY #60 tab 05/25/21 release famotidine 40 mg tablet 40 mg PO BID #60 tab 05/25/21 ipratropium 0.5 mg-albuterol 3 mg 3 ml INHALATION Q4-6H PRN #90 ml 05/25/21 (2.5 mg base)/3 mL nebulization soln sucralfate 1 gram tablet 1 gm PO ACHS #120 tab 05/25/21 tiotropium bromide 18 mcg capsule 1 cap INHALATION DAILY #90 inh 05/25/21 with inhalation device (Spiriva with HandiHaler) Allergies Allergy/AdvReac Type Severity Reaction Status Date / Time marijuana Allergy Severe Vomiting Verified 06/27/21 13:17 methadone Allergy Severe Vomiting Verified 06/27/21 13:17 Review of Systems Review of Systems Narrative: Remainder of complete review of systems is otherwise unremarkable except for that included in the HPI. Patient History Medical History Chronic obstructive pulmonary disease Congestive heart failure Ocular lymphoma Social History household members: family Smoking Status: Current some day smoker alcohol intake: current Smoking Status: Current some day smoker tobacco type: cigarettes alcohol intake frequency: holidays/special occasions only Substance Use Type: does not use Exam Narrative Exam Narrative: General: Chronically ill-appearing, tachypneic, able to speak in 3-4 word sentences only with try potting while she is sitting on the bed, oxygen in place. HEENT: Dry mucous membranes, normal sclera with reactive pupils, Neck: No JVD, supple Respiratory: Lungs with significant wheeze in all lung raphael some rhonchi in the right mid axillary line and crackles at the bases bilaterally Cardiac: Regular rate and rhythm no murmurs no bruits Abdomen: Soft, nontender, good bowel tones, no flank pain Skin: Quite thin, Warm and dry, no rashes Neurologic: Globally weak but Grossly neurologically intact with no obvious asymmetries or abnormalities Extremities: No trauma, well perfused Psych: Cooperative, appropriate insight and affect Initial Vital Signs Initial Vital Signs: Vital Signs Temperature 97.5 F L 06/27/21 13:17 Pulse Rate 103 H 06/27/21 13:17 Respiratory Rate 28 H 06/27/21 13:17 Blood Pressure 127/61 06/27/21 13:17 Pulse Oximetry 92 06/27/21 13:17 Course Orders Ordered: ED Orders 06/27/21 13:22 XR chest 1V Stat EKG-12 Lead Stat Measure peak expiratory flow ONCE RT Consult Eval and Treat Now 06/27/21 13:24 COVID19 -Nasal swab/Pre-Proc Stat 06/27/21 14:26 Complete Blood Count AUTO DIFF Stat Comprehensive Metabolic Panel Stat Lactate (Lactic Acid) Stat NT-proBNP (BNP-Adult 18+) Stat Prothrombin Time INR Stat 06/27/21 15:15 Sputum Culture Stat 06/27/21 15:30 Respiratory Panel (Film Array) Stat 06/27/21 15:39 ABG [Arterial Blood Gas] Stat 06/27/21 15:54 Blood Culture Stat 06/29/21 03:30 Vancomycin Trough Urgent 06/29/21 06:00 Vancomycin Peak Urgent Acetaminophen (Acetaminophen 325 Mg Tablet) 650 mg PO Q6HR PRN PRN Reason: Fever/Mild Pain (1-3) Albuterol (Albuterol 2.5 Mg/3 Ml Neb (Adult)) 2.5 mg INH [id number] PRN PRN Reason: Shortness Of Breath Albuterol/Ipratropium (Albuterol/Ipratropium 3 Ml Ampul) 3 ml INH [id number] DANYELL Budesonide (Budesonide 0.5 Mg/2 Ml Neb) 0.5 mg INH RTBID DANYELL Dextrose (Dextrose 50 % In Water 25 Gm/50 Ml Syringe) 25 gm IV PRN PRN PRN Reason: Hypoglycemia Enoxaparin Sodium (Enoxaparin 40 Mg/0.4 Ml Syringe) 40 mg SUBCUT DAILY DANYELL Vancomycin HCl (Vancomycin) 1,250 mg in 250 mls @ 250 mls/hr IV Q12H DANYELL Cefepime HCl 1 gm/ Sodium (Chloride) 100 mls @ 200 mls/hr IV Q12H DANYELL Azithromycin 500 mg/ Dextrose 250 mls @ 250 mls/hr IV Q24H DANYELL Insulin Human Lispro (Insulin Lispro 100 Unit/Ml 3ml Vial) 0 unit SUBCUT ACHS DANYELL; Protocol Naloxone HCl (Naloxone 0.4 Mg/Ml Vial) 0.2 mg IV Q2MIN PRN PRN Reason: Opiate Reversal Ondansetron HCl (Ondansetron 4 Mg/2 Ml Inj) 4 mg IV Q8HR PRN PRN Reason: Nausea And Vomiting Prednisone (Prednisone 20 Mg Tablet) 40 mg PO DAILY DANYELL Vancomycin HCl (Vancomycin Trough) 1 request MISC 0330 ONE Stop: 06/29/21 03:31 Vancomycin HCl (Vancomycin Peak) 1 request MISC 0600 ONE Stop: 06/29/21 06:01 Discontinued Medications Albuterol/Ipratropium (Albuterol/Ipratropium 3 Ml Ampul) 3 ml INH NOW ONE Stop: 06/27/21 15:18 Last Admin: 06/27/21 15:40 Dose: 3 ml Documented by: JUAN RAMON Hydrocortisone (Hydrocortisone 100 Mg/2 Ml Vial) 100 mg IV NOW ONE Stop: 06/27/21 15:18 Last Admin: 06/27/21 15:59 Dose: 100 mg Documented by: PAUL Piperacillin Sod/Tazobactam (Sod 4.5 gm/ Sodium Chloride) 100 mls @ 200 mls/hr IV NOW ONE Stop: 06/27/21 15:21 Last Infusion: 06/27/21 16:43 Dose: 0 mls/hr Documented by: Admin: 06/27/21 15:59 Dose: 200 mls/hr Documented by: PAUL Levofloxacin (Levaquin) 750 mg in 150 mls @ 100 mls/hr IV NOW ONE Stop: 06/27/21 16:49 Vancomycin HCl/Dextrose (Vancomycin) 1,500 mg in 300 mls @ 200 mls/hr IV NOW ONE Stop: 06/27/21 17:29 Last Infusion: 06/27/21 17:49 Dose: 0 mls/hr Documented by: Admin: 06/27/21 16:42 Dose: 200 mls/hr Documented by: PAUL Methylprednisolone (Methylprednisolone 125 Mg/2 Ml Vial) 125 mg IV NOW ONE Stop: 06/27/21 15:18 Last Admin: 06/27/21 16:00 Dose: 125 mg Documented by: PAUL Methylprednisolone (Methylprednisolone 125 Mg/2 Ml Vial) 60 mg IV Q8H DANYELL Vancomycin HCl (Vancomycin Per Pharmacy) 1 request MISC NOW ONE Stop: 06/27/21 15:21 Last Admin: 06/27/21 16:43 Dose: 1 request Documented by: PAUL Vital Signs Vital signs: Vital Signs - 8 hr 06/27/21 13:17 06/27/21 13:34 06/27/21 13:35 Temperature 97.5 F L Pulse Rate 103 H 101 H Respiratory Rate 28 H 26 H Blood Pressure 127/61 119/65 Pulse Oximetry 92 90 L 06/27/21 14:00 06/27/21 14:07 06/27/21 14:30 Temperature Pulse Rate 103 H 100 H 97 H Respiratory Rate 28 H 39 H 31 H Blood Pressure 132/63 Pulse Oximetry 90 L 90 L 92 06/27/21 15:00 06/27/21 15:15 06/27/21 15:41 Temperature Pulse Rate 103 H 104 H 100 H Respiratory Rate 32 H 26 H Blood Pressure 129/58 L Pulse Oximetry 91 88 L 90 L 06/27/21 16:00 06/27/21 16:30 06/27/21 16:42 Temperature Pulse Rate 95 H 97 H 99 H Respiratory Rate 32 H 28 H 24 Blood Pressure 135/59 L Pulse Oximetry 96 95 91 Medical Decision Making Lab Data Result diagrams: 06/27/21 14:26 06/27/21 14:26 Labs: Lab Results 06/27/21 06/27/21 06/27/21 Range/Units 13:24 14:26 14:26 WBC 14.7 H (4.5-11.0) X10^3/uL RBC 4.93 (4.0-5.2) X10^6/uL Hgb 11.2 L (12.0-16.0) g/dL Hct 35.8 L (36-46) % MCV 72.5 L (80-100) fL MCH 22.7 L (26-34) PG MCHC 31.3 (30-36) % RDW 17.1 H (11.6-14.8) % Plt Count 339 (150-400) X10^3/uL Neut % (Auto) 85.2 H (50-75) % Lymph % (Auto) 5.3 L (25-40) % Morrill % (Auto) 6.7 (3-14) % Eos % (Auto) 2.2 (2-4) % Baso % (Auto) 0.6 (0-2) % Neut # (Auto) 61278 H (5412-2311) /uL Lymph # (Auto) 800 L (8661-2736) /uL Morrill # (Auto) 1000 H (0-900) /uL Eos # (Auto) 300 (0-450) /uL Baso # (Auto) 100 (0-100) /uL PT 13.1 H (10.1-12.7) SECONDS INR 1.2 (0.9-1.3) ABG pH (7.35-7.45) ABG pCO2 (35-45) mmHg ABG pO2 (80-100) mmHg ABG HCO3 (22-26) mmol/L ABG Total CO2 (21-31) mmol/L ABG O2 Saturation (95-100) % ABG Base Excess (-2-2) mmol/L Sodium (137-145) mmol/L Potassium (3.4-5.1) mmol/L Chloride (98-107) mmol/L Carbon Dioxide (22-32) mmol/L BUN (7-17) mg/dL Creatinine (0.52-1.04) mg/dL Estimated GFR (>60) mL/min BUN/Creatinine Ratio (6-22) Glucose (80-110) mg/dL Lactate (0.7-2.1) mmol/L Calcium (8.4-10.2) mg/dL Total Bilirubin (0.2-1.3) mg/dL AST (14-36) IU/L ALT (<35) IU/L Alkaline Phosphatase (38-126) U/L NT-Pro-B Natriuret Pep (<125) pg/mL Total Protein (6.3-8.2) g/dL Albumin (3.5-5.0) g/dL Globulin (1.7-4.1) g/dL Albumin/Globulin Ratio (1.0-2.8) Chlamy pneumoniae PCR (Not Detect) Adenovirus (PCR) (Not Detect) B. pertussis DNA (PCR) (Not Detecte) B.parapertussis DNA PCR (Not Detecte) Coronavirus OC43 (PCR) (Not Detect) Coronavirus HKU1 (PCR) (Not Detect) Coronavirus 229E (PCR) (Not Detect) SARS-CoV-2 (PCR) Negative (Negative) Coronavirus NL63 (PCR) (Not Detect) Human Metapneumovir PCR (Not Detect) Influenza Type A (PCR) (Not Detect) Influenza Type B (PCR) (Not Detect) M. pneumoniae (PCR) (Not Detect) Parainfluenza 1 (PCR) (Not Detect) Parainfluenza 2 (PCR) (Not Detect) Parainfluenza 3 (PCR) (Not Detect) Parainfluenza 4 (PCR) (Not Detect) RSV (PCR) (Not Detect) Entero/Rhino (PCR) (Not Detect) 06/27/21 06/27/21 06/27/21 Range/Units 14:26 14:26 15:30 WBC (4.5-11.0) X10^3/uL RBC (4.0-5.2) X10^6/uL Hgb (12.0-16.0) g/dL Hct (36-46) % MCV (80-100) fL MCH (26-34) PG MCHC (30-36) % RDW (11.6-14.8) % Plt Count (150-400) X10^3/uL Neut % (Auto) (50-75) % Lymph % (Auto) (25-40) % Morrill % (Auto) (3-14) % Eos % (Auto) (2-4) % Baso % (Auto) (0-2) % Neut # (Auto) (3745-1896) /uL Lymph # (Auto) (4388-7102) /uL Morrill # (Auto) (0-900) /uL Eos # (Auto) (0-450) /uL Baso # (Auto) (0-100) /uL PT (10.1-12.7) SECONDS INR (0.9-1.3) ABG pH (7.35-7.45) ABG pCO2 (35-45) mmHg ABG pO2 (80-100) mmHg ABG HCO3 (22-26) mmol/L ABG Total CO2 (21-31) mmol/L ABG O2 Saturation (95-100) % ABG Base Excess (-2-2) mmol/L Sodium 138 (137-145) mmol/L Potassium 4.0 (3.4-5.1) mmol/L Chloride 93 L (98-107) mmol/L Carbon Dioxide 43 H* (22-32) mmol/L BUN 16 (7-17) mg/dL Creatinine 0.48 L (0.52-1.04) mg/dL Estimated GFR > 60.0 (>60) mL/min BUN/Creatinine Ratio 33.3 H (6-22) Glucose 123 H (80-110) mg/dL Lactate 0.7 (0.7-2.1) mmol/L Calcium 9.2 (8.4-10.2) mg/dL Total Bilirubin 0.4 (0.2-1.3) mg/dL AST 25 (14-36) IU/L ALT 10 (<35) IU/L Alkaline Phosphatase 130 H (38-126) U/L NT-Pro-B Natriuret Pep 550 H (<125) pg/mL Total Protein 6.9 (6.3-8.2) g/dL Albumin 3.7 (3.5-5.0) g/dL Globulin 3.2 (1.7-4.1) g/dL Albumin/Globulin Ratio 1.2 (1.0-2.8) Chlamy pneumoniae PCR Not detected (Not Detect) Adenovirus (PCR) Not detected (Not Detect) B. pertussis DNA (PCR) Not detected (Not Detecte) B.parapertussis DNA PCR Not detected (Not Detecte) Coronavirus OC43 (PCR) Not detected (Not Detect) Coronavirus HKU1 (PCR) Not detected (Not Detect) Coronavirus 229E (PCR) Not detected (Not Detect) SARS-CoV-2 (PCR) Not detected (Negative) Coronavirus NL63 (PCR) Not detected (Not Detect) Human Metapneumovir PCR Not detected (Not Detect) Influenza Type A (PCR) Not detected (Not Detect) Influenza Type B (PCR) Not detected (Not Detect) M. pneumoniae (PCR) Not detected (Not Detect) Parainfluenza 1 (PCR) Not detected (Not Detect) Parainfluenza 2 (PCR) Not detected (Not Detect) Parainfluenza 3 (PCR) Not detected (Not Detect) Parainfluenza 4 (PCR) Detected H (Not Detect) RSV (PCR) Not detected (Not Detect) Entero/Rhino (PCR) Not detected (Not Detect) 06/27/21 Range/Units 15:39 WBC (4.5-11.0) X10^3/uL RBC (4.0-5.2) X10^6/uL Hgb (12.0-16.0) g/dL Hct (36-46) % MCV (80-100) fL MCH (26-34) PG MCHC (30-36) % RDW (11.6-14.8) % Plt Count (150-400) X10^3/uL Neut % (Auto) (50-75) % Lymph % (Auto) (25-40) % Morrill % (Auto) (3-14) % Eos % (Auto) (2-4) % Baso % (Auto) (0-2) % Neut # (Auto) (0389-8559) /uL Lymph # (Auto) (7750-7891) /uL Morrill # (Auto) (0-900) /uL Eos # (Auto) (0-450) /uL Baso # (Auto) (0-100) /uL PT (10.1-12.7) SECONDS INR (0.9-1.3) ABG pH 7.39 (7.35-7.45) ABG pCO2 72.0 H* (35-45) mmHg ABG pO2 48 L* (80-100) mmHg ABG HCO3 43 H (22-26) mmol/L ABG Total CO2 45 H (21-31) mmol/L ABG O2 Saturation 81 L* (95-100) % ABG Base Excess 18.0 H (-2-2) mmol/L Sodium (137-145) mmol/L Potassium (3.4-5.1) mmol/L Chloride (98-107) mmol/L Carbon Dioxide (22-32) mmol/L BUN (7-17) mg/dL Creatinine (0.52-1.04) mg/dL Estimated GFR (>60) mL/min BUN/Creatinine Ratio (6-22) Glucose (80-110) mg/dL Lactate (0.7-2.1) mmol/L Calcium (8.4-10.2) mg/dL Total Bilirubin (0.2-1.3) mg/dL AST (14-36) IU/L ALT (<35) IU/L Alkaline Phosphatase (38-126) U/L NT-Pro-B Natriuret Pep (<125) pg/mL Total Protein (6.3-8.2) g/dL Albumin (3.5-5.0) g/dL Globulin (1.7-4.1) g/dL Albumin/Globulin Ratio (1.0-2.8) Chlamy pneumoniae PCR (Not Detect) Adenovirus (PCR) (Not Detect) B. pertussis DNA (PCR) (Not Detecte) B.parapertussis DNA PCR (Not Detecte) Coronavirus OC43 (PCR) (Not Detect) Coronavirus HKU1 (PCR) (Not Detect) Coronavirus 229E (PCR) (Not Detect) SARS-CoV-2 (PCR) (Negative) Coronavirus NL63 (PCR) (Not Detect) Human Metapneumovir PCR (Not Detect) Influenza Type A (PCR) (Not Detect) Influenza Type B (PCR) (Not Detect) M. pneumoniae (PCR) (Not Detect) Parainfluenza 1 (PCR) (Not Detect) Parainfluenza 2 (PCR) (Not Detect) Parainfluenza 3 (PCR) (Not Detect) Parainfluenza 4 (PCR) (Not Detect) RSV (PCR) (Not Detect) Entero/Rhino (PCR) (Not Detect) Imaging Data Chest x-ray: Radiologist's Impression: FINDINGS:? ? Surgical changes and devices:? Redemonstration of cervical fusion hardware. ? Lungs and pleura:? Persistent interstitial prominence with apparent mild volume loss bilaterally.? Reticular densities bilaterally as before.? Patchy predominantly peripheral airspace opacities noted in the bilateral hemithoraces.? These appear more conspicuous compared to the prior study.? Blunting of the costophrenic angles suggestive of small bilateral pleural effusions.? No pneumothorax.? Mild perihilar airway thickening not significantly changed. ? Mediastinum:? Mediastinal contours appear stable with tortuous thoracic aorta.? Heart size is normal.? ? Bones and chest wall:? No suspicious bony lesions.? Overlying soft tissues appear unremarkable.? ? IMPRESSION:? Persistent interstitial prominence and reticular opacities of the bilateral hemithoraces.? There are multiple scattered predominantly peripheral airspace opacities with mild bilateral lung volume loss.? Suspected small bilateral pleural effusions.? Findings may represent persistent, progressing multifocal airspace disease although concurrent pulmonary edema not excluded if clinically appropriate.? Other considerations include developing cryptogenic organizing pneumonia or suspected background interstitial lung disease.? ? ? Dictated by: Noble Carcamo M.D. on 06/27/2021 at 14:01 ? ? ECG Data Interpretation: Sinus rhythm at a rate of 97 Normal axis, normal intervals No acute ischemic changes MDM Narrative Medical decision making narrative: 61-year-old woman presents with increasing dyspnea. Significant wheeze with productive cough. Elevated white blood cell count with clinical exam and chest x-ray suggesting bacterial pneumonia. She has had recent hospital stays so will cover for hospital-acquired pneumonia form of Zosyn, vancomycin and Levophed. She is given a stress dose of hydrocortisone as she typically is on 20 mg of prednisone. She is given 125 mg of Solu-Medrol 30 acute wheezing. DuoNeb is also given once COVID test returns negative. Moderate improvement in overall air movement. Initial ABG is 7.38 with a CO2 of 72 and an O2 of 48. Chemistries show a chronically elevated serum CO2 consistent with chronic CO2 retention, lactate at 0.7 and normal creatinine at 0.48. ProBNP is only minimally elevated at 550. Chest x-ray may have mild volume overload. She is not hypotensive and as I a.m. concerned with mild congestive heart failure will not give additional fluids at this time. She has responded nicely to the steroids and a nebulizer. She still has moderate respiratory distress and will need admission for acute exacerbation of her COPD in addition to her presumed bacterial pneumonia. Sputum culture and complete respiratory panel are currently pending Discharge Plan Departure Patient Disposition: Admitted As Inpatient Clinical Impression: Acute hypercapnic respiratory failure, CHF (congestive heart failure), COPD (chronic obstructive pulmonary disease), Asthma with exacerbation Pneumonia Qualifiers: Pneumonia type: due to unspecified organism Laterality: bilateral Lung location: unspecified part of lung Qualified Code(s): J18.9 - Pneumonia, unspecified organism Admit Date/Time: 06/27/21 16:55 Admit Provider: Tariq Arredondo
[2021-06-27] MEDS: ALBUTEROL/IPRATROPIUM 3 ML AMPUL INH ×3 (15:40→22:20)
--- NOTE | 2021-06-27 15:50 | RT ---
pt usha zhu tx well, sao2 90% on 2 lpm nc. Pt increased to 4 lpm to achieve a Sao2 of 94%
[2021-06-27] MEDS: HYDROCORTISONE 100 MG/2 ML VIAL IV (15:59)
[2021-06-27] MEDS: PIPERACILLIN/TAZO 4.5 GM in SODIUM CHLORIDE 0.9% 100 ML 200 ML IV (15:59)
[2021-06-27 16:00] LABS: pH ABG 7.39 (7.35-7.45)
[2021-06-27] MEDS: methylPREDNISolone 125 MG/2 ML VIAL IV (16:00)
[2021-06-27 16:02] LABS: HCO3 ABG 43 mmol/L (22-26); Oxygen Saturation ABG 81 % (95-100); PO2 ABG 48 mmHg (80-100); TCO2 ABG 45 mmol/L (21-31)
[2021-06-27] MEDS: VANCOMYCIN 1,500 MG/300 ML PIGGYBACK 200 MG IV (16:42)
[2021-06-27] MEDS: VANCOMYCIN PER PHARMACY 1 REQUEST MISC (16:43)
--- NOTE | 2021-06-27 17:02 | DI.CT.S_ITS ---
PROCEDURE: CT CHEST WO CON INDICATIONS: persistent lung infiltrates TECHNIQUE: Noncontrast 5 mm thick sections acquired from the pulmonary apices to the posterior costophrenic angles. 1 mm lung window, 5 mm thick coronal and sagittal and 7 mm axial MIP reformats were then acquired. For radiation dose reduction, the following was used: automated exposure control, adjustment of mA and/or kV according to patient size. COMPARISON: [facility], CR, XR CHEST 2V, 05/20/2021, 11:37. [facility], CR, XR CHEST 1V, 06/01/2021, 17:54. [facility], CR, XR CHEST 1V, 05/24/2021, 5:18. FINDINGS: Evaluation limited by lack of IV contrast. These images demonstrate diffuse areas of consolidation and ground-glass opacity as well as numerous discrete solid nodules in both lungs. Overall the findings are nonspecific. There is no pleural effusion or pneumothorax. No suspicious lytic or blastic chest wall lesion. Normal heart size. Enlarged pulmonary trunk and main pulmonary arteries. Aortic atherosclerosis without thoracic aortic aneurysm. There are few borderline enlarged mediastinal lymph nodes, for example a right paratracheal lymph node measuring 1.1 cm. The lack of IV contrast precludes evaluation for hilar adenopathy. No acute finding in the partially included unenhanced upper abdomen. IMPRESSION: Chronic airspace and interstitial opacities with numerous discrete nodules. Correlation with any prior outside CT imaging of the chest is recommended. Neoplasm is a concern, although diffuse processes such as cryptogenic organizing pneumonia or pulmonary massive fibrosis or potentially a pulmonary vasculitis are differential considerations as well. Dictated by: Reno Mccord M.D. on 06/27/2021 at 17:47 Approved by: Reno Mccord M.D. on 06/27/2021 at 17:51
[2021-06-27 17:17] LABS: Adenovirus Not Detected (Not Detect); B. parapertussis Not Detected (Not Detecte); Bordetella pertussis Not Detected (Not Detecte); Chlamydophila pneumoniae Not Detected (Not Detect); Coronavirus 229E Not Detected (Not Detect); Coronavirus HKU1 Not Detected (Not Detect); Coronavirus NL 63 Not Detected (Not Detect); Coronavirus OC43 Not Detected (Not Detect); Human Metapneumovirus Not Detected (Not Detect); Human Rhinovirus/Enterovirus Not Detected (Not Detect); Influenza A Not Detected (Not Detect); Influenza B Not Detected (Not Detect); Mycoplasma pneumoniae Not Detected (Not Detect); Parainfluenza Virus 1 Not Detected (Not Detect); Parainfluenza Virus 2 Not Detected (Not Detect); Parainfluenza Virus 3 Not Detected (Not Detect); Parainfluenza Virus 4 Detected (Not Detect); Respiratory Syncytial Virus Not Detected (Not Detect); SARS- CoV-2 Not Detected (Not Detecte)
--- NOTE | 2021-06-27 18:18 | PM.HP.1 ---
History of Present Illness History of Present Illness Date Patient Seen: 06/27/21 Time Patient Seen: 17:00 Chief complaint: Trouble breathing Narrative: 61W with PMH COPD, CHF on home O2, pAfib, reportedly recent diagnosis of ocular lymphoma presents with shortness of breath. She notes worsening shortness of breath over the last 3 days. She has noted a productive cough, subjective fevers. She is vaccinated against COVID. She has not been taking her respiratory medications she said due to not being able to find some equipment, she says not taking for the last month. She has been having recurrent pulmonary problems for the last 2 years. 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 She is coughing up thick yellow sputum. She has not noted any chest pain, lower leg swelling. No abdominal pain, nausea, vomiting. In the ED workup was done, vitals notable for temp of 97.5, hr 103, rr 28, sats 92%. Labs notable for WBC 14.7, hgb 11.2, inr 1.2. COVID negative. ABG ph 7.39, pco2 72, pao2 48. creatinine 0.48. lactate 0.7. BNP 550. Cxray showed persistent interstitial prominence and reticular opacities bilaterally. Scatter airspace opacities. She was ordered for vanc, zosyn, levofloxacin. She was ordered for steroids, and duonebs. She was admitted for further treatment. Family history: Mother with diabetes Patient History Medical History Chronic obstructive pulmonary disease Congestive heart failure Ocular lymphoma Family & Social History Social History: household members family Safety & Behavioral: Feels Safe in Current Yes Environment Been Physically Hurt or No Threatened By a Person Tobacco & Substance use: Tobacco type cigarettes Smoking Status Current some day smoker alcohol intake current alcohol intake frequency holiday/special occasion Substance Use Type does not use Meds Home Medications and Allergies Home Medications Medication Instructions Recorded Confirmed Type spironolactone 25 mg tablet 12.5 mg PO DAILY 05/23/21 05/23/21 History tiotropium bromide 18 mcg capsule 1 cap INHALATION DAILY 05/23/21 06/27/21 History with inhalation device (Spiriva with HandiHaler) aspirin 81 mg tablet,delayed 81 mg PO DAILY #60 tab 05/25/21 06/27/21 Rx release famotidine 40 mg tablet 40 mg PO BID #60 tab 05/25/21 06/27/21 Rx ipratropium 0.5 mg-albuterol 3 mg 3 ml INHALATION Q4-6H PRN #90 ml 05/25/21 06/27/21 Rx (2.5 mg base)/3 mL nebulization soln sucralfate 1 gram tablet 1 gm PO ACHS #120 tab 05/25/21 06/27/21 Rx tiotropium bromide 18 mcg capsule 1 cap INHALATION DAILY #90 inh 05/25/21 06/27/21 Rx with inhalation device (Spiriva with HandiHaler) Thera-M Or 1 tab PO DAILY 06/27/21 06/27/21 History albuterol sulfate 90 mcg/actuation 2 inh INHALATION Q4-6H PRN 06/27/21 06/27/21 History breath activated powder inhaler (ProAir RespiClick) gabapentin 100 mg capsule 100 mg PO BID 06/27/21 06/27/21 History lorazepam 2 mg/mL injection 2.5 mg SUBLINGUAL DAILY PRN 06/27/21 06/27/21 History solution (Ativan) metformin 500 mg tablet 500 mg PO BID 06/27/21 06/27/21 History prednisone 20 mg tablet 20 mg PO DAILY 06/27/21 06/27/21 History torsemide 5 mg tablet 5 mg PO DAILY 06/27/21 06/27/21 History Allergies Allergy/AdvReac Type Severity Reaction Status Date / Time marijuana Allergy Severe Vomiting Verified 06/27/21 13:17 methadone Allergy Severe Vomiting Verified 06/27/21 13:17 Review of Systems Review of Systems Narrative: 14 systems reviewed and negative aside from what is noted in HPI Exam Vital Signs (past 8 hours): - 06/27/21 13:17 06/27/21 13:34 06/27/21 13:35 Temperature 97.5 F L Pulse Rate 103 H 101 H Respiratory Rate 28 H 26 H Blood Pressure 127/61 119/65 Pulse Oximetry 92 90 L 06/27/21 14:00 06/27/21 14:07 06/27/21 14:30 Temperature Pulse Rate 103 H 100 H 97 H Respiratory Rate 28 H 39 H 31 H Blood Pressure 132/63 Pulse Oximetry 90 L 90 L 92 06/27/21 15:00 06/27/21 15:15 06/27/21 15:41 Temperature Pulse Rate 103 H 104 H 100 H Respiratory Rate 32 H 26 H Blood Pressure 129/58 L Pulse Oximetry 91 88 L 90 L 06/27/21 16:00 06/27/21 16:30 06/27/21 16:42 Temperature Pulse Rate 95 H 97 H 99 H Respiratory Rate 32 H 28 H 24 Blood Pressure 135/59 L Pulse Oximetry 96 95 91 Oxygen Delivery Method Nasal Cannula Oxygen Flow Rate 1.5 Narrative Exam Narrative: GEN: mild respiratory distress HEENT: moist mucous membranes, PERRL NECK: no JVD, trachea midline CV: irregular, no murmurs PULM: coarse breath sounds, rhonchi, wheezes bilaterally, pursed lip breathing, not speaking in full sentences ABD: soft, nontender, nondistended, no organomegaly, normal bowel sounds EXT: warm and well perfused with no edema NEURO: awake, alert, oriented, no focal deficits Objective Labs Result Diagrams: 06/27/21 14:26 06/27/21 14:26 Labs: Laboratory Results - last 24 hr 06/27/21 06/27/21 06/27/21 13:24 14:26 14:26 WBC 14.7 H RBC 4.93 Hgb 11.2 L Hct 35.8 L MCV 72.5 L MCH 22.7 L MCHC 31.3 RDW 17.1 H Plt Count 339 Neut % (Auto) 85.2 H Lymph % (Auto) 5.3 L [place] % (Auto) 6.7 Eos % (Auto) 2.2 Baso % (Auto) 0.6 Neut # (Auto) 60905 H Lymph # (Auto) 800 L [place] # (Auto) 1000 H Eos # (Auto) 300 Baso # (Auto) 100 PT 13.1 H INR 1.2 ABG pH ABG pCO2 ABG pO2 ABG HCO3 ABG Total CO2 ABG O2 Saturation ABG Base Excess Sodium Potassium Chloride Carbon Dioxide BUN Creatinine Estimated GFR BUN/Creatinine Ratio Glucose Lactate Calcium Total Bilirubin AST ALT Alkaline Phosphatase NT-Pro-B Natriuret Pep Total Protein Albumin Globulin Albumin/Globulin Ratio Chlamy pneumoniae PCR Adenovirus (PCR) B. pertussis DNA (PCR) B.parapertussis DNA PCR Coronavirus OC43 (PCR) Coronavirus HKU1 (PCR) Coronavirus 229E (PCR) SARS-CoV-2 (PCR) Negative Coronavirus NL63 (PCR) Human Metapneumovir PCR Influenza Type A (PCR) Influenza Type B (PCR) M. pneumoniae (PCR) Parainfluenza 1 (PCR) Parainfluenza 2 (PCR) Parainfluenza 3 (PCR) Parainfluenza 4 (PCR) RSV (PCR) Entero/Rhino (PCR) 06/27/21 06/27/21 06/27/21 14:26 14:26 15:30 WBC RBC Hgb Hct MCV MCH MCHC RDW Plt Count Neut % (Auto) Lymph % (Auto) [place] % (Auto) Eos % (Auto) Baso % (Auto) Neut # (Auto) Lymph # (Auto) [place] # (Auto) Eos # (Auto) Baso # (Auto) PT INR ABG pH ABG pCO2 ABG pO2 ABG HCO3 ABG Total CO2 ABG O2 Saturation ABG Base Excess Sodium 138 Potassium 4.0 Chloride 93 L Carbon Dioxide 43 H* BUN 16 Creatinine 0.48 L Estimated GFR > 60.0 BUN/Creatinine Ratio 33.3 H Glucose 123 H Lactate 0.7 Calcium 9.2 Total Bilirubin 0.4 AST 25 ALT 10 Alkaline Phosphatase 130 H NT-Pro-B Natriuret Pep 550 H Total Protein 6.9 Albumin 3.7 Globulin 3.2 Albumin/Globulin Ratio 1.2 Chlamy pneumoniae PCR Not detected Adenovirus (PCR) Not detected B. pertussis DNA (PCR) Not detected B.parapertussis DNA PCR Not detected Coronavirus OC43 (PCR) Not detected Coronavirus HKU1 (PCR) Not detected Coronavirus 229E (PCR) Not detected SARS-CoV-2 (PCR) Not detected Coronavirus NL63 (PCR) Not detected Human Metapneumovir PCR Not detected Influenza Type A (PCR) Not detected Influenza Type B (PCR) Not detected M. pneumoniae (PCR) Not detected Parainfluenza 1 (PCR) Not detected Parainfluenza 2 (PCR) Not detected Parainfluenza 3 (PCR) Not detected Parainfluenza 4 (PCR) Detected H RSV (PCR) Not detected Entero/Rhino (PCR) Not detected 06/27/21 15:39 WBC RBC Hgb Hct MCV MCH MCHC RDW Plt Count Neut % (Auto) Lymph % (Auto) [place] % (Auto) Eos % (Auto) Baso % (Auto) Neut # (Auto) Lymph # (Auto) [place] # (Auto) Eos # (Auto) Baso # (Auto) PT INR ABG pH 7.39 ABG pCO2 72.0 H* ABG pO2 48 L* ABG HCO3 43 H ABG Total CO2 45 H ABG O2 Saturation 81 L* ABG Base Excess 18.0 H Sodium Potassium Chloride Carbon Dioxide BUN Creatinine Estimated GFR BUN/Creatinine Ratio Glucose Lactate Calcium Total Bilirubin AST ALT Alkaline Phosphatase NT-Pro-B Natriuret Pep Total Protein Albumin Globulin Albumin/Globulin Ratio Chlamy pneumoniae PCR Adenovirus (PCR) B. pertussis DNA (PCR) B.parapertussis DNA PCR Coronavirus OC43 (PCR) Coronavirus HKU1 (PCR) Coronavirus 229E (PCR) SARS-CoV-2 (PCR) Coronavirus NL63 (PCR) Human Metapneumovir PCR Influenza Type A (PCR) Influenza Type B (PCR) M. pneumoniae (PCR) Parainfluenza 1 (PCR) Parainfluenza 2 (PCR) Parainfluenza 3 (PCR) Parainfluenza 4 (PCR) RSV (PCR) Entero/Rhino (PCR) Assessment & Plan Assessment & Plan narrative: Ms. Rodriguez is a 61W with PMH COPD, CHF on home O2 who comes in with cough, productive sputum, fevers found to have probable pneumonia. 1. Acute on chronic hypoxemic and hypercarbic respiratory failure secondary to pneumonia and COPD exacerbation -recently hospitalized -continue IV antibiotics broadly with vanc, cefepime, azithro -sputum culture ordered -respiratory panel ordered -given chronic changes on imaging, order for chest CT ---with recent diagnosis of possible lymphoma, may have neoplasm in lungs -continue duonebs, prednisone, budesonide -consider diuresis pending results -follow up blood cultures -will need outpatient pulmonolgy referral -will need to make sure [place] equipment for nebs [place] 2. Recent diagnosis of ocular lymphoma -will attempt to get records from 3. CHF, chronic, with preserved EF -hold torsemide for now -bnp 550 4. Type 2 Diabetes -hold metformin -insulin sliding scale CODE: Full Proxy: Shayy Vega, sister I have utilized all available resources to reconcile patient's home medications. Time Spent With Patient Critical Care time: I spent a total of [] minutes of critical care time on this patient's care today; this time is exclusive of procedural time. Quality MIPS - Admit I confirm the patient?s Advance Care Plan is present, Code status is documented, Surrogate decision maker is in patient?s record [If Yes, STOP here]: Yes
[2021-06-27] MEDS: BUDESONIDE 0.5 MG/2 ML NEB INH (19:00)
[2021-06-27] MEDS: CEFEPIME 1 GM in SODIUM CHLORIDE 0.9% 100 ML 200 ML IV (20:05)
[2021-06-27] MEDS: INSULIN LISPRO 100 UNIT/ML 3ML VIAL SUBCUT (20:08)
[2021-06-27 20:59] LABS: Fractionated Inspired Oxygen 26
[2021-06-27] MEDS: AZITHROMYCIN 500 MG in DEXTROSE 5% IN WATER 250 ML IV (21:05)
--- NOTE | 2021-06-27 21:22 | RT ---
At 1912, placed pt 8 LPM HFNC for WOB. Pt's WOB slightly decreased and seems more comfortable. RN aware.
[2021-06-28] VITALS (43 sets, daily range): BP systolic 107–143; BP diastolic 53–88; PULSE 81–105; RESP 16–54; TEMP 36.2–36.8; O2SAT 76–99
[2021-06-28] MEDS: VANCOMYCIN 1,250 MG/250 ML PIGGYBACK 250 MG IV ×2 (03:09→22:02)
[2021-06-28] MEDS: ACETAMINOPHEN 325 MG TABLET 650 MG PO (03:15)
[2021-06-28] MEDS: CEFEPIME 1 GM in SODIUM CHLORIDE 0.9% 100 ML 200 ML IV ×2 (05:25→22:02)
[2021-06-28 06:35] LABS: PO2 ABG 189 mmHg (80-100)
[2021-06-28 06:36] LABS: Fractionated Inspired Oxygen 52; HCO3 ABG 45 mmol/L (22-26); Oxygen Saturation ABG 99 % (95-100); TCO2 ABG 48 mmol/L (21-31)
[2021-06-28 06:39] LABS: pH ABG 7.17 (7.35-7.45)
--- NOTE | 2021-06-28 06:50 | DI.ECHO.S_ITS ---
[facility] +---------+ [facility] +---------+ : : [address] : [address] : : : : [id number] : : : : Phone: [phone]---------+ Echocardiogram Report + + :Name: PRASANTH SUH Study Date: 06/28/2021 Height: 64 in : :[facility] ReadingLocation: Weight: 130 lb : : Gender: Female BSA: 1.6 m2 : :: 1960 Age: 61 yrs BP: 119/57 mmHg: :Reason For Study: RESPRITORY FAILURE : :Ordering Physician: OLIVE BASILIO : : Performed By: Kesha Cochran : :Referring: OLIVE BASILIO MD : + + Interpretation Summary 1) Small left ventricular cavity size with hyperdynamic systolic function (EF 75-80%). 2) The right ventricle is at the upper limits of normal in size. Right ventricular systolic function is at the lower limits of normal. 3) No significant valvular abnormalities noted among the visualized valves. 4) Compared to the Echo done 05/23/2021, no significant change. Procedure: A two-dimensional transthoracic echocardiogram with color flow Doppler was performed. The study quality was technically adequate. Comparison is made with the echocardiogram of 05/23/2021. The patient was in sinus rhythm with heart rates between 86-99 bpm during the exam. Left Ventricle: The left ventricular cavity is small. Proximal septal thickening is noted. An intracavitary gradient is suspected. The ejection fraction is estimated to be 75-80%. There are no focal wall motion abnormalities. Right Ventricle: The right ventricle is at the upper limits of normal in size. Right ventricular systolic function is at the lower limits of normal. Atria: The left atrial size is normal. Right atrial size is normal. Mitral Valve: There is trace mitral regurgitation. Aortic Valve: There is no aortic valve stenosis. Pericardium/ Pleura There is no pericardial effusion. There is no pleural effusion. MMode/2D Measurements & Calculations LVIDd: 3.5 cm LA A2 area: 14.4 cm2 LVIDs: 1.9 cm LA A4 area: 16.3 cm2 FS: 45.4 % LA length (vol): 5.3 cm IVSd: 0.92 cm LA vol: 37.3 ml LVPWd: 0.82 cm LA vol index: 22.9 ml/m2 LV roque. diameter/BSA (cm/m^2): 2.2 LV sys. diameter/BSA (cm/m^2): 1.2 RA long axis: 4.5 cm RVD1 (basal): 4.0 cm RA area: 14.8 cm2 TAPSE: 1.7 cm RA vol: 41.6 ml RA : 25.5 ml/m2 IVC diam: 1.6 cm Doppler Measurements & Calculations Ao V2 max: 177.2 cm/sec LVOT Max Andrew: 171.0 cm/sec Ao V2 mean: 130.5 cm/sec LV V1 max P.7 mmHg Ao max P.6 mmHg LV V1 VTI: 29.8 cm Ao mean P.4 mmHg sev ratio: 0.84 Ao V2 VTI: 35.3 cm Reading Physician:01:59 PM
--- NOTE | 2021-06-28 06:55 | P.TELICUCN_ITS ---
History of Present Illness Consult details Chief complaint: Trouble breathing :: This patient was seen via real time interactive two-way audiovisual telecommunication. Narrative: Ms. Rodriguez is a 61 year old female with history of CHF, COPD, A fib, and recent diagnosis of ocular lymphoma not on treatment admitted for acute hypoxemia respiratory failure. On admission, she was tested positive for parainfluenza. CT chest showed diffuse alveolar filling process with scattered reticulonodular changes. She was placed on 8 liters NC and started on vancomycin/cefepime/levofloxacin/prednisone. Earlier this morning she was found to be less responsive and ABG showed acute on chronic hypercarbia respiratory failure. She was transferred to ICU and placed on BiPAP / FiO2 35%. At the time of my assessment, patient is awake and following commands. Nods no to chest pain, N/V, fever/chills, or cough. [facility] Medical History Chronic obstructive pulmonary disease Congestive heart failure Ocular lymphoma Social History household members: family Smoking Status: Current some day smoker alcohol intake: current Current Medications Current Medications Medications: Home Medications spironolactone 25 mg tablet 12.5 mg PO DAILY 05/23/21 [History Confirmed 05/23/21] tiotropium bromide 18 mcg capsule with inhalation device (Spiriva with Simon diHaler) 1 cap INHALATION DAILY 05/23/21 [History Confirmed 06/27/21] aspirin 81 mg tablet,delayed release 81 mg PO DAILY #60 tab 05/25/21 [Rx Confirmed 06/27/21] famotidine 40 mg tablet 40 mg PO BID #60 tab 05/25/21 [Rx Confirmed 06/27/21] ipratropium 0.5 mg-albuterol 3 mg (2.5 mg base)/3 mL nebulization soln 3 ml INHALATION Q4-6H PRN #90 ml 05/25/21 [Rx Confirmed 06/27/21] sucralfate 1 gram tablet 1 gm PO ACHS #120 tab 05/25/21 [Rx Confirmed 06/27/21] tiotropium bromide 18 mcg capsule with inhalation device (Spiriva with HandiHaler) 1 cap INHALATION DAILY #90 inh 05/25/21 [Rx Confirmed 06/27/21] Thera-M Or 1 tab PO DAILY 06/27/21 [History Confirmed 06/27/21] albuterol sulfate 90 mcg/actuation breath activated powder inhaler (ProAir RespiClick) 2 inh INHALATION Q4-6H PRN 06/27/21 [History Confirmed 06/27/21] gabapentin 100 mg capsule 100 mg PO BID 06/27/21 [History Confirmed 06/27/21] lorazepam 2 mg/mL injection solution (Ativan) 2.5 mg SUBLINGUAL DAILY PRN 06/27/21 [History Confirmed 06/27/21] metformin 500 mg tablet 500 mg PO BID 06/27/21 [History Confirmed 06/27/21] prednisone 20 mg tablet 20 mg PO DAILY 06/27/21 [History Confirmed 06/27/21] torsemide 5 mg tablet 5 mg PO DAILY 06/27/21 [History Confirmed 06/27/21] Visit Medications (administered) Generic Name Dose Route Start Last Admin Trade Name Freq PRN Reason Stop Dose Admin Acetaminophen 650 mg 06/27/21 17:10 06/28/21 03:15 Acetaminophen 325 Mg Tablet PO 650 mg Q6HR PRN Administration Fever/Mild Pain (1-3) Albuterol/Ipratropium 3 ml 06/27/21 19:00 06/28/21 06:49 Albuterol/Ipratropium 3 Ml Ampul INH Not Given [id number] DANYELL Budesonide 0.5 mg 06/27/21 20:00 06/28/21 06:49 Budesonide 0.5 Mg/2 Ml Neb INH Not Given RTBID DANYELL Vancomycin HCl 1,250 mg in 250 mls @ 250 mls/hr 06/28/21 04:00 06/28/21 06:32 Vancomycin IV Infused Q12H DANYELL Infusion Cefepime HCl 1 gm/ Sodium 100 mls @ 200 mls/hr 06/27/21 17:15 06/28/21 06:33 Chloride IV Infused Q12H DANYELL Infusion Azithromycin 500 mg/ Dextrose 250 mls @ 250 mls/hr 06/27/21 17:15 06/27/21 22:35 IV Infused Q24H DANYELL Infusion Insulin Human Lispro 0 unit 06/27/21 21:00 06/27/21 20:08 Insulin Lispro 100 Unit/Ml 3ml Vial SUBCUT 2 unit ACHS DANYELL Administration Protocol Exam Vital Signs (past 8 hours): - 06/28/21 00:58 06/28/21 06:00 06/28/21 06:23 Temperature 97.3 F L 97.3 F L Pulse Rate 99 H Respiratory Rate 16 16 Blood Pressure 120/69 126/60 127/87 Pulse Oximetry 97 98 Fraction of Inspired Oxygen 35 Oxygen Delivery Method High Flow Nasal Cannula Oxygen Flow Rate 8 Narrative Exam Narrative: On BiPAP; awake and following commands. Chest Other: Coarse BS per RN Objective Labs Result Diagrams: 06/27/21 14:26 06/27/21 14:26 Labs: Laboratory Results - last 24 hr 06/27/21 06/27/21 06/27/21 13:24 14:26 14:26 WBC 14.7 H RBC 4.93 Hgb 11.2 L Hct 35.8 L MCV 72.5 L MCH 22.7 L MCHC 31.3 RDW 17.1 H Plt Count 339 Neut % (Auto) 85.2 H Lymph % (Auto) 5.3 L [place] % (Auto) 6.7 Eos % (Auto) 2.2 Baso % (Auto) 0.6 Neut # (Auto) 30397 H Lymph # (Auto) 800 L [place] # (Auto) 1000 H Eos # (Auto) 300 Baso # (Auto) 100 PT 13.1 H INR 1.2 ABG pH ABG pCO2 ABG pO2 ABG HCO3 ABG Total CO2 ABG O2 Saturation ABG Base Excess FiO2 Sodium Potassium Chloride Carbon Dioxide BUN Creatinine Estimated GFR BUN/Creatinine Ratio Glucose Lactate Calcium Total Bilirubin AST ALT Alkaline Phosphatase NT-Pro-B Natriuret Pep Total Protein Albumin Globulin Albumin/Globulin Ratio Chlamy pneumoniae PCR Adenovirus (PCR) B. pertussis DNA (PCR) B.parapertussis DNA PCR Coronavirus OC43 (PCR) Coronavirus HKU1 (PCR) Coronavirus 229E (PCR) SARS-CoV-2 (PCR) Negative Coronavirus NL63 (PCR) Human Metapneumovir PCR Influenza Type A (PCR) Influenza Type B (PCR) M. pneumoniae (PCR) Parainfluenza 1 (PCR) Parainfluenza 2 (PCR) Parainfluenza 3 (PCR) Parainfluenza 4 (PCR) RSV (PCR) Entero/Rhino (PCR) 06/27/21 06/27/21 06/27/21 14:26 14:26 15:30 WBC RBC Hgb Hct MCV MCH MCHC RDW Plt Count Neut % (Auto) Lymph % (Auto) [place] % (Auto) Eos % (Auto) Baso % (Auto) Neut # (Auto) Lymph # (Auto) [place] # (Auto) Eos # (Auto) Baso # (Auto) PT INR ABG pH ABG pCO2 ABG pO2 ABG HCO3 ABG Total CO2 ABG O2 Saturation ABG Base Excess FiO2 Sodium 138 Potassium 4.0 Chloride 93 L Carbon Dioxide 43 H* BUN 16 Creatinine 0.48 L Estimated GFR > 60.0 BUN/Creatinine Ratio 33.3 H Glucose 123 H Lactate 0.7 Calcium 9.2 Total Bilirubin 0.4 AST 25 ALT 10 Alkaline Phosphatase 130 H NT-Pro-B Natriuret Pep 550 H Total Protein 6.9 Albumin 3.7 Globulin 3.2 Albumin/Globulin Ratio 1.2 Chlamy pneumoniae PCR Not detected Adenovirus (PCR) Not detected B. pertussis DNA (PCR) Not detected B.parapertussis DNA PCR Not detected Coronavirus OC43 (PCR) Not detected Coronavirus HKU1 (PCR) Not detected Coronavirus 229E (PCR) Not detected SARS-CoV-2 (PCR) Not detected Coronavirus NL63 (PCR) Not detected Human Metapneumovir PCR Not detected Influenza Type A (PCR) Not detected Influenza Type B (PCR) Not detected M. pneumoniae (PCR) Not detected Parainfluenza 1 (PCR) Not detected Parainfluenza 2 (PCR) Not detected Parainfluenza 3 (PCR) Not detected Parainfluenza 4 (PCR) Detected H RSV (PCR) Not detected Entero/Rhino (PCR) Not detected 06/27/21 06/28/21 15:39 05:50 WBC RBC Hgb Hct MCV MCH MCHC RDW Plt Count Neut % (Auto) Lymph % (Auto) [place] % (Auto) Eos % (Auto) Baso % (Auto) Neut # (Auto) Lymph # (Auto) [place] # (Auto) Eos # (Auto) Baso # (Auto) PT INR ABG pH 7.39 7.17 L* ABG pCO2 72.0 H* 123.0 H* ABG pO2 48 L* 189 H ABG HCO3 43 H 45 H ABG Total CO2 45 H 48 H ABG O2 Saturation 81 L* 99 ABG Base Excess 18.0 H 16.0 H FiO2 26 52 Sodium Potassium Chloride Carbon Dioxide BUN Creatinine Estimated GFR BUN/Creatinine Ratio Glucose Lactate Calcium Total Bilirubin AST ALT Alkaline Phosphatase NT-Pro-B Natriuret Pep Total Protein Albumin Globulin Albumin/Globulin Ratio Chlamy pneumoniae PCR Adenovirus (PCR) B. pertussis DNA (PCR) B.parapertussis DNA PCR Coronavirus OC43 (PCR) Coronavirus HKU1 (PCR) Coronavirus 229E (PCR) SARS-CoV-2 (PCR) Coronavirus NL63 (PCR) Human Metapneumovir PCR Influenza Type A (PCR) Influenza Type B (PCR) M. pneumoniae (PCR) Parainfluenza 1 (PCR) Parainfluenza 2 (PCR) Parainfluenza 3 (PCR) Parainfluenza 4 (PCR) RSV (PCR) Entero/Rhino (PCR) Assessment & Plan Assessment & Plan narrative: NEURO: # At risk for decondition -- Seek PT/OT when clinical condition improved RESP: # Acute on chronic hypoxemia/hypercarbia respiratory failure -- Secondary to severe V/Q mismatch due to pneumonia with superimposed pulmonary edema. Other contributing factors include COPD exacerbation. -- On BiPAP 15/5 and FiO2 35% -- Check repeat ABG in 1 hour -- Cont abx as below -- Start gentle diuresis to seek net negative fluid balance -- HOB elevation -- Aspiration precaution -- Goal SpO2 > 88% to avoid hyperoxia blunting respiratory drive # COPD exacerbation -- Secondary to parainfluenza PNA -- Switch prednisone to solumedrol as patient is currently on BiPAP -- Cont duoneb every 4 hours CVS: # Acute on chronic decompensated CHF -- Start diuresis to seek net negative fluid balance -- Check TTE -- STrict I/O -- Fluid restriction <1.5 liters : # Elevated serum Co2 -- 2/2 to renal compensation due to chronic hypercarbia -- Cont diuresis as above -- Ordered diamox 250 mg PO once ID: # Pneumonia -- 2/2 to parainfluenza with concern for superimposed bacterial PNA -- On vanc/cefepime/azithromcyin -- Check resp cx -- Check urinary legionella/strep -- Follow up cx data ENDO: -- Goal BS < 180 Case d/w RN and RT at bedside. Time Spent With Patient Critical Care time: I spent a total of [] minutes of critical care time on this patient's care today; this time is exclusive of procedural time.
--- NOTE | 2021-06-28 06:55 | DI.RAD.S_ITS ---
PROCEDURE: XR CHEST 1V INDICATIONS: severe hypercapnia TECHNIQUE: One view of the chest was acquired. COMPARISON: [facility], CT, CT CHEST WO CON, 06/27/2021, 17:25. [facility], CR, XR CHEST 1V, 06/01/2021, 17:54. [facility], CR, XR CHEST 1V, 06/27/2021, 13:42. FINDINGS: Surgical changes and devices: Cervical spine fixation hardware is stable. Lungs and pleura: Bilateral reticular in focal lung opacities not significantly changed compared to prior exams. There are a few, focal nodular opacities which have developed in the interval since the prior plain film radiographs but are not significantly changed compared to CT scan obtained June 27, 2021. Mediastinum: Mediastinal contours appear normal. Heart size is normal. Bones and chest wall: No suspicious bony lesions. Overlying soft tissues appear unremarkable. IMPRESSION: Few new small bilateral lung opacities superimposed upon stable bilateral lung reticular opacities concerning for acute pneumonia superimposed upon chronic lung disease. Dictated by: Leonila Rhoades MD, PhD on 06/28/2021 at 7:48 Approved by: Leonila Rhoades MD, PhD on 06/28/2021 at 7:51
--- NOTE | 2021-06-28 06:58 | PM.EVENT ---
Event Note Date Patient Seen: 06/28/21 Time Patient Seen: 06:45 Event Note: Transferred patient from room 222 to 226 due for a need to place on BiPap. 61-year-old female admitted for parainfluenza with history of ocular lymphoma and congestive heart failure. They louis an ABG this morning and her pCO2 was reported to be 123 and I order that the patient be placed on BiPAP to help with CO2 retention. Due to this change she needed to be transferred to ICU per hospital policy. She has bilateral rhonchi in her lungs and has been receiving quite a bit of fluids from 3 antibiotics that she has been receiving IV including vancomycin cefepime and azithromycin. Dr. Jolly of [facility] was consulted and recommended 1 dose azathioprine 250 mg x 1, 40 mg of IV Lasix, placement of a Vaz and a chest x-ray all of which been have been ordered and are pending.
--- NOTE | 2021-06-28 07:32 | PC.NURSE ---
Event Note-Patient brought to ICU room 226 at 0630, placed on Bi-pap for hypercarbia, solmulent but follows simple directions. Settings of 35% FIO2, 15/5, rate 20, Spo2 >92%, lung sounds rhonchi/wheeze throughout. Tele Intesivist and Enoc FLORES saw patient, orders received for IV Lasix, Diomox PO, CXR, and Vaz placement, report given to Swati BARK GRINDER.
[2021-06-28] MEDS: FUROSEMIDE 40 MG/4 ML VIAL IV ×2 (07:45→22:03)
[2021-06-28] MEDS: methylPREDNISolone 125 MG/2 ML VIAL 60 MG IV ×2 (07:45→22:01)
[2021-06-28] MEDS: acetaZOLAMIDE 250 MG TABLET PO (07:45)
--- NOTE | 2021-06-28 08:17 | RT ---
Bipap checked, pt usha ok. No distress noted and Bipap plugged into red outlet.
[2021-06-28] MEDS: ALBUTEROL/IPRATROPIUM 3 ML AMPUL INH ×3 (08:19→20:53)
[2021-06-28] MEDS: BUDESONIDE 0.5 MG/2 ML NEB INH ×3 (08:19→20:53)
[2021-06-28 08:32] LABS: Add Manual Diff / Slide Review NO; Basophils Absolute Auto 0 /uL (0-100); Eosinophils Absolute Auto 0 /uL (0-450); Eosinophils Percent Auto 0.1 % (2-4); Hematocrit 35.4 % (36-46); Hemoglobin 10.9 g/dL (12.0-16.0); Lymphocytes Absolute Auto 700 /uL (1100-4500); Lymphocytes Percent Auto 4.7 % (25-40); Mean Corpuscular HGB Conc 30.7 % (30-36); Mean Corpuscular Hemoglobin 22.7 PG (26-34); Mean Corpuscular Volume 73.9 fL (80-100); Monocytes Absolute Auto 500 /uL (0-900); Monocytes Percent Auto 3.4 % (3-14); Neutrophils Absolute Auto 13200 /uL (1500-7000); Neutrophils Percent Auto 91.8 % (50-75); Platelet Count 337 X10^3/uL (150-400); Red Cell Distribution Width 17.6 % (11.6-14.8); White Blood Cell Count 14.4 X10^3/uL (4.5-11.0)
[2021-06-28] MEDS: INSULIN LISPRO 100 UNIT/ML 3ML VIAL SUBCUT ×3 (08:39→17:06)
[2021-06-28 08:41] LABS: BUN Creatinine Ratio 35.9 (6-22); Blood Urea Nitrogen 14 mg/dL (7-17); Calcium 9.1 mg/dL (8.4-10.2); Chloride 97 mmol/L (98-107); Estimated Glomerular Filt Rate > 60.0 mL/min (>60); Glucose 148 mg/dL (80-110); HEMOLYSIS 18 (0-50); Potassium 4.6 mmol/L (3.4-5.1); Sodium 140 mmol/L (137-145)
[2021-06-28] MEDS: ENOXAPARIN 40 MG/0.4 ML SYRINGE SUBCUT (08:41)
[2021-06-28 08:47] LABS: Carbon Dioxide 37 mmol/L (22-32)
--- NOTE | 2021-06-28 09:36 | P.ICUMDRN_ITS ---
- :: This patient was seen via real time interactive two-way audiovisual telecommunication. Note: Multidisciplinary round completed. Transferred to ICU for NIVVP support this morning. Please refer to tele-ICU consultation note. Repeat ABG completed -> 7.27/~80s. Awake and following commands. Will continue abx, diuresis, and NIVVP support. Awaiting for outside records from [facility] and [facility] in [place]. D/w RN and hospitalist.
[2021-06-28 10:04] LABS: Fractionated Inspired Oxygen 30; HCO3 ABG 44 mmol/L (22-26); Oxygen Saturation ABG 89 % (95-100); PCO2 ABG 89.4 mmHg (35-45); PO2 ABG 67 mmHg (80-100); TCO2 ABG 47 mmol/L (21-31)
--- NOTE | 2021-06-28 13:11 | CM.DANOTE ---
DCP: Case received, EMR reviewed. Have not been able to meet with patient, she has been on BIPAP, due to respiratory issues and is on droplet precautions. Based upon information currently available in chart, was able to complete DCP assessment. Patient is a 61 year old female who admitted yesterday afternoon to the care of the hospitalist team. PCP: Unknown. Payer: confirmed: [employer]. Patient came to the hospital via private vehicle secondary to having cough, increased shortness of breath. Patient has history of COPD, CHF, she is on home oxygen. She also has history of a-fib, and recent diagnosis of ocular lymphoma. According to notes, patient had [place]. There was mention in team rounds, that patient may have been on hospice services at one time'. She is COVID negative, and has been vaccinated. Patient holds current diagnosis of acute on chronic hypoxemic hypercarbic resp failure secondary to pneumonia and COPD exacerbation. Have not been able to meet with patient, but it is noted that she resides with family. It is unclear at this time as to when she moved here and who she lives with. There is a sister of point of contact named Shayy Vega. Patient was on BIPAP, and serrato was inserted today as well. P: DCP to follow closely for any needs. Will attempt to get more information from nurse. According to team rounds. patient is pretty sick, and won't be ready for discharge for a couple of days. Josiane Gamez RN/Tacking Stitch Remover Discharge Planning/Care Management Advanced directive, confirm from FAMILY Start: 06/27/21 18:28 Freq: Q24H Status: Active Protocol: Document 06/27/21 18:28 (Rec: 06/27/21 21:59 [id number]) Advance Directive, confirm on record Time 21:59 Person contacted Juliet Rodriguez Copy received No CM Discharge Assessment Start: 06/28/21 13:08 Freq: Status: Active Protocol: Document 06/28/21 13:08 (Rec: 06/28/21 13:11 [id number]) Discharge Planning Assessment Assigned Plant Control Operator Josiane Gamez RN/Tacking Stitch Remover Advance Directives? No Advance Directives on File No History Provided By Family Member,Medical Record Prior Living Arrangements House Household Members family Type of transporation used prior to Drives own vehicle admit Independent with ADL's Yes Is patient alert and oriented? Yes Caregiver for Another No Comment Have not yet been able to meet with patient. Discharge Plan Home Transportation Arrangement Family Referrals Initiated None needed Whiteboard Updated in Patient Room with No name and ext. # of Plant Control Operator Comment Patient is currently on droplet precautions. Review Status In Process Next Review Type Continued Stay Review
--- NOTE | 2021-06-28 16:10 | P.PN_ITS ---
Subjective Subjective Date Patient Seen: 06/28/21 Time Patient Seen: 08:00 Interval history: Overnight she was obtunded and respiratory distress. ABG showed hypercapneic respiratory failure. She was transferred to the ICU. She was started on BIPAP and ordered for diuretics. This morning she is improving. She is lethargic, but responding to questions and able to follow commands. Exam Vital Signs (past 8 hours): - 06/28/21 08:21 06/28/21 08:30 06/28/21 08:40 Temperature Pulse Rate 88 81 92 H Respiratory Rate 28 H 26 H 26 H Blood Pressure Pulse Oximetry 92 93 06/28/21 09:00 06/28/21 09:30 06/28/21 10:00 Temperature Pulse Rate 83 88 88 Respiratory Rate 30 H 32 H 35 H Blood Pressure 119/57 L Pulse Oximetry 96 96 94 06/28/21 10:30 06/28/21 11:00 06/28/21 11:30 Temperature Pulse Rate 90 94 H 93 H Respiratory Rate 39 H 35 H 28 H Blood Pressure Pulse Oximetry 94 94 94 06/28/21 11:50 06/28/21 12:00 06/28/21 12:30 Temperature Pulse Rate 93 H 90 105 H Respiratory Rate 31 H 32 H 54 H Blood Pressure 113/53 L 114/56 L Pulse Oximetry 94 94 76 L 06/28/21 13:00 06/28/21 13:29 06/28/21 13:30 Temperature 97.3 F L Pulse Rate 96 H 94 H 96 H Respiratory Rate 36 H 28 H 44 H Blood Pressure 114/59 L Pulse Oximetry 98 94 95 06/28/21 14:00 06/28/21 14:30 06/28/21 15:00 Temperature Pulse Rate 97 H 101 H 96 H Respiratory Rate 36 H 46 H 34 H Blood Pressure 115/56 L 112/55 L Pulse Oximetry 94 96 94 06/28/21 15:30 Temperature Pulse Rate 101 H Respiratory Rate 48 H Blood Pressure Pulse Oximetry 96 Fraction of Inspired Oxygen 30 Oxygen Delivery Method Nasal Cannula Oxygen Flow Rate 2 Narrative Exam Narrative: GEN: mild respiratory distress HEENT: moist mucous membranes, PERRL NECK: no JVD, trachea midline CV: irregular, no murmurs PULM: coarse breath sounds, rhonchi, wheezes bilaterally, pursed lip breathing, not speaking in full sentences ABD: soft, nontender, nondistended, no organomegaly, normal bowel sounds EXT: warm and well perfused with no edema NEURO: awake, alert, oriented, no focal deficits Objective Labs Result Diagrams: 06/28/21 08:18 06/28/21 08:18 Labs: Laboratory Results - last 24 hr 06/27/21 06/27/21 06/28/21 15:30 15:39 05:50 WBC RBC Hgb Hct MCV MCH MCHC RDW Plt Count Neut % (Auto) Lymph % (Auto) Waller % (Auto) Eos % (Auto) Baso % (Auto) Neut # (Auto) Lymph # (Auto) Waller # (Auto) Eos # (Auto) Baso # (Auto) ABG pH 7.39 7.17 L* ABG pCO2 72.0 H* 123.0 H* ABG pO2 48 L* 189 H ABG HCO3 43 H 45 H ABG Total CO2 45 H 48 H ABG O2 Saturation 81 L* 99 ABG Base Excess 18.0 H 16.0 H FiO2 26 52 Sodium Potassium Chloride Carbon Dioxide BUN Creatinine Estimated GFR BUN/Creatinine Ratio Glucose Calcium Chlamy pneumoniae PCR Not detected Adenovirus (PCR) Not detected B. pertussis DNA (PCR) Not detected B.parapertussis DNA PCR Not detected Coronavirus OC43 (PCR) Not detected Coronavirus HKU1 (PCR) Not detected Coronavirus 229E (PCR) Not detected SARS-CoV-2 (PCR) Not detected Coronavirus NL63 (PCR) Not detected Human Metapneumovir PCR Not detected Influenza Type A (PCR) Not detected Influenza Type B (PCR) Not detected M. pneumoniae (PCR) Not detected Parainfluenza 1 (PCR) Not detected Parainfluenza 2 (PCR) Not detected Parainfluenza 3 (PCR) Not detected Parainfluenza 4 (PCR) Detected H RSV (PCR) Not detected Entero/Rhino (PCR) Not detected 06/28/21 06/28/21 06/28/21 08:18 08:18 08:18 WBC 14.4 H RBC 4.80 Hgb 10.9 L Hct 35.4 L MCV 73.9 L MCH 22.7 L MCHC 30.7 RDW 17.6 H Plt Count 337 Neut % (Auto) 91.8 H Lymph % (Auto) 4.7 L Waller % (Auto) 3.4 Eos % (Auto) 0.1 L Baso % (Auto) 0.0 Neut # (Auto) 83729 H Lymph # (Auto) 700 L Waller # (Auto) 500 Eos # (Auto) 0 Baso # (Auto) 0 ABG pH ABG pCO2 ABG pO2 ABG HCO3 ABG Total CO2 ABG O2 Saturation ABG Base Excess FiO2 Sodium 140 Cancelled Potassium 4.6 Cancelled Chloride 97 L Cancelled Carbon Dioxide 37 H Cancelled BUN 14 Cancelled Creatinine 0.39 L Cancelled Estimated GFR > 60.0 Cancelled BUN/Creatinine Ratio 35.9 H Cancelled Glucose 148 H Cancelled Calcium 9.1 Cancelled Chlamy pneumoniae PCR Adenovirus (PCR) B. pertussis DNA (PCR) B.parapertussis DNA PCR Coronavirus OC43 (PCR) Coronavirus HKU1 (PCR) Coronavirus 229E (PCR) SARS-CoV-2 (PCR) Coronavirus NL63 (PCR) Human Metapneumovir PCR Influenza Type A (PCR) Influenza Type B (PCR) M. pneumoniae (PCR) Parainfluenza 1 (PCR) Parainfluenza 2 (PCR) Parainfluenza 3 (PCR) Parainfluenza 4 (PCR) RSV (PCR) Entero/Rhino (PCR) 06/28/21 08:32 WBC RBC Hgb Hct MCV MCH MCHC RDW Plt Count Neut % (Auto) Lymph % (Auto) Waller % (Auto) Eos % (Auto) Baso % (Auto) Neut # (Auto) Lymph # (Auto) Waller # (Auto) Eos # (Auto) Baso # (Auto) ABG pH 7.30 L ABG pCO2 89.4 H* ABG pO2 67 L ABG HCO3 44 H ABG Total CO2 47 H ABG O2 Saturation 89 L ABG Base Excess 17.0 H FiO2 30 Sodium Potassium Chloride Carbon Dioxide BUN Creatinine Estimated GFR BUN/Creatinine Ratio Glucose Calcium Chlamy pneumoniae PCR Adenovirus (PCR) B. pertussis DNA (PCR) B.parapertussis DNA PCR Coronavirus OC43 (PCR) Coronavirus HKU1 (PCR) Coronavirus 229E (PCR) SARS-CoV-2 (PCR) Coronavirus NL63 (PCR) Human Metapneumovir PCR Influenza Type A (PCR) Influenza Type B (PCR) M. pneumoniae (PCR) Parainfluenza 1 (PCR) Parainfluenza 2 (PCR) Parainfluenza 3 (PCR) Parainfluenza 4 (PCR) RSV (PCR) Entero/Rhino (PCR) PFSH Medical History Chronic obstructive pulmonary disease Congestive heart failure Ocular lymphoma Social History household members: family Smoking Status: Current some day smoker alcohol intake: current Assessment & Plan Assessment & Plan narrative: Ms. Rodriguez is a 61W with PMH COPD, CHF on home O2 who comes in with cough, productive sputum, fevers found to have probable pneumonia. 1. Acute on chronic hypoxemic and hypercarbic respiratory failure secondary to pneumonia and COPD exacerbation -recently hospitalized -continue IV antibiotics broadly with vanc, cefepime, azithro -sputum culture ordered -respiratory panel ordered and positive for parainfluenza -CT shows multiple abnormalities with chronic interstitial changes and nodular abnormalities -continue duonebs, prednisone, budesonide -consider diuresis -follow up blood cultures -will need outpatient pulmonolgy referral -will need to make sure has equipment for [facility]bs [facility] -attempt to get [place] and records 2. Recent diagnosis of ocular mass -per records etiology of mass is unclear, needs further outpatient follow up 3. CHF, chronic, with preserved EF -continue with IV diuresis to try to maintain euvolemia -bnp 550 4. Type 2 Diabetes -hold metformin -insulin sliding scale Time Spent With Patient Critical Care time: I spent a total of [] minutes of critical care time on this patient's care today; this time is exclusive of procedural time. Quality VTE Deep Vein Thrombosis/Pulmonary Embolism Present on Admission: No
[2021-06-28 16:58] LABS: Blood Urea Nitrogen 17 mg/dL (7-17); Calcium 9.7 mg/dL (8.4-10.2); Chloride 93 mmol/L (98-107); Estimated Glomerular Filt Rate > 60.0 mL/min (>60); Glucose 177 mg/dL (80-110); HEMOLYSIS < 15 (0-50); Potassium 3.8 mmol/L (3.4-5.1); Sodium 140 mmol/L (137-145)
[2021-06-28 17:32] LABS: Carbon Dioxide 40 mmol/L (22-32)
[2021-06-28] MEDS: AZITHROMYCIN 500 MG in DEXTROSE 5% IN WATER 250 ML IV (23:18)
--- NOTE | 2021-06-28 23:33 | PM.ICURNDS ---
- Date Patient Seen: 06/28/21 Time Patient Seen: 23:19 :: This patient was seen via real time interactive two-way audiovisual telecommunication. Note: Chart reviewed; discussed with RN. Patient is down to 2L and will be on CPAP tonight. During rounds, 24H fluid balance was -955 mL. On camera, she is no distress and using her iPad/tablet. Ordered 20 mEq KCL given diuresis and last known K+ value of 3.8. Mg+2 level ordered for AM.
[2021-06-28] MEDS: POTASSIUM CHLORIDE 20 MEQ TAB PO (23:53)
[2021-06-29] VITALS (52 sets, daily range): BP systolic 106–146; BP diastolic 59–77; PULSE 80–105; RESP 19–47; TEMP 36.2–36.7; O2SAT 89–98
[2021-06-29] MEDS: ALBUTEROL/IPRATROPIUM 3 ML AMPUL INH ×4 (00:50→20:07)
[2021-06-29] MEDS: BENZONATATE 100 MG CAPSULE PO ×3 (02:37→19:52)
--- NOTE | 2021-06-29 05:07 | RT ---
during my shift patient never went to sleep and was up playing games on her tablet. She was never placed on BIPAP as that was the plan for night. She was never obtunded-lethargic like the night before and was never in any respiratory distress. ABGs showed hypercapneic respiratory failure during day shift. Patient states she has a very productive cough and bring up a lot of phlegm.
[2021-06-29 05:21] LABS: Hematocrit 34.2 % (36-46); Hemoglobin 10.6 g/dL (12.0-16.0); Mean Corpuscular HGB Conc 31.1 % (30-36); Mean Corpuscular Hemoglobin 22.6 PG (26-34); Mean Corpuscular Volume 72.9 fL (80-100); Platelet Count 360 X10^3/uL (150-400); Red Blood Cell Count 4.69 X10^6/uL (4.0-5.2); Red Cell Distribution Width 17.1 % (11.6-14.8); White Blood Cell Count 11.3 X10^3/uL (4.5-11.0)
[2021-06-29 05:31] LABS: Magnesium 1.9 mg/dL (1.6-2.3)
[2021-06-29 05:32] LABS: BUN Creatinine Ratio 24.4 (6-22); Blood Urea Nitrogen 21 mg/dL (7-17); Calcium 9.3 mg/dL (8.4-10.2); Chloride 90 mmol/L (98-107); Estimated Glomerular Filt Rate > 60.0 mL/min (>60); Glucose 176 mg/dL (80-110); HEMOLYSIS < 15 (0-50); Sodium 138 mmol/L (137-145)
[2021-06-29 05:48] LABS: Carbon Dioxide 44 mmol/L (22-32)
[2021-06-29] MEDS: methylPREDNISolone 125 MG/2 ML VIAL 60 MG IV ×3 (06:11→21:46)
--- NOTE | 2021-06-29 06:55 | PC.NURSE ---
Shift Note-Patient has been awake all night watching TV and playing games on her tablet, refused to wear Bi-pap, on 2L NC, SpO2 88-99%, does desat to 80% when she removes cannula to blow her nose, recovers quickly, no resp distress, only complaint was persistent cough, Maggie Rodrigse ordered-effective. Double-lumen midline placed by [employer], all medication resumed, communicated with pharmacy this am.
[2021-06-29] MEDS: INSULIN LISPRO 100 UNIT/ML 3ML VIAL SUBCUT ×4 (08:05→21:59)
[2021-06-29] MEDS: ACETAMINOPHEN 325 MG TABLET 650 MG PO ×4 (08:13→20:08)
[2021-06-29] MEDS: ENOXAPARIN 40 MG/0.4 ML SYRINGE SUBCUT (08:14)
[2021-06-29] MEDS: ALBUTEROL 2.5 MG/3 ML NEB (ADULT) INH (09:25)
[2021-06-29] MEDS: CEFEPIME 1 GM in SODIUM CHLORIDE 0.9% 100 ML 200 ML IV ×2 (09:45→21:48)
[2021-06-29] MEDS: FUROSEMIDE 40 MG/4 ML VIAL IV ×2 (09:46→21:49)
[2021-06-29] MEDS: VANCOMYCIN 1,250 MG/250 ML PIGGYBACK 250 MG IV ×2 (09:46→21:47)
[2021-06-29] MEDS: SODIUM CHLORIDE 0.9% FLUSH 10 ML IV ×2 (10:21→20:10)
--- NOTE | 2021-06-29 10:39 | P.PN_ITS ---
Subjective Subjective Date Patient Seen: 06/29/21 Time Patient Seen: 08:00 Interval history: Today she is more alert. She is coughing mildly. She says she is less short of breath. Exam Vital Signs (past 8 hours): - 06/29/21 03:00 06/29/21 03:19 06/29/21 03:30 Temperature 97.2 F L Pulse Rate 91 H 89 90 Respiratory Rate 33 H 32 H 33 H Blood Pressure 119/62 119/62 Pulse Oximetry 96 94 98 06/29/21 04:00 06/29/21 04:30 06/29/21 04:38 Temperature 97.3 F L Pulse Rate 91 H 92 H 86 Respiratory Rate 27 H 37 H 27 H Blood Pressure 124/68 124/68 Pulse Oximetry 97 94 97 06/29/21 05:00 06/29/21 05:30 06/29/21 06:00 Temperature Pulse Rate 88 86 84 Respiratory Rate 31 H 33 H 31 H Blood Pressure 118/63 Pulse Oximetry 98 97 98 06/29/21 06:30 06/29/21 06:45 06/29/21 07:00 Temperature 97.2 F L Pulse Rate 86 82 80 Respiratory Rate 32 H 26 H 31 H Blood Pressure 118/63 Pulse Oximetry 94 97 97 06/29/21 07:30 06/29/21 07:36 06/29/21 08:00 Temperature Pulse Rate 91 H 96 H 84 Respiratory Rate 28 H 34 H 30 H Blood Pressure 146/74 H 132/69 Pulse Oximetry 96 97 98 06/29/21 08:30 06/29/21 09:00 06/29/21 09:30 Temperature Pulse Rate 93 H 93 H 94 H Respiratory Rate 39 H 34 H 37 H Blood Pressure Pulse Oximetry 96 97 96 Fraction of Inspired Oxygen 30 Oxygen Delivery Method Nasal Cannula Oxygen Flow Rate 2 Narrative Exam Narrative: GEN: mild respiratory distress HEENT: moist mucous membranes, PERRL NECK: no JVD, trachea midline CV: irregular, no murmurs PULM: coarse breath sounds, respiratory status much improved ABD: soft, nontender, nondistended, no organomegaly, normal bowel sounds EXT: warm and well perfused with no edema NEURO: awake, alert, oriented, no focal deficits Objective Labs Result Diagrams: 06/29/21 05:00 06/29/21 05:00 Labs: Laboratory Results - last 24 hr 06/28/21 06/28/21 06/28/21 07:50 08:18 16:20 WBC RBC Hgb Hct MCV MCH MCHC RDW Plt Count Sodium Cancelled 140 Potassium Cancelled 3.8 Chloride Cancelled 93 L Carbon Dioxide Cancelled 40 H* BUN Cancelled 17 Creatinine Cancelled 0.74 Estimated GFR Cancelled > 60.0 BUN/Creatinine Ratio Cancelled 23.0 H Glucose Cancelled 177 H Calcium Cancelled 9.7 Magnesium Nasal Screen MRSA (PCR) Negative for mrsa 06/29/21 06/29/21 06/29/21 05:00 05:00 05:00 WBC 11.3 H RBC 4.69 Hgb 10.6 L Hct 34.2 L MCV 72.9 L MCH 22.6 L MCHC 31.1 RDW 17.1 H Plt Count 360 Sodium 138 Potassium 4.0 Chloride 90 L Carbon Dioxide 44 H* BUN 21 H Creatinine 0.86 Estimated GFR > 60.0 BUN/Creatinine Ratio 24.4 H Glucose 176 H Calcium 9.3 Magnesium 1.9 Nasal Screen MRSA (PCR) [facility] Medical History Chronic obstructive pulmonary disease Congestive heart failure Ocular lymphoma Social History household members: family Smoking Status: Current some day smoker alcohol intake: current Assessment & Plan Assessment & Plan narrative: Ms. Rodriguez is a 61W with PMH COPD, CHF on home O2 who comes in with cough, productive sputum, fevers found to have probable pneumonia. 1. Acute on chronic hypoxemic and hypercarbic respiratory failure secondary to pneumonia and COPD exacerbation -recently hospitalized -continue IV antibiotics broadly with vanc, cefepime, azithro -sputum culture ordered -respiratory panel ordered and positive for parainfluenza -CT shows multiple abnormalities with chronic interstitial changes and nodular abnormalities -continue duonebs, prednisone, budesonide -consider diuresis -follow up blood cultures -will need outpatient pulmonolgy referral -will need to make sure has equipment for [place]bs [place] [facility] -attempt to get [place] and records 2. Recent diagnosis of ocular mass -per records etiology of mass is unclear, needs further outpatient follow up 3. CHF, chronic, with preserved EF -continue with IV diuresis to try to maintain euvolemia -bnp 550 4. Type 2 Diabetes -hold metformin -insulin sliding scale Time Spent With Patient Critical Care time: I spent a total of [] minutes of critical care time on this patient's care today; this time is exclusive of procedural time. Quality VTE Deep Vein Thrombosis/Pulmonary Embolism Present on Admission: No
--- NOTE | 2021-06-29 11:00 | CM.DPC ---
Addendum entered by Josiane Gamez R.N. 06/29/21 13:41: Checked in with nursing, they indicated, she is still on her BIPAP, no longer ICU care. She also indicated that she is ambulatory, just one assist. Her sister has been visiting her, and is expected to come in this pm. Original Note: DCP Cont: Discussed patient during team rounds. She is not yet medically stable. Hospitalist had mentioned that patient was at a hospital in [place], [place], and also at [facility], and was in the process of getting some records. Patient is on continued isolation for influenza. Hospitalist indicated that patient is alert. Have not yet been able to speak to patient, and unable to enter room due to isolation. Will attempt to get more information today. P: DCP to continue to follow for any needs. Josiane Gamez RN/Rn Staff
[2021-06-29 13:45] LABS: Legionella pneumo Antigen Negative (Negative)
--- NOTE | 2021-06-29 14:08 | DIET.CONS ---
Dietary Consultation Note Admission Date: 06/27/2021 16:55 Assessment: 61 y/o F c PMH COPD, CHF. States she has been hospitalized multiple times in the last two years for pneumonia. States she was 210# prior two years ago and has lost weight each hospitalization. Indicates a 36% loss over two years. Weight changes from admission last month to 06/27 would indicate 3% weight loss, in one month. Variable weight history in EMR makes it difficult to determine actual weight loss. Endorses good appetite now, but somewhat impaired prior to admit. Seems to have mild signs of wasting in temporal and clavicle region. Endorses difficulty eating vegetables due to poor dentition. States she would like to be 150# or less. Ht: 162.56 cm Wt: 61.8 kg BMI: 22.3 Last BM: 06/27/21 (06/27/21 18:14) MNA: 13 Anam Score: 13 Diet: 06/27/21 Dinner Carbohydrate Consistent Diet Diet Modifications: Carbohydrate level: Medium (3 CHO) General (Regular) Diet Diet Modifications: Nutrition Percent Meal Consumed 75% 06/29/21 13:15 Percent Meal Consumed 75% 06/29/21 09:00 Percent Meal Consumed 50% 06/28/21 09:42 Labs: RBC 4.69 X10^6/uL (4.0-5.2) 06/29/21 05:00 Hgb 10.6 g/dL (12.0-16.0) L 06/29/21 05:00 Hct 34.2 % (36-46) L 06/29/21 05:00 Creatinine 0.86 mg/dL (0.52-1.04) 06/29/21 05:00 Lactate 0.7 mmol/L (0.7-2.1) 06/27/21 14:26 NT-Pro-B Natriuret Pep 550 pg/mL (<125) H 06/27/21 14:26 Nutrition Diagnosis: Moderate acute on chronic PCM r/t pneumonia c hospitalizations and increased kcal needs per COPD hx aeb significant unintentional weight loss over 2 years, mild muscle wasting, and increased nutrient needs Interventions: Ensure max daily. Soft chew vegetables. EER: 1850 kcals (COPD needs) 62-74g PRO Monitoring/Evaluations: ONS tolerance, PO, weight changes. RD f/u 3-4 days. Electronically Signed by: Theresa Menon 06/29/21 14:08 [facility] [address] [address]
[2021-06-29] MEDS: BUDESONIDE 0.5 MG/2 ML NEB INH (20:08)
[2021-06-29] MEDS: AZITHROMYCIN 500 MG in DEXTROSE 5% IN WATER 250 ML IV (23:26)
[2021-06-30] VITALS (12 sets, daily range): BP systolic 123–136; BP diastolic 60–76; PULSE 80–107; RESP 16–28; TEMP 36.1–37.2; O2SAT 92–98
[2021-06-30] MEDS: ACETAMINOPHEN 325 MG TABLET 650 MG PO ×5 (01:56→21:17)
--- NOTE | 2021-06-30 04:32 | PC.NURSE ---
Pt AOx4. Decreased 2L to 1L oxygen since 99% SpO2. Received vanco, azithromycin, and cefepine. Pt frequently pulls nc tubing from oxygen and desats, occasionally needs to be cued to fix her nc. She was given tessalon perles for cough. Denies pain and was able to sleep tonight. Bed in low position, call light within reach.
[2021-06-30 05:42] LABS: Hematocrit 34.7 % (36-46); Hemoglobin 10.8 g/dL (12.0-16.0); Mean Corpuscular HGB Conc 31.1 % (30-36); Mean Corpuscular Hemoglobin 22.5 PG (26-34); Mean Corpuscular Volume 72.3 fL (80-100); Platelet Count 352 X10^3/uL (150-400); Red Cell Distribution Width 16.9 % (11.6-14.8); White Blood Cell Count 10.9 X10^3/uL (4.5-11.0)
[2021-06-30] MEDS: methylPREDNISolone 125 MG/2 ML VIAL 60 MG IV ×3 (05:51→21:17)
[2021-06-30 05:59] LABS: BUN Creatinine Ratio 48.2 (6-22); Blood Urea Nitrogen 27 mg/dL (7-17); Calcium 8.1 mg/dL (8.4-10.2); Chloride 96 mmol/L (98-107); Estimated Glomerular Filt Rate > 60.0 mL/min (>60); Glucose 177 mg/dL (80-110); HEMOLYSIS < 15 (0-50); Potassium 3.3 mmol/L (3.4-5.1); Sodium 140 mmol/L (137-145)
[2021-06-30 06:11] LABS: Carbon Dioxide 46 mmol/L (22-32)
[2021-06-30] MEDS: ENOXAPARIN 40 MG/0.4 ML SYRINGE SUBCUT (09:35)
[2021-06-30] MEDS: INSULIN LISPRO 100 UNIT/ML 3ML VIAL SUBCUT ×4 (09:37→21:19)
[2021-06-30] MEDS: POTASSIUM CHLORIDE 20 MEQ TAB 40 MEQ PO (09:38)
[2021-06-30] MEDS: SODIUM CHLORIDE 0.9% FLUSH 10 ML IV ×2 (09:40→21:21)
[2021-06-30] MEDS: CEFEPIME 1 GM in SODIUM CHLORIDE 0.9% 100 ML 200 ML IV ×2 (10:04→21:17)
[2021-06-30] MEDS: ALBUTEROL/IPRATROPIUM 3 ML AMPUL INH ×3 (10:37→19:53)
[2021-06-30 10:52] LABS: Magnesium 2.1 mg/dL (1.6-2.3)
[2021-06-30] MEDS: acetaZOLAMIDE 250 MG TABLET PO (12:06)
[2021-06-30 13:01] LABS: Vancomycin Trough 10.6 ug/mL (10-20)
[2021-06-30] MEDS: VANCOMYCIN 1,250 MG/250 ML PIGGYBACK 250 MG IV ×2 (13:53→22:42)
[2021-06-30] MEDS: BENZONATATE 100 MG CAPSULE PO (13:54)
--- NOTE | 2021-06-30 14:21 | CM.DPC ---
DCP Cont: Patient was sitting up in her chair in her room. She did not have the phone near her, was unable to call her. During team rounds. hospitalist mentioned that he was requesting records from [facility] and [facility] in [place], [place], since she was hospitalized in both facilities. She has been up, ambulatory. Her sister has been by to visit her, but this information systems planner has not seen her. Discussed patient during team rounds, and is it noted, she is starting to improve. P: DCP to continue to follow for any needs. Josiane Gamez RN/Birdcage Assembler
--- NOTE | 2021-06-30 15:04 | PM.PN.1 ---
Subjective Subjective Date Patient Seen: 06/30/21 Time Patient Seen: 08:00 Interval history: She feels that so far this is a better day. She is still short of breat, but less so. Exam Vital Signs (past 8 hours): - 06/30/21 07:58 06/30/21 08:40 06/30/21 10:52 Temperature 97 F L Pulse Rate 84 107 H 92 H Respiratory Rate 16 20 28 H Blood Pressure 133/68 Pulse Oximetry 95 94 92 06/30/21 11:12 06/30/21 14:38 Temperature 97.5 F L Pulse Rate 92 H Respiratory Rate 16 Blood Pressure 123/67 Pulse Oximetry 94 92 Fraction of Inspired Oxygen 30 Oxygen Delivery Method Nasal Cannula Oxygen Flow Rate 1 Narrative Exam Narrative: GEN: mild respiratory distress HEENT: moist mucous membranes, PERRL NECK: no JVD, trachea midline CV: irregular, no murmurs PULM: coarse breath sounds, improved air movement ABD: soft, nontender, nondistended, no organomegaly, normal bowel sounds EXT: warm and well perfused with no edema NEURO: awake, alert, oriented, no focal deficits Objective Labs Result Diagrams: 06/30/21 05:28 06/30/21 05:28 Labs: Laboratory Results - last 24 hr 06/30/21 06/30/21 06/30/21 05:28 05:28 10:00 WBC 10.9 RBC 4.80 Hgb 10.8 L Hct 34.7 L MCV 72.3 L MCH 22.5 L MCHC 31.1 RDW 16.9 H Plt Count 352 Sodium 140 Potassium 3.3 L Chloride 96 L Carbon Dioxide 46 H* BUN 27 H Creatinine 0.56 Estimated GFR > 60.0 BUN/Creatinine Ratio 48.2 H Glucose 177 H Calcium 8.1 L Magnesium 2.1 Vancomycin Trough 06/30/21 12:00 WBC RBC Hgb Hct MCV MCH MCHC RDW Plt Count Sodium Potassium Chloride Carbon Dioxide BUN Creatinine Estimated GFR BUN/Creatinine Ratio Glucose Calcium Magnesium Vancomycin Trough 10.6 PFSH Medical History Chronic obstructive pulmonary disease Congestive heart failure Ocular lymphoma Social History household members: family Smoking Status: Current some day smoker alcohol intake: current Assessment & Plan Assessment & Plan narrative: Ms. Rodriguez is a 61W with PMH COPD, CHF on home O2 who comes in with cough, productive sputum, fevers found to have probable pneumonia. 1. Acute on chronic hypoxemic and hypercarbic respiratory failure secondary to pneumonia and COPD exacerbation -recently hospitalized -continue IV antibiotics broadly with vanc, cefepime, azithro -sputum culture ordered -respiratory panel ordered and positive for parainfluenza -CT shows multiple abnormalities with chronic interstitial changes and nodular abnormalities -continue duonebs, prednisone, budesonide -continue diuresis today with diamox as co2 is 46 -follow up blood cultures -will need outpatient pulmonolgy referral -will need to make sure [place] equipment for [place] [place] [facility] -attempt to get [place] (from [facility]) and records, she apparently was on hospice previously, had previous lung biopsy (patient says not cancer), she had workup in for possible sarcoid 2. Recent diagnosis of ocular mass -per records etiology of mass is unclear, needs further outpatient follow up 3. CHF, chronic, with preserved EF -continue with IV diuresis to try to maintain euvolemia -bnp 550 4. Type 2 Diabetes -hold metformin -insulin sliding scale Time Spent With Patient Critical Care time: I spent a total of [] minutes of critical care time on this patient's care today; this time is exclusive of procedural time. Quality VTE Deep Vein Thrombosis/Pulmonary Embolism Present on Admission: No
[2021-06-30 16:54] LABS: Vancomycin Peak 36.1 ug/mL (20-40)
[2021-06-30 18:58] LABS: Appearance Urine UA CLOUDY; Bilirubin Urine UA NEGATIVE (NEGATIVE); Color Urine UA YELLOW; Glucose Urine UA NEGATIVE (Negative); Ketones Urine UA NEGATIVE (NEGATIVE); Leukocyte Esterase Urine UA NEGATIVE (NEGATIVE); Nitrite Urine UA NEGATIVE (Negative); Occult Blood Urine UA 3+ (Negative); Protein Urine UA 1+ (Negative); Specific Gravity Urine UA 1.015 (1.000-1.035); Urobilinogen Urine UA 0.2 E.U./dL (0.2)
[2021-06-30 19:00] LABS: pH Urine UA 7.5 (4.5-8.0)
[2021-06-30 19:20] LABS: Bacteria Urine None Seen; Culture Indicated Urine Cult Not Indicated; RBC Urine 10-30/HPF (0-5/HPF); WBC Urine None Seen (0-5/HPF)
[2021-06-30] MEDS: BUDESONIDE 0.5 MG/2 ML NEB INH (19:53)
[2021-06-30] MEDS: AZITHROMYCIN 500 MG in DEXTROSE 5% IN WATER 250 ML IV (23:52)
[2021-07-01] VITALS (9 sets, daily range): BP systolic 122–139; BP diastolic 62–80; PULSE 83–93; RESP 16–22; TEMP 36.4–36.6; O2SAT 91–99
[2021-07-01] MEDS: ACETAMINOPHEN 325 MG TABLET 650 MG PO ×4 (00:29→21:32)
[2021-07-01] MEDS: BENZONATATE 100 MG CAPSULE PO ×2 (00:29→23:15)
[2021-07-01] MEDS: methylPREDNISolone 125 MG/2 ML VIAL 60 MG IV (05:03)
[2021-07-01] MEDS: SODIUM CHLORIDE 0.9% FLUSH 10 ML IV ×4 (05:03→21:33)
[2021-07-01 05:32] LABS: Hematocrit 34.5 % (36-46); Hemoglobin 10.6 g/dL (12.0-16.0); Mean Corpuscular HGB Conc 30.8 % (30-36); Mean Corpuscular Hemoglobin 22.5 PG (26-34); Mean Corpuscular Volume 72.9 fL (80-100); Platelet Count 346 X10^3/uL (150-400); Red Blood Cell Count 4.73 X10^6/uL (4.0-5.2); Red Cell Distribution Width 17.1 % (11.6-14.8); White Blood Cell Count 11.7 X10^3/uL (4.5-11.0)
[2021-07-01 05:42] LABS: BUN Creatinine Ratio 34.3 (6-22); Blood Urea Nitrogen 23 mg/dL (7-17); Chloride 95 mmol/L (98-107); Estimated Glomerular Filt Rate > 60.0 mL/min (>60); Glucose 236 mg/dL (80-110); HEMOLYSIS < 15 (0-50); Magnesium 2.2 mg/dL (1.6-2.3); Potassium 3.8 mmol/L (3.4-5.1); Sodium 139 mmol/L (137-145)
[2021-07-01 05:55] LABS: Carbon Dioxide 42 mmol/L (22-32)
[2021-07-01] MEDS: INSULIN LISPRO 100 UNIT/ML 3ML VIAL SUBCUT (09:06)
[2021-07-01] MEDS: BUDESONIDE 0.5 MG/2 ML NEB INH ×2 (09:14→20:20)
[2021-07-01] MEDS: ALBUTEROL/IPRATROPIUM 3 ML AMPUL INH ×4 (09:14→20:20)
[2021-07-01] MEDS: ENOXAPARIN 40 MG/0.4 ML SYRINGE SUBCUT (09:15)
[2021-07-01] MEDS: CEFEPIME 1 GM in SODIUM CHLORIDE 0.9% 100 ML 200 ML IV ×2 (09:16→21:32)
[2021-07-01] MEDS: VANCOMYCIN 1,250 MG/250 ML PIGGYBACK 250 MG IV (10:21)
--- NOTE | 2021-07-01 12:34 | P.PN_ITS ---
Subjective Subjective Date Patient Seen: 07/01/21 Interval history: FEELING BETTER NO SPECIFIC COMPLAINTS TODAY DENIES ANY HEADACHES. NO INCREASING CHEST PAIN OR CHEST PRESSURE NO INCREASING COUGH Exam Vital Signs (past 8 hours): - 07/01/21 08:00 07/01/21 09:15 07/01/21 12:26 Temperature 97.9 F Pulse Rate 87 93 H 92 H Respiratory Rate 16 20 20 Blood Pressure 127/67 Pulse Oximetry 91 92 93 Fraction of Inspired Oxygen 30 Oxygen Delivery Method Nasal Cannula Oxygen Flow Rate 2 Narrative Exam Narrative: NO ACUTE DISTRESS. PATIENT IS ALERT ORIENTED X3. HEAD ATRAUMATIC NORMOCEPHALIC NECK : SUPPLE WITHOUT ADENOPATHY NO CAROTID BRUITS EYE: EOMI, PERRLA, NORMAL CONJUNCTIVA; NO JAUNDICE CHEST: REGULAR RATE. NO RUBS. PMI IS NON DISPLACED. NO MURMURS; NORMAL S1- S2 PULMONARY: MILD WHEEZING APPRECIATED BILATERALLY. DECREASED BREATH SOUND AT THE BASES. BIBASILAR CRACKLES APPRECIATED. NO RHONCHI. ABDOMEN: SOFT. NONTENDER. NONDISTENDED. BOWEL SOUNDS ARE PRESENT IN ALL 4 QUADRANTS. NO MASS. EXTREMITIES: NO EDEMA.. NO CYANOSIS CLUBBING NOTED. NEURO: CRANIAL NERVES 2-12 GROSSLY INTACT. NO FOCAL NEUROLOGICAL DEFICIT NOTED. MSK: NORMAL RANGE OF MOTION FOR AGE. NO JOINT EFFUSION. POOR MUSCULATURE. SKIN: NORMAL FOR ETHNICITY; NO ECCHYMOSIS. NO LESION. FAIR TURGOR.; NO RASHES PSYCH : APPROPRIATE MOOD AND AFFECT. ALERT AWAKE ORIENTED X3 Objective Labs Result Diagrams: 07/01/21 05:15 07/01/21 05:15 Labs: Laboratory Results - last 24 hr 06/27/21 06/30/21 06/30/21 15:38 12:00 16:30 WBC RBC Hgb Hct MCV MCH MCHC RDW Plt Count ABG pH 7.39 ABG pCO2 72.0 H* ABG pO2 48 L* ABG HCO3 43 H ABG Total CO2 45 H ABG O2 Saturation 81 L* ABG Base Excess 18.0 H FiO2 26 Sodium Potassium Chloride Carbon Dioxide BUN Creatinine Estimated GFR BUN/Creatinine Ratio Glucose Calcium Magnesium Urine Color Urine Appearance Urine pH Ur Specific [place] Urine Protein Urine Glucose (UA) Urine Ketones Urine Occult Blood Urine Nitrate Urine Bilirubin Urine Urobilinogen Ur Leukocyte Esterase Urine RBC Urine WBC Urine Bacteria Ur Culture Indicated? Vancomycin Peak 36.1 Vancomycin Trough 10.6 06/30/21 07/01/21 07/01/21 17:45 05:15 05:15 WBC 11.7 H RBC 4.73 Hgb 10.6 L Hct 34.5 L MCV 72.9 L MCH 22.5 L MCHC 30.8 RDW 17.1 H Plt Count 346 ABG pH ABG pCO2 ABG pO2 ABG HCO3 ABG Total CO2 ABG O2 Saturation ABG Base Excess FiO2 Sodium 139 Potassium 3.8 Chloride 95 L Carbon Dioxide 42 H* BUN 23 H Creatinine 0.67 Estimated GFR > 60.0 BUN/Creatinine Ratio 34.3 H Glucose 236 H Calcium 9.0 Magnesium 2.2 Urine Color Yellow Urine Appearance Cloudy Urine pH 7.5 Ur Specific [place] 1.015 Urine Protein 1+ H Urine Glucose (UA) Negative Urine Ketones Negative Urine Occult Blood 3+ H Urine Nitrate Negative Urine Bilirubin Negative Urine Urobilinogen 0.2 Ur Leukocyte Esterase Negative Urine RBC 10-30/hpf H Urine WBC None seen Urine Bacteria None seen Ur Culture Indicated? Cult not indicated Vancomycin Peak Vancomycin Trough PFSH Medical History Chronic obstructive pulmonary disease Congestive heart failure Ocular lymphoma Social History household members: family Smoking Status: Current some day smoker alcohol intake: current Assessment & Plan Assessment & Plan narrative: PROBLEM LIST ACUTE ON CHRONIC HYPOXIC/ HYPERCAPNIC RESPIRATORY FAILURE POSSIBLE GRAM NEG PNA; ON ABX VIRAL PNEUMONITIS. PARAINFLUENZA ON INITIAL TESTING POSS MODERATE PROTEIN CALORIE MALNUTRITION. ENCOURAGE PROPER FOOD INTAKE LEUKOCYTOSIS; REACTIVE PHYSICAL DEBILITY; PT/OT ANEMIA OF CHRONIC DISEASE; STABLE H/H BENJAMÍN; RESOLVING PLAN START DESCALATE ABX THERAPY AGGRESSIVE PULM TOILETING WITH RT ASSISTANCE OXYGEN SUPPLEMENT TO MAINTAIN PROPER OXYGEN SATURATION ABOVE 88% AT ALL TIMES REPEAT CHEST X-RAY IN THE MORNING REPEAT ABG WELL IF INDICATED CONSIDER ADDITIONAL CHEST IMAGING SUCH CT SCAN IF INDICATED CLINICALLY START TAPERING OFF STEROIDS INTRAVENOUSLY AND SWITCHED TO ORAL PREDNISONE OVER THE NEXT 24-48 HOURS WILL ORDER INSENSITIVE SPIROMETER TO BE USED WHILE AWAKE ADDITIONAL MANAGEMENT AND DISCHARGE PER CLINICAL COURSE Time Spent With Patient Critical Care time: I spent a total of [] minutes of critical care time on this patient's care today; this time is exclusive of procedural time. Quality VTE Deep Vein Thrombosis/Pulmonary Embolism Present on Admission: No
--- NOTE | 2021-07-01 16:23 | PT.IIE ---
Current Diagnoses Acute and chronic respiratory failure with hypercapnia (06/27/21) Medical History (Last Reviewed 06/27/21 @ 18:31 by Tariq Arredondo MD) Chronic obstructive pulmonary disease Congestive heart failure Ocular lymphoma Physical Therapy Inpatient Evaluation/Re-Eval M1 PT/OT-IP Prior Functional Status Start: 07/01/21 16:23 Freq: NEEDED Status: Active Protocol: Document 07/01/21 16:23 DLM (Rec: 07/01/21 16:38 DL [id number]) Medical Review Prior Functional Status Medical History Reviewed Yes Diet/Fluid Consistency Regular Communication WFL Mobility and Gait Uses 4WW or cane, uses electric cart at grocery store , distances of gait limited by her breathing issues, uses oxygen all the times except when in the shower Activities of Daily Living and IADL's Independent with basic ADL's Prior Functional Level (Other details) she sleeps in the recliner on the main level of the house most of the time, goes up to bedroom on second floor sometimes but not regularly, continues to smoke Social History Household Members family Living Arrangements House Number of Floors (Floors) Two Floors Number of Stairs To Enter/Railing? 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 M2 PT-IP Current Condition Start: 07/01/21 16:23 Freq: NEEDED Status: Active Protocol: Document 07/01/21 16:23 DLM (Rec: 07/01/21 16:38 [facility] [id number]) Physical Therapy Current Condition Current Condition Evaluation Date 07/01/21 Treatment Diagnosis Influenza, decreased activity tolerance Onset Date 06/27/21 M3 PT-IP Subjective Start: 07/01/21 16:23 Freq: NEEDED Status: Active Protocol: Document 07/01/21 16:23 DLM (Rec: 07/01/21 16:38 [facility] [id number]) Subjective Physical Therapy Visit Type Type Initial Evaluation Visit Start Time 16:00 Visit Stop Time 16:23 Total Visit Minutes 23 Number of CONTROL ANALYST Visits 0 Physical Therapy Visit Comments Patient Comments she reports her breathing is better Patient Goals get better and go home Therapy Pain Assessment Pain When Pain Assessed At Rest Pain Present Pain Present Denied Pain M4 PT-IP Mobility and Gait Start: 07/01/21 16:23 Freq: NEEDED Status: Active Protocol: Document 07/01/21 16:23 [facility] (Rec: 07/01/21 16:38 [facility] [id number]) PT-Bed Mobility Assessment Scooting Scooting to Edge of Bed Independent PT-Transfer Assessment Sit to and From Stand Sit to and from Stand Standby Assistance,Use of Upper Extremities Equipment Transfer Assistive Device Gait Belt,Front Wheeled Walker Transfers Transfer Destination Chair Transfer Technique Stand Step Pivot Transfer Ability Level of Assist Standby Assistance,Use of Upper Extremities Comments Mobility Comments Pt is up in the recliner and wants to stay up. Gait Assessment Gait Gait Assistance Required: Standby Assistance Distance (Feet) 60 Assistive Devices Assistive Device Gait Belt,Front Wheeled Walker Factors Limiting Gait Function Factors Limiting Gait Function Decreased Activity Tolerance Comments Gait Comments pt is using 3 LPM oxygen, assisted her with the oxygen during gait in her room, pt reports poor tolerance for wearing masks Stair Climbing Assessment Comments Stair Climbing Comments ramp to enter home, sleeps in recliner on main level PT-Balance Assessment Sitting Balance and Reactions Static Sitting Balance Ability Normal Dynamic Sitting Balance Ability Normal Standing Balance and Reactions Static Standing Balance Ability Good Dynamic Standing Balance Ability Good Device Used FWW M5 PT-IP Objective Assessments Start: 07/01/21 16:23 Freq: NEEDED Status: Active Protocol: Document 07/01/21 16:23 [facility] (Rec: 07/01/21 16:38 [facility] [id number]) Orientation Orientation/Cognition Level of Alertness Alert Orientation Name,Age,Birthday,Month,Date, Year,Day of Week,Place Language Function Ability No Deficits Noted Safety Awareness Understands Safety Issues Memory Description Short Term Impaired Comments new dx ocular lymphoma, she can see to use her tablet Gross Range of Motion Upper Extremity ROM Assessment Within Functional Limits Lower Extremity ROM Assessment Within Functional Limits Strength Upper Extremity Strength Assessment Within Functional Limits Lower Extremity Strength Assessment Within Functional Limits Coordination Assessment Gross Coordination Gross Coordination WNL Sensation Assessment Sensation Gross Sensation Right LE Impaired,Left LE Impaired Sensation Description Hyperesthesia,Numbness, Tingling Comments Sensation Comments hx neuropathy in feet Muscle Tone Muscle Tone WNL Yes M6 PT-IP Treatment Start: 07/01/21 16:23 Freq: NEEDED Status: Active Protocol: Document 07/01/21 16:23 DLM (Rec: 07/01/21 16:38 DL [id number]) Physical Therapy Treatment Education Education Provided Safety Other Treatments Other Treatment Performed pt instructed to have staff assist with mobility/gait to prevent falls while hospitalized M7 PT-IP Assessment and Plan Start: 07/01/21 16:23 Freq: NEEDED Status: Active Protocol: Document 07/01/21 16:23 DLM (Rec: 07/01/21 16:38 DL [id number]) PT Summary Assessment and Plan Potential Rehabilitation Potential Good Status of Condition at Evaluation Evolving Summary Impairments Bed Mobility,Gait,Activity Tolerance Assessment Summary Juliet is alert and sitting up in the recliner. She reports her breathing is improving. She does not appear to be aware of her current diagnosis. She tolerated gait in the room well with the FWW. Pt is not safe to take into the halls at this time since she is on precautions for influeza and she does not tolerate wearing a mask well. She agreed to do laps in her room for gait. Will follow to increase her activity tolerance and finish assessing her bed mobility. She appears safe to discharge home with her Sister when she is medically stable. Will continue to assess if she will need home health services after discharge. Goals Bed Mobility Goal Independent Transfer Goal Independent,Front Wheeled Walker Gait Goal Standby Assistance,Front Wheel Walker Gait Distance 80 feet Days to Meet Goals 2 Frequency of Treatment Frequency Of Treatment Once a Day Treatment Plan Physical Therapy Treatment Plan Bed Mobility Training,Transfer Training,Gait Training, Therapeutic Exercise,Discharge Planning,Neuromuscular Re-ed Other Recommendations and Next Treatment assess bed mobility and Focus increase activity tolerance Precautions Other Precautions uses oxygen at home at baseline Recommendations To Nursing Amount of Assist Needed Standby Assistance Discharge Recommendations PT Discharge Recommendations Home with Assistance Other Discharge Recommendations Sister is supportive Transportation Needs at Discharge Private Vehicle
[2021-07-01] MEDS: DOXYCYCLINE HYCLATE 100 MG TABLET PO (21:32)
[2021-07-01] MEDS: methylPREDNISolone 125 MG/2 ML VIAL 40 MG IV (21:33)
[2021-07-02] VITALS (8 sets, daily range): BP systolic 126–145; BP diastolic 59–75; PULSE 81–86; RESP 18–20; TEMP 36.3–36.6; O2SAT 96–99
[2021-07-02] MEDS: ACETAMINOPHEN 325 MG TABLET 650 MG PO ×5 (00:58→20:47)
[2021-07-02 05:19] LABS: Add Manual Diff / Slide Review NO; Basophils Absolute Auto 0 /uL (0-100); Basophils Percent Auto 0.1 % (0-2); Eosinophils Absolute Auto 0 /uL (0-450); Hemoglobin 10.7 g/dL (12.0-16.0); Lymphocytes Absolute Auto 500 /uL (1100-4500); Lymphocytes Percent Auto 4.8 % (25-40); Mean Corpuscular HGB Conc 30.6 % (30-36); Mean Corpuscular Hemoglobin 22.5 PG (26-34); Mean Corpuscular Volume 73.4 fL (80-100); Monocytes Absolute Auto 300 /uL (0-900); Monocytes Percent Auto 2.9 % (3-14); Neutrophils Absolute Auto 9900 /uL (1500-7000); Neutrophils Percent Auto 92.2 % (50-75); Platelet Count 329 X10^3/uL (150-400); Red Blood Cell Count 4.77 X10^6/uL (4.0-5.2); Red Cell Distribution Width 16.9 % (11.6-14.8); White Blood Cell Count 10.8 X10^3/uL (4.5-11.0)
[2021-07-02 05:30] LABS: Alanine Aminotransferase 16 IU/L (<35); Albumin 3.3 g/dL (3.5-5.0); Albumin Globulin Ratio 1.1 (1.0-2.8); Alkaline Phosphatase 68 U/L (38-126); Aspartate Aminotransferase 17 IU/L (14-36); Bilirubin Total 0.3 mg/dL (0.2-1.3); Blood Urea Nitrogen 28 mg/dL (7-17); Calcium 8.9 mg/dL (8.4-10.2); Chloride 97 mmol/L (98-107); Estimated Glomerular Filt Rate > 60.0 mL/min (>60); Globulin 2.9 g/dL (1.7-4.1); Glucose 218 mg/dL (80-110); HEMOLYSIS < 15 (0-50); Phosphorous 3.8 mg/dL (2.8-4.1); Potassium 4.7 mmol/L (3.4-5.1); Sodium 138 mmol/L (137-145); Total Protein 6.2 g/dL (6.3-8.2)
[2021-07-02 05:45] LABS: Carbon Dioxide 46 mmol/L (22-32)
[2021-07-02] MEDS: ALBUTEROL/IPRATROPIUM 3 ML AMPUL INH ×3 (07:16→19:52)
[2021-07-02] MEDS: BUDESONIDE 0.5 MG/2 ML NEB INH ×2 (07:16→19:52)
--- NOTE | 2021-07-02 07:30 | DI.RAD.S_ITS ---
PROCEDURE: XR CHEST 1V INDICATIONS: F/U PNA TECHNIQUE: One view of the chest was acquired. COMPARISON: [facility], CT, CT CHEST WO CON, 06/27/2021, 17:25. [facility], CR, XR CHEST 1V, 06/28/2021, 6:59. FINDINGS: Surgical changes and devices: ACDF. Lungs and pleura: Diffuse patchy airspace opacity bilaterally. There is also all streaky opacity. This does not appear significantly changed. Suture material at the right lower lobe. No pleural effusions or pneumothorax. Mediastinum: Mediastinal contours appear unchanged. Heart size is within normal limits. Bones and chest wall: No suspicious bony lesions. Overlying soft tissues appear unremarkable. IMPRESSION: Diffuse patchy and streaky airspace opacity bilaterally is not significantly changed. Dictated by: Armand Washington M.D. on 07/02/2021 at 8:50 Approved by: Armand Washington M.D. on 07/02/2021 at 8:52
[2021-07-02] MEDS: INSULIN LISPRO 100 UNIT/ML 3ML VIAL SUBCUT ×3 (08:40→17:24)
[2021-07-02] MEDS: ENOXAPARIN 40 MG/0.4 ML SYRINGE SUBCUT (08:45)
[2021-07-02] MEDS: DOXYCYCLINE HYCLATE 100 MG TABLET PO ×2 (08:45→20:48)
[2021-07-02] MEDS: methylPREDNISolone 125 MG/2 ML VIAL 40 MG IV (08:46)
[2021-07-02] MEDS: SODIUM CHLORIDE 0.9% FLUSH 10 ML IV ×2 (08:46→20:48)
[2021-07-02] MEDS: CEFEPIME 1 GM in SODIUM CHLORIDE 0.9% 100 ML 200 ML IV (09:00)
[2021-07-02] MEDS: acetaZOLAMIDE 250 MG TABLET PO ×2 (10:38→20:47)
[2021-07-02] MEDS: TORSEMIDE 10 MG TABLET PO (10:43)
--- NOTE | 2021-07-02 12:23 | PT.IPTN ---
Current Diagnoses Acute and chronic respiratory failure with hypercapnia (06/27/21) Physical Therapy Treatment Note M2 PT-IP Current Condition Start: 07/01/21 16:23 Freq: NEEDED Status: Active Protocol: Document 07/01/21 16:23 DLM (Rec: 07/01/21 16:38 DLM [id number]) Physical Therapy Current Condition Current Condition Evaluation Date 07/01/21 Treatment Diagnosis Influenza, decreased activity tolerance Onset Date 06/27/21 M3 PT-IP Subjective Start: 07/01/21 16:23 Freq: NEEDED Status: Active Protocol: Document 07/02/21 12:00 [place] (Rec: 07/02/21 13:11 [place] [id number]) Subjective Physical Therapy Visit Type Type Treatment Note Visit Start Time 12:00 Visit Stop Time 12:23 Total Visit Minutes 23 Number of DIRECTOR SALES AND TRADE MARKETING Visits 1 Physical Therapy Visit Comments Patient Comments Pt agreeable to working w/ therapy. Patient Goals get better and go home Therapy Pain Assessment Pain When Pain Assessed At Rest Pain Present Pain Present Denied Pain M4 PT-IP Mobility and Gait Start: 07/01/21 16:23 Freq: NEEDED Status: Active Protocol: Document 07/02/21 12:00 [place] (Rec: 07/02/21 13:11 [place] [id number]) PT-Bed Mobility Assessment Supine to Sit Supine to Sit Standby Assistance Scooting Scooting to Edge of Bed Standby Assistance PT-Transfer Assessment Sit to and From Stand Sit to and from Stand Standby Assistance,Use of Upper Extremities Equipment Transfer Assistive Device Gait Belt,Front Wheeled Walker Transfers Transfer Destination Chair Transfer Technique pt ambulated w/ FWW Transfer Ability Level of Assist Standby Assistance,Use of Upper Extremities Comments Mobility Comments Pt in bed upon arrival on 3L O2 and agreeable to transfer to chair. SBA for sup<>sit and scooting EOB, pts O2 at 99% prior to moving and decreased to 94% after sitting up and scooting EOB. Able to recover O2 to 98% in ~1 min. Pt sit<> Stand w/ FWW SBA and performed [address] w/ FWW and O2 decreased to 89- 90% and pt took seated rest break ~3 min for O2 to recover to 96%. Pt then performed 5x sit<>Stands w/ FWW and SBA O2 [id number]%, but pt reported fatigue. She then stood once more and ambulated ~5 ft to chair w/ FWW SBA and O2 >94%. Pt able to complete 1x10 ankle pumps and glute sets but refused further treatment due to fatigue. Left in chair w/ all needs in reach. Gait Assessment Gait Gait Assistance Required: Standby Assistance Distance (Feet) 5 Assistive Devices Assistive Device Gait Belt,Front Wheeled Walker Factors Limiting Gait Function Factors Limiting Gait Function Decreased Activity Tolerance, Respiratory Distress Comments Gait Comments Please refer to mobility section for details. Stair Climbing Assessment Comments Stair Climbing Comments ramp to enter home, sleeps in recliner on main level PT-Balance Assessment Sitting Balance and Reactions Static Sitting Balance Ability Normal Dynamic Sitting Balance Ability Normal Standing Balance and Reactions Static Standing Balance Ability Good Dynamic Standing Balance Ability Good Device Used FWW M5 PT-IP Objective Assessments Start: 07/01/21 16:23 Freq: NEEDED Status: Active Protocol: Document 07/01/21 16:23 DL (Rec: 07/01/21 16:38 DL [id number]) Orientation Orientation/Cognition Level of Alertness Alert Orientation Name,Age,Birthday,Month,Date, Year,Day of Week,Place Language Function Ability No Deficits Noted Safety Awareness Understands Safety Issues Memory Description Short Term Impaired Comments new dx ocular lymphoma, she can see to use her tablet Gross Range of Motion Upper Extremity ROM Assessment Within Functional Limits Lower Extremity ROM Assessment Within Functional Limits Strength Upper Extremity Strength Assessment Within Functional Limits Lower Extremity Strength Assessment Within Functional Limits Coordination Assessment Gross Coordination Gross Coordination WNL Sensation Assessment Sensation Gross Sensation Right LE Impaired,Left LE Impaired Sensation Description Hyperesthesia,Numbness, Tingling Comments Sensation Comments hx neuropathy in feet Muscle Tone Muscle Tone WNL Yes M6 PT-IP Treatment Start: 07/01/21 16:23 Freq: NEEDED Status: Active Protocol: Document 07/02/21 12:00 [place] (Rec: 07/02/21 13:11 [place] [id number]) Physical Therapy Treatment Exercises Exercises Ankle Pumps,Quad Sets Education Education Provided Safety Other Treatments Other Treatment Performed 5x sit<>stand, [address] pt instructed to have staff assist with mobility/gait to prevent falls while hospitalized. M7 PT-IP Assessment and Plan Start: 07/01/21 16:23 Freq: NEEDED Status: Active Protocol: Document 07/02/21 12:00 [place] (Rec: 07/02/21 13:11 [place] [id number]) PT Summary Assessment and Plan Potential Rehabilitation Potential Good Status of Condition at Evaluation Evolving Summary Impairments Bed Mobility,Gait,Activity Tolerance Assessment Summary Pt continues to be limited in mobility due to SOB and quick approach to fatigue. She moves in bed and transfers SBA w/ FWW. She was able to complete [address] and 5x sit<>stands, and transfer to chair howver she required rest breaks between each taks due to O2 desat and reported fatigue and SOB. She is still not safe to take into halls, but would benefit from increased ambulation distance in room as tolerated as well as energy conservation techniques. She will need to improve tolerance for activity prior to d/c. Goals Bed Mobility Goal Independent Transfer Goal Independent,Front Wheeled Walker Gait Goal Standby Assistance,Front Wheel Walker Gait Distance 80 feet Days to Meet Goals 2 Frequency of Treatment Frequency Of Treatment Once a Day Treatment Plan Physical Therapy Treatment Plan Bed Mobility Training,Transfer Training,Gait Training, Therapeutic Exercise,Discharge Planning,Neuromuscular Re-ed Other Recommendations and Next Treatment assess bed mobility and Focus increase activity tolerance Precautions Other Precautions uses oxygen at home at baseline Recommendations To Nursing Amount of Assist Needed Standby Assistance Discharge Recommendations PT Discharge Recommendations Home with Assistance Other Discharge Recommendations Sister is supportive Transportation Needs at Discharge Private Vehicle
--- NOTE | 2021-07-02 17:35 | P.PN_ITS ---
Subjective Subjective Date Patient Seen: 07/02/21 Interval history: PATIENT PLEASANT AND SEEN IN THE ROOM TODAY DID NOT HAVE ANY SIGNIFICANT COMPLAINTS WANTED TO HAVE HER ANTHONY CATHETER OUT DENIES ANY CHEST PAIN. NO CHEST PRESSURE NO HEADACHES OR MIGRAINE NO CONFUSION REPORTED BOWEL MOVEMENT OVER THE LAST 24 HOURS Exam Vital Signs (past 8 hours): - 07/02/21 11:47 07/02/21 16:20 Temperature 97.4 F L Pulse Rate 84 86 Respiratory Rate 18 18 Blood Pressure 145/75 H 134/67 Pulse Oximetry 99 98 Fraction of Inspired Oxygen 30 Oxygen Delivery Method Nasal Cannula Oxygen Flow Rate 3 Narrative Exam Narrative: NO ACUTE DISTRESS.? PATIENT IS ALERT ORIENTED X3. HEAD ATRAUMATIC NORMOCEPHALIC NECK : SUPPLE WITHOUT ADENOPATHY NO CAROTID BRUITS EYE:? EOMI, PERRLA, NORMAL CONJUNCTIVA; NO JAUNDICE CHEST:? REGULAR RATE.? ? NO RUBS.? PMI IS NON DISPLACED.? NO MURMURS; NORMAL S1- S2 PULMONARY:? MILD WHEEZING APPRECIATED BILATERALLY.? DECREASED BREATH SOUND AT THE BASES. BIBASILAR CRACKLES APPRECIATED.? NO RHONCHI. ABDOMEN:? SOFT.? NONTENDER.? NONDISTENDED.? BOWEL SOUNDS ARE PRESENT IN ALL 4 QUADRANTS.? NO MASS. EXTREMITIES: NO EDEMA..? NO CYANOSIS CLUBBING NOTED. NEURO:? CRANIAL NERVES 2-12 GROSSLY INTACT. NO FOCAL NEUROLOGICAL DEFICIT NOTED. MSK:? NORMAL RANGE OF MOTION FOR AGE.? NO JOINT EFFUSION.? POOR? MUSCULATURE. SKIN:? NORMAL FOR ETHNICITY; NO ECCHYMOSIS.? NO LESION. ? FAIR ? [place]UR[place].; NO RASHES PSYCH :? APPROPRIATE MOOD AND AFFECT.? ALERT AWAKE ORIENTED X3 Objective Labs Result Diagrams: 07/02/21 05:10 07/02/21 05:10 Labs: Laboratory Results - last 24 hr 07/02/21 07/02/21 05:10 05:10 WBC 10.8 RBC 4.77 Hgb 10.7 L Hct 35.0 L MCV 73.4 L MCH 22.5 L MCHC 30.6 RDW 16.9 H Plt Count 329 Neut % (Auto) 92.2 H Lymph % (Auto) 4.8 L [place] % (Auto) 2.9 L Eos % (Auto) 0.0 L Baso % (Auto) 0.1 Neut # (Auto) 9900 H Lymph # (Auto) 500 L [place] # (Auto) 300 Eos # (Auto) 0 Baso # (Auto) 0 Sodium 138 Potassium 4.7 Chloride 97 L Carbon Dioxide 46 H* BUN 28 H Creatinine 0.56 Estimated GFR > 60.0 BUN/Creatinine Ratio 50.0 H Glucose 218 H Calcium 8.9 Phosphorus 3.8 Magnesium 2.0 Total Bilirubin 0.3 AST 17 ALT 16 Alkaline Phosphatase 68 D Total Protein 6.2 L Albumin 3.3 L Globulin 2.9 Albumin/Globulin Ratio 1.1 PFSH Medical History Chronic obstructive pulmonary disease Congestive heart failure Ocular lymphoma Social History household members: family Smoking Status: Current some day smoker alcohol intake: current Assessment & Plan Assessment & Plan narrative: PROBLEM LIST ACUTE ON CHRONIC HYPOXIC/ HYPERCAPNIC RESPIRATORY FAILURE POSSIBLE GRAM NEG PNA; ON ABX VIRAL PNEUMONITIS.? PARAINFLUENZA ON INITIAL TESTING POSS MODERATE PROTEIN CALORIE MALNUTRITION.? ENCOURAGE PROPER FOOD INTAKE? LEUKOCYTOSIS; REACTIVE PHYSICAL DEBILITY; PT/OT ANEMIA OF CHRONIC DISEASE; STABLE H/H BENJAMÍN; RESOLVING METABOLIC ALKALOSIS. LIKELY MULTIFACTORIAL PLAN 1/3 WILL START PATIENT ON DIAMOX DUE TO PERSISTENTLY CRITICAL CARBON DIOXIDE CONTINUE DIURETICS WELL DISCONTINUE ANTHONY CATHETER CONTINUE TO FOLLOW LABS DAILY SIGNIFICANT IMPROVEMENT NOTED ON LABS AND VITAL SIGNS WERE THE LAST 24 HOURS PATIENT IS HAPPY TO BE IMPROVING CLINICALLY ABLE TO FINISH A FULL SENTENCE WITHOUT HAVING TO STOP BECAUSE OF SHORTNESS OF BREATH AT THIS TIME SHE IS ON 3 LPM/NC AND MAINTAINING SATURATION FAIRLY WELL IF SHE CONTINUED TO SHOW IMPROVEMENT, WILL LIKELY DISCHARGE IN 1-2 DAYS CONTINUE CURRENT MANAGEMENT OTHERWISE START DESCALATE ABX THERAPY AGGRESSIVE PULM TOILETING WITH RT ASSISTANCE OXYGEN SUPPLEMENT TO MAINTAIN PROPER OXYGEN SATURATION ABOVE 88% AT ALL TIMES REPEAT CHEST X-RAY IN THE MORNING REPEAT ABG WELL IF INDICATED CONSIDER ADDITIONAL CHEST IMAGING SUCH CT SCAN IF INDICATED CLINICALLY START TAPERING OFF STEROIDS INTRAVENOUSLY AND SWITCHED TO ORAL PREDNISONE OVER THE NEXT 24-48 HOURS WILL ORDER INSENSITIVE SPIROMETER TO BE USED WHILE AWAKE ADDITIONAL MANAGEMENT AND DISCHARGE PER CLINICAL COURSE Time Spent With Patient Critical Care time: I spent a total of [] minutes of critical care time on this patient's care today; this time is exclusive of procedural time. Quality VTE Deep Vein Thrombosis/Pulmonary Embolism Present on Admission: No
[2021-07-02] MEDS: ASCORBIC ACID 500 MG TABLET PO (20:47)
[2021-07-02] MEDS: CEFDINIR 300 MG CAPSULE PO (20:48)
[2021-07-03] VITALS (8 sets, daily range): BP systolic 117–154; BP diastolic 62–84; PULSE 76–95; RESP 16–20; TEMP 36.1–36.6; O2SAT 88–100
[2021-07-03 05:43] LABS: Add Manual Diff / Slide Review NO; Basophils Absolute Auto 0 /uL (0-100); Eosinophils Absolute Auto 0 /uL (0-450); Hematocrit 34.6 % (36-46); Hemoglobin 10.8 g/dL (12.0-16.0); Lymphocytes Absolute Auto 700 /uL (1100-4500); Lymphocytes Percent Auto 7.5 % (25-40); Mean Corpuscular HGB Conc 31.1 % (30-36); Mean Corpuscular Hemoglobin 22.6 PG (26-34); Mean Corpuscular Volume 72.7 fL (80-100); Monocytes Absolute Auto 400 /uL (0-900); Monocytes Percent Auto 4.1 % (3-14); Neutrophils Absolute Auto 8400 /uL (1500-7000); Neutrophils Percent Auto 88.4 % (50-75); Platelet Count 295 X10^3/uL (150-400); Red Blood Cell Count 4.76 X10^6/uL (4.0-5.2); Red Cell Distribution Width 17.1 % (11.6-14.8); White Blood Cell Count 9.6 X10^3/uL (4.5-11.0)
[2021-07-03 05:52] LABS: Alanine Aminotransferase 18 IU/L (<35); Albumin 3.3 g/dL (3.5-5.0); Albumin Globulin Ratio 1.2 (1.0-2.8); Alkaline Phosphatase 67 U/L (38-126); Aspartate Aminotransferase 18 IU/L (14-36); BUN Creatinine Ratio 35.8 (6-22); Bilirubin Total 0.2 mg/dL (0.2-1.3); Blood Urea Nitrogen 24 mg/dL (7-17); Calcium 9.1 mg/dL (8.4-10.2); Chloride 92 mmol/L (98-107); Estimated Glomerular Filt Rate > 60.0 mL/min (>60); Globulin 2.7 g/dL (1.7-4.1); Glucose 215 mg/dL (80-110); HEMOLYSIS < 15 (0-50); Sodium 139 mmol/L (137-145)
[2021-07-03 06:16] LABS: Carbon Dioxide 44 mmol/L (22-32)
[2021-07-03] MEDS: CHOLECALCIFEROL (VITAMIN D3) 1,000 UNIT TABLET 1000 UNIT PO (08:29)
[2021-07-03] MEDS: DOXYCYCLINE HYCLATE 100 MG TABLET PO ×2 (08:29→20:35)
[2021-07-03] MEDS: ENOXAPARIN 40 MG/0.4 ML SYRINGE SUBCUT (08:29)
[2021-07-03] MEDS: ASCORBIC ACID 500 MG TABLET PO ×2 (08:29→20:35)
[2021-07-03] MEDS: acetaZOLAMIDE 250 MG TABLET PO ×2 (08:30→20:34)
[2021-07-03] MEDS: SODIUM CHLORIDE 0.9% FLUSH 10 ML IV ×2 (08:31→20:35)
[2021-07-03] MEDS: TORSEMIDE 10 MG TABLET PO (08:35)
[2021-07-03] MEDS: CEFDINIR 300 MG CAPSULE PO ×2 (08:36→20:35)
[2021-07-03] MEDS: BUDESONIDE 0.5 MG/2 ML NEB INH ×2 (08:46→20:20)
[2021-07-03] MEDS: PRENATAL VIT,CALC/IRON/FOLIC 1 TABLET 1 TAB PO (12:00)
[2021-07-03] MEDS: ACETAMINOPHEN 325 MG TABLET 650 MG PO ×3 (12:00→20:36)
[2021-07-03] MEDS: INSULIN LISPRO 100 UNIT/ML 3ML VIAL SUBCUT ×2 (12:19→18:29)
--- NOTE | 2021-07-03 14:44 | PT.IPTN ---
Current Diagnoses Acute and chronic respiratory failure with hypercapnia (06/27/21) Physical Therapy Treatment Note M2 PT-IP Current Condition Start: 07/01/21 16:23 Freq: NEEDED Status: Active Protocol: Document 07/03/21 14:12 SP (Rec: 07/03/21 16:38 SP [id number]) Physical Therapy Current Condition Current Condition Evaluation Date 07/01/21 Treatment Diagnosis Influenza, decreased activity tolerance Onset Date 06/27/21 M3 PT-IP Subjective Start: 07/01/21 16:23 Freq: NEEDED Status: Active Protocol: Document 07/03/21 14:12 SP (Rec: 07/03/21 16:38 SP [id number]) Subjective Physical Therapy Visit Type Type Treatment Note Visit Start Time 14:12 Visit Stop Time 14:44 Total Visit Minutes 31 Notes Vitals taken during tx: seated in chair: BP 117/60, SaO2 96% on 1L post mobility: BP 127/63 HR 92- 110bpm, 94- 96% on 1L Number of CREDENTIALING COORDINATOR Visits 2 Physical Therapy Visit Comments Patient Comments Pt agreeable to working w/ therapy. Patient Goals Pt willing to go to rehab to get stronger if needed. Therapy Pain Assessment Pain Present Pain Present Denied Pain M4 PT-IP Mobility and Gait Start: 07/01/21 16:23 Freq: NEEDED Status: Active Protocol: Document 07/03/21 14:12 SP (Rec: 07/03/21 16:38 SP [id number]) PT-Transfer Assessment Sit to and From Stand Sit to and from Stand Standby Assistance,Use of Upper Extremities Equipment Transfer Assistive Device Gait Belt,Front Wheeled Walker Transfers Transfer Destination Chair Transfer Technique pt ambulated w/ FWW Transfer Ability Level of Assist Standby Assistance,Use of Upper Extremities Comments Mobility Comments Pt completed sit<>stand SBA w/ BUEs cued for slow descent using chair arms. Pt complete marching in standing x10 reps then required sit rest due to increased SOB and feeling I think I'm seeing little black, fuzzy. Pt maintained mid 90s during activity on 1L supplimental O2. Pt will to walk to bathroom toilet and back post requesting and adding longer line from nursing. Pt maintaining mid 90s on 1L, approx 16 ft total. Pt requires 5 min recovery time to decrease SOB and improve diaphramatic breath with education. Pt 2nd gait to sink and back 10 ft total SBA with CREDENTIALING COORDINATOR managing pulsimeter and O2 tubing at this time. Pt declined assessment of 1 portable step stating I prefer not to at this time, I feel like my legs might buckle . Pt returned to chair with CGA and cues for slow descent to chair for functional strengthening and safety, pt verbalized understanding. Pt was in chair with all needs and call light in reach before left. pt verbalized and demonstration proper use of call light for assist with safe mobility. Gait Assessment Gait Gait Assistance Required: Standby Assistance Distance (Feet) 16 Able to Maintain Weight Bearing Status Yes During Gait Assistive Devices Assistive Device Gait Belt,Front Wheeled Walker Gait Deviations General Gait Pattern Antalgic,Decreased Stride Length,Decreased Feet Clearance Factors Limiting Gait Function Factors Limiting Gait Function Decreased Activity Tolerance, Decreased Strength,Poor Safety Awareness,Respiratory Distress Comments Gait Comments see mobility comments Stair Climbing Assessment Comments Stair Climbing Comments ramp to enter home, sleeps in recliner on main level but states does like to walk up stair to bedroom to sleep if can but doesn't have to. Unable to assess stairs due to decrease strength and + SOB with standing mobility. PT-Balance Assessment Sitting Balance and Reactions Static Sitting Balance Ability Normal Dynamic Sitting Balance Ability Normal Standing Balance and Reactions Static Standing Balance Ability Good Dynamic Standing Balance Ability Good Device Used FWW M5 PT-IP Objective Assessments Start: 07/01/21 16:23 Freq: NEEDED Status: Active Protocol: Document 07/01/21 16:23 DLM (Rec: 07/01/21 16:38 DL [id number]) Orientation Orientation/Cognition Level of Alertness Alert Orientation Name,Age,Birthday,Month,Date, Year,Day of Week,Place Language Function Ability No Deficits Noted Safety Awareness Understands Safety Issues Memory Description Short Term Impaired Comments new dx ocular lymphoma, she can see to use her tablet Gross Range of Motion Upper Extremity ROM Assessment Within Functional Limits Lower Extremity ROM Assessment Within Functional Limits Strength Upper Extremity Strength Assessment Within Functional Limits Lower Extremity Strength Assessment Within Functional Limits Coordination Assessment Gross Coordination Gross Coordination WNL Sensation Assessment Sensation Gross Sensation Right LE Impaired,Left LE Impaired Sensation Description Hyperesthesia,Numbness, Tingling Comments Sensation Comments hx neuropathy in feet Muscle Tone Muscle Tone WNL Yes M6 PT-IP Treatment Start: 07/01/21 16:23 Freq: NEEDED Status: Active Protocol: Document 07/03/21 14:12 SP (Rec: 07/03/21 16:38 SP [id number]) Physical Therapy Treatment Exercises Exercises Ankle Pumps,Seated Knee Flexion/Extension Education Education Provided Safety Other Treatments Other Treatment Performed august x10 w/ FWW for support SBA. M7 PT-IP Assessment and Plan Start: 07/01/21 16:23 Freq: NEEDED Status: Active Protocol: Document 07/03/21 14:12 SP (Rec: 07/03/21 16:38 SP [id number]) PT Summary Assessment and Plan Potential Rehabilitation Potential Good Status of Condition at Evaluation Evolving Summary Impairments Bed Mobility,Gait,Activity Tolerance Progress Towards Goals Progressing Toward Goals,Slow Progress due to Activity Tolerance Assessment Summary Pt continues to be limited by SOB but improved with saturation mid 90s on 1L during all mobility. Needs to sit for tiring, + SOB and described feeling like can't see I am starting to see black during stand marching. Pt requires supplimental O2 1 L and SBA during mobiltiy for safety. Recommending SNF for improve strength, and functional independence. Will continue to assess progress. Goals Bed Mobility Goal Independent Transfer Goal Independent,Front Wheeled Walker Gait Goal Standby Assistance,Front Wheel Walker Gait Distance 80 feet Days to Meet Goals 2 Frequency of Treatment Frequency Of Treatment Once a Day Treatment Plan Physical Therapy Treatment Plan Bed Mobility Training,Transfer Training,Gait Training, Therapeutic Exercise,Discharge Planning,Neuromuscular Re-ed Other Recommendations and Next Treatment assess bed mobility and Focus increase activity tolerance in standing. Precautions Other Precautions uses oxygen at home at baseline Recommendations To Nursing Amount of Assist Needed Independent Discharge Recommendations PT Discharge Recommendations Home with Assistance Other Discharge Recommendations Sister is supportive Transportation Needs at Discharge Private Vehicle
--- NOTE | 2021-07-03 15:35 | P.PN_ITS ---
Subjective Subjective Date Patient Seen: 07/03/21 Interval history: REPORTED SOME INCREASED COUGH TODAY PRODUCTIVE WITH YELLOWISH SPUTUM DENIES ANY CHEST PAIN OR CHEST PRESSURE REPORTED DECREASED OXYGEN SATURATION TO EXERTION ONCE AGAIN NO OTHER SIGNIFICANT ISSUES OVERNIGHT Exam Vital Signs (past 8 hours): - 07/03/21 08:00 07/03/21 08:46 07/03/21 12:00 Temperature 98 F 98 F Pulse Rate 76 95 H 89 Respiratory Rate 19 16 20 Blood Pressure 135/65 132/63 Pulse Oximetry 100 97 95 Fraction of Inspired Oxygen 30 Oxygen Delivery Method Nasal Cannula Oxygen Flow Rate 1 Narrative Exam Narrative: NO ACUTE DISTRESS.? PATIENT IS ALERT ORIENTED X3. HEAD ATRAUMATIC NORMOCEPHALIC NECK : SUPPLE WITHOUT ADENOPATHY NO CAROTID BRUITS EYE:? EOMI, PERRLA, NORMAL CONJUNCTIVA; NO JAUNDICE CHEST:? REGULAR RATE.? ? NO RUBS.? PMI IS NON DISPLACED.? NO MURMURS; NORMAL S1- S2 PULMONARY:? MILD WHEEZING APPRECIATED BILATERALLY.? DECREASED BREATH SOUND AT THE BASES. BIBASILAR CRACKLES APPRECIATED.? NO RHONCHI. ABDOMEN:? SOFT.? NONTENDER.? NONDISTENDED.? BOWEL SOUNDS ARE PRESENT IN ALL 4 QUADRANTS.? NO MASS. EXTREMITIES: NO EDEMA..? NO CYANOSIS CLUBBING NOTED. NEURO:? CRANIAL NERVES 2-12 GROSSLY INTACT. NO FOCAL NEUROLOGICAL DEFICIT NOTED. MSK:? NORMAL RANGE OF MOTION FOR AGE.? NO JOINT EFFUSION.? POOR? MUSCULATURE. SKIN:? NORMAL FOR ETHNICITY; NO ECCHYMOSIS.? NO LESION. ? FAIR ? TURGOR.; NO RASHES PSYCH :? APPROPRIATE MOOD AND AFFECT.? ALERT AWAKE ORIENTED X3 Objective Labs Result Diagrams: 07/03/21 05:30 07/03/21 05:30 Labs: Laboratory Results - last 24 hr 07/03/21 07/03/21 05:30 05:30 WBC 9.6 RBC 4.76 Hgb 10.8 L Hct 34.6 L MCV 72.7 L MCH 22.6 L MCHC 31.1 RDW 17.1 H Plt Count 295 Neut % (Auto) 88.4 H Lymph % (Auto) 7.5 L [place] % (Auto) 4.1 Eos % (Auto) 0.0 L Baso % (Auto) 0.0 Neut # (Auto) 8400 H Lymph # (Auto) 700 L [place] # (Auto) 400 Eos # (Auto) 0 Baso # (Auto) 0 Sodium 139 Potassium 4.0 Chloride 92 L Carbon Dioxide 44 H* BUN 24 H Creatinine 0.67 Estimated GFR > 60.0 BUN/Creatinine Ratio 35.8 H Glucose 215 H Calcium 9.1 Phosphorus 4.0 Magnesium 2.0 Total Bilirubin 0.2 AST 18 ALT 18 Alkaline Phosphatase 67 Total Protein 6.0 L Albumin 3.3 L Globulin 2.7 Albumin/Globulin Ratio 1.2 PFSH Medical History Chronic obstructive pulmonary disease Congestive heart failure Ocular lymphoma Social History household members: family Smoking Status: Current some day smoker alcohol intake: current Assessment & Plan Assessment & Plan narrative: PROBLEM LIST ACUTE ON CHRONIC HYPOXIC/ HYPERCAPNIC RESPIRATORY FAILURE POSSIBLE GRAM NEG PNA; ON ABX VIRAL PNEUMONITIS.? PARAINFLUENZA ON INITIAL TESTING POSS MODERATE PROTEIN CALORIE MALNUTRITION.? ENCOURAGE PROPER FOOD INTAKE? LEUKOCYTOSIS; REACTIVE PHYSICAL DEBILITY; PT/OT ANEMIA OF CHRONIC DISEASE; STABLE H/H BENJAMÍN; RESOLVING ?METABOLIC? ALKALOSIS.? LIKELY MULTIFACTORIAL. IMPROVED PLAN 07/03 STARTED ON DIAMOX YESTERDAY ALKALOSIS IMPROVED OVERNIGHT CONTINUE FOR ANOTHER 24-48 HOURS ALSO RESTARTED ON DIURETICS WITH GOOD RESULTS CONTINUE TO SHOW IMPROVEMENT CLINICALLY WILL DECREASE SOLU-MEDROL TO 40 MG DAILY SUBSEQUENTLY SWITCHED TO PREDNISONE IN THE NEXT 24-48 WELL CONTINUE AGGRESSIVE PULMONARY TOILETING ADDITIONAL MANAGEMENT INDICATED CLINICALLY POSSIBLE DISCHARGE IN 1-2 DAYS TO HOME WITH HOME HEALTH 07/02 ?WILL START PATIENT ON DIAMOX DUE TO PERSISTENTLY ? CRITICAL CARBON? DIOXIDE ?CONTINUE? DIURETICS WELL ? DISCONTINUE? ANTHONY CATHETER ?CONTINUE TO FOLLOW LABS DAILY ?SIGNIFICANT IMPROVEMENT NOTED ON LABS AND VITAL SIGNS WERE THE LAST 24 HOURS ?PATIENT IS HAPPY TO BE IMPROVING CLINICALLY ?ABLE TO FINISH A FULL SENTENCE WITHOUT HAVING TO STOP BECAUSE OF SHORTNESS OF BREATH ?AT THIS TIME SHE IS ON 3 LPM/NC ? AND MAINTAINING SATURATION FAIRLY WELL ?IF SHE CONTINUED TO SHOW IMPROVEMENT, WILL LIKELY DISCHARGE IN 1-2 DAYS ?CONTINUE CURRENT MANAGEMENT OTHERWISE START DESCALATE ABX THERAPY AGGRESSIVE PULM TOILETING WITH RT ASSISTANCE OXYGEN SUPPLEMENT TO MAINTAIN PROPER OXYGEN SATURATION ABOVE 88% AT ALL TIMES REPEAT CHEST X-RAY IN THE MORNING REPEAT ABG WELL IF INDICATED CONSIDER ADDITIONAL CHEST IMAGING SUCH CT SCAN IF INDICATED CLINICALLY START TAPERING OFF STEROIDS INTRAVENOUSLY AND SWITCHED TO ORAL PREDNISONE OVER THE NEXT 24-48 HOURS WILL ORDER INSENSITIVE SPIROMETER TO BE USED WHILE AWAKE ADDITIONAL MANAGEMENT AND DISCHARGE PER CLINICAL COURSE Time Spent With Patient Critical Care time: I spent a total of [] minutes of critical care time on this patient's care today; this time is exclusive of procedural time. Quality VTE Deep Vein Thrombosis/Pulmonary Embolism Present on Admission: No
--- NOTE | 2021-07-03 15:46 | PC.NURSE ---
0700 - 1500 Pt has been sitting in chair and ambulating without assist to the bathroom with a steady gait. Pt is at >95% on 1L NC and will dropped to low 80s on room air. Pt will take the NC off when ambulating to the bathroom and denies being SOB when doing so despite dropping into the low 80s. Pt did have one episode of SOB and tachycardia up to 109 at 1400 after ambulating to the restroom without her NC. Pt recovered quickly after sitting. Pt requires frequent educational conversation about the importance of the oxygen provided by the NC. Pt's sister, Shayy, came to visit shortly at 1400 and has been updated on plan of care. Her number is [phone]. At 1500 patient care was handed off to Jaiden GALLEGO and report was given by this RN.
[2021-07-03] MEDS: ALBUTEROL/IPRATROPIUM 3 ML AMPUL INH (20:20)
[2021-07-04] MEDS: ACETAMINOPHEN 325 MG TABLET 650 MG PO ×3 (00:58→12:17)
[2021-07-04 02:00] VITALS: BP 120/59; PULSE 84; RESP 15; TEMP 36.8; O2SAT 90
[2021-07-04 04:00] VITALS: BP 113/64; PULSE 88; RESP 15; TEMP 36.6; O2SAT 95
[2021-07-04 05:54] LABS: Add Manual Diff / Slide Review NO; Basophils Absolute Auto 0 /uL (0-100); Basophils Percent Auto 0.1 % (0-2); Eosinophils Absolute Auto 100 /uL (0-450); Eosinophils Percent Auto 0.9 % (2-4); Hematocrit 35.8 % (36-46); Hemoglobin 11.3 g/dL (12.0-16.0); Lymphocytes Absolute Auto 1700 /uL (1100-4500); Lymphocytes Percent Auto 16.2 % (25-40); Mean Corpuscular HGB Conc 31.5 % (30-36); Mean Corpuscular Hemoglobin 22.9 PG (26-34); Mean Corpuscular Volume 72.7 fL (80-100); Monocytes Absolute Auto 800 /uL (0-900); Monocytes Percent Auto 7.3 % (3-14); Neutrophils Absolute Auto 7900 /uL (1500-7000); Neutrophils Percent Auto 75.5 % (50-75); Platelet Count 317 X10^3/uL (150-400); Red Blood Cell Count 4.92 X10^6/uL (4.0-5.2); Red Cell Distribution Width 17.6 % (11.6-14.8); White Blood Cell Count 10.5 X10^3/uL (4.5-11.0)
[2021-07-04 06:51] LABS: Alanine Aminotransferase 19 IU/L (<35); Albumin 3.3 g/dL (3.5-5.0); Albumin Globulin Ratio 1.1 (1.0-2.8); Alkaline Phosphatase 63 U/L (38-126); Aspartate Aminotransferase 19 IU/L (14-36); Bilirubin Total 0.3 mg/dL (0.2-1.3); Blood Urea Nitrogen 31 mg/dL (7-17); Calcium 9.2 mg/dL (8.4-10.2); Chloride 95 mmol/L (98-107); Estimated Glomerular Filt Rate > 60.0 mL/min (>60); Globulin 2.9 g/dL (1.7-4.1); Glucose 130 mg/dL (80-110); HEMOLYSIS < 15 (0-50); Phosphorous 3.9 mg/dL (2.8-4.1); Potassium 3.8 mmol/L (3.4-5.1); Sodium 139 mmol/L (137-145); Total Protein 6.2 g/dL (6.3-8.2)
[2021-07-04 07:24] LABS: Carbon Dioxide 44 mmol/L (22-32)
[2021-07-04 08:00] VITALS: BP 113/56; PULSE 86; RESP 17; TEMP 36.7; O2SAT 97
[2021-07-04] MEDS: CEFDINIR 300 MG CAPSULE PO (09:38)
[2021-07-04] MEDS: CHOLECALCIFEROL (VITAMIN D3) 1,000 UNIT TABLET 1000 UNIT PO (09:39)
[2021-07-04] MEDS: SODIUM CHLORIDE 0.9% FLUSH 10 ML IV (09:39)
[2021-07-04] MEDS: ENOXAPARIN 40 MG/0.4 ML SYRINGE SUBCUT (09:39)
[2021-07-04] MEDS: acetaZOLAMIDE 250 MG TABLET PO (09:39)
[2021-07-04] MEDS: DOXYCYCLINE HYCLATE 100 MG TABLET PO (09:39)
[2021-07-04] MEDS: ASCORBIC ACID 500 MG TABLET PO (09:39)
[2021-07-04] MEDS: TORSEMIDE 10 MG TABLET PO (09:39)
[2021-07-04] MEDS: ALBUTEROL/IPRATROPIUM 3 ML AMPUL INH ×2 (09:48→14:05)
[2021-07-04] MEDS: BUDESONIDE 0.5 MG/2 ML NEB INH (09:49)
[2021-07-04 12:00] VITALS: BP 115/57; PULSE 90; RESP 16; TEMP 36.6; O2SAT 97
[2021-07-04] MEDS: PRENATAL VIT,CALC/IRON/FOLIC 1 TABLET 1 TAB PO (12:17)
[2021-07-04] MEDS: INSULIN LISPRO 100 UNIT/ML 3ML VIAL SUBCUT (12:17)
--- NOTE | 2021-07-04 12:22 | P.DS_ITS ---
History of Present Illness History of Present Illness Date Patient Seen: 07/04/21 Chief complaint: Trouble breathing Narrative: History of Present Illness History of Present Illness Date Patient Seen:?06/27/21 Time Patient Seen:?17:00 Narrative: 61W with PMH COPD, CHF on home O2, pAfib, reportedly recent diagnosis of ocular lymphoma presents with shortness of breath. She notes worsening shortness of breath over the last 3 days. She has noted a productive cough, subjective fevers. She is vaccinated against COVID. She has not been taking her respiratory medications she said due to not being able to find some equipment, she says not taking for the last month. She has been having recurrent pulmonary problems for the last 2 years. She just moved to [place], and does not have a rotary machine operator. She is coughing up thick yellow sputum. She has not noted any chest pain, lower leg swelling. No abdominal pain, nausea, vomiting. In the ED workup was done, vitals notable for temp of 97.5, hr 103, rr 28, sats 92%. Labs notable for WBC 14.7, hgb 11.2, inr 1.2. COVID negative. ABG ph 7.39, pco2 72, pao2 48. creatinine 0.48. lactate 0.7. BNP 550. Cxray showed persistent interstitial prominence and reticular opacities bilaterally. Scatter airspace opacities. She was ordered for vanc, zosyn, levofloxacin. She was ordered for steroids, and duonebs. She was admitted for further treatment. Family history: Mother with diabetes Discharge Providers Provider Date of admission: 06/27/21 16:55 Discharge Date: 07/04/21 Primary care physician: Doctor Tobi MD Consults: 06/27/21 18:28 Consult to Pastoral Services Routine Comment: would like visit 06/28/21 06:57 Consult to Tele-belt knife feeder Routine Comment: Consulting Provider: [facility] [employer] Reason for consultation: Bread Dough Mixer services 06/28/21 16:31 Consult After Hours PICC Line RN Routine Comment: 06/28/21 17:17 Consult to Dietitian, Adult Routine Comment: Reason For Exam: POOR NUTRITION INTAKE 07/01/21 13:04 Consult to Physical Therapy Evaluate & Treat Comment: Physician Instructions: Evaluate and Treat Discharge provider: Jamin Lind, Summary Hospital Course Discharge Diagnosis: ACUTE ON CHRONIC HYPOXIC/ HYPERCAPNIC RESPIRATORY FAILURE. PROGRESSING TO BASELINE POSSIBLE GRAM NEG PNA; CONTINUE ANTIBIOTICS VIRAL PNEUMONITIS.? PARAINFLUENZA ON INITIAL TESTING POSS MODERATE PROTEIN CALORIE MALNUTRITION.? ENCOURAGE PROPER FOOD INTAKE? LEUKOCYTOSIS; REACTIVE PHYSICAL DEBILITY; PT/OT ANEMIA OF CHRONIC DISEASE; STABLE H/H BENJAMÍN; RESOLVING ?METABOLIC? ALKALOSIS.? LIKELY MULTIFACTORIAL.? IMPROVED Hospital Course: THIS IS A 61-YEAR-OLD FEMALE TREATED FOR GRAM-NEGATIVE PNEUMONIA WELL AN ACUTE COPD EXACERBATION. SHE ALSO WAS TREATED CONSERVATIVELY FOR PARAINFLUENZA INFECTION IN THE LUNG WELL. SHE WAS TREATED WITH ANTIBIOTICS THERAPY WELL DUONEB TREATMENTS OXYGEN SATURATIONS MAINTAINING FAIRLY WELL THE LAST 48 HOURS. HER LABS HAS BEEN FAIRLY STABLE WELL HOWEVER ELEVATED BICARB HAS BEEN PERSISTENT. PATIENT HAS BEEN STARTED ON DIAMOX. SHE IS CHRONICALLY ON OXYGEN THERAPY. AND WILL BE DISCHARGED HOME ON HER PREVIOUS SETTINGS. AGGRESSIVE ANTI-REFLUX THERAPY HAS BEEN ORDERED. SHE WILL BE DISCHARGED ON ITS SLOW TAPER STEROIDS REGIMEN SHE WILL NEED TO CONTINUE DAILY PREDNISONE FROM NOW ON. SHE WILL BE DISCHARGED TO HOME TODAY. HOWEVER DUE TO HER WORSENING LUNG FUNCTIONS, SHE HAS HIGH LIKELY WOULD FOR READMISSION Status at Discharge Cognitive/behavioral status at discharge: oriented Functional status at discharge: independent ambulation Overall status at discharge: patient is progressing back to baseline Time Spent with Patient Time spent: Greater than 30 minutes Exam Vital Signs (past 8 hours): - 07/04/21 08:00 07/04/21 12:00 Temperature 98.1 F 97.9 F Pulse Rate 86 90 Respiratory Rate 17 16 Blood Pressure 113/56 L 115/57 L Pulse Oximetry 97 97 Fraction of Inspired Oxygen 30 Oxygen Delivery Method Nasal Cannula Oxygen Flow Rate 2 Narrative Exam Narrative: NO ACUTE DISTRESS.? PATIENT IS ALERT ORIENTED X3. HEAD ATRAUMATIC NORMOCEPHALIC NECK : SUPPLE WITHOUT ADENOPATHY NO CAROTID BRUITS EYE:? EOMI, PERRLA, NORMAL CONJUNCTIVA; NO JAUNDICE CHEST:? REGULAR RATE.? ? NO RUBS.? PMI IS NON DISPLACED.? NO MURMURS; NORMAL S1- S2 PULMONARY:? MILD WHEEZING APPRECIATED BILATERALLY.? DECREASED BREATH SOUND AT THE BASES. BIBASILAR CRACKLES APPRECIATED.? NO RHONCHI. ABDOMEN:? SOFT.? NONTENDER.? NONDISTENDED.? BOWEL SOUNDS ARE PRESENT IN ALL 4 QUADRANTS.? NO MASS. EXTREMITIES: NO EDEMA..? NO CYANOSIS CLUBBING NOTED. NEURO:? CRANIAL NERVES 2-12 GROSSLY INTACT. NO FOCAL NEUROLOGICAL DEFICIT NOTED. MSK:? NORMAL RANGE OF MOTION FOR AGE.? NO JOINT EFFUSION.? POOR? MUSCULATURE. SKIN:? NORMAL FOR ETHNICITY; NO ECCHYMOSIS.? NO LESION. ? FAIR ? TURGOR.; NO RASHES PSYCH :? APPROPRIATE MOOD AND AFFECT.? ALERT AWAKE ORIENTED X3 Objective Labs Result Diagrams: 07/04/21 05:30 07/04/21 05:30 Labs: Laboratory Results - last 24 hr 07/04/21 07/04/21 05:30 05:30 WBC 10.5 RBC 4.92 Hgb 11.3 L Hct 35.8 L MCV 72.7 L MCH 22.9 L MCHC 31.5 RDW 17.6 H Plt Count 317 Neut % (Auto) 75.5 H Lymph % (Auto) 16.2 L [place] % (Auto) 7.3 Eos % (Auto) 0.9 L Baso % (Auto) 0.1 Neut # (Auto) 7900 H Lymph # (Auto) 1700 [place] # (Auto) 800 Eos # (Auto) 100 Baso # (Auto) 0 Sodium 139 Potassium 3.8 Chloride 95 L Carbon Dioxide 44 H* BUN 31 H Creatinine 0.66 Estimated GFR > 60.0 BUN/Creatinine Ratio 47.0 H Glucose 130 H Calcium 9.2 Phosphorus 3.9 Magnesium 2.0 Total Bilirubin 0.3 AST 19 ALT 19 Alkaline Phosphatase 63 Total Protein 6.2 L Albumin 3.3 L Globulin 2.9 Albumin/Globulin Ratio 1.1 [facility] Medical History Chronic obstructive pulmonary disease Congestive heart failure Ocular lymphoma Social History household members: family Smoking Status: Current some day smoker alcohol intake: current Discharge Plan Discharge Plan Patient Disposition: Home Health Service Discharge orders & Medications Prescriptions: New ipratropium-albuterol 0.5 mg-3 mg(2.5 mg base)/3 mL Solution For Nebulization 3 ml INH [id number] Qty: 90 2RF acetazolamide 250 mg Tablet 250 mg PO BID Qty: 60 2RF ascorbic acid (vitamin C) [Vitamin C] 500 mg Tablet 500 mg PO BID Qty: 60 2RF torsemide 10 mg Tablet 10 mg PO DAILY Qty: 30 2RF benzonatate 100 mg Capsule 100 mg PO TID PRN (Reason: Cough) Qty: 30 0RF cefdinir 300 mg Capsule 300 mg PO BID Qty: 20 0RF doxycycline hyclate 100 mg Tablet 100 mg PO BID Qty: 20 0RF cholecalciferol (vitamin D3) 25 mcg (1,000 unit) Tablet 1,000 unit PO DAILY Qty: 30 2RF prednisone 10 mg tablet 10 mg PO DIRECTED Qty: 60 3RF Rx Instructions: 40MG PO DAILY X 4 DAYS 30MG PO DAILY X 4 DAYS 20MG PO DAILY X 3 DAYS 10MG PO DAILY X 3 DAYS 5MG PO DAILY UNTIL STOPPED BY PCP/PULM gabapentin 100 mg capsule 100 mg PO TID Qty: 90 3RF melatonin 10 mg tablet 10 mg PO BEDTIME Qty: 30 3RF trazodone 50 mg tablet 50 mg PO BEDTIME Qty: 30 3RF Continued spironolactone 25 mg Tablet 12.5 mg PO DAILY 0RF aspirin 81 mg Tablet,Delayed Release (Dr/Ec) 81 mg PO DAILY Qty: 60 0RF famotidine 40 mg tablet 40 mg PO BID Qty: 60 2RF sucralfate 1 gram Tablet 1 gm PO ACHS Qty: 120 2RF Spiriva with HandiHaler 18 mcg capsule, w/inhalation device 1 cap inhalation DAILY Qty: 90 0RF Rx Instructions: puncture 1 cap using device; one dose = 2 inhalations ipratropium-albuterol 0.5 mg-3 mg(2.5 mg base)/3 mL solution for nebulization 3 ml inhalation Q4-6H PRN (Reason: shortness of breath or wheezing) Qty: 90 0RF ProAir RespiClick 90 mcg/actuation Aerosol Powdr Breath Activated 2 inh INHALATION Q4-6H PRN (Reason: Wheezing) 0RF Thera-M Or 1 tab PO DAILY 0RF lorazepam [Ativan] 2 mg/mL Solution 2.5 mg SUBLINGUAL DAILY PRN (Reason: Shortness Of Breath) 0RF Discontinued Spiriva with HandiHaler 18 mcg Capsule, W/Inhalation Device 1 cap INHALATION DAILY 0RF Rx Instructions: puncture 1 cap using device; one dose = 2 inhalations metformin 500 mg Tablet 500 mg PO BID 0RF prednisone 20 mg Tablet 20 mg PO DAILY 0RF torsemide 5 mg Tablet 5 mg PO DAILY 0RF gabapentin 100 mg Capsule 100 mg PO BID 0RF Follow up/Referrals: Doctor Britton MD [Primary Care Provider] - Diet/Activity/Treatments Diet: Carb-consistent/Diabetic and Low-sodium Diet comment: GI SOFT Activity: TOLERATED Skin/Wound/Dressing Care Report to your healthcare provider any signs of infection, such as:: chills, fever and night sweats Discharge Data Primary Care Provider: Doctor Tobi Quality VTE Deep Vein Thrombosis/Pulmonary Embolism Present on Admission: No
[2021-07-04 14:06] VITALS: PULSE 90; RESP 18; O2SAT 96
--- NOTE | 2021-07-04 15:40 | PT.IPTN ---
Addendum entered and electronically signed by Penelope Fields PTA 07/04/21 16:16: [employer]SULTANT discussed with case mgt and will contact Dr Laxmi Goodson for HHPT orders. Original Note: Current Diagnoses Acute and chronic respiratory failure with hypercapnia (06/27/21) Physical Therapy Treatment Note M2 PT-IP Current Condition Start: 07/01/21 16:23 Freq: NEEDED Status: Active Protocol: Document 07/04/21 15:20 SP (Rec: 07/04/21 16:14 SP [id number]) Physical Therapy Current Condition Current Condition Evaluation Date 07/01/21 Treatment Diagnosis Influenza, decreased activity tolerance Onset Date 06/27/21 M3 PT-IP Subjective Start: 07/01/21 16:23 Freq: NEEDED Status: Active Protocol: Document 07/04/21 15:20 SP (Rec: 07/04/21 16:14 SP [id number]) Subjective Physical Therapy Visit Type Type Treatment Note Visit Start Time 15:20 Visit Stop Time 15:40 Total Visit Minutes 20 Notes Sister reported the ramp was taken down due to bad weather and pt has 2 steps without HR to complete to get in house. Sister completed caregiver training and provided physical assist needed throughout tx. Number of [employer] SAL[employer] CONSULTANT Visits 3 Physical Therapy Visit Comments Patient Comments Pt agreeable to working w/ therapy. Patient Goals Pt wanting to go home with sister to assist her, pt wanting HHPT to get stronger. Therapy Pain Assessment Pain Present Pain Present Denied Pain M4 PT-IP Mobility and Gait Start: 07/01/21 16:23 Freq: NEEDED Status: Active Protocol: Document 07/04/21 15:20 SP (Rec: 07/04/21 16:14 SP [id number]) PT-Transfer Assessment Sit to and From Stand Sit to and from Stand Standby Assistance,Use of Upper Extremities Equipment Transfer Assistive Device Gait Belt,Front Wheeled Walker Transfers Transfer Destination Bed Transfer Technique pt ambulated w/ FWW Transfer Ability Level of Assist Standby Assistance,Use of Upper Extremities Comments Mobility Comments Pt seated at end of bed talking to her sister seated in chair. Sit> stand SBA with use of 4WW ambulated to bathroom self managing O2 tubing and completed bathroom transfer use of grab bar, voided and self pericare, ambulated to sink to wash hands unsupported, cued for 4WW positioning at side with brakes engaged for safety and completed. Pt returned to sit EOB sBA. [employer] SaO2 assessment decreased to 87 % on 1 L, [employer] SAL[employer] CONSULTANT increased to 2L, saturation returned to low 90s in 30 sec of cued diaphramatic breathing . Pt complete 1 portable step x2 reps [employer] WORK[employer] Min- Mod A of [employer] SAL[employer] CONSULTANT then sister Min A- Mod for stability to assimulate 2 step mgt has at home to enter home . Pt returned to sitting at EOB, SaO2 88% on 2 L, returned to 91% on 2 L within 20 sec of focused breathing. [employer] SAL[employer] CONSULTANT provided education in importance of breath and use of supplimental with mobility with activity level and rests as needed while maintaining 90s with pt and sister verbalized understanding. [employer] SAL[employer] CONSULTANT recommended HHPT to improve strength and functional independence with verbalized in agreement. [employer] CONSULTANT notified case mgt HHPT requesting, verbalized will call Dr Laxmi Goodson, pt's primary physician to get set up. Gait Assessment Gait Gait Assistance Required: Standby Assistance Distance (Feet) 30 Able to Maintain Weight Bearing Status Yes During Gait Assistive Devices Assistive Device Gait Belt,4 Wheeled Walker Gait Deviations General Gait Pattern Antalgic,Decreased Stride Length,Decreased Feet Clearance,Flexed Trunk Factors Limiting Gait Function Factors Limiting Gait Function Decreased Activity Tolerance, Decreased Strength,Poor Safety Awareness,Respiratory Distress Comments Gait Comments see mobility comments. Stair Climbing Assessment Evaluation Level of Assist On Stairs Minimal Assistance,Moderate Assistance,1 Person Assistance Devices Stair Climbing Assistive Devices None Technique/Endurance Stair Climbing Direction Ascend and Descend Stair Climbing Technique Step to Step Number of Steps Climbed 1 Stair Climbing Set # Repetitions (reps) 2 Comments Stair Climbing Comments Completed 1 portable step [employer] WORK[employer] Min- Mod A x1 person to assimulate entering home, no LOB. PT-Balance Assessment Sitting Balance and Reactions Static Sitting Balance Ability Normal Dynamic Sitting Balance Ability Normal Standing Balance and Reactions Static Standing Balance Ability Good Dynamic Standing Balance Ability Good Device Used 4WW M5 PT-IP Objective Assessments Start: 07/01/21 16:23 Freq: NEEDED Status: Active Protocol: Document 07/01/21 16:23 [facility] (Rec: 07/01/21 16:38 DL [id number]) Orientation Orientation/Cognition Level of Alertness Alert Orientation Name,Age,Birthday,Month,Date, Year,Day of Week,Place Language Function Ability No Deficits Noted Safety Awareness Understands Safety Issues Memory Description Short Term Impaired Comments new dx ocular lymphoma, she can see to use her tablet Gross Range of Motion Upper Extremity ROM Assessment Within Functional Limits Lower Extremity ROM Assessment Within Functional Limits Strength Upper Extremity Strength Assessment Within Functional Limits Lower Extremity Strength Assessment Within Functional Limits Coordination Assessment Gross Coordination Gross Coordination WNL Sensation Assessment Sensation Gross Sensation Right LE Impaired,Left LE Impaired Sensation Description Hyperesthesia,Numbness, Tingling Comments Sensation Comments hx neuropathy in feet Muscle Tone Muscle Tone WNL Yes M6 PT-IP Treatment Start: 07/01/21 16:23 Freq: NEEDED Status: Active Protocol: Document 07/04/21 15:20 SP (Rec: 07/04/21 16:14 SP [id number]) Physical Therapy Treatment Education Education Provided Safety M7 PT-IP Assessment and Plan Start: 07/01/21 16:23 Freq: NEEDED Status: Active Protocol: Document 07/04/21 15:20 SP (Rec: 07/04/21 16:14 SP [id number]) PT Summary Assessment and Plan Potential Rehabilitation Potential Good Status of Condition at Evaluation Evolving Summary Impairments Strength,Gait,Activity Tolerance Progress Towards Goals Progressing Toward Goals,Slow Progress due to Activity Tolerance Assessment Summary Pt continues to be limited by SOB but improved with saturation 87% on 1L increased to 2L stayed 88-91 % during all mobility SBA using 4WW, Min-Mod A for 2 step mgt [employer] WORKER. Pt requires supplimental O2 1 -2 L and SBA during mobiltiy for safety recovers within 30 sec with breath. Recommending HHPT for improve strength, and functional independence. Pt is ok to return home with sister to assist her as needed when medically cleared. Goals Bed Mobility Goal Independent Transfer Goal Independent,Front Wheeled Walker Gait Goal Standby Assistance,Front Wheel Walker Gait Distance 80 feet Days to Meet Goals 2 Frequency of Treatment Frequency Of Treatment Once a Day Treatment Plan Physical Therapy Treatment Plan Bed Mobility Training,Transfer Training,Gait Training, Therapeutic Exercise,Discharge Planning,Neuromuscular Re-ed Other Recommendations and Next Treatment further distance gait, STS, Focus functional strengthening to improve independence and quality endurance for safe O2 saturation. Precautions Other Precautions uses oxygen at home at baseline Recommendations To Nursing Amount of Assist Needed Standby Assistance Discharge Recommendations PT Discharge Recommendations Home with Assistance,Home Health Other Discharge Recommendations Sister is supportive Transportation Needs at Discharge Private Vehicle
--- NOTE | 2021-07-04 16:28 | PC.NURSE ---
A&Ox4. VSS. 2L nasal cannula, 96%. Denies pain. Short of breath with exertion. Lungs diminished throughout, fine crackles bilateral lower lobes. Midline removed, tolerated well. Discharge instructions reviewed. Questions answered. Off of unit at 16:25 via wheelchair to personal vehicle, sister driving home.
== END 2021-07-04 16:25 | disposition home or self-care (01) | DRG 177 ==
LOC: ED 16:49 → AC 16:56 → ICU 06-28 06:05
PROVIDERS: Hospitalist; Internal Medicine Critical Care Medicine; Internal Medicine Pulmonary Disease; Admitting Provider Internal Medicine; Emergency Provider Emergency Medicine; Referring Provider Emergency Medicine; Visit Provider Internal Medicine
DX: J15.6 Pneumonia due to other Gram-negative bacteria (principal); J96.22 Acute and chronic respiratory failure with hypercapnia; J96.21 Acute and chronic respiratory failure with hypoxia; I50.33 Acute on chronic diastolic (congestive) heart failure; J44.1 Chronic obstructive pulmonary disease with (acute) exacerbation; E44.0 Moderate protein-calorie malnutrition; J12.9 Viral pneumonia, unspecified; I48.0 Paroxysmal atrial fibrillation; F17.210 Nicotine dependence, cigarettes, uncomplicated; H57.89 Other specified disorders of eye and adnexa; Z99.81 Dependence on supplemental oxygen; Z68.23 Body mass index [BMI] 23.0-23.9, adult; Z20.822 Contact with and (suspected) exposure to COVID-19
CPT/HCPCS: 36415; 36592; 36600; 71045; 71250; 80048; 80053; 80202; 81001; 82805; 82962; 83605; 83735; 83880; 84100; 85025; 85027; 85610; 87040; 87070; 87205; 87449; 87633; 87635; 87797; 93005; 93307; 94640; 94660; 94762; 96365; 96367; 96375; 97110; 97116; 97162; 97530; 99285; C9803; J0692; J1642; J1650; J1720; J1815; J1940; J2543; J2920; J2930; J7613

== ENCOUNTER 2021-08-01 19:43 | Inpatient (IN) | payer OTHER, SELFPAY ==
[2021-06-27 18:14] VITALS: BMI 22.3
[2021-06-28 08:00] VITALS: PULSE 86; RESP 31; O2SAT 92
[2021-08-01] VITALS (11 sets, daily range): BP systolic 94–141; BP diastolic 46–63; PULSE 86–95; RESP 20–24; TEMP 36.9; O2SAT 88–97
--- NOTE | 2021-08-01 19:54 | DI.RAD.S_ITS ---
PROCEDURE: XR LUMBAR SPINE 2-3V INDICATIONS: midline back pain TECHNIQUE: 3 views of the lumbar spine were acquired. COMPARISON: None. FINDINGS: Bones: 5 [id number] vertebrae are present. There is leftward scoliotic curvature with apex at L3. Multilevel degenerative changes are present including disc space and foraminal narrowing most severe at L5-S1. No vertebral body compression fractures. No suspicious bony lesions. Soft tissues: Overlying bowel gas pattern is normal. No suspicious soft tissue calcifications. IMPRESSION: No visualized acute fracture or dislocation. However, if clinical concern and/or pain persist, short interval imaging followup in 7-10 days is recommended, as occult injury cannot be definitively excluded. Dictated by: Megha Urias M.D. on 08/01/2021 at 20:37 Approved by: Megha Urias M.D. on 08/01/2021 at 20:38
--- NOTE | 2021-08-01 19:54 | DI.RAD.S_ITS ---
PROCEDURE: XR CHEST 1V INDICATIONS: SOB, CP TECHNIQUE: One view of the chest was acquired. COMPARISON: [facility], CT, CT CHEST WO CON, 06/27/2021, 17:25. [facility], CR, XR CHEST 2V, 05/20/2021, 11:37. [facility], CR, XR CHEST 1V, 05/22/2021, 22:26. [facility], CR, XR CHEST 1V, 07/02/2021, 6:40. FINDINGS: Surgical changes and devices: None. Lungs and pleura: There is progressive appearance of bilateral pulmonary opacities within the lungs, upper and lower lobes. Mediastinum: Mediastinal contours appear normal. Heart size is normal. Bones and chest wall: No suspicious bony lesions. Overlying soft tissues appear unremarkable. IMPRESSION: Progressive appearance of bilateral pulmonary opacities most consistent with pneumonia. Underlying areas of chronic airspace disease are suspected. Dictated by: Megha Urias M.D. on 08/01/2021 at 20:30 Approved by: Megha Urias M.D. on 08/01/2021 at 20:37
--- NOTE | 2021-08-01 19:56 | ED.CHESTPAIN ---
HPI - Chest Pain General Chief Complaint: Shortness of Breath/Dyspnea Stated Complaint: PAIN LOWER BACK SOB Time Seen by Provider: 08/01/21 19:50 Source: patient and family Mode of arrival: Wheelchair History of Present Illness HPI narrative: 61-year-old female daily smoker with history of COPD is on 2 L of oxygen by nasal cannula routinely, also with relatively recent diagnosis of ocular lymphoma presents with a friend in the chief complaint of a few days of chest pain, increased shortness of breath and some low back pain. She states that she is more short of breath with exertion but rather nonspecific otherwise. She is a poor historian at baseline. She states that he had she has chest pain which is largely in the middle of her chest, she states it comes and goes without any obvious pattern. She denies any obvious radiation of her discomfort. She has had no runny nose, sore throat but the occasional cough. She denies nausea, vomiting or diarrhea. She denies any urinary complaints such as dysuria, frequency or urgency. She has some midline lumbar pain which is worse with motion and improves with rest. She denies any recent falls or injury. She denies loss of control of bowel or bladder. She denies any lower extremity numbness, tingling or weakness, nor footdrop. Related Data Home Medications Medication Instructions Recorded Confirmed spironolactone 25 mg tablet 12.5 mg PO DAILY 05/23/21 05/23/21 Thera-M Or 1 tab PO DAILY 06/27/21 06/27/21 albuterol sulfate 90 mcg/actuation 2 inh INHALATION Q4-6H PRN 06/27/21 06/27/21 breath activated powder inhaler (ProAir RespiClick) lorazepam 2 mg/mL injection 2.5 mg SUBLINGUAL DAILY PRN 06/27/21 06/27/21 solution (Ativan) Previous Rx's Medication Instructions Recorded aspirin 81 mg tablet,delayed 81 mg PO DAILY #60 tab 05/25/21 release famotidine 40 mg tablet 40 mg PO BID #60 tab 05/25/21 ipratropium 0.5 mg-albuterol 3 mg 3 ml INHALATION Q4-6H PRN #90 ml 05/25/21 (2.5 mg base)/3 mL nebulization soln sucralfate 1 gram tablet 1 gm PO ACHS #120 tab 05/25/21 tiotropium bromide 18 mcg capsule 1 cap INHALATION DAILY #90 inh 05/25/21 with inhalation device (Spiriva with HandiHaler) acetazolamide 250 mg tablet 250 mg PO BID #60 tab 07/04/21 ascorbic acid (vitamin C) 500 mg 500 mg PO BID #60 tab 07/04/21 tablet (Vitamin C) benzonatate 100 mg capsule 100 mg PO TID PRN #30 cap 07/04/21 cefdinir 300 mg capsule 300 mg PO BID #20 cap 07/04/21 cholecalciferol (vitamin D3) 25 1,000 unit PO DAILY #30 tab 07/04/21 mcg (1,000 unit) tablet doxycycline hyclate 100 mg tablet 100 mg PO BID #20 tab 07/04/21 gabapentin 100 mg capsule 100 mg PO TID #90 cap 07/04/21 ipratropium 0.5 mg-albuterol 3 mg 3 ml INH [id number] #90 ml 07/04/21 (2.5 mg base)/3 mL nebulization soln melatonin 10 mg tablet 10 mg PO BEDTIME #30 tab 07/04/21 prednisone 10 mg tablet 10 mg PO DIRECTED #60 tab 07/04/21 torsemide 10 mg tablet 10 mg PO DAILY #30 tab 07/04/21 trazodone 50 mg tablet 50 mg PO BEDTIME #30 tab 07/04/21 Allergies Allergy/AdvReac Type Severity Reaction Status Date / Time marijuana Allergy Severe Vomiting Verified 06/27/21 13:17 methadone Allergy Severe Vomiting Verified 06/27/21 13:17 Review of Systems Review of Systems Narrative: GENERAL: See HPI HEENT: Denies sinus pain, ear pain, sore throat, difficulty swallowing, dizziness. RESPIRATORY: See HPI CARDIOVASCULAR: Denies chest pain, palpitations, orthopnea, edema, GASTROINTESTINAL: See HPI : Denies dysuria, frequency, incontinence, hematuria, urinary retention. MUSCULOSKELETAL: See HPI SKIN: Denies rash, skin lesions, or other NEUROLOGIC: Denies weakness, headache, numbness, change in speech, confusion, seizures, incoordination. PSYCHIATRIC: No concerning psychosocial issues. 12 point review of systems is negative except for those stated above Patient History Medical History Chronic obstructive pulmonary disease Congestive heart failure Ocular lymphoma Social History household members: family Smoking Status: Current every day smoker alcohol intake: current Smoking Status: Current every day smoker tobacco type: cigarettes alcohol intake frequency: holidays/special occasions only Substance Use Type: does not use Exam Narrative Exam Narrative: GENERAL: [61 year old patient appears older than stated age. Well-developed patient, in mild distress. HEAD: Atraumatic. Normocephalic. EYES: Pupils equal round and reactive. Extraocular motions intact. No scleral icterus. No injection or drainage. ENT: Nose without bleeding, purulent drainage. Throat without erythema, tonsillar hypertrophy or exudate. Airway patent. NECK: Trachea midline. Non tender CARDIOVASCULAR: Regular rate and rhythm without murmurs, gallops, or rubs. RESPIRATORY: Decreased breath sounds bilaterally, prolonged expiratory phase with faint end-expiratory crackles GASTROINTESTINAL: Abdomen soft, non-tender, nondistended. EXTREMITIES: No edema or joint tenderness. BACK: mattress filling machine tender but free of any obvious external abnormalities. Patient exam notes decreased range of motion and muscle spasm, but no CVA tenderness, or vertebral point tenderness. There are no symptoms of cauda equina such as saddle anesthesia, and decreased reflexes, decreased sensation or strength. NEURO: AOx3. SKIN: No rash or erythema of visible areas Initial Vital Signs Initial Vital Signs: Vital Signs Temperature 98.4 F 08/01/21 19:53 Pulse Rate 95 H 08/01/21 19:53 Respiratory Rate 22 08/01/21 19:53 Blood Pressure 108/54 L 08/01/21 19:53 Pulse Oximetry 88 L 08/01/21 19:53 Course Orders Ordered: ED Orders 08/01/21 19:54 XR chest 1V Stat XR lumbar spine 2-3V Stat 08/01/21 20:10 Complete Blood Count AUTO DIFF Stat Comprehensive Metabolic Panel Stat D Dimer Stat Lipase Stat NT-proBNP (BNP-Adult 18+) Stat Procalcitonin Stat Troponin & CK Cardiac Panel Stat 08/01/21 20:48 Respiratory Panel (Film Array) Stat 08/01/21 21:05 ABG [Arterial Blood Gas] Stat 08/01/21 21:40 CT angio chest PE protocol Stat 08/01/21 23:30 BiPAP Ventilatory Support RT PROTOCOL 08/02/21 Lactate (Lactic Acid) Stat 08/02/21 01:44 Arterial Blood Gas Stat 08/02/21 03:02 Consult to Physical Therapy Evaluate & Treat 08/02/21 03:04 Arterial Blood Gas Stat 08/02/21 03:17 Sputum Culture Stat 08/02/21 05:00 Basic Metabolic Panel Routine Complete Blood Count AUTO DIFF Routine Iron Profile (w/ % Saturation) Routine Troponin I Routine Acetaminophen (Acetaminophen 325 Mg Tablet) 650 mg PO Q6HR PRN PRN Reason: Fever/Mild Pain (1-3) Albuterol (Albuterol 2.5 Mg/3 Ml Neb (Adult)) 2.5 mg INH [id number] PRN PRN Reason: Shortness Of Breath Albuterol/Ipratropium (Albuterol/Ipratropium 3 Ml Ampul) 3 ml INH [id number] DANYELL Enoxaparin Sodium (Enoxaparin 40 Mg/0.4 Ml Syringe) 40 mg SUBCUT DAILY [facility] Sodium Chloride (Normal Saline 0.9%) 1,000 mls @ 150 mls/hr IV CONT [facility] Last Admin: 08/01/21 20:31 Dose: 150 mls/hr Documented by: HONEY Piperacillin Sod/Tazobactam (Sod 3.375 gm/ Sodium Chloride) 100 mls @ 25 mls/hr IV Q8H [facility] Azithromycin 500 mg/ Dextrose 250 mls @ 250 mls/hr IV Q24H [facility] Last Admin: 08/02/21 03:36 Dose: 250 mls/hr Documented by: ABEBA Vancomycin HCl (Vancomycin) 1,000 mg in 200 mls @ 200 mls/hr IV Q12H [facility] Methylprednisolone (Methylprednisolone 125 Mg/2 Ml Vial) 60 mg IV Q6H [facility] Last Admin: 08/02/21 04:28 Dose: 60 mg Documented by: ABEBA Naloxone HCl (Naloxone 0.4 Mg/Ml Vial) 0.2 mg IV Q2MIN PRN PRN Reason: Opiate Reversal Ondansetron HCl (Ondansetron 4 Mg/2 Ml Inj) 4 mg IV Q8HR PRN PRN Reason: Nausea And Vomiting Discontinued Medications Acetazolamide (Acetazolamide 250 Mg Tablet) 250 mg PO NOW ONE Stop: 08/02/21 03:50 Piperacillin Sod/Tazobactam (Sod 4.5 gm/ Sodium Chloride) 100 mls @ 200 mls/hr IV NOW ONE Stop: 08/02/21 00:16 Last Infusion: 08/02/21 01:16 Dose: 0 mls/hr Documented by: Admin: 08/02/21 00:23 Dose: 200 mls/hr Documented by: ABEBA Piperacillin Sod/Tazobactam (Sod 3.375 gm/ Sodium Chloride) 100 mls @ 25 mls/hr IV Q8H [facility] Azithromycin 500 mg/ Dextrose 250 mls @ 250 mls/hr IV Q24H [facility] Vancomycin HCl (Vancomycin) 1,250 mg in 250 mls @ 250 mls/hr IV NOW ONE Stop: 08/02/21 04:14 Prednisone (Prednisone 20 Mg Tablet) 40 mg PO NOW ONE Stop: 08/02/21 03:03 Last Admin: 08/02/21 03:38 Dose: 40 mg Documented by: ABEBA Vancomycin HCl (Vancomycin Per Pharmacy) 1 request MISC NOW ONE Stop: 08/02/21 02:58 Vital Signs Vital signs: Vital Signs - 8 hr 08/01/21 21:00 08/01/21 21:30 08/01/21 22:01 Pulse Rate 94 H 91 H 94 H Respiratory Rate Blood Pressure 110/55 L 98/53 L Pulse Oximetry 95 96 97 08/01/21 22:08 08/01/21 22:30 08/01/21 23:00 Pulse Rate 92 H 95 H 89 Respiratory Rate 22 Blood Pressure 123/57 L 141/63 H 94/46 L Pulse Oximetry 97 94 97 08/01/21 23:05 08/01/21 23:30 08/01/21 23:54 Pulse Rate 89 86 Respiratory Rate 24 20 Blood Pressure 113/58 L 106/52 L 106/52 L Pulse Oximetry 97 97 08/02/21 00:00 08/02/21 00:30 08/02/21 00:42 Pulse Rate 87 86 83 Respiratory Rate 25 H 27 H 29 H Blood Pressure 103/53 L 125/56 L 97/48 L Pulse Oximetry 96 95 96 08/02/21 00:44 08/02/21 01:00 08/02/21 01:30 Pulse Rate 83 82 83 Respiratory Rate 21 20 24 Blood Pressure 99/53 L 91/47 L 96/50 L Pulse Oximetry 95 96 88 L 08/02/21 02:00 08/02/21 03:10 Pulse Rate 83 Respiratory Rate 29 H Blood Pressure 104/57 L 110/64 Pulse Oximetry 98 MDM - Chest Pain Lab Data Result diagrams: 08/01/21 20:10 08/01/21 20:10 Labs: Lab Results 08/01/21 08/01/21 08/01/21 Range/Units 20:10 20:10 20:10 WBC 19.7 H (4.5-11.0) X10^3/uL RBC 4.78 (4.0-5.2) X10^6/uL Hgb 11.2 L (12.0-16.0) g/dL Hct 35.2 L (36-46) % MCV 73.7 L (80-100) fL MCH 23.5 L (26-34) PG MCHC 31.9 (30-36) % RDW 18.1 H (11.6-14.8) % Plt Count 350 (150-400) X10^3/uL Neut % (Auto) 92.2 H (50-75) % Lymph % (Auto) 3.8 L (25-40) % Winston % (Auto) 2.3 L (3-14) % Eos % (Auto) 1.1 L (2-4) % Baso % (Auto) 0.6 (0-2) % Neut # (Auto) 27637 H (4146-3386) /uL Lymph # (Auto) 700 L (3931-0051) /uL Winston # (Auto) 500 (0-900) /uL Eos # (Auto) 200 (0-450) /uL Baso # (Auto) 100 (0-100) /uL D-Dimer 1869 H (<230) ng/mL ABG pH (7.35-7.45) ABG pCO2 (35-45) mmHg ABG pO2 (80-100) mmHg ABG HCO3 (22-26) mmol/L ABG Total CO2 (21-31) mmol/L ABG O2 Saturation (95-100) % ABG Base Excess (-2-2) mmol/L FiO2 Sodium 139 (137-145) mmol/L Potassium 3.6 (3.4-5.1) mmol/L Chloride 96 L (98-107) mmol/L Carbon Dioxide 44 H* (22-32) mmol/L BUN 16 (7-17) mg/dL Creatinine 0.70 (0.52-1.04) mg/dL Estimated GFR > 60.0 (>60) mL/min BUN/Creatinine Ratio 22.9 H (6-22) Glucose 174 H (80-110) mg/dL Lactate (0.7-2.1) mmol/L Calcium 9.4 (8.4-10.2) mg/dL Total Bilirubin 0.3 (0.2-1.3) mg/dL AST 15 (14-36) IU/L ALT 11 (<35) IU/L Alkaline Phosphatase 137 H (38-126) U/L Total Creatine Kinase < 20 L (30-135) U/L CK-MB (CK-2) TNP CK-MB (CK-2) Rel Index TNP Troponin I < 0.012 (0.01-0.034) ng/mL NT-Pro-B Natriuret Pep 93 (<125) pg/mL Total Protein 6.8 (6.3-8.2) g/dL Albumin 3.6 (3.5-5.0) g/dL Globulin 3.2 (1.7-4.1) g/dL Albumin/Globulin Ratio 1.1 (1.0-2.8) Lipase 33 (23-300) U/L Procalcitonin 0.12 (<0.5) ng/mL Chlamy pneumoniae PCR (Not Detect) Adenovirus (PCR) (Not Detect) B. pertussis DNA (PCR) (Not Detecte) B.parapertussis DNA PCR (Not Detecte) Coronavirus OC43 (PCR) (Not Detect) Coronavirus HKU1 (PCR) (Not Detect) Coronavirus 229E (PCR) (Not Detect) SARS-CoV-2 (PCR) (Not Detecte) Coronavirus NL63 (PCR) (Not Detect) Human Metapneumovir PCR (Not Detect) Influenza Type A (PCR) (Not Detect) Influenza Type B (PCR) (Not Detect) M. pneumoniae (PCR) (Not Detect) Parainfluenza 1 (PCR) (Not Detect) Parainfluenza 2 (PCR) (Not Detect) Parainfluenza 3 (PCR) (Not Detect) Parainfluenza 4 (PCR) (Not Detect) RSV (PCR) (Not Detect) Entero/Rhino (PCR) (Not Detect) 08/01/21 08/01/21 08/01/21 Range/Units 20:10 20:48 21:05 WBC (4.5-11.0) X10^3/uL RBC (4.0-5.2) X10^6/uL Hgb (12.0-16.0) g/dL Hct (36-46) % MCV (80-100) fL MCH (26-34) PG MCHC (30-36) % RDW (11.6-14.8) % Plt Count (150-400) X10^3/uL Neut % (Auto) (50-75) % Lymph % (Auto) (25-40) % Winston % (Auto) (3-14) % Eos % (Auto) (2-4) % Baso % (Auto) (0-2) % Neut # (Auto) (5929-5719) /uL Lymph # (Auto) (3592-4076) /uL Winston # (Auto) (0-900) /uL Eos # (Auto) (0-450) /uL Baso # (Auto) (0-100) /uL D-Dimer (<230) ng/mL ABG pH 7.29 L* (7.35-7.45) ABG pCO2 85.1 H* (35-45) mmHg ABG pO2 105 H (80-100) mmHg ABG HCO3 41 H (22-26) mmol/L ABG Total CO2 44 H (21-31) mmol/L ABG O2 Saturation 97 (95-100) % ABG Base Excess 15.0 H (-2-2) mmol/L FiO2 28 Sodium (137-145) mmol/L Potassium (3.4-5.1) mmol/L Chloride (98-107) mmol/L Carbon Dioxide (22-32) mmol/L BUN (7-17) mg/dL Creatinine (0.52-1.04) mg/dL Estimated GFR (>60) mL/min BUN/Creatinine Ratio (6-22) Glucose (80-110) mg/dL Lactate 1.6 (0.7-2.1) mmol/L Calcium (8.4-10.2) mg/dL Total Bilirubin (0.2-1.3) mg/dL AST (14-36) IU/L ALT (<35) IU/L Alkaline Phosphatase (38-126) U/L Total Creatine Kinase (30-135) U/L CK-MB (CK-2) CK-MB (CK-2) Rel Index Troponin I (0.01-0.034) ng/mL NT-Pro-B Natriuret Pep (<125) pg/mL Total Protein (6.3-8.2) g/dL Albumin (3.5-5.0) g/dL Globulin (1.7-4.1) g/dL Albumin/Globulin Ratio (1.0-2.8) Lipase (23-300) U/L Procalcitonin (<0.5) ng/mL Chlamy pneumoniae PCR Not detected (Not Detect) Adenovirus (PCR) Not detected (Not Detect) B. pertussis DNA (PCR) Not detected (Not Detecte) B.parapertussis DNA PCR Not detected (Not Detecte) Coronavirus OC43 (PCR) Not detected (Not Detect) Coronavirus HKU1 (PCR) Not detected (Not Detect) Coronavirus 229E (PCR) Not detected (Not Detect) SARS-CoV-2 (PCR) Not detected (Not Detecte) Coronavirus NL63 (PCR) Not detected (Not Detect) Human Metapneumovir PCR Not detected (Not Detect) Influenza Type A (PCR) Not detected (Not Detect) Influenza Type B (PCR) Not detected (Not Detect) M. pneumoniae (PCR) Not detected (Not Detect) Parainfluenza 1 (PCR) Not detected (Not Detect) Parainfluenza 2 (PCR) Not detected (Not Detect) Parainfluenza 3 (PCR) Not detected (Not Detect) Parainfluenza 4 (PCR) Not detected (Not Detect) RSV (PCR) Not detected (Not Detect) Entero/Rhino (PCR) Not detected (Not Detect) 08/02/21 08/02/21 Range/Units 01:44 03:04 WBC (4.5-11.0) X10^3/uL RBC (4.0-5.2) X10^6/uL Hgb (12.0-16.0) g/dL Hct (36-46) % MCV (80-100) fL MCH (26-34) PG MCHC (30-36) % RDW (11.6-14.8) % Plt Count (150-400) X10^3/uL Neut % (Auto) (50-75) % Lymph % (Auto) (25-40) % Winston % (Auto) (3-14) % Eos % (Auto) (2-4) % Baso % (Auto) (0-2) % Neut # (Auto) (0922-8083) /uL Lymph # (Auto) (8592-1960) /uL Winston # (Auto) (0-900) /uL Eos # (Auto) (0-450) /uL Baso # (Auto) (0-100) /uL D-Dimer (<230) ng/mL ABG pH 7.29 L* 7.29 L* (7.35-7.45) ABG pCO2 86.5 H* 83.0 H* (35-45) mmHg ABG pO2 79 L 86 (80-100) mmHg ABG HCO3 42 H 40 H (22-26) mmol/L ABG Total CO2 44 H 42 H (21-31) mmol/L ABG O2 Saturation 93 L 94 L (95-100) % ABG Base Excess 15.0 H 13.0 H (-2-2) mmol/L FiO2 30 30 Sodium (137-145) mmol/L Potassium (3.4-5.1) mmol/L Chloride (98-107) mmol/L Carbon Dioxide (22-32) mmol/L BUN (7-17) mg/dL Creatinine (0.52-1.04) mg/dL Estimated GFR (>60) mL/min BUN/Creatinine Ratio (6-22) Glucose (80-110) mg/dL Lactate (0.7-2.1) mmol/L Calcium (8.4-10.2) mg/dL Total Bilirubin (0.2-1.3) mg/dL AST (14-36) IU/L ALT (<35) IU/L Alkaline Phosphatase (38-126) U/L Total Creatine Kinase (30-135) U/L CK-MB (CK-2) CK-MB (CK-2) Rel Index Troponin I (0.01-0.034) ng/mL NT-Pro-B Natriuret Pep (<125) pg/mL Total Protein (6.3-8.2) g/dL Albumin (3.5-5.0) g/dL Globulin (1.7-4.1) g/dL Albumin/Globulin Ratio (1.0-2.8) Lipase (23-300) U/L Procalcitonin (<0.5) ng/mL Chlamy pneumoniae PCR (Not Detect) Adenovirus (PCR) (Not Detect) B. pertussis DNA (PCR) (Not Detecte) B.parapertussis DNA PCR (Not Detecte) Coronavirus OC43 (PCR) (Not Detect) Coronavirus HKU1 (PCR) (Not Detect) Coronavirus 229E (PCR) (Not Detect) SARS-CoV-2 (PCR) (Not Detecte) Coronavirus NL63 (PCR) (Not Detect) Human Metapneumovir PCR (Not Detect) Influenza Type A (PCR) (Not Detect) Influenza Type B (PCR) (Not Detect) M. pneumoniae (PCR) (Not Detect) Parainfluenza 1 (PCR) (Not Detect) Parainfluenza 2 (PCR) (Not Detect) Parainfluenza 3 (PCR) (Not Detect) Parainfluenza 4 (PCR) (Not Detect) RSV (PCR) (Not Detect) Entero/Rhino (PCR) (Not Detect) Imaging Data CT scan - chest: Radiologist's Impression: 23 1 Jatinder Mcgrath, [facility] Routine Call Back Main ED ?7? My List ?8? Waiting ?0? Surge ED ?0? R02? Arreola? Joan? 33 F? With Doctor? 2h 23m? 2-Emergent? ?? Chest Pain? chest pain, has a pacemaker? ?? 08/01/21 21:13? REG ER? Draft? Jatinder Prado interrogation done BS 2229 Order BP 114/66 Pulse 67 Resp Temp O2 Sat 99% ?Chem Lipase Sta... ?Complete B... Troponin &... Imaging MAR EKG-12 Raisa... Cardiac mo... R04? Michael? Juliet? 61 F? With Doctor? 3h 40m? 2-Emergent? ?? Shortness of Breath/Dyspnea? PAIN LOWER BACK SOB? C19S/S? 08/01/21 19:50? REG ER? Draft? Jatinder Prado ? Order BP 123/57 Pulse 92 Resp Temp O2 Sat 97% ?Complete B... ?Chem Procalcito... ?D Dimer St... Lipase Sta... NT-proBNP ... ?Troponin &... Respirator... ?Arterial B... Imaging MAR EKG-12 Raisa... Cardiac mo... R06? Wesley? Anderson? 84 M? Admitted Patient? 1h 39m? 3-Urgent? ?? Extremity Injury, Lower? rt hip fracture? ?? 08/01/21 21:46? ADM IN? Draft? Jatinder Mcgrath John J Room 215, Iman Order BP 198/86 Pulse 72 Resp 14 Temp O2 Sat 96% COVID19 -N... ?Chem ?Complete B... MAR NPO Diet Education,... Code Statu... Admit as R... Complete B... Complete B... Complete B... Complete B... Complete B... Complete B... Complete B... Complete B... Complete B... Chem Chem Chem Chem Chem Chem Chem Chem Chem Consult to... Consult to... Consult to... Consult to... R08? Norbert? Iman? 66 F? With Doctor? 43m? 2-Emergent? ?? Shortness of Breath/Dyspnea? covid +, retaining fluids, lung congestion? Sepsis, [id number], C19S/S? 08/01/21 22:50? REG ER? Draft? Jatinder Mcgrath Order BP 148/67 Pulse 94 Resp 22 Temp 98.1 F O2 Sat 100% (RA) ?Complete B... Chem Measure pe... RT Consult... Lactate (L... EKG-12 Raisa... Cardiac mo... Imaging Troponin &... NT-proBNP ... C-Reactive... D Dimer St... Ferritin S... Lactate De... R10? Mike? Roseanna? 79 F? In Room? 1h 8m? 4-Less Urgent? ?? Back Pain/Injury? Fall? ?? 08/01/21 22:24? REG ER? Draft? Jatinder Alonso Karen Order BP 176/89 Pulse 83 Resp 22 Temp 99.0 F O2 Sat 100% (RA) Imaging R12? Marko? Topher? 73 M? With Doctor? 5h 47m? 2-Emergent? ?? Shortness of Breath/Dyspnea? difficulty breathing? C19S/S? 08/01/21 18:05? REG ER? Draft? Jatinder Jones ? Order BP 178/87 Pulse 63 Resp Temp O2 Sat ?Chem Lactate (L... Magnesium ... ?Complete B... Procalcito... ?Troponin &... Imaging COVID19 -N... ?NT-proBNP ... MAR Consult to... EKG-12 Raisa... Cardiac mo... Microbiolo... POC/QASIM Young? Reno? 40 M? Admitted Patient? 2h 15m? 3-Urgent? ?? Extremity Problem,Nontraumatic? rt leg is unable to bear weight? ISO? 08/01/21 21:46? ADM IN? Draft? Jatinder Jones need Clinic Impress Order BP 125/65 Pulse 114 Resp Temp O2 Sat 92% ?Chem ?Erythrocyt... Lactate (L... ?Complete B... Imaging COVID19 -N... MAR C-Reactive... Microbiolo... POC/QASIM Chem Code Statu... Admit as R... Heart Heal... Complete B... Imaging - CT angio chest PE protocol; XR chest 1V; XR lumbar spine 2-3V Juliet Rodriguez??61??F??1960 ? Allergy/Adv: marijuana, methadone (More??) Close Results Imaging ACTIVITY DATE EXAM STATUS AUTHOR 08/01/21 21:40 Chest CTA Signed Megha Urias 08/01/21 19:54 Chest X-Ray Signed Megha Urias 08/01/21 19:54 Lumbar Spine X-Ray Signed Megah Urias Imaging Reports Close Chest CTA (Signed) Megha Urias - 08/01/21 Chest X-Ray (Signed) Megha Urias - 08/01/21 Lumbar Spine X-Ray (Signed) Megha Urias - 08/01/21 Launch?[address] [address] [address] Scan Report Signed Patient: Juliet Rodriguez MR#: [id number] : 1960 Acct:[id number] Age/Sex: 61 / F Date of Service: 08/01/21 Loc: ED Accession Number: [id number] ?? Procedure: CT angio chest PE protocol Ordering Provider: Jatinder Mcgrath D.O. PROCEDURE:? CT ANGIO CHEST PE PROTOCOL ? INDICATIONS:? hypoxemia, shortness of breath, critical dimer ? TECHNIQUE:? After the administration of intravenous contrast, 2 mm thick sections acquired from the pulmonary apices to the posterior costophrenic angles.? 3-dimensional maximum intensity projection (MIP) coronal and sagittal reformats were then acquired through the thorax.? For radiation dose reduction, the following was used:? automated exposure control, adjustment of mA and/or kV according to patient size.? ? COMPARISON:? [facility], CT, CT CHEST WO CON, 06/27/2021, 17:25.? [facility], CR, XR CHEST 1V, 08/01/2021, 20:04. ? FINDINGS:? Image quality:? Excellent.? ? Pulmonary arteries:? The main pulmonary artery is enlarged measuring 4.2 cm.? No filling defects are identified. ? Lungs and pleura:? There are diffuse chronic interstitial changes which demonstrate superimposed areas of opacity when compared to more remote prior chest x-rays.? The C6 superimposed ground-glass opacities present on the 06/27/2021 CT chest have improved although incompletely resolved. ? Mediastinum:? Heart size is mildly enlarged, without pericardial effusion.? No mediastinal or hilar adenopathy.? Thoracic aorta is normal in caliber and enhancement.? Esophagus is normal in caliber, without hiatal hernia.? ? Bones and chest wall:? No suspicious bony lesions.? Ribs and thoracic spine appear intact throughout.? Thyroid gland demonstrates heterogeneous focus of low attenuation and calcification within the left lobe, unchanged.? No axillary or supraclavicular adenopathy.? ? Abdomen:? Visualized upper abdominal solid organs appear normal in the early arterial phase of enhancement.? ? IMPRESSION:? ? Acute on chronic airspace disease, with acute component improved although incompletely resolved compared to 06/27/2021. ? No pulmonary embolism. ? Enlargement of the main pulmonary artery most consistent with pulmonary artery hypertension. ? Heterogeneous low attenuation and calcification within the left thyroid lobe, unchanged.? This may represent adenoma or cyst.? Thyroid ultrasound may be obtained as clinically indicated for further evaluation. ? ? Dictated by: Megha Urias M.D. on 08/01/2021 at 22:57 ? ? Approved by: Megha Urias M.D. on 08/01/2021 at 23:12 ? MDM Narrative Medical decision making narrative: Patient with multiple comorbidities presents with chest pain, increasing respiratory difficulties and back pain. She is found to have initial requirements of 4 L by nasal cannula and after the ABG notes increased CO2 retention she is placed on BiPAP. Imaging suggests a bilateral pneumonia which has progressed since prior imaging. She does have a critically elevated D-dimer but does not demonstrate any central pulmonary embolism. She has had chills but no fever. Her elevated white blood cell count likely in part to bilateral pneumonia, additionally patient has been on a steroid taper. She requires hospitalization for ongoing management and stabilization of her condition Discharge Plan Departure Patient Disposition: Admitted As Inpatient Clinical Impression: Pneumonia, Acute hypercapnic respiratory failure, Acute hypoxemic respiratory failure
[2021-08-01 20:22] LABS: Add Manual Diff / Slide Review NO; Basophils Absolute Auto 100 /uL (0-100); Basophils Percent Auto 0.6 % (0-2); Eosinophils Absolute Auto 200 /uL (0-450); Eosinophils Percent Auto 1.1 % (2-4); Hematocrit 35.2 % (36-46); Hemoglobin 11.2 g/dL (12.0-16.0); Lymphocytes Absolute Auto 700 /uL (1100-4500); Lymphocytes Percent Auto 3.8 % (25-40); Mean Corpuscular HGB Conc 31.9 % (30-36); Mean Corpuscular Hemoglobin 23.5 PG (26-34); Mean Corpuscular Volume 73.7 fL (80-100); Monocytes Absolute Auto 500 /uL (0-900); Monocytes Percent Auto 2.3 % (3-14); Neutrophils Absolute Auto 18100 /uL (1500-7000); Neutrophils Percent Auto 92.2 % (50-75); Platelet Count 350 X10^3/uL (150-400); Red Blood Cell Count 4.78 X10^6/uL (4.0-5.2); Red Cell Distribution Width 18.1 % (11.6-14.8); White Blood Cell Count 19.7 X10^3/uL (4.5-11.0)
[2021-08-01] MEDS: SODIUM CHLORIDE 0.9% 1,000 ML 150 ML IV (20:31)
[2021-08-01 20:34] LABS: Alanine Aminotransferase 11 IU/L (<35); Albumin 3.6 g/dL (3.5-5.0); Albumin Globulin Ratio 1.1 (1.0-2.8); Alkaline Phosphatase 137 U/L (38-126); Aspartate Aminotransferase 15 IU/L (14-36); BUN Creatinine Ratio 22.9 (6-22); Bilirubin Total 0.3 mg/dL (0.2-1.3); Blood Urea Nitrogen 16 mg/dL (7-17); Calcium 9.4 mg/dL (8.4-10.2); Chloride 96 mmol/L (98-107); Creatine Kinase < 20 U/L (30-135); Estimated Glomerular Filt Rate > 60.0 mL/min (>60); Globulin 3.2 g/dL (1.7-4.1); Glucose 174 mg/dL (80-110); HEMOLYSIS < 15 (0-50); Lipase 33 U/L (23-300); Potassium 3.6 mmol/L (3.4-5.1); Sodium 139 mmol/L (137-145); Total Protein 6.8 g/dL (6.3-8.2)
[2021-08-01 20:46] LABS: NT-proBNP (BNP-Adult 18+) 93 pg/mL (<125); Troponin I < 0.012 ng/mL (0.01-0.034)
[2021-08-01 20:47] LABS: Carbon Dioxide 44 mmol/L (22-32)
[2021-08-01 20:50] LABS: Procalcitonin 0.12 ng/mL (<0.5)
[2021-08-01 21:07] LABS: D Dimer 1869 ng/mL (<230)
[2021-08-01 21:31] LABS: HCO3 ABG 41 mmol/L (22-26); PCO2 ABG 85.1 mmHg (35-45); PO2 ABG 105 mmHg (80-100); pH ABG 7.29 (7.35-7.45)
[2021-08-01 21:32] LABS: Fractionated Inspired Oxygen 28; Oxygen Saturation ABG 97 % (95-100); TCO2 ABG 44 mmol/L (21-31)
--- NOTE | 2021-08-01 21:40 | DI.CT.S_ITS ---
PROCEDURE: CT ANGIO CHEST PE PROTOCOL INDICATIONS: hypoxemia, shortness of breath, critical dimer TECHNIQUE: After the administration of intravenous contrast, 2 mm thick sections acquired from the pulmonary apices to the posterior costophrenic angles. 3-dimensional maximum intensity projection (MIP) coronal and sagittal reformats were then acquired through the thorax. For radiation dose reduction, the following was used: automated exposure control, adjustment of mA and/or kV according to patient size. COMPARISON: [facility], CT, CT CHEST WO CON, 06/27/2021, 17:25. [facility], CR, XR CHEST 1V, 08/01/2021, 20:04. FINDINGS: Image quality: Excellent. Pulmonary arteries: The main pulmonary artery is enlarged measuring 4.2 cm. No filling defects are identified. Lungs and pleura: There are diffuse chronic interstitial changes which demonstrate superimposed areas of opacity when compared to more remote prior chest x-rays. The C6 superimposed ground-glass opacities present on the 06/27/2021 CT chest have improved although incompletely resolved. Mediastinum: Heart size is mildly enlarged, without pericardial effusion. No mediastinal or hilar adenopathy. Thoracic aorta is normal in caliber and enhancement. Esophagus is normal in caliber, without hiatal hernia. Bones and chest wall: No suspicious bony lesions. Ribs and thoracic spine appear intact throughout. Thyroid gland demonstrates heterogeneous focus of low attenuation and calcification within the left lobe, unchanged. No axillary or supraclavicular adenopathy. Abdomen: Visualized upper abdominal solid organs appear normal in the early arterial phase of enhancement. IMPRESSION: Acute on chronic airspace disease, with acute component improved although incompletely resolved compared to 06/27/2021. No pulmonary embolism. Enlargement of the main pulmonary artery most consistent with pulmonary artery hypertension. Heterogeneous low attenuation and calcification within the left thyroid lobe, unchanged. This may represent adenoma or cyst. Thyroid ultrasound may be obtained as clinically indicated for further evaluation. Dictated by: Megha Urias M.D. on 08/01/2021 at 22:57 Approved by: Megha Urias M.D. on 08/01/2021 at 23:12
[2021-08-01 22:07] LABS: Adenovirus Not Detected (Not Detect); B. parapertussis Not Detected (Not Detecte); Bordetella pertussis Not Detected (Not Detecte); Chlamydophila pneumoniae Not Detected (Not Detect); Coronavirus 229E Not Detected (Not Detect); Coronavirus HKU1 Not Detected (Not Detect); Coronavirus NL 63 Not Detected (Not Detect); Coronavirus OC43 Not Detected (Not Detect); Human Metapneumovirus Not Detected (Not Detect); Human Rhinovirus/Enterovirus Not Detected (Not Detect); Influenza A Not Detected (Not Detect); Influenza B Not Detected (Not Detect); Mycoplasma pneumoniae Not Detected (Not Detect); Parainfluenza Virus 1 Not Detected (Not Detect); Parainfluenza Virus 2 Not Detected (Not Detect); Parainfluenza Virus 3 Not Detected (Not Detect); Parainfluenza Virus 4 Not Detected (Not Detect); Respiratory Syncytial Virus Not Detected (Not Detect); SARS- CoV-2 Not Detected (Not Detecte)
[2021-08-02] VITALS (30 sets, daily range): BP systolic 86–125; BP diastolic 47–64; PULSE 79–98; RESP 18–37; TEMP 31–36.6; O2SAT 88–100; BMI 25.3
[2021-08-02] MEDS: PIPERACILLIN/TAZO 4.5 GM in SODIUM CHLORIDE 0.9% 100 ML 200 ML IV (00:23)
[2021-08-02 03:19] LABS: Fractionated Inspired Oxygen 30; HCO3 ABG 40 mmol/L (22-26); Oxygen Saturation ABG 94 % (95-100); PO2 ABG 86 mmHg (80-100); TCO2 ABG 42 mmol/L (21-31); pH ABG 7.29 (7.35-7.45)
[2021-08-02] MEDS: AZITHROMYCIN 500 MG in DEXTROSE 5% IN WATER 250 ML IV (03:36)
[2021-08-02] MEDS: predniSONE 20 MG TABLET 40 MG PO (03:38)
--- NOTE | 2021-08-02 03:48 | PM.CN.EICU ---
History of Present Illness Consult details Chief complaint: PAIN LOWER BACK SOB :: This patient was seen via real time interactive two-way audiovisual telecommunication. Narrative: Patient is a 61 year old female with history of COPD, CHF, and ILD presents with worsening shortness of breath and cough. In ER, ABG -> 7. patient was found to be less responsive but arousable. CXR showed diffuse bilateral reticular/airspace disease. She was placed on BiPAP and boarded in the ER for ICU admission. Of note, patient was recently admitted for similar presentation which was contributed to COPD exacerbation and pneumonia. She was discharged home on 07/03/21 with a steroids taper. [facility] Medical History Chronic obstructive pulmonary disease Congestive heart failure Ocular lymphoma Social History household members: family Smoking Status: Current every day smoker alcohol intake: current Current Medications Current Medications Medications: Home Medications spironolactone 25 mg tablet 12.5 mg PO DAILY 05/23/21 [History Confirmed 05/23/21] aspirin 81 mg tablet,delayed release 81 mg PO DAILY #60 tab 05/25/21 [Rx Confirmed 06/27/21] famotidine 40 mg tablet 40 mg PO BID #60 tab 05/25/21 [Rx Confirmed 06/27/21] ipratropium 0.5 mg-albuterol 3 mg (2.5 mg base)/3 mL nebulization soln 3 ml INHALATION Q4-6H PRN #90 ml 05/25/21 [Rx Confirmed 06/27/21] sucralfate 1 gram tablet 1 gm PO ACHS #120 tab 05/25/21 [Rx Confirmed 06/27/21] tiotropium bromide 18 mcg capsule with inhalation device (Spiriva with HandiHaler) 1 cap INHALATION DAILY #90 inh 05/25/21 [Rx Confirmed 06/27/21] Thera-M Or 1 tab PO DAILY 06/27/21 [History Confirmed 06/27/21] albuterol sulfate 90 mcg/actuation breath activated powder inhaler (ProAir RespiClick) 2 inh INHALATION Q4-6H PRN 06/27/21 [History Confirmed 06/27/21] lorazepam 2 mg/mL injection solution (Ativan) 2.5 mg SUBLINGUAL DAILY PRN 06/27/21 [History Confirmed 06/27/21] acetazolamide 250 mg tablet 250 mg PO BID #60 tab 07/04/21 [Rx] ascorbic acid (vitamin C) 500 mg tablet (Vitamin C) 500 mg PO BID #60 tab 07/04/21 [Rx] benzonatate 100 mg capsule 100 mg PO TID PRN #30 cap 07/04/21 [Rx] cefdinir 300 mg capsule 300 mg PO BID #20 cap 07/04/21 [Rx] cholecalciferol (vitamin D3) 25 mcg (1,000 unit) tablet 1,000 unit PO DAILY #30 tab 07/04/21 [Rx] doxycycline hyclate 100 mg tablet 100 mg PO BID #20 tab 07/04/21 [Rx] gabapentin 100 mg capsule 100 mg PO TID #90 cap 07/04/21 [Rx] ipratropium 0.5 mg-albuterol 3 mg (2.5 mg base)/3 mL nebulization soln 3 ml INH [id number] #90 ml 07/04/21 [Rx] melatonin 10 mg tablet 10 mg PO BEDTIME #30 tab 07/04/21 [Rx] prednisone 10 mg tablet 10 mg PO DIRECTED #60 tab 07/04/21 [Rx] torsemide 10 mg tablet 10 mg PO DAILY #30 tab 07/04/21 [Rx] trazodone 50 mg tablet 50 mg PO BEDTIME #30 tab 07/04/21 [Rx] Visit Medications (administered) Generic Name Dose Route Start Last Admin Trade Name Freq PRN Reason Stop Dose Admin Sodium Chloride 1,000 mls @ 150 mls/hr 08/01/21 20:00 08/01/21 20:31 Normal Saline 0.9% IV 150 mls/hr CONT DANYELL Administration Azithromycin 500 mg/ Dextrose 250 mls @ 250 mls/hr 08/02/21 03:00 08/02/21 03:36 IV 250 mls/hr Q24H DANYELL Administration Exam Vital Signs (past 8 hours): - 08/01/21 19:53 08/01/21 20:36 08/01/21 21:00 Temperature 98.4 F Pulse Rate 95 H 93 H 94 H Respiratory Rate 22 Blood Pressure 108/54 L 110/55 L Pulse Oximetry 88 L 97 95 08/01/21 21:30 08/01/21 22:01 08/01/21 22:08 Temperature Pulse Rate 91 H 94 H 92 H Respiratory Rate Blood Pressure 98/53 L 123/57 L Pulse Oximetry 96 97 97 08/01/21 22:30 08/01/21 23:00 08/01/21 23:05 Temperature Pulse Rate 95 H 89 89 Respiratory Rate 22 24 Blood Pressure 141/63 H 94/46 L 113/58 L Pulse Oximetry 94 97 97 08/01/21 23:30 08/01/21 23:54 08/02/21 00:00 Temperature Pulse Rate 86 87 Respiratory Rate 20 25 H Blood Pressure 106/52 L 106/52 L 103/53 L Pulse Oximetry 97 96 08/02/21 00:30 08/02/21 00:42 08/02/21 00:44 Temperature Pulse Rate 86 83 83 Respiratory Rate 27 H 29 H 21 Blood Pressure 125/56 L 97/48 L 99/53 L Pulse Oximetry 95 96 95 08/02/21 01:00 08/02/21 01:30 08/02/21 02:00 Temperature Pulse Rate 82 83 83 Respiratory Rate 20 24 29 H Blood Pressure 91/47 L 96/50 L 104/57 L Pulse Oximetry 96 88 L 98 08/02/21 03:10 Temperature Pulse Rate Respiratory Rate Blood Pressure 110/64 Pulse Oximetry Fraction of Inspired Oxygen 30 Oxygen Delivery Method BiPAP Oxygen Flow Rate 2 Objective Labs Result Diagrams: 08/01/21 20:10 08/01/21 20:10 Labs: Laboratory Results - last 24 hr 08/01/21 08/01/21 08/01/21 20:10 20:10 20:10 WBC 19.7 H RBC 4.78 Hgb 11.2 L Hct 35.2 L MCV 73.7 L MCH 23.5 L MCHC 31.9 RDW 18.1 H Plt Count 350 Neut % (Auto) 92.2 H Lymph % (Auto) 3.8 L [place] % (Auto) 2.3 L Eos % (Auto) 1.1 L Baso % (Auto) 0.6 Neut # (Auto) 90663 H Lymph # (Auto) 700 L [place] # (Auto) 500 Eos # (Auto) 200 Baso # (Auto) 100 D-Dimer 1869 H ABG pH ABG pCO2 ABG pO2 ABG HCO3 ABG Total CO2 ABG O2 Saturation ABG Base Excess FiO2 Sodium 139 Potassium 3.6 Chloride 96 L Carbon Dioxide 44 H* BUN 16 Creatinine 0.70 Estimated GFR > 60.0 BUN/Creatinine Ratio 22.9 H Glucose 174 H Calcium 9.4 Total Bilirubin 0.3 AST 15 ALT 11 Alkaline Phosphatase 137 H Total Creatine Kinase < 20 L CK-MB (CK-2) TNP CK-MB (CK-2) Rel Index TNP Troponin I < 0.012 NT-Pro-B Natriuret Pep 93 Total Protein 6.8 Albumin 3.6 Globulin 3.2 Albumin/Globulin Ratio 1.1 Lipase 33 Procalcitonin 0.12 Chlamy pneumoniae PCR Adenovirus (PCR) B. pertussis DNA (PCR) B.parapertussis DNA PCR Coronavirus OC43 (PCR) Coronavirus HKU1 (PCR) Coronavirus 229E (PCR) SARS-CoV-2 (PCR) Coronavirus NL63 (PCR) Human Metapneumovir PCR Influenza Type A (PCR) Influenza Type B (PCR) M. pneumoniae (PCR) Parainfluenza 1 (PCR) Parainfluenza 2 (PCR) Parainfluenza 3 (PCR) Parainfluenza 4 (PCR) RSV (PCR) Entero/Rhino (PCR) 08/01/21 08/01/21 08/02/21 20:48 21:05 03:04 WBC RBC Hgb Hct MCV MCH MCHC RDW Plt Count Neut % (Auto) Lymph % (Auto) [place] % (Auto) Eos % (Auto) Baso % (Auto) Neut # (Auto) Lymph # (Auto) [place] # (Auto) Eos # (Auto) Baso # (Auto) D-Dimer ABG pH 7.29 L* 7.29 L* ABG pCO2 85.1 H* 83.0 H* ABG pO2 105 H 86 ABG HCO3 41 H 40 H ABG Total CO2 44 H 42 H ABG O2 Saturation 97 94 L ABG Base Excess 15.0 H 13.0 H FiO2 28 30 Sodium Potassium Chloride Carbon Dioxide BUN Creatinine Estimated GFR BUN/Creatinine Ratio Glucose Calcium Total Bilirubin AST ALT Alkaline Phosphatase Total Creatine Kinase CK-MB (CK-2) CK-MB (CK-2) Rel Index Troponin I NT-Pro-B Natriuret Pep Total Protein Albumin Globulin Albumin/Globulin Ratio Lipase Procalcitonin Chlamy pneumoniae PCR Not detected Adenovirus (PCR) Not detected B. pertussis DNA (PCR) Not detected B.parapertussis DNA PCR Not detected Coronavirus OC43 (PCR) Not detected Coronavirus HKU1 (PCR) Not detected Coronavirus 229E (PCR) Not detected SARS-CoV-2 (PCR) Not detected Coronavirus NL63 (PCR) Not detected Human Metapneumovir PCR Not detected Influenza Type A (PCR) Not detected Influenza Type B (PCR) Not detected M. pneumoniae (PCR) Not detected Parainfluenza 1 (PCR) Not detected Parainfluenza 2 (PCR) Not detected Parainfluenza 3 (PCR) Not detected Parainfluenza 4 (PCR) Not detected RSV (PCR) Not detected Entero/Rhino (PCR) Not detected Assessment & Plan Assessment & Plan narrative: RESP: # Chronic respiratory hypoxemia/hypercarbia failure -- Secondary to severe V/Q mismatch due to pneumonia with superimposed pulmonary edema vs. ILD flare. Other contributing factors include COPD exacerbation.? -- On BiPAP 20/7 FiO2 30% -- Recommend solumedrol 60 mg IV q6hr and abx as below -- Recommend gentle diuresis with diamox 250 mg PO BID X 2 to avoid worsening contraction alkalosis which can causes worsening V/Q mismatch -- HOB elevation -- Aspiration precaution -- Goal SpO2 > 88% to avoid hyperoxia blunting respiratory drive # COPD exacerbation -- Recommend solumedrol 60 IV q6hr -- Cont duoneb every 4 hours CVS: # Chronic decompensated CHF -- Recommend gentle diuresis to seek net negative fluid balance -- STrict I/O -- Fluid restriction <1.5 liters : # Contraction alkalosis -- 2/2 to renal compensation due to chronic hypercarbia -- Cont diuresis as above -- Recommend diamox 250 mg PO BID X 2 doses ID: # Pneumonia -- Secondary to PNA w/ risk factors for MDR given recent hospitalization -- Recommend starting vanc/cefepime -- Check resp cx -- Follow up cx data ENDO: -- Goal BS < 180 Time Spent With Patient Critical Care time: I spent a total of [] minutes of critical care time on this patient's care today; this time is exclusive of procedural time.
[2021-08-02 03:56] LABS: Lactate (Lactic Acid) 1.6 mmol/L (0.7-2.1)
[2021-08-02 04:19] LABS: pH ABG 7.29 (7.35-7.45)
--- NOTE | 2021-08-02 04:19 | PM.HP.1 ---
History of Present Illness History of Present Illness Date Patient Seen: 08/02/21 Time Patient Seen: 03:30 Chief complaint: PAIN LOWER BACK SOB Narrative: Ms. Rodriguez is a 61W with PMH COPD, CHF on home O2, pAfib, recent diagnosis of ocular lymphoma, multiple recent hospitalizations who presents with shortness of breath. Of note she has recently moved to [facility]. She had previously lived in [place] and had been per report on hospice. She had a workup for abnormal lung findings in [place] which required lung biopsy, but per her report said no malignancy, but she did not know etiology of lung biopsy. There had been some concern when she was transferred to [facility] for concern for ocular lymphoma, that she may have had sarcoid. Her most recent admission she was noted to have a possible pneumonia. She was discharged with a prednisone taper and had possibly been on 5-10mg of prednisone. She comes in not able to state much of her symptoms. She does note primarily shortness of breath, mild cough, mild chest discomfort. Otherwise history is very difficult to obtain. She has been vaccinated against COVID. She has no abdominal pain, nausea, vomiting. In the ED workup was done, vitals notable for temp of 98.4, hr 95, rr 22, sats 88%. Labs notable for WBC 19.7, hgb 11.2, inr 1.2. CO2 44. COVID negative. ABG ph 7.29, pco2 85, pao2 105. Lactate 1.6. Procalcitonin 0.12. Chest xray showed bilateral pulmonary opacities. CTA of chest showed no PE, and enlarged pulmonary artery. She was placed on BIPAP. She did not have significant improvement in her pco2 with increasing her rate. She was ordered for IV antibiotics and diamox and admitted for further treatment. Patient History Medical History Chronic obstructive pulmonary disease Congestive heart failure Ocular lymphoma Family & Social History Social History: household members family Tobacco & Substance use: Tobacco type cigarettes Smoking Status Current every day smoker alcohol intake current alcohol intake frequency holiday/special occasion Substance Use Type does not use Meds Home Medications and Allergies Home Medications Medication Instructions Recorded Confirmed Type spironolactone 25 mg tablet 12.5 mg PO DAILY 05/23/21 05/23/21 History aspirin 81 mg tablet,delayed 81 mg PO DAILY #60 tab 05/25/21 06/27/21 Rx release famotidine 40 mg tablet 40 mg PO BID #60 tab 05/25/21 06/27/21 Rx ipratropium 0.5 mg-albuterol 3 mg 3 ml INHALATION Q4-6H PRN #90 ml 05/25/21 06/27/21 Rx (2.5 mg base)/3 mL nebulization soln sucralfate 1 gram tablet 1 gm PO ACHS #120 tab 05/25/21 06/27/21 Rx tiotropium bromide 18 mcg capsule 1 cap INHALATION DAILY #90 inh 05/25/21 06/27/21 Rx with inhalation device (Spiriva with HandiHaler) Thera-M Or 1 tab PO DAILY 06/27/21 06/27/21 History albuterol sulfate 90 mcg/actuation 2 inh INHALATION Q4-6H PRN 06/27/21 06/27/21 History breath activated powder inhaler (ProAir RespiClick) lorazepam 2 mg/mL injection 2.5 mg SUBLINGUAL DAILY PRN 06/27/21 06/27/21 History solution (Ativan) acetazolamide 250 mg tablet 250 mg PO BID #60 tab 07/04/21 Rx ascorbic acid (vitamin C) 500 mg 500 mg PO BID #60 tab 07/04/21 Rx tablet (Vitamin C) benzonatate 100 mg capsule 100 mg PO TID PRN #30 cap 07/04/21 Rx cefdinir 300 mg capsule 300 mg PO BID #20 cap 07/04/21 Rx cholecalciferol (vitamin D3) 25 1,000 unit PO DAILY #30 tab 07/04/21 Rx mcg (1,000 unit) tablet doxycycline hyclate 100 mg tablet 100 mg PO BID #20 tab 07/04/21 Rx gabapentin 100 mg capsule 100 mg PO TID #90 cap 07/04/21 Rx ipratropium 0.5 mg-albuterol 3 mg 3 ml INH [id number] #90 ml 07/04/21 Rx (2.5 mg base)/3 mL nebulization soln melatonin 10 mg tablet 10 mg PO BEDTIME #30 tab 07/04/21 Rx prednisone 10 mg tablet 10 mg PO DIRECTED #60 tab 07/04/21 Rx torsemide 10 mg tablet 10 mg PO DAILY #30 tab 07/04/21 Rx trazodone 50 mg tablet 50 mg PO BEDTIME #30 tab 07/04/21 Rx Allergies Allergy/AdvReac Type Severity Reaction Status Date / Time marijuana Allergy Severe Vomiting Verified 06/27/21 13:17 methadone Allergy Severe Vomiting Verified 06/27/21 13:17 Review of Systems Review of Systems Narrative: 14 systems reviewed and negative aside from what is noted in HPI Exam Vital Signs (past 8 hours): - 08/01/21 20:36 08/01/21 21:00 08/01/21 21:30 Pulse Rate 93 H 94 H 91 H Respiratory Rate Blood Pressure 110/55 L 98/53 L Pulse Oximetry 97 95 96 08/01/21 22:01 08/01/21 22:08 08/01/21 22:30 Pulse Rate 94 H 92 H 95 H Respiratory Rate Blood Pressure 123/57 L 141/63 H Pulse Oximetry 97 97 94 08/01/21 23:00 08/01/21 23:05 08/01/21 23:30 Pulse Rate 89 89 86 Respiratory Rate 22 24 20 Blood Pressure 94/46 L 113/58 L 106/52 L Pulse Oximetry 97 97 97 08/01/21 23:54 08/02/21 00:00 08/02/21 00:30 Pulse Rate 87 86 Respiratory Rate 25 H 27 H Blood Pressure 106/52 L 103/53 L 125/56 L Pulse Oximetry 96 95 08/02/21 00:42 08/02/21 00:44 08/02/21 01:00 Pulse Rate 83 83 82 Respiratory Rate 29 H 21 20 Blood Pressure 97/48 L 99/53 L 91/47 L Pulse Oximetry 96 95 96 08/02/21 01:30 08/02/21 02:00 08/02/21 03:10 Pulse Rate 83 83 Respiratory Rate 24 29 H Blood Pressure 96/50 L 104/57 L 110/64 Pulse Oximetry 88 L 98 Fraction of Inspired Oxygen 30 Oxygen Delivery Method BiPAP Oxygen Flow Rate 2 Narrative Exam Narrative: GEN: sleepy, but arousable to voice, following commands HEENT: moist mucous membranes, PERRL NECK: no JVD, trachea midline CV: irregular, no murmurs PULM: coarse breath sounds, rhonchi on left, on BIPAP ABD: soft, nontender, nondistended, no organomegaly, normal bowel sounds EXT: warm and well perfused with no edema NEURO: no focal deficits Objective Labs Result Diagrams: 08/01/21 20:10 08/01/21 20:10 Labs: Laboratory Results - last 24 hr 08/01/21 08/01/21 08/01/21 20:10 20:10 20:10 WBC 19.7 H RBC 4.78 Hgb 11.2 L Hct 35.2 L MCV 73.7 L MCH 23.5 L MCHC 31.9 RDW 18.1 H Plt Count 350 Neut % (Auto) 92.2 H Lymph % (Auto) 3.8 L [place] % (Auto) 2.3 L Eos % (Auto) 1.1 L Baso % (Auto) 0.6 Neut # (Auto) 09289 H Lymph # (Auto) 700 L [place] # (Auto) 500 Eos # (Auto) 200 Baso # (Auto) 100 D-Dimer 1869 H ABG pH ABG pCO2 ABG pO2 ABG HCO3 ABG Total CO2 ABG O2 Saturation ABG Base Excess FiO2 Sodium 139 Potassium 3.6 Chloride 96 L Carbon Dioxide 44 H* BUN 16 Creatinine 0.70 Estimated GFR > 60.0 BUN/Creatinine Ratio 22.9 H Glucose 174 H Lactate Calcium 9.4 Total Bilirubin 0.3 AST 15 ALT 11 Alkaline Phosphatase 137 H Total Creatine Kinase < 20 L CK-MB (CK-2) TNP CK-MB (CK-2) Rel Index TNP Troponin I < 0.012 NT-Pro-B Natriuret Pep 93 Total Protein 6.8 Albumin 3.6 Globulin 3.2 Albumin/Globulin Ratio 1.1 Lipase 33 Procalcitonin 0.12 Chlamy pneumoniae PCR Adenovirus (PCR) B. pertussis DNA (PCR) B.parapertussis DNA PCR Coronavirus OC43 (PCR) Coronavirus HKU1 (PCR) Coronavirus 229E (PCR) SARS-CoV-2 (PCR) Coronavirus NL63 (PCR) Human Metapneumovir PCR Influenza Type A (PCR) Influenza Type B (PCR) M. pneumoniae (PCR) Parainfluenza 1 (PCR) Parainfluenza 2 (PCR) Parainfluenza 3 (PCR) Parainfluenza 4 (PCR) RSV (PCR) Entero/Rhino (PCR) 08/01/21 08/01/21 08/01/21 20:10 20:48 21:05 WBC RBC Hgb Hct MCV MCH MCHC RDW Plt Count Neut % (Auto) Lymph % (Auto) [place] % (Auto) Eos % (Auto) Baso % (Auto) Neut # (Auto) Lymph # (Auto) [place] # (Auto) Eos # (Auto) Baso # (Auto) D-Dimer ABG pH 7.29 L* ABG pCO2 85.1 H* ABG pO2 105 H ABG HCO3 41 H ABG Total CO2 44 H ABG O2 Saturation 97 ABG Base Excess 15.0 H FiO2 28 Sodium Potassium Chloride Carbon Dioxide BUN Creatinine Estimated GFR BUN/Creatinine Ratio Glucose Lactate 1.6 Calcium Total Bilirubin AST ALT Alkaline Phosphatase Total Creatine Kinase CK-MB (CK-2) CK-MB (CK-2) Rel Index Troponin I NT-Pro-B Natriuret Pep Total Protein Albumin Globulin Albumin/Globulin Ratio Lipase Procalcitonin Chlamy pneumoniae PCR Not detected Adenovirus (PCR) Not detected B. pertussis DNA (PCR) Not detected B.parapertussis DNA PCR Not detected Coronavirus OC43 (PCR) Not detected Coronavirus HKU1 (PCR) Not detected Coronavirus 229E (PCR) Not detected SARS-CoV-2 (PCR) Not detected Coronavirus NL63 (PCR) Not detected Human Metapneumovir PCR Not detected Influenza Type A (PCR) Not detected Influenza Type B (PCR) Not detected M. pneumoniae (PCR) Not detected Parainfluenza 1 (PCR) Not detected Parainfluenza 2 (PCR) Not detected Parainfluenza 3 (PCR) Not detected Parainfluenza 4 (PCR) Not detected RSV (PCR) Not detected Entero/Rhino (PCR) Not detected 08/02/21 03:04 WBC RBC Hgb Hct MCV MCH MCHC RDW Plt Count Neut % (Auto) Lymph % (Auto) [place] % (Auto) Eos % (Auto) Baso % (Auto) Neut # (Auto) Lymph # (Auto) [place] # (Auto) Eos # (Auto) Baso # (Auto) D-Dimer ABG pH 7.29 L* ABG pCO2 83.0 H* ABG pO2 86 ABG HCO3 40 H ABG Total CO2 42 H ABG O2 Saturation 94 L ABG Base Excess 13.0 H FiO2 30 Sodium Potassium Chloride Carbon Dioxide BUN Creatinine Estimated GFR BUN/Creatinine Ratio Glucose Lactate Calcium Total Bilirubin AST ALT Alkaline Phosphatase Total Creatine Kinase CK-MB (CK-2) CK-MB (CK-2) Rel Index Troponin I NT-Pro-B Natriuret Pep Total Protein Albumin Globulin Albumin/Globulin Ratio Lipase Procalcitonin Chlamy pneumoniae PCR Adenovirus (PCR) B. pertussis DNA (PCR) B.parapertussis DNA PCR Coronavirus OC43 (PCR) Coronavirus HKU1 (PCR) Coronavirus 229E (PCR) SARS-CoV-2 (PCR) Coronavirus NL63 (PCR) Human Metapneumovir PCR Influenza Type A (PCR) Influenza Type B (PCR) M. pneumoniae (PCR) Parainfluenza 1 (PCR) Parainfluenza 2 (PCR) Parainfluenza 3 (PCR) Parainfluenza 4 (PCR) RSV (PCR) Entero/Rhino (PCR) Assessment & Plan Assessment & Plan narrative: Ms. Rodriguez is a 61W with PMH COPD on home O2, CHF with preserved EF, afib who presents with shortness of breath. 1. Acute on chronic hypoxemic and hypercapneic respiratory failure with possible acute pneumonia -imaging shows severe emphysema -in addition has bilateral consoildation possibly pneumonia -ordered for broad spectrum antibiotics with vanc/zosyn -ordered sputum, blood cultures -ordered for IV methylpred, and around the clock and prn nebs -ordered diamox -respiratory panel negative 2. Recent diagnosis of ocular lymphoma -will attempt to get records from 3. CHF, chronic, with preserved EF -hold torsemide for now -bnp 93 -doubt significant volume overload 4. Type 2 Diabetes -hold metformin -insulin sliding scale 5. Anemia, mild -MCV low at 73 -suspect iron deficiency -send iron panel CODE: Full Proxy: Shayy Vega, sister I have utilized all available resources to reconcile patient's home medications. Time Spent With Patient Critical Care time: I spent a total of [] minutes of critical care time on this patient's care today; this time is exclusive of procedural time. Quality MIPS - Admit I confirm the patient?s Advance Care Plan is present, Code status is documented, Surrogate decision maker is in patient?s record [If Yes, STOP here]: Yes
[2021-08-02 04:20] LABS: Fractionated Inspired Oxygen 30; HCO3 ABG 42 mmol/L (22-26); Oxygen Saturation ABG 93 % (95-100); PCO2 ABG 86.5 mmHg (35-45); PO2 ABG 79 mmHg (80-100); TCO2 ABG 44 mmol/L (21-31)
[2021-08-02] MEDS: methylPREDNISolone 125 MG/2 ML VIAL 60 MG IV ×4 (04:28→22:10)
[2021-08-02] MEDS: acetaZOLAMIDE 250 MG TABLET PO (05:05)
[2021-08-02 06:29] LABS: PCO2 ABG 76.5 mmHg (35-45); pH ABG 7.33 (7.35-7.45)
[2021-08-02 06:30] LABS: Fractionated Inspired Oxygen 30; HCO3 ABG 40 mmol/L (22-26); Oxygen Saturation ABG 94 % (95-100); PO2 ABG 81 mmHg (80-100); TCO2 ABG 43 mmol/L (21-31)
[2021-08-02] MEDS: SODIUM CHLORIDE 0.9% 1,000 ML 150 ML IV (06:47)
[2021-08-02] MEDS: VANCOMYCIN 1,250 MG/250 ML PIGGYBACK 250 MG IV (06:47)
--- NOTE | 2021-08-02 07:42 | PC.NURSE ---
Admit Note-Patient brought to ICU room 227 at 0605, fatigued but oriented x3. On 2L NC, SpO2 >94%, lung sounds coarse crackles. NSR, VSS, denies pain, Anthony ko.
[2021-08-02] MEDS: ALBUTEROL/IPRATROPIUM 3 ML AMPUL INH ×5 (07:47→23:32)
[2021-08-02 07:50] LABS: Add Manual Diff / Slide Review NO; Basophils Absolute Auto 100 /uL (0-100); Basophils Percent Auto 0.4 % (0-2); Eosinophils Absolute Auto 100 /uL (0-450); Eosinophils Percent Auto 0.6 % (2-4); Hematocrit 34.1 % (36-46); Hemoglobin 10.6 g/dL (12.0-16.0); Lymphocytes Absolute Auto 700 /uL (1100-4500); Mean Corpuscular HGB Conc 31.2 % (30-36); Mean Corpuscular Hemoglobin 23.2 PG (26-34); Mean Corpuscular Volume 74.5 fL (80-100); Monocytes Absolute Auto 200 /uL (0-900); Monocytes Percent Auto 0.9 % (3-14); Neutrophils Absolute Auto 16800 /uL (1500-7000); Neutrophils Percent Auto 94.1 % (50-75); Platelet Count 326 X10^3/uL (150-400); Red Blood Cell Count 4.58 X10^6/uL (4.0-5.2); Red Cell Distribution Width 18.2 % (11.6-14.8); White Blood Cell Count 17.9 X10^3/uL (4.5-11.0)
[2021-08-02 08:03] LABS: BUN Creatinine Ratio 19.3 (6-22); Blood Urea Nitrogen 11 mg/dL (7-17); Calcium 8.8 mg/dL (8.4-10.2); Chloride 100 mmol/L (98-107); Estimated Glomerular Filt Rate > 60.0 mL/min (>60); Glucose 152 mg/dL (80-110); HEMOLYSIS < 15 (0-50); Potassium 3.5 mmol/L (3.4-5.1); Sodium 141 mmol/L (137-145)
[2021-08-02] MEDS: PIPERACILLIN/TAZO 3.375 GM in SODIUM CHLORIDE 0.9% 100 ML 25 ML IV ×2 (08:07→17:40)
[2021-08-02] MEDS: ENOXAPARIN 40 MG/0.4 ML SYRINGE SUBCUT (08:07)
[2021-08-02 08:10] LABS: Carbon Dioxide 36 mmol/L (22-32)
[2021-08-02 08:14] LABS: Troponin I < 0.012 ng/mL (0.01-0.034)
[2021-08-02 08:28] LABS: HEMOLYSIS < 15 (0-50); Iron 16 ug/dL (37-170)
[2021-08-02 08:39] LABS: Percent Iron Saturation 4 % (15-50); Total Iron Binding Capacity 358 ug/dL (265-497); Transferrin 277 mg/dL (206-381)
--- NOTE | 2021-08-02 10:23 | P.TELICUPN_ITS ---
Subjective Subjective :: This patient was seen via real time interactive two-way audiovisual telecommunication. ?61 year old female with history of COPD, CHF, and ILD presents with worsening shortness of breath and cough. Found to have acute on chronic hypoxic and hypercpnic resp failure with Acute metabolic encephalopathy RESP: # Acute on Chronic respiratory hypoxemia/hypercarbia failure -- Secondary to severe V/Q mismatch due to pneumonia with superimposed pulmonary edema vs. ILD flare. Other contributing factors include COPD exacerbation.? -- Weaned off BiPAPto 2 L NC / home, recheck ABG now as needed for any mental or resp status changes -- Wean solumedrol 60 mg IV to q12hr in am and abx as below -- Recommend to avoid diamox until Ph improves to wells alkalemia then may use as needed -- HOB elevation -- Aspiration precaution -- Goal SpO2 > 88% to avoid hyperoxia blunting respiratory drive # COPD exacerbation -- On solumedrol 60 IV q6hr, wean off in am -- Cont duoneb every 4 hours CVS: # Chronic decompensated CHF -- Recommend only as needed gentle diuresis to seek net negative fluid balance -- STrict I/O -- Fluid restriction <1.5 liters : # Contraction alkalosis -- 2/2 to renal compensation due to chronic hypercarbia ID: # Pneumonia -- Secondary to PNA w/ risk factors for MDR given recent hospitalization -- On vanc/zosyn, start to de escalate in am if Cx neg -- Follow up cx ENDO: -- Goal BS < 180 - ISS for now, will likely need lantus given the high steroid doses D/W nurse CCT 50 min Current Medications Current Medications Medications: Home Medications spironolactone 25 mg tablet 12.5 mg PO DAILY 05/23/21 [History Confirmed 05/23/21] aspirin 81 mg tablet,delayed release 81 mg PO DAILY #60 tab 05/25/21 [Rx Confirmed 06/27/21] famotidine 40 mg tablet 40 mg PO BID #60 tab 05/25/21 [Rx Confirmed 06/27/21] ipratropium 0.5 mg-albuterol 3 mg (2.5 mg base)/3 mL nebulization soln 3 ml INHALATION Q4-6H PRN #90 ml 05/25/21 [Rx Confirmed 06/27/21] sucralfate 1 gram tablet 1 gm PO ACHS #120 tab 05/25/21 [Rx Confirmed 06/27/21] tiotropium bromide 18 mcg capsule with inhalation device (Spiriva with HandiHaler) 1 cap INHALATION DAILY #90 inh 05/25/21 [Rx Confirmed 06/27/21] Thera-M Or 1 tab PO DAILY 06/27/21 [History Confirmed 06/27/21] albuterol sulfate 90 mcg/actuation breath activated powder inhaler (ProAir RespiClick) 2 inh INHALATION Q4-6H PRN 06/27/21 [History Confirmed 06/27/21] lorazepam 2 mg/mL injection solution (Ativan) 2.5 mg SUBLINGUAL DAILY PRN 06/27/21 [History Confirmed 06/27/21] acetazolamide 250 mg tablet 250 mg PO BID #60 tab 07/04/21 [Rx] ascorbic acid (vitamin C) 500 mg tablet (Vitamin C) 500 mg PO BID #60 tab 07/04/21 [Rx] benzonatate 100 mg capsule 100 mg PO TID PRN #30 cap 07/04/21 [Rx] cefdinir 300 mg capsule 300 mg PO BID #20 cap 07/04/21 [Rx] cholecalciferol (vitamin D3) 25 mcg (1,000 unit) tablet 1,000 unit PO DAILY #30 tab 07/04/21 [Rx] doxycycline hyclate 100 mg tablet 100 mg PO BID #20 tab 07/04/21 [Rx] gabapentin 100 mg capsule 100 mg PO TID #90 cap 07/04/21 [Rx] ipratropium 0.5 mg-albuterol 3 mg (2.5 mg base)/3 mL nebulization soln 3 ml INH [id number] #90 ml 07/04/21 [Rx] melatonin 10 mg tablet 10 mg PO BEDTIME #30 tab 07/04/21 [Rx] prednisone 10 mg tablet 10 mg PO DIRECTED #60 tab 07/04/21 [Rx] torsemide 10 mg tablet 10 mg PO DAILY #30 tab 07/04/21 [Rx] trazodone 50 mg tablet 50 mg PO BEDTIME #30 tab 07/04/21 [Rx] Visit Medications (administered) Generic Name Dose Route Start Last Admin Trade Name Freq PRN Reason Stop Dose Admin Albuterol/Ipratropium 3 ml 08/02/21 07:00 08/02/21 07:47 Albuterol/Ipratropium 3 Ml Ampul INH 3 ml [id number] DANYELL Administration Enoxaparin Sodium 40 mg 08/02/21 09:00 08/02/21 08:07 Enoxaparin 40 Mg/0.4 Ml Syringe SUBCUT 40 mg DAILY DANYELL Administration Sodium Chloride 1,000 mls @ 150 mls/hr 08/01/21 20:00 08/02/21 06:47 Normal Saline 0.9% IV 150 mls/hr CONT DANYELL Administration Azithromycin 500 mg/ Dextrose 250 mls @ 250 mls/hr 08/02/21 03:00 08/02/21 05:06 IV Infused Q24H DANYELL Infusion Piperacillin Sod/Tazobactam 100 mls @ 25 mls/hr 08/02/21 09:00 08/02/21 08:07 Sod 3.375 gm/ Sodium Chloride IV 25 mls/hr Q8H DANYELL Administration Methylprednisolone 60 mg 08/02/21 04:00 08/02/21 04:28 Methylprednisolone 125 Mg/2 Ml Vial IV 60 mg Q6H DANYELL Administration Objective Labs Result Diagrams: 08/02/21 07:16 08/02/21 07:16 Labs: Laboratory Results - last 24 hr 08/01/21 08/01/21 08/01/21 20:10 20:10 20:10 WBC 19.7 H RBC 4.78 Hgb 11.2 L Hct 35.2 L MCV 73.7 L MCH 23.5 L MCHC 31.9 RDW 18.1 H Plt Count 350 Neut % (Auto) 92.2 H Lymph % (Auto) 3.8 L Spencer % (Auto) 2.3 L Eos % (Auto) 1.1 L Baso % (Auto) 0.6 Neut # (Auto) 63068 H Lymph # (Auto) 700 L Spencer # (Auto) 500 Eos # (Auto) 200 Baso # (Auto) 100 D-Dimer 1869 H ABG pH ABG pCO2 ABG pO2 ABG HCO3 ABG Total CO2 ABG O2 Saturation ABG Base Excess FiO2 Sodium 139 Potassium 3.6 Chloride 96 L Carbon Dioxide 44 H* BUN 16 Creatinine 0.70 Estimated GFR > 60.0 BUN/Creatinine Ratio 22.9 H Glucose 174 H Lactate Calcium 9.4 Iron TIBC % Saturation Transferrin Total Bilirubin 0.3 AST 15 ALT 11 Alkaline Phosphatase 137 H Total Creatine Kinase < 20 L CK-MB (CK-2) TNP CK-MB (CK-2) Rel Index TNP Troponin I < 0.012 NT-Pro-B Natriuret Pep 93 Total Protein 6.8 Albumin 3.6 Globulin 3.2 Albumin/Globulin Ratio 1.1 Lipase 33 Procalcitonin 0.12 Chlamy pneumoniae PCR Adenovirus (PCR) B. pertussis DNA (PCR) B.parapertussis DNA PCR Coronavirus OC43 (PCR) Coronavirus HKU1 (PCR) Coronavirus 229E (PCR) SARS-CoV-2 (PCR) Coronavirus NL63 (PCR) Human Metapneumovir PCR Influenza Type A (PCR) Influenza Type B (PCR) M. pneumoniae (PCR) Parainfluenza 1 (PCR) Parainfluenza 2 (PCR) Parainfluenza 3 (PCR) Parainfluenza 4 (PCR) RSV (PCR) Entero/Rhino (PCR) 08/01/21 08/01/21 08/01/21 20:10 20:48 21:05 WBC RBC Hgb Hct MCV MCH MCHC RDW Plt Count Neut % (Auto) Lymph % (Auto) Spencer % (Auto) Eos % (Auto) Baso % (Auto) Neut # (Auto) Lymph # (Auto) Spencer # (Auto) Eos # (Auto) Baso # (Auto) D-Dimer ABG pH 7.29 L* ABG pCO2 85.1 H* ABG pO2 105 H ABG HCO3 41 H ABG Total CO2 44 H ABG O2 Saturation 97 ABG Base Excess 15.0 H FiO2 28 Sodium Potassium Chloride Carbon Dioxide BUN Creatinine Estimated GFR BUN/Creatinine Ratio Glucose Lactate 1.6 Calcium Iron TIBC % Saturation Transferrin Total Bilirubin AST ALT Alkaline Phosphatase Total Creatine Kinase CK-MB (CK-2) CK-MB (CK-2) Rel Index Troponin I NT-Pro-B Natriuret Pep Total Protein Albumin Globulin Albumin/Globulin Ratio Lipase Procalcitonin Chlamy pneumoniae PCR Not detected Adenovirus (PCR) Not detected B. pertussis DNA (PCR) Not detected B.parapertussis DNA PCR Not detected Coronavirus OC43 (PCR) Not detected Coronavirus HKU1 (PCR) Not detected Coronavirus 229E (PCR) Not detected SARS-CoV-2 (PCR) Not detected Coronavirus NL63 (PCR) Not detected Human Metapneumovir PCR Not detected Influenza Type A (PCR) Not detected Influenza Type B (PCR) Not detected M. pneumoniae (PCR) Not detected Parainfluenza 1 (PCR) Not detected Parainfluenza 2 (PCR) Not detected Parainfluenza 3 (PCR) Not detected Parainfluenza 4 (PCR) Not detected RSV (PCR) Not detected Entero/Rhino (PCR) Not detected 08/02/21 08/02/21 08/02/21 01:44 03:04 05:38 WBC RBC Hgb Hct MCV MCH MCHC RDW Plt Count Neut % (Auto) Lymph % (Auto) Spencer % (Auto) Eos % (Auto) Baso % (Auto) Neut # (Auto) Lymph # (Auto) Spencer # (Auto) Eos # (Auto) Baso # (Auto) D-Dimer ABG pH 7.29 L* 7.29 L* 7.33 L ABG pCO2 86.5 H* 83.0 H* 76.5 H* ABG pO2 79 L 86 81 ABG HCO3 42 H 40 H 40 H ABG Total CO2 44 H 42 H 43 H ABG O2 Saturation 93 L 94 L 94 L ABG Base Excess 15.0 H 13.0 H 14.0 H FiO2 30 30 30 Sodium Potassium Chloride Carbon Dioxide BUN Creatinine Estimated GFR BUN/Creatinine Ratio Glucose Lactate Calcium Iron TIBC % Saturation Transferrin Total Bilirubin AST ALT Alkaline Phosphatase Total Creatine Kinase CK-MB (CK-2) CK-MB (CK-2) Rel Index Troponin I NT-Pro-B Natriuret Pep Total Protein Albumin Globulin Albumin/Globulin Ratio Lipase Procalcitonin Chlamy pneumoniae PCR Adenovirus (PCR) B. pertussis DNA (PCR) B.parapertussis DNA PCR Coronavirus OC43 (PCR) Coronavirus HKU1 (PCR) Coronavirus 229E (PCR) SARS-CoV-2 (PCR) Coronavirus NL63 (PCR) Human Metapneumovir PCR Influenza Type A (PCR) Influenza Type B (PCR) M. pneumoniae (PCR) Parainfluenza 1 (PCR) Parainfluenza 2 (PCR) Parainfluenza 3 (PCR) Parainfluenza 4 (PCR) RSV (PCR) Entero/Rhino (PCR) 08/02/21 08/02/21 08/02/21 07:16 07:16 07:16 WBC 17.9 H RBC 4.58 Hgb 10.6 L Hct 34.1 L MCV 74.5 L MCH 23.2 L MCHC 31.2 RDW 18.2 H Plt Count 326 Neut % (Auto) 94.1 H Lymph % (Auto) 4.0 L Spencer % (Auto) 0.9 L Eos % (Auto) 0.6 L Baso % (Auto) 0.4 Neut # (Auto) 93099 H Lymph # (Auto) 700 L Spencer # (Auto) 200 Eos # (Auto) 100 Baso # (Auto) 100 D-Dimer ABG pH ABG pCO2 ABG pO2 ABG HCO3 ABG Total CO2 ABG O2 Saturation ABG Base Excess FiO2 Sodium 141 Potassium 3.5 Chloride 100 Carbon Dioxide 36 H BUN 11 Creatinine 0.57 Estimated GFR > 60.0 BUN/Creatinine Ratio 19.3 Glucose 152 H Lactate Calcium 8.8 Iron TIBC % Saturation Transferrin Total Bilirubin AST ALT Alkaline Phosphatase Total Creatine Kinase CK-MB (CK-2) CK-MB (CK-2) Rel Index Troponin I < 0.012 NT-Pro-B Natriuret Pep Total Protein Albumin Globulin Albumin/Globulin Ratio Lipase Procalcitonin Chlamy pneumoniae PCR Adenovirus (PCR) B. pertussis DNA (PCR) B.parapertussis DNA PCR Coronavirus OC43 (PCR) Coronavirus HKU1 (PCR) Coronavirus 229E (PCR) SARS-CoV-2 (PCR) Coronavirus NL63 (PCR) Human Metapneumovir PCR Influenza Type A (PCR) Influenza Type B (PCR) M. pneumoniae (PCR) Parainfluenza 1 (PCR) Parainfluenza 2 (PCR) Parainfluenza 3 (PCR) Parainfluenza 4 (PCR) RSV (PCR) Entero/Rhino (PCR) 08/02/21 07:16 WBC RBC Hgb Hct MCV MCH MCHC RDW Plt Count Neut % (Auto) Lymph % (Auto) Spencer % (Auto) Eos % (Auto) Baso % (Auto) Neut # (Auto) Lymph # (Auto) Spencer # (Auto) Eos # (Auto) Baso # (Auto) D-Dimer ABG pH ABG pCO2 ABG pO2 ABG HCO3 ABG Total CO2 ABG O2 Saturation ABG Base Excess FiO2 Sodium Potassium Chloride Carbon Dioxide BUN Creatinine Estimated GFR BUN/Creatinine Ratio Glucose Lactate Calcium Iron 16 L TIBC 358 % Saturation 4 L Transferrin 277 Total Bilirubin AST ALT Alkaline Phosphatase Total Creatine Kinase CK-MB (CK-2) CK-MB (CK-2) Rel Index Troponin I NT-Pro-B Natriuret Pep Total Protein Albumin Globulin Albumin/Globulin Ratio Lipase Procalcitonin Chlamy pneumoniae PCR Adenovirus (PCR) B. pertussis DNA (PCR) B.parapertussis DNA PCR Coronavirus OC43 (PCR) Coronavirus HKU1 (PCR) Coronavirus 229E (PCR) SARS-CoV-2 (PCR) Coronavirus NL63 (PCR) Human Metapneumovir PCR Influenza Type A (PCR) Influenza Type B (PCR) M. pneumoniae (PCR) Parainfluenza 1 (PCR) Parainfluenza 2 (PCR) Parainfluenza 3 (PCR) Parainfluenza 4 (PCR) RSV (PCR) Entero/Rhino (PCR) Exam Vital Signs (past 8 hours): - 08/02/21 02:30 08/02/21 03:00 08/02/21 03:10 Temperature Pulse Rate 81 90 Respiratory Rate 24 22 Blood Pressure 112/51 L 110/64 110/64 Pulse Oximetry 99 96 08/02/21 03:30 08/02/21 04:00 08/02/21 04:30 Temperature Pulse Rate 80 79 85 Respiratory Rate 30 H 23 20 Blood Pressure 86/50 L 95/47 L Pulse Oximetry 99 97 98 08/02/21 04:31 08/02/21 05:00 08/02/21 05:23 Temperature Pulse Rate 85 80 Respiratory Rate 26 H 26 H Blood Pressure 115/50 L 112/53 L 112/53 L Pulse Oximetry 93 99 08/02/21 05:30 08/02/21 05:49 08/02/21 06:29 Temperature 97.9 F Pulse Rate 79 84 Respiratory Rate 35 H 21 Blood Pressure 103/51 L 115/57 L Pulse Oximetry 99 97 96 08/02/21 07:45 08/02/21 08:00 Temperature 97.1 F L Pulse Rate 88 89 Respiratory Rate 20 18 Blood Pressure 121/54 L Pulse Oximetry 98 99 Fraction of Inspired Oxygen 30 Oxygen Delivery Method Nasal Cannula Oxygen Flow Rate 1 Assessment & Plan Time Spent With Patient Critical Care time: I spent a total of [] minutes of critical care time on this patient's care today; this time is exclusive of procedural time.
--- NOTE | 2021-08-02 10:46 | PT.IIE ---
Current Diagnoses Acute and chronic respiratory failure with hypercapnia (08/02/21) Medical History (Last Reviewed 08/01/21 @ 20:00 by Jatinder Mcgrath DO) Chronic obstructive pulmonary disease Congestive heart failure Ocular lymphoma Physical Therapy Inpatient Evaluation/Re-Eval M1 PT/OT-IP Prior Functional Status Start: 08/02/21 14:39 Freq: NEEDED Status: Active Protocol: Document 08/02/21 10:46 AB (Rec: 08/02/21 14:58 AB [email or web address]) Medical Review Prior Functional Status Medical History Reviewed Yes Communication able to make needs known Mobility and Gait pt stated that she is modified independent with all mobilities and ambulation without AD indoors but tend to furniture cruise for support; uses a 4WW outdoor or holds on to the person assisting her Social History Household Members family Living Arrangements House Number of Floors (Floors) Two Floors Number of Stairs To Enter/Railing? pt stays on main level of the house no steps to enter Home Environment Standard Height Toilet,Tub/ Shower Home Equipment Shower Seat with Backrest,Hand Held Shower Additional Social History Comment pt lives with her sister but sister works and pt is by herself otherwise home O2 M2 PT-IP Current Condition Start: 08/02/21 14:39 Freq: NEEDED Status: Active Protocol: Document 08/02/21 10:46 AB (Rec: 08/02/21 14:58 AB [email or web address]) Physical Therapy Current Condition Current Condition Evaluation Date 08/02/21 Treatment Diagnosis PNA; COPD; difficulty in walking Onset Date 08/02/21 M3 PT-IP Subjective Start: 08/02/21 14:39 Freq: NEEDED Status: Active Protocol: Document 08/02/21 10:46 AB (Rec: 08/02/21 14:58 AB [email or web address]) Subjective Physical Therapy Visit Type Type Initial Evaluation Visit Start Time 10:46 Visit Stop Time 11:20 Total Visit Minutes 34 Number of FAMILY HELPER Visits 0 Physical Therapy Visit Comments Patient Comments pt is agreeable to do PT M4 PT-IP Mobility and Gait Start: 08/02/21 14:39 Freq: NEEDED Status: Active Protocol: Document 08/02/21 10:46 AB (Rec: 08/02/21 14:58 AB [email or web address]) PT-Bed Mobility Assessment Supine to Sit Supine to Sit Standby Assistance PT-Transfer Assessment Sit to and From Stand Sit to and from Stand Contact Guard Assistance,1 Person Assistance,Use of Upper Extremities Equipment Transfer Assistive Device None,Gait Belt Orthotic/Prosthetic Devices or Brace: No Transfers Transfer Destination Toilet Transfer Technique ambulated Transfer Ability Level of Assist Contact Guard Assistance,1 Person Assistance,Use of Upper Extremities Comments Mobility Comments pt completed supine to sit SBA . HOB elevated. O2 sat 94- 100% but presents with (+) SOB . pt is also a mouth breather . pt able to sit on EOB SBA. pt requested to use the toilet. pt does not want to use a FWW. completed sit to stand CGA and ambulated to the toilet CGA. increase trunk flexion and lateral trunk lean to the R and tends to reach/ hold on to wall/counter for support. pt completed toileting needs SBA. ambulated to the sink holding on to the wall CGA and was able to maintain standing leaning against the counter SBA while completing handwashing. pt ambulated to the chair CGA and rested. O2 sat 94%. pt agreed to more ambulation and completed in room ~ 35 ft without AD CGA. presents with unsteady gain and pt holds on to wall/ things in room for support. pt sat on chair and agreed to sit up. positioned on chair. call light and table placed within reach. educated pt on safety and use of AD for mobility. pt does not want to use AD at the beginning of PT session but agreed to try a FWW/4WW tomorrow after educating importance of safety, upright posture and energy conservation. Gait Assessment Gait Gait Assistance Required: Contact Guard Assist Distance (Feet) 35 Able to Maintain Weight Bearing Status Yes During Gait Assistive Devices Assistive Device None,Gait Belt Orthotic/Prosthetic Devices or Brace: No Gait Deviations General Gait Pattern Antalgic,Decreased Stride Length,Decreased Feet Clearance,Flexed Trunk,Lateral Trunk Lean,Step-to Gait Factors Limiting Gait Function Factors Limiting Gait Function Decreased Activity Tolerance, Decreased Strength,Difficulty Following Directions,Limited Range of Motion,Poor Balance, Poor Safety Awareness, Respiratory Distress PT-Balance Assessment Sitting Balance and Reactions Static Sitting Balance Ability Good Dynamic Sitting Balance Ability Good Standing Balance and Reactions Static Standing Balance Ability Fair Dynamic Standing Balance Ability Poor Device Used without AD M5 PT-IP Objective Assessments Start: 08/02/21 14:39 Freq: NEEDED Status: Active Protocol: Document 08/02/21 10:46 AB (Rec: 08/02/21 14:58 AB [id number]) Orientation Orientation/Cognition Level of Alertness Alert Orientation Name,Place Language Function Ability No Deficits Noted Safety Awareness Decreased Safety Awareness Memory Description Short Term Impaired Gross Range of Motion Lower Extremity ROM Assessment Within Functional Limits Strength Lower Extremity Strength Assessment Left Impaired Hip 3+/5 Knee 3+/5 Muscle Tone Muscle Tone WNL Yes M6 PT-IP Treatment Start: 08/02/21 14:39 Freq: NEEDED Status: Active Protocol: Document 08/02/21 10:46 AB (Rec: 08/02/21 14:58 AB [id number]) Physical Therapy Treatment Education Education Provided Safety M7 PT-IP Assessment and Plan Start: 08/02/21 14:39 Freq: NEEDED Status: Active Protocol: Document 08/02/21 10:46 AB (Rec: 08/02/21 14:58 AB [email or web address]) PT Summary Assessment and Plan Potential Rehabilitation Potential Good Status of Condition at Evaluation Evolving Summary Impairments Pain,ROM,Strength,Balance, Coordination,Sensation,Tone, Cognition,Bed Mobility, Transfers,Gait,Activity Tolerance Assessment Summary pt requiring CGA with mobility and presents with unsteady gait without AD. Will assess ambulation using AD tomorrow as pt refused use of AD today but willing to try tomorrow. O2 sat stable with activity with use of O2. pt lives with her sister but her sister goes to work and will not have assistance at home. will continue PT to improve strength and mobility independence. pt will benefit from HHPT. Goals Bed Mobility Goal Independent Transfer Goal Independent,Four Wheeled Walker Gait Goal Independent,Four Wheel Walker Gait Distance 150 Days to Meet Goals 10 Frequency of Treatment Frequency Of Treatment Once a Day Treatment Plan Physical Therapy Treatment Plan Bed Mobility Training,Transfer Training,Gait Training, Therapeutic Exercise,Balance Retraining,Discharge Planning, Hot or Cold Pack,Neuromuscular Re-ed,Coordination Retraining Precautions Other Precautions O2 Recommendations To Nursing Amount of Assist Needed 1 Person Assist Discharge Recommendations PT Discharge Recommendations Home with Assistance,Home Health Transportation Needs at Discharge Private Vehicle
[2021-08-02] MEDS: POTASSIUM CHLORIDE 20 MEQ TAB 40 MEQ PO (11:00)
[2021-08-02] MEDS: SODIUM CHLORIDE 0.9% FLUSH 10 ML IV ×2 (11:02→21:22)
[2021-08-02 12:31] LABS: Fractionated Inspired Oxygen 28; HCO3 ABG 37 mmol/L (22-26); Oxygen Saturation ABG 97 % (95-100); PO2 ABG 109 mmHg (80-100); TCO2 ABG 40 mmol/L (21-31); pH ABG 7.27 (7.35-7.45)
[2021-08-02] MEDS: INSULIN LISPRO 100 UNIT/ML 3ML VIAL SUBCUT ×3 (13:25→22:10)
[2021-08-02] MEDS: VANCOMYCIN 750 MG/150 ML PIGGYBACK 150 MG IV ×2 (15:53→23:17)
[2021-08-02 15:55] LABS: Fractionated Inspired Oxygen 28; HCO3 ABG 36 mmol/L (22-26); Oxygen Saturation ABG 96 % (95-100); PCO2 ABG 80.8 mmHg (35-45); PO2 ABG 103 mmHg (80-100); TCO2 ABG 38 mmol/L (21-31); pH ABG 7.26 (7.35-7.45)
--- NOTE | 2021-08-02 18:36 | PC.NURSE ---
Pt doing well this shift. Pt is AO x4. Making needs known with clear speech. Discussed case with busher helper on rounds. Orders rec'd to stop IVFs, obtain ABG on 2L. ABG obtained and reported to busher helper. Orders rec'd for add'l ABG on 2L NC. ABG obtained and reported to busher helper by RT. Per RT, pt is to be on bipap HS and 2L during the day.
--- NOTE | 2021-08-02 20:08 | PM.ICURNDS ---
- :: This patient was seen via real time interactive two-way audiovisual telecommunication. Note: Multidisciplinary rounds completed. Currently off BiPAP on 2 liters NC. Will continue BiPAP nightly. Resume melatonin 9 mg nightly and trazodone 25 mg as needed. D/w RN and RT.
[2021-08-02] MEDS: MELATONIN 3 MG TABLET 9 MG PO (21:22)
[2021-08-03] VITALS (22 sets, daily range): BP systolic 98–121; BP diastolic 49–64; PULSE 79–98; RESP 16–34; TEMP 29–36.6; O2SAT 92–100
[2021-08-03] MEDS: PIPERACILLIN/TAZO 3.375 GM in SODIUM CHLORIDE 0.9% 100 ML 25 ML IV ×3 (01:00→16:58)
[2021-08-03] MEDS: AZITHROMYCIN 500 MG in DEXTROSE 5% IN WATER 250 ML IV (02:27)
[2021-08-03] MEDS: methylPREDNISolone 125 MG/2 ML VIAL 60 MG IV ×4 (03:56→21:45)
--- NOTE | 2021-08-03 06:54 | PC.NURSE ---
Shift Note-Patient has been A/Ox3, awake all night playing on her tablet. Order obtained for melatonin to assist her tolerate the Bi-pap overnight, she did have it on briefly at 0230 and 0530, however she did not want it too tight and c/o too dry, otherwise she has been on 2L NC.
[2021-08-03] MEDS: ALBUTEROL/IPRATROPIUM 3 ML AMPUL INH ×5 (07:03→23:29)
[2021-08-03 07:32] LABS: Vancomycin Trough 10.6 ug/mL (10-20)
[2021-08-03] MEDS: VANCOMYCIN 750 MG/150 ML PIGGYBACK 150 MG IV (08:20)
[2021-08-03] MEDS: ENOXAPARIN 40 MG/0.4 ML SYRINGE SUBCUT (08:39)
[2021-08-03] MEDS: INSULIN LISPRO 100 UNIT/ML 3ML VIAL SUBCUT ×3 (08:40→17:10)
[2021-08-03] MEDS: SODIUM CHLORIDE 0.9% FLUSH 10 ML IV ×2 (08:42→21:39)
[2021-08-03 09:48] LABS: Add Manual Diff / Slide Review NO; Basophils Absolute Auto 0 /uL (0-100); Basophils Percent Auto 0.1 % (0-2); Eosinophils Absolute Auto 0 /uL (0-450); Hematocrit 31.4 % (36-46); Hemoglobin 9.9 g/dL (12.0-16.0); Lymphocytes Absolute Auto 500 /uL (1100-4500); Lymphocytes Percent Auto 3.8 % (25-40); Mean Corpuscular HGB Conc 31.6 % (30-36); Mean Corpuscular Hemoglobin 23.4 PG (26-34); Mean Corpuscular Volume 74.2 fL (80-100); Monocytes Absolute Auto 100 /uL (0-900); Monocytes Percent Auto 1.1 % (3-14); Neutrophils Absolute Auto 11200 /uL (1500-7000); Platelet Count 327 X10^3/uL (150-400); Red Blood Cell Count 4.23 X10^6/uL (4.0-5.2); Red Cell Distribution Width 18.2 % (11.6-14.8); White Blood Cell Count 11.8 X10^3/uL (4.5-11.0)
--- NOTE | 2021-08-03 11:22 | PT.IPTN ---
Current Diagnoses Acute and chronic respiratory failure with hypercapnia (08/02/21) Physical Therapy Treatment Note M2 PT-IP Current Condition Start: 08/02/21 14:39 Freq: NEEDED Status: Active Protocol: Document 08/02/21 10:46 AB (Rec: 08/02/21 14:58 AB [id number]) Physical Therapy Current Condition Current Condition Evaluation Date 08/02/21 Treatment Diagnosis PNA; COPD; difficulty in walking Onset Date 08/02/21 M3 PT-IP Subjective Start: 08/02/21 14:39 Freq: NEEDED Status: Active Protocol: Document 08/03/21 10:59 KS (Rec: 08/03/21 13:12 KS [id number]) Subjective Physical Therapy Visit Type Type Treatment Note Visit Start Time 10:59 Visit Stop Time 11:22 Total Visit Minutes 23 Notes Pt on 1.5 L upon arrival and increased to 2L for mobility. 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 Physical Therapy Visit Comments Patient Comments pt is agreeable to do PT M4 PT-IP Mobility and Gait Start: 08/02/21 14:39 Freq: NEEDED Status: Active Protocol: Document 08/03/21 10:59 KS (Rec: 08/03/21 13:12 KS [id number]) PT-Bed Mobility Assessment Scooting Scooting to Edge of Bed Contact Guard Assistance PT-Transfer Assessment Sit to and From Stand Sit to and from Stand Contact Guard Assistance,1 Person Assistance,Use of Upper Extremities Equipment Transfer Assistive Device None,Gait Belt,Front Wheeled Walker Orthotic/Prosthetic Devices or Brace: No Transfers Transfer Destination Chair,Toilet Transfer Technique ambulated w/ and w/o FWW Transfer Ability Level of Assist Contact Guard Assistance,1 Person Assistance,Use of Upper Extremities Comments Mobility Comments Pt in chair and requesting to use bathroom upon arrival from therapy. SBA for scooting and CGA ad cues for sit<>stand. O2 increased to 2L for mobility. Pt somewhat impulsive and not waiting for direction and ambulated to bathroom SBA w/o AD. After toileting, pt ambulated to sink CGA for hand washing. She reaches for surfaces/ furniture surfs when ambulating. She then sat back in chair and O2 87% but quicly recovered to 95%. Pt then completed 2 bouts of 12 ft ambulation w/ FWW SBA w/ seated rest break in between. Pt desat to 85-87% very briefly after ambulation but quickly recovered to 94-96%. Required cues to avoid short rapid breaths. Pt left in chair w/ RT in room. Gait Assessment Gait Gait Assistance Required: Standby Assistance,Contact Guard Assist Distance (Feet) 60 Able to Maintain Weight Bearing Status Yes During Gait Assistive Devices Assistive Device None,Gait Belt,Front Wheeled Walker Orthotic/Prosthetic Devices or Brace: No Gait Deviations General Gait Pattern Antalgic,Decreased Stride Length,Decreased Feet Clearance,Flexed Trunk,Lateral Trunk Lean,Step-to Gait Factors Limiting Gait Function Factors Limiting Gait Function Decreased Activity Tolerance, Decreased Strength,Difficulty Following Directions,Limited Range of Motion,Poor Balance, Poor Safety Awareness, Respiratory Distress Comments Gait Comments Please refer to mobility section for more details. Pt ambulated w/ and w/o FWW. W/o she furniture surfs. Stated she feels much safer w/ FWW and would like one for home. PT-Balance Assessment Sitting Balance and Reactions Static Sitting Balance Ability Good Dynamic Sitting Balance Ability Good Standing Balance and Reactions Static Standing Balance Ability Fair Dynamic Standing Balance Ability Poor Device Used without AD M5 PT-IP Objective Assessments Start: 08/02/21 14:39 Freq: NEEDED Status: Active Protocol: Document 08/02/21 10:46 AB (Rec: 08/02/21 14:58 AB [id number]) Orientation Orientation/Cognition Level of Alertness Alert Orientation Name,Place Language Function Ability No Deficits Noted Safety Awareness Decreased Safety Awareness Memory Description Short Term Impaired Gross Range of Motion Lower Extremity ROM Assessment Within Functional Limits Strength Lower Extremity Strength Assessment Left Impaired Hip 3+/5 Knee 3+/5 Muscle Tone Muscle Tone WNL Yes M6 PT-IP Treatment Start: 08/02/21 14:39 Freq: NEEDED Status: Active Protocol: Document 08/03/21 10:59 KS (Rec: 08/03/21 13:12 KS [id number]) Physical Therapy Treatment Education Education Provided Safety M7 PT-IP Assessment and Plan Start: 08/02/21 14:39 Freq: NEEDED Status: Active Protocol: Document 08/03/21 10:59 KS (Rec: 08/03/21 13:12 KS [id number]) PT Summary Assessment and Plan Potential Rehabilitation Potential Good Status of Condition at Evaluation Evolving Summary Impairments Pain,ROM,Strength,Balance, Coordination,Sensation,Tone, Cognition,Bed Mobility, Transfers,Gait,Activity Tolerance Assessment Summary Pt SBA to CGA for mobility and remains limited by SOB, low toelrance for activity, poor safety awareness, and poor balance. She is slightly impulsive and requires safety cues throughout treatment. After ambulating, she desat to mid-high 80s but recovered to mid 90s quickly after sitting down. Able to ambulate `60 ft , half w/o AD and hald w/ FWW. Pt safer w/ FWW and she is agreeable to using one and may need one dispensed if going home. Will continue to progress and assess. If going home, she will need assistance and HHPT. Goals Bed Mobility Goal Independent Transfer Goal Independent,Four Wheeled Walker Gait Goal Independent,Four Wheel Walker Gait Distance 150 Days to Meet Goals 10 Frequency of Treatment Frequency Of Treatment Once a Day Treatment Plan Physical Therapy Treatment Plan Bed Mobility Training,Transfer Training,Gait Training, Therapeutic Exercise,Balance Retraining,Discharge Planning, Hot or Cold Pack,Neuromuscular Re-ed,Coordination Retraining Precautions Other Precautions O2 Recommendations To Nursing Amount of Assist Needed 1 Person Assist Discharge Recommendations PT Discharge Recommendations Home with Assistance,Home Health Equipment Needed for Home Before FWW? Discharge Transportation Needs at Discharge Private Vehicle
--- NOTE | 2021-08-03 12:16 | P.TELICUPN_ITS ---
Subjective Subjective :: This patient was seen via real time interactive two-way audiovisual telecommunication. no acute events overnight feeling better, sitting in a chair Current Medications Current Medications Medications: Home Medications spironolactone 25 mg tablet 12.5 mg PO DAILY 05/23/21 [History Confirmed 05/23/21] aspirin 81 mg tablet,delayed release 81 mg PO DAILY #60 tab 05/25/21 [Rx Confirmed 08/02/21] famotidine 40 mg tablet 40 mg PO BID #60 tab 05/25/21 [Rx Confirmed 08/02/21] sucralfate 1 gram tablet 1 gm PO ACHS #120 tab 05/25/21 [Rx Confirmed 06/27/21] tiotropium bromide 18 mcg capsule with inhalation device (Spiriva with HandiHaler) 1 cap INHALATION DAILY #90 inh 05/25/21 [Rx Confirmed 06/27/21] Thera-M Or 1 tab PO DAILY 06/27/21 [History Confirmed 08/02/21] albuterol sulfate 90 mcg/actuation breath activated powder inhaler (ProAir RespiClick) 2 inh INHALATION Q4-6H PRN 06/27/21 [History Confirmed 06/27/21] acetazolamide 250 mg tablet 250 mg PO BID #60 tab 07/04/21 [Rx Confirmed 08/02/21] ascorbic acid (vitamin C) 500 mg tablet (Vitamin C) 500 mg PO BID #60 tab 07/04/21 [Rx Confirmed 08/02/21] benzonatate 100 mg capsule 100 mg PO TID PRN #30 cap 07/04/21 [Rx Confirmed 08/02/21] cholecalciferol (vitamin D3) 25 mcg (1,000 unit) tablet 1,000 unit PO DAILY #30 tab 07/04/21 [Rx Confirmed 08/02/21] gabapentin 100 mg capsule 100 mg PO TID #90 cap 07/04/21 [Rx Confirmed 08/02/21] melatonin 10 mg tablet 10 mg PO BEDTIME #30 tab 07/04/21 [Rx Confirmed 08/02/21] prednisone 10 mg tablet 10 mg PO DIRECTED #60 tab 07/04/21 [Rx Confirmed 08/02/21] torsemide 10 mg tablet 10 mg PO DAILY #30 tab 07/04/21 [Rx Confirmed 08/02/21] trazodone 50 mg tablet 50 mg PO BEDTIME #30 tab 07/04/21 [Rx Confirmed 08/03/21] ipratropium 0.5 mg-albuterol 3 mg (2.5 mg base)/3 mL nebulization soln 3 ml INH [id number] 08/02/21 [History Confirmed 08/02/21] Visit Medications (administered) Generic Name Dose Route Start Last Admin Trade Name Victor Hugo PRN Reason Stop Dose Admin Albuterol/Ipratropium 3 ml 08/02/21 07:00 08/03/21 11:18 Albuterol/Ipratropium 3 Ml Ampul INH 3 ml [id number] DANYELL Administration Enoxaparin Sodium 40 mg 08/02/21 09:00 08/03/21 08:39 Enoxaparin 40 Mg/0.4 Ml Syringe SUBCUT 40 mg DAILY DANYELL Administration Azithromycin 500 mg/ Dextrose 250 mls @ 250 mls/hr 08/02/21 03:00 08/03/21 03:57 IV Infused Q24H DANYELL Infusion Piperacillin Sod/Tazobactam 100 mls @ 25 mls/hr 08/02/21 09:00 08/03/21 08:39 Sod 3.375 gm/ Sodium Chloride IV 25 mls/hr Q8H DANYELL Administration Vancomycin HCl 750 mg in 150 mls @ 150 mls/hr 08/02/21 15:00 08/03/21 09:20 Vancomycin IV Infused Q8H DANYELL Infusion Insulin Human Lispro 0 unit 08/02/21 11:45 08/03/21 08:40 Insulin Lispro 100 Unit/Ml 3ml Vial SUBCUT 4 unit ACHS DANYELL Administration Protocol Melatonin 9 mg 08/02/21 21:00 08/02/21 21:22 Melatonin 3 Mg Tablet PO 9 mg BEDTIME DANYELL Administration Methylprednisolone 60 mg 08/02/21 04:00 08/03/21 10:18 Methylprednisolone 125 Mg/2 Ml Vial IV 60 mg Q6H DANYELL Administration Sodium Chloride 10 ml 08/02/21 09:00 08/03/21 08:42 Sodium Chloride 0.9% Flush IV 10 ml BID DANYELL Administration Objective Labs Result Diagrams: 08/03/21 06:42 08/02/21 07:16 Labs: Laboratory Results - last 24 hr 08/02/21 08/02/21 08/02/21 06:15 11:58 15:47 WBC RBC Hgb Hct MCV MCH MCHC RDW Plt Count Neut % (Auto) Lymph % (Auto) [place] % (Auto) Eos % (Auto) Baso % (Auto) Neut # (Auto) Lymph # (Auto) [place] # (Auto) Eos # (Auto) Baso # (Auto) ABG pH 7.27 L* 7.26 L* ABG pCO2 82.0 H* 80.8 H* ABG pO2 109 H 103 H ABG HCO3 37 H 36 H ABG Total CO2 40 H 38 H ABG O2 Saturation 97 96 ABG Base Excess 10.0 H 9.0 H FiO2 28 28 Nasal Screen MRSA (PCR) Negative for mrsa Vancomycin Trough 08/03/21 08/03/21 06:42 06:42 WBC 11.8 H RBC 4.23 Hgb 9.9 L Hct 31.4 L MCV 74.2 L MCH 23.4 L MCHC 31.6 RDW 18.2 H Plt Count 327 Neut % (Auto) 95.0 H Lymph % (Auto) 3.8 L [place] % (Auto) 1.1 L Eos % (Auto) 0.0 L Baso % (Auto) 0.1 Neut # (Auto) 69220 H Lymph # (Auto) 500 L [place] # (Auto) 100 Eos # (Auto) 0 Baso # (Auto) 0 ABG pH ABG pCO2 ABG pO2 ABG HCO3 ABG Total CO2 ABG O2 Saturation ABG Base Excess FiO2 Nasal Screen MRSA (PCR) Vancomycin Trough 10.6 Exam Vital Signs (past 8 hours): - 08/03/21 05:20 08/03/21 05:21 08/03/21 05:39 Temperature Pulse Rate Respiratory Rate Blood Pressure 98/49 L Pulse Oximetry 100 98 08/03/21 06:00 08/03/21 07:06 08/03/21 08:00 Temperature 97.8 F Pulse Rate 82 80 79 Respiratory Rate 34 H 28 H 16 Blood Pressure 110/56 L 109/53 L Pulse Oximetry 99 100 100 08/03/21 11:24 08/03/21 12:00 Temperature 97.8 F Pulse Rate 93 H 85 Respiratory Rate 24 25 H Blood Pressure 121/57 L Pulse Oximetry 98 99 Fraction of Inspired Oxygen 30 Oxygen Delivery Method Nasal Cannula Oxygen Flow Rate 1.5 Assessment & Plan Assessment & Plan narrative: This patient was seen via real time interactive two-way audiovisual telecommunication. patient seen, discussed with bedside RN chart/labs/imaging reviewed ?61 year old female with PMHx of COPD, CHF, and ILD admitted with acute mixed resp failure likely 2/2 to exacerbation of chronic lung diseae currently afebrile, HD stable, Mental status intact no distress labs showed hypercapneic resp failure otherwsie unremarkabel, wc improved suggest -bipap until abg improved then prn and at night -nebs/steroids, can change to PO prednisone -pt now on 2L nc which is home setting, sats 100s, suggest to keep sat 88-(2% -dc abx, keep azithromycin, does not appear toxic or have signs of active pneumonia -fluid restriction -glucose 140-180s -replace lytes prn -gi/dvt ppx -please call eICU if condition changes Time Spent With Patient Critical Care time: I spent a total of [] minutes of critical care time on this patient's care today; this time is exclusive of procedural time.
[2021-08-03 12:29] LABS: Vancomycin Peak 18.7 ug/mL (20-40)
[2021-08-03] MEDS: VANCOMYCIN 1,000 MG/200 ML PIGGYBACK 200 MG IV ×2 (14:06→21:38)
--- NOTE | 2021-08-03 14:12 | CM.IDA ---
Initial DCP Assessment Note Pt is a 61 yo female, resident of [place], arrives w/pain in her lower back, increased shortness of breath, Acute on chronic hypoxemic and hypercapneic respiratory failure with possible acute pneumonia H+P: PMH COPD on home O2, CHF with preserved EF, afib who presents with shortness of breath PCP: Laxmi Goodson Payer: [facility] Reviewed chart, pt discussed in multidisciplinary rounds this morning. Dr Delacruz expects patient will remain admitted for at least 24-48 hrs to treat acute on chronic resp failure/exacebation of chronic lung disease. Patient is a daily smoker Met w/pt, introduced role. Patient familiar to this TUTOR from prior admission. Patient has recently relocated from [place] to [place] where she currently is living w/sister Shayy; whom is primary cg and available to patient almost 20/01. Patient has home oxygen and continues to smoke daily. Patient states she now has a PCP; Dr Laxmi Goodson. Patient is eager to return home w/assist from her sister; she is agreeable to HH if recommended. AUGUST Tineo, has now confirmed that [facility] has record of patient but they were unable to utilize patient's insurance in the past (?) Requested that [facility] review this referral again for their High Acuity (HACH) program that allows increased HH visits (RN/PT/OT) upon DC, if patient/sister agreeable Following closely for coordination of DCP SHANNA Flores Discharge Planning/Care Management CM Discharge Assessment Start: 08/03/21 13:32 Freq: Status: Active Protocol: Document 08/03/21 13:32 DIANA (Rec: 08/03/21 14:10 DIANA [id number]) Discharge Planning Assessment Assigned Palliative Medicine Physician SHANNA Zheng DPOA/Assigned Designee Name sister Chaudhary Contact Information [phone] Advance Directives? No Advance Directives on File No History Provided By Patient,Medical Record Prior Living Arrangements House Household Members family Type of transporation used prior to Relies on Others admit Independent with ADL's Yes Is patient alert and oriented? Yes Patient/Family Preference Home with Home Health Barriers to Discharge No Comment Return home w/sister is anticipated Discharge Plan Home Transportation Arrangement Family Referrals Initiated None needed Additional Comment Patient does not currently have a PCP. [facility] (?)
--- NOTE | 2021-08-03 17:35 | P.PN_ITS ---
Subjective Subjective Interval history: Patient endorses improved pien-ls-[id number]. She reports good PO intake. She is aware that she's being treated for pneumonia. Exam Vital Signs (past 8 hours): - 08/03/21 11:00 08/03/21 11:24 08/03/21 12:00 Temperature 97.8 F Pulse Rate 93 H 85 Respiratory Rate 24 25 H Blood Pressure 121/57 L Pulse Oximetry 97 98 99 08/03/21 15:57 08/03/21 15:58 Temperature 98 F Pulse Rate 88 88 Respiratory Rate 26 H 16 Blood Pressure 112/58 L Pulse Oximetry 96 98 Fraction of Inspired Oxygen 30 Oxygen Delivery Method Nasal Cannula Oxygen Flow Rate 1.5 Const Other: Patient sitting up in chair upon my entering the room, watching TV, and in no apparent, acute distress. Eyes Other: No scleral icterus appreciated. Resp Other: Diminished breath sounds bilaterally with poor air exchange. Cardio Other: RRR. S1 and S2 heart sounds normal. No extra heart sounds or murmurs appreciated. No peripheral edema noted. GI Other: Soft, non-distended, non-tender. Bowel sounds present. Skin Other: No grossly abnormal skin lesions appreciated. Extrem Other: Palpable and bilaterally equal radial and dorsalis pedis pulses. Objective Labs Result Diagrams: 08/03/21 06:42 08/02/21 07:16 Labs: Laboratory Results - last 24 hr 08/03/21 08/03/21 08/03/21 06:42 06:42 10:50 WBC 11.8 H RBC 4.23 Hgb 9.9 L Hct 31.4 L MCV 74.2 L MCH 23.4 L MCHC 31.6 RDW 18.2 H Plt Count 327 Neut % (Auto) 95.0 H Lymph % (Auto) 3.8 L [place] % (Auto) 1.1 L Eos % (Auto) 0.0 L Baso % (Auto) 0.1 Neut # (Auto) 26997 H Lymph # (Auto) 500 L [place] # (Auto) 100 Eos # (Auto) 0 Baso # (Auto) 0 Vancomycin Peak 18.7 L Vancomycin Trough 10.6 PFSH Medical History Chronic obstructive pulmonary disease Congestive heart failure Ocular lymphoma Social History household members: family Smoking Status: Current every day smoker alcohol intake: current Assessment & Plan Assessment & Plan narrative: Ms. Rodriguez is a 61W with PMH COPD on home O2, CHF with preserved EF, afib who presents with shortness of breath. 1. Acute on chronic hypoxemic and hypercapneic respiratory failure with possible acute pneumonia -imaging shows severe emphysema -in addition has bilateral consoildation possibly pneumonia -ordered for broad spectrum antibiotics with IV vanc/zosyn -ordered sputum, blood cultures -ordered for IV methylpred, and prn nebs -received one-time diamox on admission -respiratory panel negative 2. Likely healthcare-acquired pneumonia -IV Vancomycin and IV Zosyn on-board -IV azithromycin on-board for atypical pathogen coverage, along with anti- inflammatory effects 3. Recent diagnosis of ocular lymphoma -will attempt to get records from 4. CHF, chronic, with preserved EF -hold torsemide for now -bnp 93 -doubt significant volume overload 5. Type 2 Diabetes -hold metformin -insulin sliding scale 6. Anemia, mild -MCV low at 73 -suspect iron deficiency -send iron panel CODE: Full Proxy: Shayy Vega, sister I have utilized all available resources to reconcile patient's home medications. Time Spent With Patient Critical Care time: I spent a total of [] minutes of critical care time on this patient's care today; this time is exclusive of procedural time. Quality MIPS - Admit I confirm the patient?s Advance Care Plan is present, Code status is documented, Surrogate decision maker is in patient?s record [If Yes, STOP here]: Yes
[2021-08-03] MEDS: MELATONIN 3 MG TABLET 9 MG PO (21:38)
[2021-08-04] VITALS (7 sets, daily range): BP systolic 129–157; BP diastolic 60–68; PULSE 75–98; RESP 16–22; TEMP 35.9–36.8; O2SAT 94–100
[2021-08-04] MEDS: PIPERACILLIN/TAZO 3.375 GM in SODIUM CHLORIDE 0.9% 100 ML 25 ML IV ×3 (01:13→16:00)
[2021-08-04] MEDS: methylPREDNISolone 125 MG/2 ML VIAL 60 MG IV ×4 (03:19→21:30)
[2021-08-04] MEDS: AZITHROMYCIN 500 MG in DEXTROSE 5% IN WATER 250 ML IV (03:19)
--- NOTE | 2021-08-04 04:31 | PC.NURSE ---
Mrs. Rodriguez was able to sleep during the night. she is alert and oriented x4. Short of breath when walking to the bathroom. Vital signs stable. desaturaton as low as 80 after walking. in use f O2 2L.
[2021-08-04 05:05] LABS: Add Manual Diff / Slide Review NO; Basophils Absolute Auto 0 /uL (0-100); Eosinophils Absolute Auto 0 /uL (0-450); Hematocrit 30.1 % (36-46); Hemoglobin 9.4 g/dL (12.0-16.0); Lymphocytes Absolute Auto 300 /uL (1100-4500); Lymphocytes Percent Auto 2.1 % (25-40); Mean Corpuscular HGB Conc 31.3 % (30-36); Mean Corpuscular Hemoglobin 23.3 PG (26-34); Mean Corpuscular Volume 74.2 fL (80-100); Monocytes Absolute Auto 300 /uL (0-900); Neutrophils Absolute Auto 13500 /uL (1500-7000); Neutrophils Percent Auto 95.9 % (50-75); Platelet Count 315 X10^3/uL (150-400); Red Blood Cell Count 4.06 X10^6/uL (4.0-5.2); White Blood Cell Count 14.1 X10^3/uL (4.5-11.0)
[2021-08-04] MEDS: VANCOMYCIN 1,000 MG/200 ML PIGGYBACK 200 MG IV ×2 (05:59→13:56)
--- NOTE | 2021-08-04 08:02 | P.PN_ITS ---
Subjective Subjective Date Patient Seen: 08/04/21 Time Patient Seen: 16:57 Interval history: She is seen in her room today to follow-up her pneumonia, COPD and a new arm rash. Just after receiving her vancomycin she started developing a red rash on both elbows. We talked today about when her hospital stay at [facility] was. She thinks it was before new 's which would be over a month ago. The previous understanding was that it had been only about a week prior. The possibility of healthcare acquired pneumonia was being treated with the additional antibiotic of vancomycin. That will be stopped at this point. She tells me that she just moved from [place], [place] to live with her sister here in [facility]. Her new physician is Dr. Gale. Exam Vital Signs (past 8 hours): Fraction of Inspired Oxygen 30 Oxygen Delivery Method Nasal Cannula Oxygen Flow Rate 1.5 Narrative Exam Narrative: She is alert and oriented x3. No apparent distress. Heart is irregularly irregular without murmur Lungs are notable for crackles at the left base. There is no ankle edema Objective Labs Result Diagrams: 08/04/21 04:54 08/02/21 07:16 Labs: Laboratory Results - last 24 hr 08/03/21 08/03/21 08/04/21 06:42 10:50 04:54 WBC 11.8 H 14.1 H RBC 4.23 4.06 Hgb 9.9 L 9.4 L Hct 31.4 L 30.1 L MCV 74.2 L 74.2 L MCH 23.4 L 23.3 L MCHC 31.6 31.3 RDW 18.2 H 18.0 H Plt Count 327 315 Neut % (Auto) 95.0 H 95.9 H Lymph % (Auto) 3.8 L 2.1 L [place] % (Auto) 1.1 L 2.0 L Eos % (Auto) 0.0 L 0.0 L Baso % (Auto) 0.1 0.0 Neut # (Auto) 84122 H 62883 H Lymph # (Auto) 500 L 300 L [place] # (Auto) 100 300 Eos # (Auto) 0 0 Baso # (Auto) 0 0 Vancomycin Peak 18.7 L PFSH Medical History Chronic obstructive pulmonary disease Congestive heart failure Ocular lymphoma Social History household members: family Smoking Status: Current every day smoker alcohol intake: current Assessment & Plan Assessment & Plan narrative: Ms. Rodriguez is a 61W with PMH COPD on home O2, CHF with preserved EF, afib who presents with shortness of breath. 1. Acute on chronic hypoxemic and hypercapneic respiratory failure with pneumonia -imaging shows severe emphysema, in addition has bilateral consoildation possibly pneumonia -she had been covered with IV vancomycin for HCAP but her last hospitalization, she now states, was about 6 weeks ago. -08/04 stop vancomycin and continue Zithromax + Zosyn. -pending sputum, blood cultures -continue Solu-Medrol -received one-time diamox on admission, resuming home Diamox dose on 08/04 -respiratory panel negative 2. Changing approach from likely healthcare-acquired pneumonia to non healthcare acquired pneumonia on 08/04 -08/04 stop vancomycin and continue IV Zosyn. -08/04 developing a bilateral mild red rash on the arms that is reminiscent of a vancomycin reaction -IV azithromycin on-board for atypical pathogen coverage, along with anti- inflammatory effects 3. Recent diagnosis of ocular lymphoma -will attempt to get records from 4. CHF, chronic, with preserved EF -held 10 mg daily torsemide initially and then resumed on 08/04. -bnp 93 -doubt significant volume overload 5. Type 2 Diabetes -holding metformin -continue with insulin sliding scale 6. Anemia, mild -MCV low at 73 -suspect iron deficiency -send iron panel -hemoglobin 9.4 on 08/04 CODE: Full Proxy: Shayymillie Vega, sister Time Spent With Patient Critical Care time: I spent a total of [] minutes of critical care time on this patient's care today; this time is exclusive of procedural time.
[2021-08-04] MEDS: ALBUTEROL/IPRATROPIUM 3 ML AMPUL INH ×4 (08:17→20:21)
[2021-08-04] MEDS: INSULIN LISPRO 100 UNIT/ML 3ML VIAL SUBCUT ×4 (08:23→21:34)
[2021-08-04] MEDS: SODIUM CHLORIDE 0.9% FLUSH 10 ML IV ×2 (08:47→21:34)
[2021-08-04] MEDS: ENOXAPARIN 40 MG/0.4 ML SYRINGE SUBCUT (08:47)
--- NOTE | 2021-08-04 12:01 | PT.IPTN ---
Current Diagnoses Acute and chronic respiratory failure with hypercapnia (08/02/21) Physical Therapy Treatment Note M2 PT-IP Current Condition Start: 08/02/21 14:39 Freq: NEEDED Status: Active Protocol: Document 08/02/21 10:46 AB (Rec: 08/02/21 14:58 AB [id number]) Physical Therapy Current Condition Current Condition Evaluation Date 08/02/21 Treatment Diagnosis PNA; COPD; difficulty in walking Onset Date 08/02/21 M3 PT-IP Subjective Start: 08/02/21 14:39 Freq: NEEDED Status: Active Protocol: Document 08/04/21 11:45 KS (Rec: 08/04/21 13:07 KS [id number]) Subjective Physical Therapy Visit Type Type Treatment Note Visit Start Time 11:45 Visit Stop Time 12:01 Total Visit Minutes 16 Notes Pt on 1 L upon arrival and increased to 2L for mobility. Number of MANAGER CIVIL Visits 2 Physical Therapy Visit Comments Patient Comments pt is agreeable to do PT M4 PT-IP Mobility and Gait Start: 08/02/21 14:39 Freq: NEEDED Status: Active Protocol: Document 08/04/21 11:45 KS (Rec: 08/04/21 13:07 KS [id number]) PT-Bed Mobility Assessment Supine to Sit Supine to Sit Standby Assistance Scooting Scooting to Edge of Bed Standby Assistance PT-Transfer Assessment Sit to and From Stand Sit to and from Stand Contact Guard Assistance,1 Person Assistance,Use of Upper Extremities Equipment Transfer Assistive Device Gait Belt,Front Wheeled Walker Orthotic/Prosthetic Devices or Brace: No Transfers Transfer Destination Chair,Toilet Transfer Technique ambulated w/ FWW Transfer Ability Level of Assist Contact Guard Assistance,1 Person Assistance,Use of Upper Extremities Comments Mobility Comments Pt in bed upon arrival and agreeable to ambulate to bathroom and get into chair for lunch. SBA for sup<>sit and scooting EOB. CGA and cues for sit<>Stand w/ FWW. Increased pt to 2L due to reported SOB and shallow breathing. Pt ambulated ~15 ft to toilet and able to perform own pericare. She ten ambulated ~25 more ft in room but became SOB And requested to sit down. O2 93% on 2L but quickly citlali to 98% so descreased O2 back to 1L. Pt performed ankle pumps but refused further therapy due to fatigue from ambulation. Pt left in chair w/ all needs in reach and 1L o2 on 95%, RN notified. Gait Assessment Gait Gait Assistance Required: Standby Assistance,Contact Guard Assist Distance (Feet) 40 Able to Maintain Weight Bearing Status Yes During Gait Assistive Devices Assistive Device Gait Belt,Front Wheeled Walker Orthotic/Prosthetic Devices or Brace: No Gait Deviations General Gait Pattern Antalgic,Decreased Stride Length,Decreased Feet Clearance,Flexed Trunk,Lateral Trunk Lean,Step-to Gait Factors Limiting Gait Function Factors Limiting Gait Function Decreased Activity Tolerance, Decreased Strength,Difficulty Following Directions,Limited Range of Motion,Poor Balance, Poor Safety Awareness, Respiratory Distress Comments Gait Comments Please refer to mobility section for more details. Limited due to SOB and low activity tolerance. PT-Balance Assessment Sitting Balance and Reactions Static Sitting Balance Ability Good Dynamic Sitting Balance Ability Good Standing Balance and Reactions Static Standing Balance Ability Fair Dynamic Standing Balance Ability Poor Device Used without AD M5 PT-IP Objective Assessments Start: 08/02/21 14:39 Freq: NEEDED Status: Active Protocol: Document 08/02/21 10:46 AB (Rec: 08/02/21 14:58 AB [id number]) Orientation Orientation/Cognition Level of Alertness Alert Orientation Name,Place Language Function Ability No Deficits Noted Safety Awareness Decreased Safety Awareness Memory Description Short Term Impaired Gross Range of Motion Lower Extremity ROM Assessment Within Functional Limits Strength Lower Extremity Strength Assessment Left Impaired Hip 3+/5 Knee 3+/5 Muscle Tone Muscle Tone WNL Yes M6 PT-IP Treatment Start: 08/02/21 14:39 Freq: NEEDED Status: Active Protocol: Document 08/04/21 11:45 KS (Rec: 08/04/21 13:07 KS [id number]) Physical Therapy Treatment Exercises Exercises Ankle Pumps Education Education Provided Safety M7 PT-IP Assessment and Plan Start: 08/02/21 14:39 Freq: NEEDED Status: Active Protocol: Document 08/04/21 11:45 KS (Rec: 08/04/21 13:07 KS [id number]) PT Summary Assessment and Plan Potential Rehabilitation Potential Good Status of Condition at Evaluation Evolving Summary Impairments Pain,ROM,Strength,Balance, Coordination,Sensation,Tone, Cognition,Bed Mobility, Transfers,Gait,Activity Tolerance Progress Towards Goals Slow Progress due to Medical Issues,Slow Progress due to Activity Tolerance Assessment Summary Pt continues to require SBA to CGA w/ cues for safety and sequencing. She was able to ambulate to toilet and short distance around room w/ FWW, but became fatigued w/ shallow breathing on 2L w/ o2 reading 93%. She quickly recovered to high 90s and was decreased to 1L. Pt limited in mobility due to SOB and low activity tolerace. Will continue to progress and assess. If going home, she will need assistance and HHPT. Goals Bed Mobility Goal Independent Transfer Goal Independent,Four Wheeled Walker Gait Goal Independent,Four Wheel Walker Gait Distance 150 Days to Meet Goals 10 Frequency of Treatment Frequency Of Treatment Once a Day Treatment Plan Physical Therapy Treatment Plan Bed Mobility Training,Transfer Training,Gait Training, Therapeutic Exercise,Balance Retraining,Discharge Planning, Hot or Cold Pack,Neuromuscular Re-ed,Coordination Retraining Precautions Other Precautions O2 Recommendations To Nursing Amount of Assist Needed 1 Person Assist Discharge Recommendations PT Discharge Recommendations Home with Assistance,Home Health Equipment Needed for Home Before FWW? Discharge Transportation Needs at Discharge Private Vehicle
[2021-08-04] MEDS: VANCOMYCIN TROUGH 1 REQUEST MISC (13:56)
[2021-08-04 15:08] LABS: Vancomycin Trough 12.8 ug/mL (10-20)
[2021-08-04] MEDS: VANCOMYCIN PEAK 1 REQUEST MISC (15:57)
[2021-08-04 16:22] LABS: Vancomycin Peak 31.3 ug/mL (20-40)
--- NOTE | 2021-08-04 16:40 | PC.NURSE ---
Day shift note A/Ox3, sitting up in recliner for most of the day, currently on 1LNC SpO2 97%. IV ABX infusing for most of the day, this nurse noted at 1643 that pt has a rash appearance on bilateral AC area, pt states it does not itch and she didn't notice it earlier. Dr Sy updated on pt status, no new orders at this time, will continue to treat and monitor as ordered.
[2021-08-04] MEDS: acetaZOLAMIDE 250 MG TABLET PO (21:32)
[2021-08-04] MEDS: TRAZODONE 50 MG TABLET 25 MG PO (21:32)
[2021-08-04] MEDS: GABAPENTIN 100 MG CAPSULE PO (21:32)
[2021-08-04] MEDS: FAMOTIDINE 20 MG TABLET 40 MG PO (21:32)
[2021-08-04] MEDS: MELATONIN 3 MG TABLET 9 MG PO (21:33)
[2021-08-05 00:35] VITALS: PULSE 90; RESP 20; O2SAT 99
[2021-08-05] MEDS: ALBUTEROL/IPRATROPIUM 3 ML AMPUL INH ×2 (00:35→07:33)
[2021-08-05] MEDS: PIPERACILLIN/TAZO 3.375 GM in SODIUM CHLORIDE 0.9% 100 ML 25 ML IV ×2 (00:55→08:28)
[2021-08-05] MEDS: methylPREDNISolone 125 MG/2 ML VIAL 60 MG IV ×2 (03:06→10:01)
[2021-08-05] MEDS: AZITHROMYCIN 500 MG in DEXTROSE 5% IN WATER 250 ML IV (03:06)
[2021-08-05 05:00] LABS: Add Manual Diff / Slide Review NO; Basophils Absolute Auto 0 /uL (0-100); Basophils Percent Auto 0.1 % (0-2); Eosinophils Absolute Auto 0 /uL (0-450); Hematocrit 30.4 % (36-46); Hemoglobin 9.6 g/dL (12.0-16.0); Lymphocytes Absolute Auto 200 /uL (1100-4500); Lymphocytes Percent Auto 2.2 % (25-40); Mean Corpuscular HGB Conc 31.6 % (30-36); Mean Corpuscular Hemoglobin 23.5 PG (26-34); Mean Corpuscular Volume 74.5 fL (80-100); Monocytes Absolute Auto 200 /uL (0-900); Monocytes Percent Auto 1.6 % (3-14); Neutrophils Absolute Auto 9800 /uL (1500-7000); Neutrophils Percent Auto 96.1 % (50-75); Platelet Count 307 X10^3/uL (150-400); Red Blood Cell Count 4.08 X10^6/uL (4.0-5.2); White Blood Cell Count 10.2 X10^3/uL (4.5-11.0)
[2021-08-05 05:08] LABS: BUN Creatinine Ratio 28.1 (6-22); Blood Urea Nitrogen 16 mg/dL (7-17); Calcium 8.6 mg/dL (8.4-10.2); Chloride 100 mmol/L (98-107); Estimated Glomerular Filt Rate > 60.0 mL/min (>60); Glucose 335 mg/dL (80-110); HEMOLYSIS < 15 (0-50); Potassium 3.9 mmol/L (3.4-5.1); Sodium 138 mmol/L (137-145)
[2021-08-05 05:17] LABS: Carbon Dioxide 39 mmol/L (22-32)
[2021-08-05 06:07] LABS: Hemoglobin A1C% w Est Avg Glu 6.8 % (4.0-6.0)
--- NOTE | 2021-08-05 06:07 | PC.NURSE ---
bulk plant supervisor note Mrs. Rodriguez is alert and oriented x4. She was able to walk to the bathroom without shortness of breath. Blood glucose at 2100 432 administered 10unit of Humalog insulin. Blood glucose from lab at 0500 335 and A1C 6.8. FLOUR INSPECTOR Jun aware of elevated of blood glucose and orders received. Mrs. Rodriguez was awaken most of the night and fell asleep after 0400. denied pain or discomfort.
[2021-08-05 07:30] VITALS: BP 131/61; PULSE 78; RESP 16; TEMP 36.9; O2SAT 97
[2021-08-05 07:35] VITALS: PULSE 78; RESP 22; O2SAT 99
[2021-08-05] MEDS: INSULIN GLARGINE 100 UNIT/ML 3ML PEN 10 UNIT SUBCUT (07:42)
[2021-08-05] MEDS: INSULIN LISPRO 100 UNIT/ML 3ML VIAL SUBCUT (07:43)
[2021-08-05] MEDS: TORSEMIDE 10 MG TABLET PO (08:26)
[2021-08-05] MEDS: FAMOTIDINE 20 MG TABLET PO (08:27)
[2021-08-05] MEDS: GABAPENTIN 100 MG CAPSULE PO (08:27)
[2021-08-05] MEDS: ENOXAPARIN 40 MG/0.4 ML SYRINGE SUBCUT (08:27)
[2021-08-05] MEDS: SPIRONOLACTONE 25 MG TABLET 12.5 MG PO (08:27)
[2021-08-05] MEDS: ASPIRIN EC 81 MG TABLET PO (08:27)
[2021-08-05] MEDS: acetaZOLAMIDE 250 MG TABLET PO (08:28)
[2021-08-05] MEDS: SODIUM CHLORIDE 0.9% FLUSH 10 ML IV (08:30)
--- NOTE | 2021-08-05 10:42 | PT.IPTN ---
Current Diagnoses Acute and chronic respiratory failure with hypercapnia (08/02/21) Physical Therapy Treatment Note M2 PT-IP Current Condition Start: 08/02/21 14:39 Freq: NEEDED Status: Discharge Protocol: Document 08/02/21 10:46 AB (Rec: 08/02/21 14:58 AB [id number]) Physical Therapy Current Condition Current Condition Evaluation Date 08/02/21 Treatment Diagnosis PNA; COPD; difficulty in walking Onset Date 08/02/21 M3 PT-IP Subjective Start: 08/02/21 14:39 Freq: NEEDED Status: Discharge Protocol: Document 08/05/21 10:42 AW (Rec: 08/05/21 12:45 AW [id number]) Subjective Physical Therapy Visit Type Type Treatment Note Visit Start Time 10:19 Visit Stop Time 10:42 Total Visit Minutes 23 Notes Pt on 1L O2 upon arrival. No adjustment today for mobility Number of ACCOUNT STRATEGIST Visits 0 Physical Therapy Visit Comments Patient Comments pt is agreeable to do PT M4 PT-IP Mobility and Gait Start: 08/02/21 14:39 Freq: NEEDED Status: Discharge Protocol: Document 08/05/21 10:42 AW (Rec: 08/05/21 12:45 AW [id number]) PT-Bed Mobility Assessment Supine to Sit Supine to Sit Standby Assistance Scooting Scooting to Edge of Bed Standby Assistance PT-Transfer Assessment Sit to and From Stand Sit to and from Stand Standby Assistance,Use of Upper Extremities Equipment Transfer Assistive Device Gait Belt,Front Wheeled Walker Orthotic/Prosthetic Devices or Brace: No Transfers Transfer Destination Chair Transfer Technique ambulated w/ FWW Transfer Ability Level of Assist Standby Assistance,Use of Upper Extremities Comments Mobility Comments Pt was in bed as PT arrived. SpO2 96% on 1L NC. Pt sat up on right EOB SBA and stood with FWW SBA. She ambulated around the room a total of 75 feet with FWW SBA. SpO2 dropped to 91%. Pt transferred to chair SBA and recovered SpO2 to 95% within 1.5 minutes . Pt was left with call light and tray table in reach. Gait Assessment Gait Gait Assistance Required: Standby Assistance,Contact Guard Assist Distance (Feet) 75 Able to Maintain Weight Bearing Status Yes During Gait Assistive Devices Assistive Device Gait Belt,Front Wheeled Walker Orthotic/Prosthetic Devices or Brace: No Gait Deviations General Gait Pattern Antalgic,Decreased Stride Length,Decreased Feet Clearance,Flexed Trunk,Lateral Trunk Lean Factors Limiting Gait Function Factors Limiting Gait Function Decreased Activity Tolerance, Decreased Strength,Difficulty Following Directions,Limited Range of Motion,Poor Balance, Poor Safety Awareness, Respiratory Distress Comments Gait Comments Please refer to mobility section for more details. Improving activity tolerance today with minimal SOB. PT-Balance Assessment Sitting Balance and Reactions Static Sitting Balance Ability Good Dynamic Sitting Balance Ability Good Standing Balance and Reactions Static Standing Balance Ability Fair Dynamic Standing Balance Ability Fair Device Used without AD M5 PT-IP Objective Assessments Start: 08/02/21 14:39 Freq: NEEDED Status: Discharge Protocol: Document 08/02/21 10:46 AB (Rec: 08/02/21 14:58 AB [id number]) Orientation Orientation/Cognition Level of Alertness Alert Orientation Name,Place Language Function Ability No Deficits Noted Safety Awareness Decreased Safety Awareness Memory Description Short Term Impaired Gross Range of Motion Lower Extremity ROM Assessment Within Functional Limits Strength Lower Extremity Strength Assessment Left Impaired Hip 3+/5 Knee 3+/5 Muscle Tone Muscle Tone WNL Yes M6 PT-IP Treatment Start: 08/02/21 14:39 Freq: NEEDED Status: Discharge Protocol: Document 08/05/21 10:42 AW (Rec: 08/05/21 12:45 AW [id number]) Physical Therapy Treatment Exercises Exercises Ankle Pumps,Quad Sets Education Education Provided Safety Equipment Issued Equipment Type and Company FWW from [employer] dispensed per MD order. Other Treatments Other Treatment Performed Sized FWW for pt and instructed in safe use. M7 PT-IP Assessment and Plan Start: 08/02/21 14:39 Freq: NEEDED Status: Discharge Protocol: Document 08/05/21 10:42 AW (Rec: 08/05/21 12:45 AW [id number]) PT Summary Assessment and Plan Potential Rehabilitation Potential Good Status of Condition at Evaluation Evolving Summary Impairments Pain,ROM,Strength,Balance, Coordination,Sensation,Tone, Cognition,Bed Mobility, Transfers,Gait,Activity Tolerance Progress Towards Goals Slow Progress due to Medical Issues,Slow Progress due to Activity Tolerance Assessment Summary Pt requiring SBA using FWW increasing to CGA with increased distance and fatigue . Dispensed FWW for pt per MD order. Pt will need assistance at home and HHPT to progress strength, activity tolerance, and mobility independence. Goals Bed Mobility Goal Independent Transfer Goal Independent,Four Wheeled Walker Gait Goal Independent,Four Wheel Walker Gait Distance 150 Days to Meet Goals 10 Frequency of Treatment Frequency Of Treatment Once a Day Treatment Plan Physical Therapy Treatment Plan Bed Mobility Training,Transfer Training,Gait Training, Therapeutic Exercise,Balance Retraining,Discharge Planning, Hot or Cold Pack,Neuromuscular Re-ed,Coordination Retraining Precautions Other Precautions O2 Recommendations To Nursing Amount of Assist Needed Standby Assistance Discharge Recommendations PT Discharge Recommendations Home with Assistance,Home Health Equipment Needed for Home Before FWW? Discharge
[2021-08-05 12:00] VITALS: BP 139/63; PULSE 86; RESP 16; TEMP 36.8; O2SAT 95
--- NOTE | 2021-08-05 12:33 | CM.DPC ---
DCP/continued: Reviewed chart. Per provider patient is medically stable to d/c home today. Order obtained for HH for PT/OT/RN. Met with patient to confirm plan. Patient aware and agreeable to HH if her insurance pays for it. Patient resides with her sister in [place]. Home health has been initiated with [facility]. Order, f2f, and demographic sheet faxed to [facility]. ANIMAL FEEDER spoke with Ann at [facility] and she confirms that they have started referral. P: Home with HH through [facility]. Patient provided with IMM and brochure for [facility]. Patient's sister providing transport. PILAR
--- NOTE | 2021-08-05 18:51 | P.DS_ITS ---
History of Present Illness History of Present Illness Chief complaint: PAIN LOWER BACK SOB Narrative: Ms. Rodriguez is a 61W with PMH COPD, CHF on home O2, pAfib, recent diagnosis of ocular lymphoma, multiple recent hospitalizations who presents with shortness of breath. Of note she has recently moved to [facility]. She had previously lived in [place] and had been per report on hospice. She had a workup for abnormal lung findings in [place] which required lung biopsy, but per her report said no malignancy, but she did not know etiology of lung biopsy. There had been some concern when she was transferred to [facility] for concern for ocular lymphoma, that she may have had sarcoid. Her most recent admission she was noted to have a possible pneumonia. She was discharged with a prednisone taper and had possibly been on 5-10mg of prednisone. She comes in not able to state much of her symptoms. She does note primarily shortness of breath, mild cough, mild chest discomfort. Otherwise history is very difficult to obtain. She has been vaccinated against COVID. She has no abdominal pain, nausea, vomiting. In the ED workup was done, vitals notable for temp of 98.4, hr 95, rr 22, sats 88%. Labs notable for WBC 19.7, hgb 11.2, inr 1.2. CO2 44. COVID negative. ABG ph 7.29, pco2 85, pao2 105. Lactate 1.6. Procalcitonin 0.12. Chest xray showed bilateral pulmonary opacities. CTA of chest showed no PE, and enlarged pulmonary artery. She was placed on BIPAP. She did not have significant improvement in her pco2 with increasing her rate. She was ordered for IV antibiotics and diamox and admitted for further treatment. Discharge Providers Provider Date of admission: 08/02/21 05:37 Discharge Date: 08/05/21 Consults: 08/02/21 03:02 Consult to Physical Therapy Evaluate & Treat Comment: Physician Instructions: Evaluate and Treat 08/02/21 05:44 Consult to Respiratory Therapy Evaluate & Treat Comment: bipap overnight Physician Instructions: Evaluate and treat 08/02/21 08:47 Consult to Dietitian, Adult Routine Comment: Reason For Exam: at risk for malnutrition 08/05/21 09:17 Consult to Physical Therapy Evaluate & Treat Comment: pt requests walker for home use, disch today Physician Instructions: Evaluate and Treat 08/05/21 11:36 Consult to Home Health Routine Comment: DX: COPD Reason For Exam: Home health for PT/OT/windows desktop engineer provider: Brennan Morrison MD Summary Hospital Course Discharge Diagnosis: 1. Acute on chronic hypoxemic and hypercapnic respiratory failure 2. Bacterial pneumonia treated for presumed GPC, GNR and atypical organisms 3. Ocular lymphoma 4. Heart failure with preserved EF 5. Type 2 diabetes 6. Anemia Patient was initially managed in ICU, started on BiPAP and broad-spectrum IV antibiotics. She responded to therapies. Cultures were negative. She is back to baseline O2 requirement. She is being discharged on cefdinir to complete treatment course for pneumonia. Status at Discharge Cognitive/behavioral status at discharge: oriented Functional status at discharge: uses cane/walker Overall status at discharge: patient is progressing back to baseline Time Spent with Patient Time spent: Greater than 30 minutes Exam Vital Signs (past 8 hours): - 08/05/21 12:00 Temperature 98.3 F Pulse Rate 86 Respiratory Rate 16 Blood Pressure 139/63 Pulse Oximetry 95 Fraction of Inspired Oxygen 30 Oxygen Delivery Method Nasal Cannula Oxygen Flow Rate 1 Narrative Exam Narrative: General: Alert and pleasant NAD Lungs: Bilateral lower lobe crackles, no wheeze Heart: Regular rhythm Extremities: No edema Neuro: Well oriented, nonfocal Objective Labs Result Diagrams: 08/05/21 04:46 08/05/21 04:46 Labs: Laboratory Results - last 24 hr 08/05/21 08/05/21 08/05/21 04:46 04:46 04:46 WBC 10.2 RBC 4.08 Hgb 9.6 L Hct 30.4 L MCV 74.5 L MCH 23.5 L MCHC 31.6 RDW 18.0 H Plt Count 307 Neut % (Auto) 96.1 H Lymph % (Auto) 2.2 L [place] % (Auto) 1.6 L Eos % (Auto) 0.0 L Baso % (Auto) 0.1 Neut # (Auto) 9800 H Lymph # (Auto) 200 L [place] # (Auto) 200 Eos # (Auto) 0 Baso # (Auto) 0 Sodium 138 Potassium 3.9 Chloride 100 Carbon Dioxide 39 H BUN 16 Creatinine 0.57 Estimated GFR > 60.0 BUN/Creatinine Ratio 28.1 H Glucose 335 H D Hemoglobin A1c 6.8 H Calcium 8.6 PFSH Medical History Chronic obstructive pulmonary disease Congestive heart failure Ocular lymphoma Social History household members: family Smoking Status: Current every day smoker alcohol intake: current Discharge Plan Discharge Plan Patient Disposition: Home Provider Discharge Comment: You were treated for pneumonia. Finish taking prescribed antibiotic. Discharge orders & Medications Prescriptions: New cefdinir 300 mg capsule 300 mg PO BID Qty: 14 0RF Continued spironolactone 25 mg Tablet 12.5 mg PO DAILY 0RF aspirin 81 mg Tablet,Delayed Release (Dr/Ec) 81 mg PO DAILY Qty: 60 0RF famotidine 40 mg tablet 40 mg PO BID Qty: 60 2RF sucralfate 1 gram Tablet 1 gm PO ACHS Qty: 120 2RF Spiriva with HandiHaler 18 mcg capsule, w/inhalation device 1 cap inhalation DAILY Qty: 90 0RF Rx Instructions: puncture 1 cap using device; one dose = 2 inhalations ProAir RespiClick 90 mcg/actuation Aerosol Powdr Breath Activated 2 inh INHALATION Q4-6H PRN (Reason: Wheezing) 0RF Thera-M Or 1 tab PO DAILY 0RF acetazolamide 250 mg Tablet 250 mg PO BID Qty: 60 2RF ascorbic acid (vitamin C) [Vitamin C] 500 mg Tablet 500 mg PO BID Qty: 60 2RF torsemide 10 mg Tablet 10 mg PO DAILY Qty: 30 2RF benzonatate 100 mg Capsule 100 mg PO TID PRN (Reason: Cough) Qty: 30 0RF Label Comments: doesnt believe she is currently taking. cholecalciferol (vitamin D3) 25 mcg (1,000 unit) Tablet 1,000 unit PO DAILY Qty: 30 2RF prednisone 10 mg tablet 10 mg PO DIRECTED Qty: 60 3RF Label Comments: Pt is unsure about where she is at on pred taper Rx Instructions: 40MG PO DAILY X 4 DAYS 30MG PO DAILY X 4 DAYS 20MG PO DAILY X 3 DAYS 10MG PO DAILY X 3 DAYS 5MG PO DAILY UNTIL STOPPED BY PCP/PULM gabapentin 100 mg capsule 100 mg PO TID Qty: 90 3RF melatonin 10 mg tablet 10 mg PO BEDTIME Qty: 30 3RF trazodone 50 mg tablet 50 mg PO BEDTIME Qty: 30 3RF ipratropium-albuterol 0.5 mg-3 mg(2.5 mg base)/3 mL solution for nebulization 3 ml INH [id number] 0RF Discharge Health Status Multidrug resistant organism: No MDRO Diet/Activity/Treatments Diet: Regular
--- NOTE | 2021-08-09 14:38 | CM.DPNOTE ---
Ann from [facility] called and said they are unable to reach this patient for services. I will let Brigid know. Rivka Vivas CM Assist.
== END 2021-08-05 12:07 | disposition home health service (06) | DRG 177 ==
LOC: ED 08-02 01:22 → ICU 08-02 05:51 → AC 08-06 09:39 → ICU 08-06 09:39
PROVIDERS: Family Medicine; Internal Medicine Critical Care Medicine; Nurse Practitioner Family; Student in an Organized Health Care Education/Training Program; Admitting Provider Internal Medicine; Emergency Provider Emergency Medicine; Referring Provider Emergency Medicine; Visit Provider Internal Medicine
DX: J15.8 Pneumonia due to other specified bacteria (principal); J96.22 Acute and chronic respiratory failure with hypercapnia; J96.21 Acute and chronic respiratory failure with hypoxia; I50.32 Chronic diastolic (congestive) heart failure; J44.1 Chronic obstructive pulmonary disease with (acute) exacerbation; E87.3 Alkalosis; D64.9 Anemia, unspecified; F17.210 Nicotine dependence, cigarettes, uncomplicated; Z20.822 Contact with and (suspected) exposure to COVID-19; Z99.81 Dependence on supplemental oxygen
CPT/HCPCS: 36415; 36600; 71045; 71275; 72100; 80048; 80053; 80202; 82550; 82805; 82962; 83036; 83540; 83550; 83605; 83690; 83880; 84145; 84484; 85025; 85379; 87633; 87797; 93005; 94640; 94660; 94760; 94762; 96361; 96365; 97116; 97162; 97530; 99285; A9270; J1650; J1815; J2543; J2930; Q9967